=== PATIENT | female | born 1995 | race Caucasian/White ===

== ENCOUNTER 2020-03-24 20:26 | Emergency (ER) | payer MEDICAID, SELFPAY ==
[2020-03-24 21:05] VITALS: BP 128/70; PULSE 104; RESP 14; TEMP 37.2; O2SAT 100; BMI 31.1
[2020-03-24 21:25] VITALS: O2SAT 99
--- NOTE | 2020-03-24 21:38 | ECG_ITS ---
Test Reason : PALPITATIONS Blood Pressure : / mmHG Vent. Rate : 093 BPM Atrial Rate : 093 BPM P-R Int : 122 ms QRS Dur : 094 ms QT Int : 336 ms P-R-T Axes : 060 060 047 degrees QTc Int : 417 ms Normal sinus rhythm with sinus arrhythmia Normal ECG When compared with ECG of 18-DEC-2019 23:42, No significant change was found Referred By: Rolf Chavis Electronically Signed By:KATYA PAULSON MD
--- NOTE | 2020-03-24 21:40 | ED_ITS ---
HPI - General Adult General Chief complaint: Upper Respiratory Symptoms Stated complaint: PALPITATIONS,FEVER,COUGH Time Seen by Provider: 03/24/20 21:17 History of Present Illness HPI narrative: 24-year-old female who presents to the emergency department for evaluation palpitations and flu-like symptoms. The patient states that she has a history of depression and was started on Wellbutrin approximately 3 weeks prior. She states that over the last 2 weeks she has developed a fast heart rate and palpitations. She states that her heart rate can go up to 120-130 beats per minute. She states that she can feel her pulse in her neck. She also can feel pressure in her chest when her heart is beating fast. She states that over the last several days she has also had skipped beats. She states that she gets episodes 2 to 3 times a day and they can last anywhere from 15 minutes to 2 hours. The patient states that she recently traveled to [place] with a colleague who had a COVID-19 exposure. The patient states that over the past several days she has had a cough which is nonproductive, a sore throat, nausea, fatigue. She denies myalgias, arthralgias, loss of sense of taste or smell or diarrhea. The patient did speak to her PCP who advised her to go to the emergency department for evaluation. Related Data Allergies Allergy/AdvReac Type Severity Reaction Status Date / Time Iodinated Contrast Media Allergy Severe RASH, ABD Verified 03/24/20 21:13 [CONTRAST,IV] PAINS, BODY FEELS LIKE ON FIRE go Allergy Severe AIRWAY Unverified 01/08/20 16:28 CLOSES shellfish derived Allergy Severe ANAPHYLAXIS Unverified 01/08/20 16:28 [SHELLFISH DERIVED] Sulfa (Sulfonamide Allergy Severe RASH Unverified 01/08/20 16:28 Antibiotics) [SULFA (SULFONAMIDE ANTIBIOTICS)] diphenhydramine Allergy Intermediate PANIC Unverified 01/08/20 16:28 [From BENADRYL] ATTACK hazelnut [HAZELNUT] Allergy Intermediate THROAT Unverified 01/08/20 16:28 IRRITATION [place] Allergy Unknown throat Unverified 03/26/18 00:00 swell ondansetron Allergy Unknown migraine Unverified 01/08/20 16:28 [From ZOFRAN ( HYDROCHLORIDE)] pomegranate [POMEGRANATE] Allergy Unknown DIFFICULTY Unverified 01/08/20 16:28 BREATHING prazosin [PRAZOSIN] Allergy Unknown UNKNOWN Unverified 01/08/20 16:28 topiramate [From TOPAMAX] AdvReac Intermediate AGITATION Unverified 01/08/20 16:28 Aloe Allergy Unknown swelling Uncoded 03/26/18 00:00 IVP Dye Allergy Unknown Unknown Uncoded 03/24/20 21:13 Pomegranite Allergy Unknown Unknown Uncoded 03/24/20 21:13 Shellfish Allergy Unknown Unknown Uncoded 03/24/20 21:13 shellfish Allergy Unknown throat Uncoded 03/26/18 00:00 swelling sulfa Allergy Unknown Unknown Uncoded 03/24/20 21:13 topamax Allergy Unknown Unknown Uncoded 03/24/20 21:13 Review of Systems Review of Systems: Yes all other systems are reviewed and are negative Constitutional: Constitutional: Reports as per HPI Eyes: Eyes: Reports as per HPI ENT: Reports as per HPI Cardiovascular: Cardiovascular: Reports as per HPI Respiratory: Respiratory: Reports as per HPI Gastrointestinal: Gastrointestinal: Reports as per HPI Genitourinary: Genitourinary: Reports as per HPI Musculoskeletal: Musculoskeletal: Reports as per HPI Integumentary/Breasts: Skin/Breast: Reports as per HPI Neurologic: Reports as per HPI and Reports Abnormal speech present Psychiatric: Psychiatric: Reports as per HPI Allergic/Immunologic: Allergic/Immunologic: Reports as per HPI PMFSH Past Medical History Medical History Anxiety Borderline personality disorder Migraines PTSD (post-traumatic stress disorder) Social History Social History Alcohol intake: never Smoked in Last 30 Days: No Use of substances other than those prescribed or required for medical reasons: No Advance Directives: No Advance Directives Information Provided: No Physical Exam Vital Signs: Vital Signs: Last Vital Signs Temp 98.7 F 03/24/20 22:28 Pulse 97 03/24/20 22:28 Resp 16 03/24/20 22:28 BP 115/71 03/24/20 22:28 Pulse Ox 99 03/24/20 22:28 Body Mass Index 31.1 Const: General: cooperative, no acute distress, alert and awake Orientation/consciousness: oriented to person and oriented to place Limitations: no limitations HENMT: Head: Yes normal to inspection, Yes normocephalic and Yes atraumatic Ears: external ears normal General nose exam: Normal external nose present Face and sinus: Yes normal facial exam Mouth: Normal oral and palatal mucosa present Throat: Yes posterior oropharynx normal Eyes: General: appearance normal, both eyes and all related structures Pe riorbital: periorbital findings normal Eyelids: Yes eyelids normal Conjunctivae: conjunctivae normal Sclerae: sclerae normal Corneas: corneas normal Pupils: Equal, round and reactive pupils present Direct Ophthalmo scopy: normal light reflex Neck: Neck: Yes normal visual inspection and Yes supple Thyroid: Thyroid normal and nontender Lymphatic: no lymphadenopathy noted Chest: Chest palpation & inspection: normal inspection of the chest and tenderness (Anterior chest) Resp: Effort & Inspection: normal respiratory effort, abnormal respiratory pattern, no audible wheezes and no respiratory distress Auscultation: clear to auscultation bilaterally, no crackles, no rales, no rhonchi and no wheezes Cardio: Rate: regular rate Rhythm: regular rhythm Heart sounds: S1 normal heart sound present, S2 normal heart sound present and Murmur heart sound present GI: Inspection: No distended Palpation (GI): Soft to palpation, nontender, no guarding and No hepatosplenomegaly present Auscultation: normal bowel sounds : General: Yes no CVA tenderness Back/Spine/Pelvis: Back: no CVA tenderness Skin: General skin exam: no rashes or lesions noted Lesions: no lesions Rashes: no rashes Wounds: no wounds Neuro: General: oriented to person and oriented to place Cranial nerves: Yes CN's II-XII intact bilaterally and Yes Equal, round and reactive pupils present Cognition (Neuro): normal cognition Speech: Abnormal speech present Motor exam (neuro): 5/5 motor strength present throughout Extrem: General: Yes normal to inspection, Yes full ROM, Yes no pedal edema and Yes no calf tenderness Psych: Appearance: grossly normal Mental Status: mental status grossly normal Speech and movement: Clear speech present Affect: normal affect Thought process: Normal thought process present Course Course Course Narrative: 24-year-old female who presents emergency department for evaluation fast heart rate, palpitations and flu-like illness. The patient's physical examination did reveal an elevated pulse of 104 with a normal respiratory rate and normal O2 saturation 100% on room air. Patient was also afebrile with a temperature of 98.9?. I did order a palpitation workup on the patient including troponin and TSH. The patient will also be tested for COVID- 19. 2339: The patient's laboratory evaluation was normal including a normal TSH. The patient's COVID-19 test was negative. I did discuss these findings with the patient. I suspect that the patient's palpitations may be related to the Well butrin that was started 3 weeks prior and I did discuss this with her. The patient was advised to talk to her doctor tomorrow to discuss further management with Wellbutrin. The patient states in the past, she has also been on propanolol to help with palpitations and anxiety and I told her that she should discuss this with her prescribing psychiatric provider. She was given printed instructions and discharged home. Medical Decision Making Lab Data Result diagrams: 03/24/20 22:01 03/24/20 22:01 Labs: Lab Results 03/24/20 03/24/20 03/24/20 Range/Units 22:01 22:01 22:01 WBC 7.7 (4.8-10.8) X10*3/uL RBC 4.73 (4.20-5.50) X10*6/uL Hgb 13.4 (12.0-16.0) g/dl Hct 39.7 (37-47) % MCV 83.9 (80-98) fL MCH 28.3 (27.0-33.0) pg MCHC 33.8 (31.0-35.0) g/dl RDW 12.0 (11.0-16.0) % Plt Count 281 (160-400) X10*3/uL MPV 9.0 L (9.4-12.3) fL Immature Gran % (Auto) 0.1 (0.0-0.4) % Neut % (Auto) 66.2 (45-73) % Lymph % (Auto) 23.2 (20-40) % Richardson % (Auto) 7.2 (2-11) % Eos % (Auto) 2.9 (0-4) % Baso % (Auto) 0.4 (0-2) % Lymph # (Auto) 1.8 (1.2-4.9) X10*3/uL Richardson # (Auto) 0.6 (0.1-1.2) X10*3/uL Eos # (Auto) 0.2 (0.0-0.4) X10*3/uL Baso # (Auto) 0.0 (0.0-0.2) X10*3/uL Abs Immat Gran (auto) 0.01 (0.00-0.03) X10*3/uL Absolute Neuts (auto) 5.1 (2.0-8.3) X10*3/uL Absolute Nucleated RBC 0.000 (0.0-0.012) X10*3/uL Nucleated RBC % (auto) 0.0 (0.0-0.2) /100WBC Hold Blue Top SEE NOTE Sodium (135-145) mmol/L Potassium (3.3-5.1) mmol/l Chloride (96-108) mmol/L Carbon Dioxide (22-29) mmol/L Anion Gap (12-20) BUN (9-16) mg/dL Creatinine (0.5-1.4) mg/dL Estim Creat Clear Calc Estimated GFR Random Glucose (60-115) mg/dL Calcium (8.4-10.2) mg/dL Total Bilirubin (0.0-1.0) mg/dL Direct Bilirubin (0.0-0.5) mg/dL AST (5-31) U/L ALT (0-31) U/L Alkaline Phosphatase (39-117) U/L Troponin I High Sens (<3.5-17.0) ng/L Total Protein (6.5-8.0) g/dL Albumin (3.5-5.0) g/dL TSH 1.10 (0.32-4.0) mIU/mL COVID-19 ([facility]) (Negative) COVID-19 Clin Com 03/24/20 03/24/20 03/24/20 Range/Units 22:01 22:01 22:01 WBC (4.8-10.8) X10*3/uL RBC (4.20-5.50) X10*6/uL Hgb (12.0-16.0) g/dl Hct (37-47) % MCV (80-98) fL MCH (27.0-33.0) pg MCHC (31.0-35.0) g/dl RDW (11.0-16.0) % Plt Count (160-400) X10*3/uL MPV (9.4-12.3) fL Immature Gran % (Auto) (0.0-0.4) % Neut % (Auto) (45-73) % Lymph % (Auto) (20-40) % Richardson % (Auto) (2-11) % Eos % (Auto) (0-4) % Baso % (Auto) (0-2) % Lymph # (Auto) (1.2-4.9) X10*3/uL Richardson # (Auto) (0.1-1.2) X10*3/uL Eos # (Auto) (0.0-0.4) X10*3/uL Baso # (Auto) (0.0-0.2) X10*3/uL Abs Immat Gran (auto) (0.00-0.03) X10*3/uL Absolute Neuts (auto) (2.0-8.3) X10*3/uL Absolute Nucleated RBC (0.0-0.012) X10*3/uL Nucleated RBC % (auto) (0.0-0.2) /100WBC Hold Blue Top Sodium 139 (135-145) mmol/L Potassium 3.8 (3.3-5.1) mmol/l Chloride 105 (96-108) mmol/L Carbon Dioxide 26 (22-29) mmol/L Anion Gap 12 (12-20) BUN 14 (9-16) mg/dL Creatinine 0.67 (0.5-1.4) mg/dL Estim Creat Clear Calc 148.1 Estimated GFR > 60 Random Glucose 82 (60-115) mg/dL Calcium 9.1 (8.4-10.2) mg/dL Total Bilirubin 0.5 (0.0-1.0) mg/dL Direct Bilirubin 0.2 (0.0-0.5) mg/dL AST 12 (5-31) U/L ALT 9 (0-31) U/L Alkaline Phosphatase 55 (39-117) U/L Troponin I High Sens < 3.5 (<3.5-17.0) ng/L Total Protein 6.9 (6.5-8.0) g/dL Albumin 4.2 (3.5-5.0) g/dL TSH (0.32-4.0) mIU/mL COVID-19 ([facility]) (Negative) COVID-19 Clin Com 03/24/20 Range/Units 22:01 WBC (4.8-10.8) X10*3/uL RBC (4.20-5.50) X10*6/uL Hgb (12.0-16.0) g/dl Hct (37-47) % MCV (80-98) fL MCH (27.0-33.0) pg MCHC (31.0-35.0) g/dl RDW (11.0-16.0) % Plt Count (160-400) X10*3/uL MPV (9.4-12.3) fL Immature Gran % (Auto) (0.0-0.4) % Neut % (Auto) (45-73) % Lymph % (Auto) (20-40) % Richardson % (Auto) (2-11) % Eos % (Auto) (0-4) % Baso % (Auto) (0-2) % Lymph # (Auto) (1.2-4.9) X10*3/uL Richardson # (Auto) (0.1-1.2) X10*3/uL Eos # (Auto) (0.0-0.4) X10*3/uL Baso # (Auto) (0.0-0.2) X10*3/uL Abs Immat Gran (auto) (0.00-0.03) X10*3/uL Absolute Neuts (auto) (2.0-8.3) X10*3/uL Absolute Nucleated RBC (0.0-0.012) X10*3/uL Nucleated RBC % (auto) (0.0-0.2) /100WBC Hold Blue Top Sodium (135-145) mmol/L Potassium (3.3-5.1) mmol/l Chloride (96-108) mmol/L Carbon Dioxide (22-29) mmol/L Anion Gap (12-20) BUN (9-16) mg/dL Creatinine (0.5-1.4) mg/dL Estim Creat Clear Calc Estimated GFR Random Glucose (60-115) mg/dL Calcium (8.4-10.2) mg/dL Total Bilirubin (0.0-1.0) mg/dL Direct Bilirubin (0.0-0.5) mg/dL AST (5-31) U/L ALT (0-31) U/L Alkaline Phosphatase (39-117) U/L Troponin I High Sens (<3.5-17.0) ng/L Total Protein (6.5-8.0) g/dL Albumin (3.5-5.0) g/dL TSH (0.32-4.0) mIU/mL COVID-19 ([facility]) Negative (Negative) COVID-19 Clin Com See Note Discharge Plan Discharge Clinical Impression: Palpitation, Upper respiratory infection, viral Patient Disposition: Home, Self-Care Instructions: Heart Palpitations (ED), Cold Symptoms (ED) Additional Instructions: Your blood work was normal including a normal TSH. Your COVID-19 test was negative. At this time I suspect that you probably have an upper respiratory infection caused by a different virus than the COVID-19 virus. I am concerned that the palpitations may be related to Wellbutrin. Do not stop this medication until you discuss your symptoms with your prescribing psychiatric provider. him. Follow-up with your doctor in 2 days. Please return to the emergency department if her symptoms get worse or if you develop any symptoms that are concerning to Referrals: Abdoulaye Ball MD [Primary Care Provider] - 2 days
[2020-03-24 22:00] VITALS: PULSE 93; RESP 16
[2020-03-24 22:08] LABS: Basophils Percent Auto 0.4 % (0-2); Eosinophils Absolute Auto 0.2 X10*3/uL (0.0-0.4); Eosinophils Percent Auto 2.9 % (0-4); Hematocrit 39.7 % (37-47); Hemoglobin 13.4 g/dl (12.0-16.0); Imm Gran Abs Auto 0.01 X10*3/uL (0.00-0.03); Imm Gran Pct Auto 0.1 % (0.0-0.4); Lymphocytes Absolute Auto 1.8 X10*3/uL (1.2-4.9); Lymphocytes Percent Auto 23.2 % (20-40); MANUAL DIFF FLAG NO; Mean Corpuscular HGB Conc 33.8 g/dl (31.0-35.0); Mean Corpuscular Hemoglobin 28.3 pg (27.0-33.0); Mean Corpuscular Volume 83.9 fL (80-98); Monocytes Absolute Auto 0.6 X10*3/uL (0.1-1.2); Monocytes Percent Auto 7.2 % (2-11); Neutrophils Absolute Auto 5.1 X10*3/uL (2.0-8.3); Neutrophils Percent Auto 66.2 % (45-73); Platelet Count 281 X10*3/uL (160-400); Red Blood Count 4.73 X10*6/uL (4.20-5.50); White Blood Count 7.7 X10*3/uL (4.8-10.8)
[2020-03-24 22:24] LABS: COVID-19 Test Negative (Negative); IDNOW Serial# 9DD0AD1C
[2020-03-24 22:28] VITALS: BP 115/71; PULSE 100; PULSE 97; RESP 16; TEMP 37.1; O2SAT 99
[2020-03-24 22:31] LABS: Anion Gap 12 (12-20); Blood Urea Nitrogen 14 mg/dL (9-16); Calcium 9.1 mg/dL (8.4-10.2); Carbon Dioxide 26 mmol/L (22-29); Chloride 105 mmol/L (96-108); Creatinine Clr Calc Pharmacy 148.1; Estimated Glomerular Filt Rate > 60; Glucose Random 82 mg/dL (60-115); Potassium 3.8 mmol/l (3.3-5.1); Sodium 139 mmol/L (135-145)
[2020-03-24 22:33] LABS: Alanine Aminotransferase 9 U/L (0-31); Albumin Level 4.2 g/dL (3.5-5.0); Alkaline Phosphatase 55 U/L (39-117); Aspartate Amino Transferase 12 U/L (5-31); Bilirubin Direct 0.2 mg/dL (0.0-0.5); Bilirubin Total 0.5 mg/dL (0.0-1.0); Total Protein 6.9 g/dL (6.5-8.0)
[2020-03-24 22:37] LABS: Troponin-I High Sensitivity < 3.5 ng/L (<3.5-17.0)
--- NOTE | 2020-03-24 23:01 | PC.NURSE ---
Pt tolerating food and liquid, no apparent distress. pending re-eval
== END 2020-03-25 00:14 | disposition home or self-care (01) ==
PROVIDERS: Emergency Provider Emergency Medicine Emergency Medical Services; PCP Family Medicine
DX: J06.9 Acute upper respiratory infection, unspecified (principal); R00.2 Palpitations; R50.9 Fever, unspecified; R05 Cough; Z20.828 Contact with and (suspected) exposure to other viral communicable diseases
CPT/HCPCS: 36415; 80048; 80076; 84443; 84484; 85025; 87635; 93005; 99284; 99285

== ENCOUNTER 2020-05-28 16:06 | Emergency (ER) | payer MEDICAID, SELFPAY ==
--- NOTE | ~2020-05-28 | XR_ITS ---
EXAMINATION: XR SINUSES CLINICAL INFORMATION: Sinusitis. COMPARISON: None TECHNIQUE: 4 views of the sinuses were obtained. FINDINGS: Paranasal sinuses appear clear without air-fluid levels. No fractures are identified. No radiodense foreign bodies. XR/XR sinus min 3V IMPRESSION: Unremarkable examination.
[2020-05-28 16:59] VITALS: BP 128/74; PULSE 99; RESP 14; TEMP 36.8; O2SAT 100; BMI 29.7
[2020-05-28] MEDS: Acetaminophen 325 MG TABLET 650 MG PO (18:26)
--- NOTE | 2020-05-28 19:33 | ED_ITS ---
HPI - Headache General Chief Complaint: Headache Stated Complaint: jaw pain Time Seen by Provider: 05/28/20 19:33 Source: patient Mode of arrival: ambulatory Limitations: no limitations History of Present Illness HPI Narrative: Patient complaining of bilateral TMJ joints jaw pain for last 1 week patient very anxious with multiple complaints also has chronic sinus infections no fever known face swelling no history of cavities Related Data Allergies Allergy/AdvReac Type Severity Reaction Status Date / Time Iodinated Contrast Media Allergy Severe RASH, ABD Verified 03/24/20 21:13 [CONTRAST,IV] PAINS, BODY FEELS LIKE ON FIRE shubham Allergy Severe AIRWAY Unverified 01/08/20 16:28 CLOSES shellfish derived Allergy Severe ANAPHYLAXIS Unverified 01/08/20 16:28 [SHELLFISH DERIVED] Sulfa (Sulfonamide Allergy Severe RASH Unverified 01/08/20 16:28 Antibiotics) [SULFA (SULFONAMIDE ANTIBIOTICS)] diphenhydramine Allergy Intermediate PANIC Unverified 01/08/20 16:28 [From BENADRYL] ATTACK hazelnut [HAZELNUT] Allergy Intermediate THROAT Unverified 01/08/20 16:28 IRRITATION [place] Allergy Unknown throat Unverified 03/26/18 00:00 swell ondansetron Allergy Unknown migraine Unverified 01/08/20 16:28 [From ZOFRAN ( HYDROCHLORIDE)] pomegranate [POMEGRANATE] Allergy Unknown DIFFICULTY Unverified 01/08/20 16:28 BREATHING prazosin [PRAZOSIN] Allergy Unknown UNKNOWN Unverified 01/08/20 16:28 topiramate [From TOPAMAX] AdvReac Intermediate AGITATION Unverified 01/08/20 16:28 Aloe Allergy Unknown swelling Uncoded 03/26/18 00:00 IVP Dye Allergy Unknown Unknown Uncoded 03/24/20 21:13 Pomegranite Allergy Unknown Unknown Uncoded 03/24/20 21:13 Shellfish Allergy Unknown Unknown Uncoded 03/24/20 21:13 shellfish Allergy Unknown throat Uncoded 03/26/18 00:00 swelling sulfa Allergy Unknown Unknown Uncoded 03/24/20 21:13 topamax Allergy Unknown Unknown Uncoded 03/24/20 21:13 Review of Systems Review of Systems: Yes all other systems are reviewed and are negative PMFSH Past Medical History Medical History Anxiety Borderline personality disorder Migraines PTSD (post-traumatic stress disorder) Social History Social History Alcohol intake: never Smoking Status: Never smoker Smoked in Last 30 Days: No Use of substances other than those prescribed or required for medical reasons: No Advance Directives: No Advance Directives Information Provided: Yes Physical Exam Vital Signs: Vital Signs: Last Vital Signs Temp 98.4 F 05/28/20 20:00 Pulse 96 05/28/20 20:00 Resp 16 05/28/20 20:00 BP 131/70 05/28/20 20:00 Pulse Ox 99 05/28/20 20:00 Body Mass Index 29.7 Const: General: comfortable, no acute distress and anxious Orientation/consciousness: patient oriented x3 HENMT: Head: Yes normocephalic and Yes atraumatic Ears: hearing grossly normal bilaterally General nose exam: Normal nares present Face and sinus: Yes normal facial exam, Yes sinus tenderness (Bilateral maxillary??) and Yes Facial tenderness on exam of face and sinuses (Bilateral TMJ) Mouth: Normal oral and palatal mucosa present Teeth and gingiva: dentition normal and no caries Throat: Yes posterior oropharynx normal Resp: Effort & Inspection: normal respiratory effort Auscultation: clear to auscultation bilaterally Cardio: Palpation: normal PMI Rate: regular rate Rhythm: regular rhythm Heart sounds: S1 normal heart sound present and S2 normal heart sound present Neuro: General: patient oriented x3 MDM - Headache MDM Narrative Medical decision making narrative: Patient x-ray negative for any acute sinusitis symptoms likely from TMJ/anxiety Lab Data Attestation: I reviewed the patient's lab results. Labs: Lab Results 05/28/20 Range/Units 20:14 POC Glucose 83 (60-115) mg/dL Discharge Plan Discharge Clinical Impression: TMJ arthralgia Qualifiers: Laterality: bilateral Qualified Code(s): M26.623 - Arthralgia of bilateral temporomandibular joint Patient Disposition: Home, Self-Care Instructions: Temporomandibular Disorder (ED) Additional Instructions: Take Tylenol/ibuprofen for pain follow-up with dentist Interventions: ED Discharge Assessment Last Done: 05/28/20 21:18 Discharge Date/Time: 05/28/20 21:18
[2020-05-28 20:00] VITALS: BP 131/70; PULSE 96; RESP 16; TEMP 36.9; O2SAT 99
[2020-05-28 20:24] LABS: Glucose, Whole Blood 83 mg/dL (60-115)
--- NOTE | 2020-05-28 20:47 | PC.NURSE ---
PATIENT INSISTING ON HAVING SOMETHING TO EAT BEFORE IMAGING . STATING SHE WILL PASS OUT CAUSE OF LOW BLOOD SUGAR. BLOOD SUGAR TAKEN AND REPORTED TO THIS NURSE AND PROVIDER. PATIENT STATING IN TO MUCH PAIN TO EAT. BUT HAVING NO ISSUE EATING A CHEESE STICK AND JUICE WITH NO DIFFICULTY. AWAITING FOR IMAGING
== END 2020-05-28 21:18 | disposition home or self-care (01) ==
PROVIDERS: Emergency Provider Internal Medicine; PCP Family Medicine
DX: M26.623 Arthralgia of bilateral temporomandibular joint (principal)
CPT/HCPCS: 70220; 82947; 99283; 99284

== ENCOUNTER 2020-07-03 20:37 | Emergency (ER) | payer MEDICAID, SELFPAY ==
--- NOTE | ~2020-07-03 | CT_ITS ---
EXAMINATION: CT ABDOMEN AND PELVIS WITHOUT CONTRAST CLINICAL INFORMATION: Right-sided flank pain. COMPARISON: CT abdomen pelvis 06/09/2016 TECHNIQUE: Multidetector volumetric imaging was performed from the superior aspect of the liver through the pubic symphysis. Sagittal and coronal reformatted images were obtained on the technologist's workstation. This CT examination was performed using dose optimization techniques as appropriate, variously including the following: *Automated exposure control *Adjustment of mA and/or kV according to patient size (this includes techniques or standardized protocols for targeted exams where dose is matched to indication/reason for exam; i.e. extremities or head) *Use of iterative reconstruction technique DLP: 588 mGy-cm FINDINGS: LUNG BASES: The visualized lung bases are unremarkable. LIVER, GALLBLADDER, AND BILIARY TREE: The liver is normal in size, shape, and attenuation. No focal hepatic lesion or biliary ductal dilatation is present. The gallbladder is contracted. There is no bile duct dilatation. PANCREAS: Unremarkable. SPLEEN: Unremarkable. ADRENAL GLANDS: Unremarkable. KIDNEYS AND URETERS: The kidneys are normal in size, shape, and attenuation. No hydronephrosis, hydroureter, or calculi seen. No perinephric stranding. BLADDER: Unremarkable. GASTROINTESTINAL TRACT: There is no acute abnormality. There is no bowel wall thickening /edema. There is no bowel obstruction. There is a moderate to large volume of stool in the colon. The appendix is normal . The small bowel loops are unremarkable. The stomach is normal. There is no hiatal hernia. ABDOMINAL WALL: No significant hernia is appreciated. LYMPH NODES: No change in the size and number of scattered subcentimeter lymph nodes since prior CAT scan 06/09/2016. There is no bulky lymphadenopathy. VASCULAR: Unremarkable. PELVIC VISCERA: The uterus is retroverted. There is no adnexal abnormality. There is a small volume of fluid in the cul-de-sac which can be physiologic. OSSEOUS STRUCTURES: Unremarkable. CT/CT abdomen pelvis wo con IMPRESSION: No significant abnormality.
[2020-07-03 20:40] VITALS: BP 122/65; PULSE 99; RESP 16; TEMP 37.1; O2SAT 98; BMI 29.7
--- NOTE | 2020-07-03 20:59 | ED_ITS ---
HPI - Back Pain/Injury General Chief Complaint: Back Pain/Injury Stated Complaint: BACK PAIN,LOSS OF BALANCE Time Seen by Provider: 07/03/20 20:58 Source: patient Mode of arrival: EMS Limitations: no limitations History of Present Illness HPI Narrative: Patient no significant back problems in the past been having pain especially on the right flank area for last 3 days getting worse now patient feels pain is sharp intermittent getting worse with slight nausea denies any trauma no urinary complaints also feels pain in the legs no urine incontinence denies any dysuria or blood in the urine MD elicited complaint: back pain Onset (ago): day(s) (3) Related Data Previous Rx's Medication Instructions Recorded tramadol 50 mg PO Q6H PRN #20 tab 07/03/20 Allergies Allergy/AdvReac Type Severity Reaction Status Date / Time Iodinated Contrast Media Allergy Severe RASH, ABD Verified 07/03/20 20:46 [CONTRAST,IV] PAINS, BODY FEELS LIKE ON FIRE shubham Allergy Severe AIRWAY Unverified 07/03/20 20:46 CLOSES shellfish derived Allergy Severe ANAPHYLAXIS Unverified 07/03/20 20:46 [SHELLFISH DERIVED] Sulfa (Sulfonamide Allergy Severe RASH Unverified 07/03/20 20:46 Antibiotics) [SULFA (SULFONAMIDE ANTIBIOTICS)] diphenhydramine Allergy Intermediate PANIC Unverified 07/03/20 20:46 [From BENADRYL] ATTACK hazelnut [HAZELNUT] Allergy Intermediate THROAT Unverified 07/03/20 20:46 IRRITATION [place] Allergy Unknown throat Unverified 07/03/20 20:46 swell ondansetron Allergy Unknown migraine Unverified 07/03/20 20:46 [From ZOFRAN ( HYDROCHLORIDE)] pomegranate [POMEGRANATE] Allergy Unknown DIFFICULTY Unverified 07/03/20 20:46 BREATHING prazosin [PRAZOSIN] Allergy Unknown UNKNOWN Unverified 07/03/20 20:46 topiramate [From TOPAMAX] AdvReac Intermediate AGITATION Unverified 07/03/20 20:46 Aloe Allergy Unknown swelling Uncoded 07/03/20 20:46 IVP Dye Allergy Unknown Unknown Uncoded 07/03/20 20:46 Pomegranite Allergy Unknown Unknown Uncoded 07/03/20 20:46 Shellfish Allergy Unknown Unknown Uncoded 07/03/20 20:46 shellfish Allergy Unknown throat Uncoded 07/03/20 20:46 swelling sulfa Allergy Unknown Unknown Uncoded 07/03/20 20:46 topamax Allergy Unknown Unknown Uncoded 07/03/20 20:46 Review of Systems Review of Systems: Constitutional : No Weight loss, No Fever, No Chills ENT/Mouth : No sore throat, No Rhinorrhea Eyes: No Eye Pain, No Swelling Cardiovascular : No Chest Pain, no palpitations Respiratory : No Cough, No Sputum, no shortness of breath Gastrointestinal : no Nausea, No Vomiting, No Diarrhea, No abdominal Pain, no black stools Genitourinary : No Dysuria, No Urinary Frequency Musculoskeletal : No joint pain, No Myalgias, No Joint Swelling Skin : No Skin Lesions, No rash Neuro : No Weakness, No Numbness, No Dizziness, No Headache Psych : No Anxiety/Panic, No Depression Heme/Lymph: No Bruising, No Lymphadenopathy Endocrine : No Polyuria, No Polydipsia All other systems reviewed and are negative [facility] Past Medical History Medical History Anxiety Borderline personality disorder Migraines PTSD (post-traumatic stress disorder) Social History Social History Alcohol intake: never Smoking Status: Never smoker Advance Directives: No Physical Exam Vital Signs: Vital Signs: Last Vital Signs Temp 98.0 F 07/03/20 22:00 Pulse 89 07/03/20 22:00 Resp 16 07/03/20 22:00 BP 110/64 07/03/20 22:00 Pulse Ox 99 07/03/20 22:00 Body Mass Index 29.7 Appearance: Alert. Oriented X3. No acute distress. Eyes: Pupils equal, round and reactive to light. ENT: Pharynx normal. Neck: Normal inspection. Neck supple. CVS: Normal heart rate and rhythm. Pulses normal. Respiratory: No respiratory distress. Breath sounds normal. Abdomen: Soft and nontender. Bowel sounds are present, no mass palpable, right CVA tenderness ++ Skin: Skin warm and dry. Normal skin color. Normal skin turgor. Back: Right CVA tenderness: No midline spine tenderness, paraspinal spasm present Extremities: No lower extremity edema. Straight leg raising test negative Neuro: Oriented X 3. No motor deficit. No sensory deficit. MDM - Back Pain/Injury MDM Narrative Medical decision making narrative: Patient with right flank pain workup is negative for any UTI or kidney stone CT scan essentially negative for any acute pathology or stone will discharge patient home on pain medication Differential Diagnosis Differential diagnosis: Likely renal colic Medical Records Attestation: I reviewed the patient's medical records. Lab Data Attestation: I reviewed the patient's lab results. Result diagrams: 07/03/20 21:41 07/03/20 21:41 Labs: Lab Results 07/03/20 07/03/20 07/03/20 Range/Units 21:41 21:41 21:41 WBC 8.0 (4.8-10.8) X10*3/uL RBC 4.85 (4.20-5.50) X10*6/uL Hgb 14.4 (12.0-16.0) g/dl Hct 42.1 (37-47) % MCV 86.8 (80-98) fL MCH 29.7 (27.0-33.0) pg MCHC 34.2 (31.0-35.0) g/dl RDW 12.5 (11.0-16.0) % Plt Count 299 (160-400) X10*3/uL MPV 9.0 L (9.4-12.3) fL Immature Gran % (Auto) 0.3 (0.0-0.4) % Neut % (Auto) 67.7 (45-73) % Lymph % (Auto) 22.4 (20-40) % [place] % (Auto) 6.9 (2-11) % Eos % (Auto) 2.1 (0-4) % Baso % (Auto) 0.6 (0-2) % Lymph # (Auto) 1.8 (1.2-4.9) X10*3/uL [place] # (Auto) 0.6 (0.1-1.2) X10*3/uL Eos # (Auto) 0.2 (0.0-0.4) X10*3/uL Baso # (Auto) 0.1 (0.0-0.2) X10*3/uL Abs Immat Gran (auto) 0.02 (0.00-0.03) X10*3/uL Absolute Neuts (auto) 5.4 (2.0-8.3) X10*3/uL Absolute Nucleated RBC 0.000 (0.0-0.012) X10*3/uL Nucleated RBC % (auto) 0.0 (0.0-0.2) /100WBC Sodium 141 (135-145) mmol/L Potassium 4.3 (3.3-5.1) mmol/L Chloride 106 (96-108) mmol/L Carbon Dioxide 26 (22-29) mmol/L Anion Gap 13 (12-20) BUN 13 (9-16) mg/dL Creatinine 1.08 (0.5-1.4) mg/dL Estim Creat Clear Calc 89.8 Estimated GFR > 60 Random Glucose 75 (60-115) mg/dL Calcium 9.6 (8.4-10.2) mg/dL Total Bilirubin 0.8 (0.0-1.0) mg/dL Direct Bilirubin 0.2 (0.0-0.5) mg/dL AST 13 (5-31) U/L ALT 8 (0-31) U/L Alkaline Phosphatase 55 (39-117) U/L Total Protein 7.6 (6.5-8.0) g/dL Albumin 4.7 (3.5-5.0) g/dL Lipase 61 (8-78) U/L Urine Color Urine Appearance Urine pH (5.0-8.0) Ur Specific [place] (1.005-1.025) Urine Protein (NEG-TRACE) MG/DL Urine Glucose (UA) (NEG) MG/DL Urine Ketones (NEG) MG/DL Urine Blood (NEG) Urine Nitrite (NEG) Ur Leukocyte Esterase (NEG) Urine RBC (0) /HPF Urine WBC (0-4) /HPF Ur Squamous Epith Cells /LPF Urine Bacteria /LPF Urine Yeast /HPF 07/03/20 Range/Units 21:41 WBC (4.8-10.8) X10*3/uL RBC (4.20-5.50) X10*6/uL Hgb (12.0-16.0) g/dl Hct (37-47) % MCV (80-98) fL MCH (27.0-33.0) pg MCHC (31.0-35.0) g/dl RDW (11.0-16.0) % Plt Count (160-400) X10*3/uL MPV (9.4-12.3) fL Immature Gran % (Auto) (0.0-0.4) % Neut % (Auto) (45-73) % Lymph % (Auto) (20-40) % [place] % (Auto) (2-11) % Eos % (Auto) (0-4) % Baso % (Auto) (0-2) % Lymph # (Auto) (1.2-4.9) X10*3/uL [place] # (Auto) (0.1-1.2) X10*3/uL Eos # (Auto) (0.0-0.4) X10*3/uL Baso # (Auto) (0.0-0.2) X10*3/uL Abs Immat Gran (auto) (0.00-0.03) X10*3/uL Absolute Neuts (auto) (2.0-8.3) X10*3/uL Absolute Nucleated RBC (0.0-0.012) X10*3/uL Nucleated RBC % (auto) (0.0-0.2) /100WBC Sodium (135-145) mmol/L Potassium (3.3-5.1) mmol/L Chloride (96-108) mmol/L Carbon Dioxide (22-29) mmol/L Anion Gap (12-20) BUN (9-16) mg/dL Creatinine (0.5-1.4) mg/dL Estim Creat Clear Calc Estimated GFR Random Glucose (60-115) mg/dL Calcium (8.4-10.2) mg/dL Total Bilirubin (0.0-1.0) mg/dL Direct Bilirubin (0.0-0.5) mg/dL AST (5-31) U/L ALT (0-31) U/L Alkaline Phosphatase (39-117) U/L Total Protein (6.5-8.0) g/dL Albumin (3.5-5.0) g/dL Lipase (8-78) U/L Urine Color COLORLESS Urine Appearance CLEAR Urine pH 7.0 (5.0-8.0) Ur Specific [place] 1.010 (1.005-1.025) Urine Protein NEG (NEG-TRACE) MG/DL Urine Glucose (UA) NEG (NEG) MG/DL Urine Ketones NEG (NEG) MG/DL Urine Blood NEG (NEG) Urine Nitrite NEG (NEG) Ur Leukocyte Esterase 1+ H (NEG) Urine RBC 0 (0) /HPF Urine WBC 0-2 (0-4) /HPF Ur Squamous Epith Cells 1+ /LPF Urine Bacteria TRACE /LPF Urine Yeast TRACE /HPF Discharge Plan Discharge Clinical Impression: Strain of lumbar region Patient Disposition: Home, Self-Care Instructions: Low Back Strain (ED) Additional Instructions: Apply ice to take pain medication as prescribed follow with PCP if not better your CT scan of the abdomen is negative for any kidney stone Prescriptions: New tramadol 50 mg tablet 50 mg PO Q6H PRN (Reason: pain) Qty: 20 RF: 0 Interventions: ED Discharge Assessment Last Done: 07/03/20 23:35 Discharge Date/Time: 07/03/20 23:36
--- NOTE | 2020-07-03 21:00 | PC.NURSE ---
at bedside for primary eval.
[2020-07-03] MEDS: Ketorolac Tromethamine 30 MG/ML VIAL IVPUSH (21:48)
[2020-07-03] MEDS: 0.9 % Sodium Chloride 1,000 ML 999 ML IVCONT (21:48)
--- NOTE | 2020-07-03 21:49 | PC.NURSE ---
IV established, labs and urine obtained and sent. Pt medicated per JUN, aware of plan to CT. Continue to monitor.
[2020-07-03 21:56] LABS: MANUAL DIFF FLAG NO
[2020-07-03 21:57] LABS: Basophils Absolute Auto 0.1 X10*3/uL (0.0-0.2); Basophils Percent Auto 0.6 % (0-2); Eosinophils Absolute Auto 0.2 X10*3/uL (0.0-0.4); Eosinophils Percent Auto 2.1 % (0-4); Hematocrit 42.1 % (37-47); Hemoglobin 14.4 g/dl (12.0-16.0); Imm Gran Abs Auto 0.02 X10*3/uL (0.00-0.03); Imm Gran Pct Auto 0.3 % (0.0-0.4); Lymphocytes Absolute Auto 1.8 X10*3/uL (1.2-4.9); Lymphocytes Percent Auto 22.4 % (20-40); Mean Corpuscular HGB Conc 34.2 g/dl (31.0-35.0); Mean Corpuscular Hemoglobin 29.7 pg (27.0-33.0); Mean Corpuscular Volume 86.8 fL (80-98); Monocytes Absolute Auto 0.6 X10*3/uL (0.1-1.2); Monocytes Percent Auto 6.9 % (2-11); Neutrophils Absolute Auto 5.4 X10*3/uL (2.0-8.3); Neutrophils Percent Auto 67.7 % (45-73); Platelet Count 299 X10*3/uL (160-400); Red Blood Count 4.85 X10*6/uL (4.20-5.50); Red Cell Distribution Width 12.5 % (11.0-16.0)
[2020-07-03 22:00] VITALS: BP 110/64; PULSE 89; RESP 16; TEMP 36.7; O2SAT 99
[2020-07-03 22:00] LABS: Glucose Urine UA NEG (NEG); Leukocyte Esterase Urine 1+ (NEG); Nitrite Urine NEG (NEG); UACC Culture Trigger YES; Urine Blood NEG (NEG); Urine Ketones NEG (NEG); Urine Protein NEG (NEG-TRACE)
--- NOTE | 2020-07-03 22:13 | PC.NURSE ---
Off to CT on hospital bed.
[2020-07-03 22:23] LABS: Appearance Urine CLEAR; Color Urine COLORLESS
[2020-07-03 22:25] LABS: Alanine Aminotransferase 8 U/L (0-31); Albumin Level 4.7 g/dL (3.5-5.0); Alkaline Phosphatase 55 U/L (39-117); Anion Gap 13 (12-20); Aspartate Amino Transferase 13 U/L (5-31); Bilirubin Direct 0.2 mg/dL (0.0-0.5); Bilirubin Total 0.8 mg/dL (0.0-1.0); Blood Urea Nitrogen 13 mg/dL (9-16); Calcium 9.6 mg/dL (8.4-10.2); Carbon Dioxide 26 mmol/L (22-29); Chloride 106 mmol/L (96-108); Creatinine Clr Calc Pharmacy 89.8; Estimated Glomerular Filt Rate > 60; Glucose Random 75 mg/dL (60-115); Potassium 4.3 mmol/L (3.3-5.1); Sodium 141 mmol/L (135-145); Total Protein 7.6 g/dL (6.5-8.0)
[2020-07-03 22:26] LABS: Lipase 61 U/L (8-78)
[2020-07-03 22:31] LABS: Bacteria Urine TRACE /LPF; RBC Urine 0 /HPF (0); Squamous Epithelial Cell Urine 1+ /LPF; WBC Urine 0-2 /HPF (0-4)
== END 2020-07-03 23:36 | disposition home or self-care (01) ==
PROVIDERS: Emergency Provider Internal Medicine
DX: S39.012A Strain of muscle, fascia and tendon of lower back, initial encounter (principal); X58.XXXA Exposure to other specified factors, initial encounter; Y93.9 Activity, unspecified; Y92.9 Unspecified place or not applicable; Y99.9 Unspecified external cause status
CPT/HCPCS: 36415; 74176; 80048; 80076; 81001; 81003; 83690; 85025; 87086; 96361; 96374; 99283; 99284; J1885

== ENCOUNTER 2020-09-06 23:50 | Emergency (ER) | payer MEDICAID, SELFPAY ==
--- NOTE | ~2020-09-06 | XR_ITS ---
EXAMINATION: XR CHEST CLINICAL INFORMATION: Cough COMPARISON: 05/18/2019 TECHNIQUE: 2 views of the chest were obtained. FINDINGS: The lungs are clear with no focal consolidation. No evidence of pneumothorax, pulmonary edema, or pleural effusions. The cardiomediastinal silhouette is unremarkable. No acute osseous findings. XR/XR chest 2V IMPRESSION: No acute cardiopulmonary findings.
--- NOTE | 2020-09-07 00:59 | ED.URI ---
HPI - URI/Sore Throat General Chief Complaint: Nausea/Vomiting/Diarrhea Stated Complaint: covid symptoms Time Seen by Provider: 09/07/20 00:15 Source: patient Mode of arrival: ambulatory Limitations: no limitations History of Present Illness HPI Narrative: 25 yo female with anxiety, migraines here with a couple of days of sore throat, nausea, loose stools, body aches, no known COVID exposures MD elicited complaint: sore throat Onset (ago): day(s) (2) Consistency: constant Severity: moderate Able to tolerate fluids by mouth: Yes Exacerbating factors: swallowing Relieving factors: nothing Associated symptoms: chills, myalgias, sore throat, nausea and diarrhea Treatments prior to arrival: none Related Data Previous Rx's Medication Instructions Recorded tramadol 50 mg PO Q6H PRN #20 tab 07/03/20 metoclopramide HCl [Reglan] 10 mg PO Q6H PRN #20 tab 09/07/20 Allergies Allergy/AdvReac Type Severity Reaction Status Date / Time Iodinated Contrast Media Allergy Severe RASH, ABD Verified 09/07/20 01:41 [CONTRAST,IV] PAINS, BODY FEELS LIKE ON FIRE shubham Allergy Severe AIRWAY Verified 09/07/20 01:41 CLOSES shellfish derived Allergy Severe ANAPHYLAXIS Verified 09/07/20 01:41 [SHELLFISH DERIVED] Sulfa (Sulfonamide Allergy Severe RASH Verified 09/07/20 01:41 Antibiotics) [SULFA (SULFONAMIDE ANTIBIOTICS)] diphenhydramine Allergy Intermediate PANIC Verified 09/07/20 01:41 [From BENADRYL] ATTACK hazelnut [HAZELNUT] Allergy Intermediate THROAT Verified 09/07/20 01:41 IRRITATION [place] Allergy Unknown throat Verified 09/07/20 01:41 swell ondansetron Allergy Unknown migraine Verified 09/07/20 01:41 [From ZOFRAN ( HYDROCHLORIDE)] pomegranate [POMEGRANATE] Allergy Unknown DIFFICULTY Verified 09/07/20 01:41 BREATHING prazosin [PRAZOSIN] Allergy Unknown UNKNOWN Verified 09/07/20 01:41 topiramate [From TOPAMAX] AdvReac Intermediate AGITATION Verified 09/07/20 01:41 propranolol AdvReac Unknown Verified 09/07/20 01:42 Aloe Allergy Unknown swelling Uncoded 09/07/20 01:41 IVP Dye Allergy Unknown Unknown Uncoded 09/07/20 01:41 Pomegranite Allergy Unknown Unknown Uncoded 09/07/20 01:41 Shellfish Allergy Unknown Unknown Uncoded 09/07/20 01:41 shellfish Allergy Unknown throat Uncoded 09/07/20 01:41 swelling sulfa Allergy Unknown Unknown Uncoded 09/07/20 01:41 topamax Allergy Unknown Unknown Uncoded 09/07/20 01:41 Review of Systems Review of Systems: Constitutional : no Fever, positive Chills, positive fatigue, positive Malaise ENT/Mouth : positive sore throat, positive runny nose Eyes: No Discharge Cardiovascular : No Chest Pain, No SOB Respiratory : No Cough, No Sputum Gastrointestinal : pos Nausea, No Vomiting, pos Diarrhea Genitourinary : No Dysuria, No Urinary Frequency Musculoskeletal : positive Myalgia Skin : No rash Neuro : No Headache PMFSH Past Medical History Attestation statement: The following information was validated with the patient. Medical History Anxiety Borderline personality disorder Migraines PTSD (post-traumatic stress disorder) Social History Social History Alcohol intake: never Smoking Status: Never smoker Advance Directives: No Advance Directives Information Provided: No Physical Exam Vital Signs: Vital Signs: Last Vital Signs Temp 98.4 F 09/07/20 01:23 Pulse 99 09/07/20 01:23 Resp 18 09/07/20 01:23 BP 122/78 09/07/20 01:23 Pulse Ox 98 09/07/20 01:23 Body Mass Index 29.7 Appearance: Alert. Oriented X3. No acute distress. Eyes: Pupils equal, round and reactive to light. ENT: Pharynx normal. Very mild erythema, no exudates, no sig swelling noted Neck: Normal inspection. Neck supple. CVS: Normal heart rate and rhythm. Pulses normal. Respiratory: No respiratory distress. Breath sounds normal. Abdomen: Soft and non-tender. Skin: Skin warm and dry. Normal skin color. Normal skin turgor. Extremities: No lower extremity edema. No calf ttp Neuro: Oriented X 3. No motor deficit. No sensory deficit. Course Course Course Narrative: not toxic, VS stable, given diflucan for reported yeast symptoms MDM - URI/Sore Throat MDM Narrative Medical decision making narrative: 25 yo female with hx of anxiety and migraines c/o body aches, sore throat, nausea and loose stools - at this time not toxic, reading a book, will give anti emetic, doubt strep throat very mild erythema COVID test ordered, denies concerns and symptoms, likely viral syndrome Lab Data Labs: Lab Results 09/07/20 09/07/20 09/07/20 Range/Units 01:25 01:33 01:33 Urine Color YELLOW Urine Appearance CLEAR Urine pH 6.0 (5.0-8.0) Ur Specific [place] 1.010 (1.005-1.025) Urine Protein NEG (NEG-TRACE) MG/DL Urine Glucose (UA) NEG (NEG) MG/DL Urine Ketones NEG (NEG) MG/DL Urine Blood NEG (NEG) Urine Nitrite NEG (NEG) Ur Leukocyte Esterase NEG (NEG) Urine Test NEGATIVE (NEGATIVE) COVID-19 (CLAUDE) Negative (Negative) COVID-19 Clin Com See Note Discharge Plan Discharge Clinical Impression: Acute viral syndrome, Yeast vaginitis Patient Disposition: Home, Self-Care Instructions: Acute Nausea and Vomiting (ED), Viral Syndrome (ED) Additional Instructions: return to ED for any worsening symptoms or concerns COVID swab was negative Prescriptions: New metoclopramide HCl [Reglan] 10 mg tablet 10 mg PO Q6H PRN (Reason: nausea and vomiting) Qty: 20 RF: 0 No Action tramadol 50 mg tablet 50 mg PO Q6H PRN (Reason: pain) Qty: 20 RF: 0 Referrals: Abdoulaye Ball MD [Primary Care Provider] - 2 days (if not better) Stand Alone Forms: Work/School Release
[2020-09-07 01:20] VITALS: BP 122/78; PULSE 97; RESP 18; TEMP 36.9; O2SAT 99; BMI 29.7
[2020-09-07 01:23] VITALS: BP 122/78; PULSE 99; RESP 18; TEMP 36.9; O2SAT 98
[2020-09-07 01:39] LABS: Glucose Urine UA NEG (NEG); Leukocyte Esterase Urine NEG (NEG); Nitrite Urine NEG (NEG); Urine Blood NEG (NEG); Urine Ketones NEG (NEG); Urine Protein NEG (NEG-TRACE)
[2020-09-07] MEDS: Metoclopramide HCl 5 MG TABLET PO (01:43)
[2020-09-07 01:45] LABS: Appearance Urine CLEAR; Color Urine YELLOW
[2020-09-07 01:47] LABS: UPreg QC Valid YES; Urine Pregnancy NEGATIVE (NEGATIVE)
[2020-09-07 01:58] LABS: COVID-19 Test Negative (Negative)
[2020-09-07] MEDS: Fluconazole 150 MG TABLET PO (02:34)
[2020-09-07 07:44] LABS: CT PCR NOT DETECTED (Not Detect.); NG PCR NOT DETECTED (Not Detect.)
== END 2020-09-07 02:49 | disposition home or self-care (01) ==
PROVIDERS: Emergency Provider Emergency Medicine; PCP Family Medicine
DX: B34.9 Viral infection, unspecified (principal); B37.3 Candidiasis of vulva and vagina; R11.2 Nausea with vomiting, unspecified; Z79.899 Other long term (current) drug therapy; Z20.822 Contact with and (suspected) exposure to COVID-19
CPT/HCPCS: 36415; 71046; 81003; 81025; 87491; 87591; 87635; 99284

== ENCOUNTER 2020-09-08 01:34 | Emergency (ER) | payer MEDICAID, SELFPAY ==
--- NOTE | ~2020-09-08 | XR_ITS ---
EXAMINATION: XR CHEST CLINICAL INFORMATION: Cough COMPARISON: 09/07/2020 TECHNIQUE: Frontal view of the chest was obtained. FINDINGS: The lungs are clear with no focal consolidation. No evidence of pneumothorax, pulmonary edema, or pleural effusions. The cardiomediastinal silhouette is unremarkable. No acute osseous findings. XR/XR chest 1V IMPRESSION: No acute cardiopulmonary findings.
--- NOTE | 2020-09-08 01:49 | ECG_ITS ---
Test Reason : CHEST PAIN Blood Pressure : / mmHG Vent. Rate : 097 BPM Atrial Rate : 097 BPM P-R Int : 118 ms QRS Dur : 080 ms QT Int : 336 ms P-R-T Axes : 058 027 038 degrees QTc Int : 426 ms Sinus rhythm with occasional Premature ventricular complexes Cannot rule out Anterior infarct , age undetermined Abnormal ECG When compared with ECG of 24-MAR-2020 22:17, Premature ventricular complexes are now Present Referred By: Karley Romero Electronically Signed By:KATYA PAULSON MD
[2020-09-08 01:50] VITALS: BP 128/86; PULSE 97; RESP 22; TEMP 36; O2SAT 100; BMI 29.7
--- NOTE | 2020-09-08 01:55 | ED.ARRPALP ---
HPI - Arrhythmia/Palpitations General Chief Complaint: Arrhythmia/Palpitations Stated Complaint: chest palpitations Time Seen by Provider: 09/08/20 01:48 Source: patient and EMS Mode of arrival: EMS Limitations: no limitations History of Present Illness HPI narrative: 25 yo female 1030pm pleuritic chest pain with palpitations, cough MD complaint: rapid heart beat, heart racing , skipped beats and palpitations Onset (ago): hour(s) (started around 1030pm) Duration: constant Severity: moderate Context: occurred during rest Arrhythmia history: other (hx of palpitations) Associated symptoms: chest pain, shortness of breath and anxiety Related Data Previous Rx's Medication Instructions Recorded tramadol 50 mg PO Q6H PRN #20 tab 07/03/20 metoclopramide HCl [Reglan] 10 mg PO Q6H PRN #20 tab 09/07/20 Allergies Allergy/AdvReac Type Severity Reaction Status Date / Time Iodinated Contrast Media Allergy Severe RASH, ABD Verified 09/07/20 01:41 [CONTRAST,IV] PAINS, BODY FEELS LIKE ON FIRE shubham Allergy Severe AIRWAY Verified 09/07/20 01:41 CLOSES shellfish derived Allergy Severe ANAPHYLAXIS Verified 09/07/20 01:41 [SHELLFISH DERIVED] Sulfa (Sulfonamide Allergy Severe RASH Verified 09/07/20 01:41 Antibiotics) [SULFA (SULFONAMIDE ANTIBIOTICS)] diphenhydramine Allergy Intermediate PANIC Verified 09/07/20 01:41 [From BENADRYL] ATTACK hazelnut [HAZELNUT] Allergy Intermediate THROAT Verified 09/07/20 01:41 IRRITATION [place] Allergy Unknown throat Verified 09/07/20 01:41 swell ondansetron Allergy Unknown migraine Verified 09/07/20 01:41 [From ZOFRAN ( HYDROCHLORIDE)] pomegranate [POMEGRANATE] Allergy Unknown DIFFICULTY Verified 09/07/20 01:41 BREATHING prazosin [PRAZOSIN] Allergy Unknown UNKNOWN Verified 09/07/20 01:41 topiramate [From TOPAMAX] AdvReac Intermediate AGITATION Verified 09/07/20 01:41 propranolol AdvReac Unknown Verified 09/07/20 01:42 Aloe Allergy Unknown swelling Uncoded 09/07/20 01:41 IVP Dye Allergy Unknown Unknown Uncoded 09/07/20 01:41 Pomegranite Allergy Unknown Unknown Uncoded 09/07/20 01:41 Shellfish Allergy Unknown Unknown Uncoded 09/07/20 01:41 shellfish Allergy Unknown throat Uncoded 09/07/20 01:41 swelling sulfa Allergy Unknown Unknown Uncoded 09/07/20 01:41 topamax Allergy Unknown Unknown Uncoded 09/07/20 01:41 Review of Systems Review of Systems: Constitutional : No Weight loss, No Fever, pos Chills ENT/Mouth : No sore throat, No Rhinorrhea Eyes: No Eye Pain, No Swelling Cardiovascular : pos Chest Pain, pos SOB, no Dyspnea on Exertion, No Orthopnea, No Edema, pos Palpitations Respiratory : No Cough, No Sputum Gastrointestinal : pos Nausea, No Vomiting, No Diarrhea, No abdominal Pain, No Hematochezia, No Melena Genitourinary : No Dysuria, No Urinary Frequency Musculoskeletal : No joint pain, No Myalgias, No Joint Swelling Skin : No Skin Lesions, No rash Neuro : No Weakness, No Numbness, No Dizziness, No Headache Psych : No Anxiety/Panic, No Depression Heme/Lymph: No Bruising, No Lymphadenopathy Endocrine : No Polyuria, No Polydipsia All other systems reviewed and are negative [facility] Past Medical History Attestation statement: The following information was validated with the patient. Medical History Anxiety Borderline personality disorder Migraines PTSD (post-traumatic stress disorder) Social History Social History Alcohol intake: never Smoking Status: Never smoker Advance Directives: No Advance Directives Information Provided: No Patient : No Physical Exam Vital Signs: Vital Signs: Last Vital Signs Temp 96.8 F 09/08/20 01:50 Pulse 92 09/08/20 04:00 Resp 14 09/08/20 04:00 BP 103/56 L 09/08/20 04:00 Pulse Ox 99 09/08/20 04:00 Body Mass Index 29.7 Appearance: Alert. Oriented X3. No acute distress. Eyes: Pupils equal, round and reactive to light. ENT: Pharynx normal. Neck: Normal inspection. Neck supple. CVS: Normal heart rate and rhythm. Pulses normal. Respiratory: No respiratory distress. Breath sounds normal. splinting noted Abdomen: Soft and non-tender. Skin: Skin warm and dry. Normal skin color. Normal skin turgor. Extremities: No lower extremity edema. No calf ttp Neuro: Oriented X 3. No motor deficit. No sensory deficit. Course Course Course Narrative: negative troponin x 2, ddimer negative, CXR normal stable for DC MDM - Arrhythmia/Palpitations MDM Narrative Medical decision making narrative: 25 yo female with migraines here last night with URI negative COVID developed chest pain and palpitations at 1030 tonight with a cough at this time will obtain EKG, CXR, repeat COVID swab, troponin and ddimer, IV toradol for pain, dispo per results and findings, lower susp for PE, could be MSK in nature, has no ACS risk factors Lab Data Result diagrams: 09/08/20 01:59 09/08/20 01:59 Labs: Lab Results 09/08/20 09/08/20 09/08/20 Range/Units 01:59 01:59 01:59 WBC 8.5 (4.8-10.8) X10*3/uL RBC 4.03 L (4.20-5.50) X10*6/uL Hgb 11.7 L (12.0-16.0) g/dl Hct 34.9 L (37-47) % MCV 86.6 (80-98) fL MCH 29.0 (27.0-33.0) pg MCHC 33.5 (31.0-35.0) g/dl RDW 11.9 (11.0-16.0) % Plt Count 222 D (160-400) X10*3/uL MPV 9.6 (9.4-12.3) fL Immature Gran % (Auto) 0.4 (0.0-0.4) % Neut % (Auto) 69.5 (45-73) % Lymph % (Auto) 20.5 (20-40) % [place] % (Auto) 7.4 (2-11) % Eos % (Auto) 1.8 (0-4) % Baso % (Auto) 0.4 (0-2) % Lymph # (Auto) 1.7 (1.2-4.9) X10*3/uL [place] # (Auto) 0.6 (0.1-1.2) X10*3/uL Eos # (Auto) 0.2 (0.0-0.4) X10*3/uL Baso # (Auto) 0.0 (0.0-0.2) X10*3/uL Abs Immat Gran (auto) 0.03 (0.00-0.03) X10*3/uL Absolute Neuts (auto) 5.9 (2.0-8.3) X10*3/uL Absolute Nucleated RBC 0.000 (0.0-0.012) X10*3/uL Nucleated RBC % (auto) 0.0 (0.0-0.2) /100WBC Smear Tech's Comments VERIFIED D-Dimer < 200 NG/ML Sodium 141 (135-145) mmol/L Potassium 4.1 (3.3-5.1) mmol/L Chloride 107 (96-108) mmol/L Carbon Dioxide 25 (22-29) mmol/L Anion Gap 13 (12-20) BUN 14 (9-16) mg/dL Creatinine 0.75 (0.5-1.4) mg/dL Estim Creat Clear Calc 128.2 Estimated GFR > 60 Random Glucose 88 (60-115) mg/dL Calcium 9.4 (8.4-10.2) mg/dL Magnesium 2.2 (1.6-2.6) mg/dL Troponin I High Sens (<3.5-17.0) ng/L COVID-19 (CLAUDE) (Negative) COVID-19 Clin Com 09/08/20 09/08/20 09/08/20 Range/Units 01:59 02:00 04:27 WBC (4.8-10.8) X10*3/uL RBC (4.20-5.50) X10*6/uL Hgb (12.0-16.0) g/dl Hct (37-47) % MCV (80-98) fL MCH (27.0-33.0) pg MCHC (31.0-35.0) g/dl RDW (11.0-16.0) % Plt Count (160-400) X10*3/uL MPV (9.4-12.3) fL Immature Gran % (Auto) (0.0-0.4) % Neut % (Auto) (45-73) % Lymph % (Auto) (20-40) % [place] % (Auto) (2-11) % Eos % (Auto) (0-4) % Baso % (Auto) (0-2) % Lymph # (Auto) (1.2-4.9) X10*3/uL [place] # (Auto) (0.1-1.2) X10*3/uL Eos # (Auto) (0.0-0.4) X10*3/uL Baso # (Auto) (0.0-0.2) X10*3/uL Abs Immat Gran (auto) (0.00-0.03) X10*3/uL Absolute Neuts (auto) (2.0-8.3) X10*3/uL Absolute Nucleated RBC (0.0-0.012) X10*3/uL Nucleated RBC % (auto) (0.0-0.2) /100WBC Smear Tech's Comments D-Dimer NG/ML Sodium (135-145) mmol/L Potassium (3.3-5.1) mmol/L Chloride (96-108) mmol/L Carbon Dioxide (22-29) mmol/L Anion Gap (12-20) BUN (9-16) mg/dL Creatinine (0.5-1.4) mg/dL Estim Creat Clear Calc Estimated GFR Random Glucose (60-115) mg/dL Calcium (8.4-10.2) mg/dL Magnesium (1.6-2.6) mg/dL Troponin I High Sens < 3.5 < 3.5 (<3.5-17.0) ng/L COVID-19 (CLAUDE) Negative (Negative) COVID-19 Clin Com See Note ECG Data Attestation: I personally reviewed and interpreted this ECG as follows: ECG interpretation date: 09/08/20 Interpretation: Rate: 96 Rhythm: NSR [place]: normal Normal P waves. Normal SHEILA. Normal QRS complex. ST T wave : normal , no KAYLEE qTC: normal prior studies: no acute ischemia The study has been interpreted contemporaneously by me. . Discharge Plan Discharge Clinical Impression: Palpitations, Chest pain Patient Disposition: Home, Self-Care Instructions: Chest Pain (ED), Heart Palpitations (ED) Additional Instructions: return to ED for any worsening symptoms or concerns Prescriptions: No Action metoclopramide HCl [Reglan] 10 mg tablet 10 mg PO Q6H PRN (Reason: nausea and vomiting) Qty: 20 RF: 0 tramadol 50 mg tablet 50 mg PO Q6H PRN (Reason: pain) Qty: 20 RF: 0 Referrals: Physician,Unknown [Primary Care Provider] - None (cardiology as scheduled) Stand Alone Forms: Work/School Release
[2020-09-08] MEDS: Ketorolac Tromethamine 30 MG/ML VIAL IVPUSH (02:00)
[2020-09-08 02:05] LABS: Basophils Percent Auto 0.4 % (0-2); Hemoglobin 11.7 g/dl (12.0-16.0); Imm Gran Abs Auto 0.03 X10*3/uL (0.00-0.03); Imm Gran Pct Auto 0.4 % (0.0-0.4); Lymphocytes Absolute Auto 1.7 X10*3/uL (1.2-4.9); MANUAL DIFF FLAG SCAN; PLT CLUMP 1; Red Cell Distribution Width 11.9 % (11.0-16.0); SCAN SMEAR FLAG 1
[2020-09-08 02:07] LABS: Eosinophils Absolute Auto 0.2 X10*3/uL (0.0-0.4); Eosinophils Percent Auto 1.8 % (0-4); Hematocrit 34.9 % (37-47); Lymphocytes Percent Auto 20.5 % (20-40); Mean Corpuscular HGB Conc 33.5 g/dl (31.0-35.0); Mean Corpuscular Volume 86.6 fL (80-98); Mean Platelet Volume 9.6 fL (9.4-12.3); Monocytes Absolute Auto 0.6 X10*3/uL (0.1-1.2); Monocytes Percent Auto 7.4 % (2-11); Neutrophils Absolute Auto 5.9 X10*3/uL (2.0-8.3); Neutrophils Percent Auto 69.5 % (45-73); Platelet Count 222 X10*3/uL (160-400); Red Blood Count 4.03 X10*6/uL (4.20-5.50); White Blood Count 8.5 X10*3/uL (4.8-10.8)
[2020-09-08 02:19] LABS: D Dimer < 200 NG/ML
[2020-09-08 02:22] LABS: COVID-19 Test Negative (Negative); IDNOW Serial# 9DD0AD1C
[2020-09-08 02:27] LABS: Anion Gap 13 (12-20); Blood Urea Nitrogen 14 mg/dL (9-16); Calcium 9.4 mg/dL (8.4-10.2); Carbon Dioxide 25 mmol/L (22-29); Chloride 107 mmol/L (96-108); Creatinine Clr Calc Pharmacy 128.2; Estimated Glomerular Filt Rate > 60; Glucose Random 88 mg/dL (60-115); Magnesium 2.2 mg/dL (1.6-2.6); Potassium 4.1 mmol/L (3.3-5.1); Sodium 141 mmol/L (135-145)
[2020-09-08 02:33] LABS: Troponin-I High Sensitivity < 3.5 ng/L (<3.5-17.0)
[2020-09-08 02:35] VITALS: BP 112/71; PULSE 94; RESP 14; O2SAT 98
[2020-09-08 02:41] LABS: SLIDE REVIEW VERIFIED
[2020-09-08 04:00] VITALS: BP 103/56; PULSE 92; RESP 14; O2SAT 99
--- NOTE | 2020-09-08 04:52 | PC.NURSE ---
Patient asked to eat a sandwich as well as have some juice
[2020-09-08 05:10] LABS: Troponin-I High Sensitivity < 3.5 ng/L (<3.5-17.0)
--- NOTE | 2020-09-08 07:59 | ECG_ITS ---
Test Reason : CHEST PAIN Blood Pressure : / mmHG Vent. Rate : 096 BPM Atrial Rate : 096 BPM P-R Int : 118 ms QRS Dur : 082 ms QT Int : 334 ms P-R-T Axes : 054 028 030 degrees QTc Int : 421 ms Normal sinus rhythm Cannot rule out Anterior infarct (cited on or before 08-SEP-2020) Abnormal ECG When compared with ECG of 08-SEP-2020 01:59, Premature ventricular complexes are no longer Present Referred By: Karley Romero Electronically Signed By:KATYA PAULSON MD
== END 2020-09-08 05:41 | disposition home or self-care (01) ==
PROVIDERS: Emergency Provider Emergency Medicine
DX: R00.2 Palpitations (principal); R07.9 Chest pain, unspecified; R05 Cough; Z79.899 Other long term (current) drug therapy; Z20.822 Contact with and (suspected) exposure to COVID-19
CPT/HCPCS: 36415; 71045; 80048; 83735; 84484; 85025; 85379; 87635; 93005; 96372; 99285; J1885

== ENCOUNTER 2020-12-18 20:41 | Emergency (ER) | payer MEDICAID, SELFPAY ==
[2020-12-18 21:00] VITALS: BP 131/65; PULSE 109; RESP 16; TEMP 37; O2SAT 98; BMI 27.6
[2020-12-18 21:44] LABS: COVID-19 Test Negative (Negative)
--- NOTE | 2020-12-18 21:59 | ED.GENADULT ---
HPI - General Adult General Chief complaint: General Medical Stated complaint: multiple complaints Time Seen by Provider: 12/18/20 21:50 Source: patient Mode of arrival: ambulatory History of Present Illness HPI narrative: 25-year-old female who presents with complaints of fatigue, scratchy throat, body aches denies any wheezing or shortness of breath and also describes some suprapubic and urinary discomfort. 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 She denies any fever chills. Related Data Previous Rx's Medication Instructions Recorded tramadol 50 mg tablet 50 mg PO Q6H PRN #20 tab 07/03/20 metoclopramide HCl 10 mg tablet 10 mg PO Q6H PRN #20 tab 09/07/20 (Reglan) nitrofurantoin 100 mg PO Q12H 5 Days #10 cap 12/19/20 monohydrate/macrocrystals 100 mg capsule (Macrobid) Allergies Allergy/AdvReac Type Severity Reaction Status Date / Time Iodinated Contrast Media Allergy Severe RASH, ABD Verified 12/18/20 20:59 [CONTRAST,IV] PAINS, BODY FEELS LIKE ON FIRE shubham Allergy Severe AIRWAY Verified 12/18/20 20:59 CLOSES shellfish derived Allergy Severe ANAPHYLAXIS Verified 12/18/20 20:59 [SHELLFISH DERIVED] Sulfa (Sulfonamide Allergy Severe RASH Verified 12/18/20 20:59 Antibiotics) [SULFA (SULFONAMIDE ANTIBIOTICS)] diphenhydramine Allergy Intermediate PANIC Verified 12/18/20 20:59 [From BENADRYL] ATTACK hazelnut [HAZELNUT] Allergy Intermediate THROAT Verified 12/18/20 20:59 IRRITATION [place] Allergy Unknown throat Verified 12/18/20 20:59 swell ondansetron Allergy Unknown migraine Verified 12/18/20 20:59 [From ZOFRAN ( HYDROCHLORIDE)] pomegranate [POMEGRANATE] Allergy Unknown DIFFICULTY Verified 12/18/20 20:59 BREATHING prazosin [PRAZOSIN] Allergy Unknown UNKNOWN Verified 12/18/20 20:59 topiramate [From TOPAMAX] AdvReac Intermediate AGITATION Verified 12/18/20 20:59 propranolol AdvReac Unknown Verified 12/18/20 20:59 Aloe Allergy Unknown swelling Uncoded 09/07/20 01:41 IVP Dye Allergy Unknown Unknown Uncoded 09/07/20 01:41 Pomegranite Allergy Unknown Unknown Uncoded 09/07/20 01:41 Shellfish Allergy Unknown Unknown Uncoded 09/07/20 01:41 shellfish Allergy Unknown throat Uncoded 09/07/20 01:41 swelling sulfa Allergy Unknown Unknown Uncoded 09/07/20 01:41 topamax Allergy Unknown Unknown Uncoded 09/07/20 01:41 Review of Systems Review of Systems: Pertinent positives and negatives as stated in HPI 10 point review of systems is otherwise negative. [facility] Past Medical History Source: nursing notes reviewed Medical History Anxiety Borderline personality disorder Migraines PTSD (post-traumatic stress disorder) Social History Social History Alcohol intake: never Patient Tobacco Use Status: Former Tobacco user Use of substances other than those prescribed or required for medical reasons: No Advance Directives: No Advance Directives Information Provided: No Physical Exam Vital Signs: Vital Signs: Last Vital Signs Temp 98.3 F 12/18/20 22:00 Pulse 94 12/18/20 22:00 Resp 17 12/18/20 22:00 BP 110/51 L 12/18/20 22:00 Pulse Ox 99 12/18/20 22:00 Body Mass Index 27.6 VITAL SIGNS: Reviewed. GENERAL: Well developed, well nourished, in no acute distress. HEAD: Normocephalic/atraumatic EYES: PERRLA, EOMI EARS: Ext canals without abnormality, TMs non-bulging and non-erythematous NOSE: Nares patent bilateral OROPHARYNX: no oral lesions noted, posterior pharynx clear and non-erythematous without noted tonsillar enlargement/erythema/exudates NECK: Supple, no adenopathy LUNGS: Normal breath sounds, no wheeze no tachypnea. SpO2<98> CARDIOVASCULAR: Regular rate and rhythm without noted murmurs ABDOMEN: Soft, non-tender, non-distended with bowel sounds. SKIN: Inspection of the skin reveals no rashes NEUROLOGIC: Alert and oriented x 4. Strength and sensation to light touch were grossly intact x 4. Course Course Course Narrative: 25-year-old female with history and clinical presentation consistent with viral symptoms no clinical findings to suggest strep pharyngitis and will evaluate for UTI. Review of all investigations significant for UTI. Patient was administered 1st dose of antibiotics and then discharged with remaining course. Otherwise, review of remaining investigations negative for acute findings. Medical Decision Making Lab Data Labs: Lab Results 12/18/20 12/18/20 Range/Units 21:07 21:57 Urine Color OTHER Urine Appearance CLEAR Urine pH 7.0 (5.0-8.0) Ur Specific [place] <= 1.005 (1.005-1.025) Urine Protein NEG (NEG-TRACE) MG/DL Urine Glucose (UA) NEG (NEG) MG/DL Urine Ketones NEG (NEG) MG/DL Urine Blood NEG (NEG) Urine Nitrite NEG (NEG) Ur Leukocyte Esterase TRACE H (NEG) Urine RBC 0 (0) /HPF Urine WBC 1-4 (0-4) /HPF Ur Squamous Epith Cells TRACE /LPF Urine Bacteria 1+ /LPF COVID-19 (CLAUDE) Negative (Negative) COVID-19 Clin Com See Note Discharge Plan Discharge Clinical Impression: UTI (urinary tract infection), Viral syndrome, Lab test negative for COVID-19 virus Patient Disposition: Home, Self-Care Instructions: Urinary Tract Infection in Women (ED), Viral Syndrome (ED) Additional Instructions: 1. Recommend [id number] Tylenol/ibuprofen as needed for body aches and viral symptoms. 2. Please complete the entire course of antibiotics that you have been provided. 3. Follow-up with your primary care provider in the next 2-3 days for re-evaluation. Return to the ER for acute worsening of symptoms. Prescriptions: New nitrofurantoin monohyd/m-cryst [Macrobid] 100 mg capsule 100 mg PO Q12H 5 Days Qty: 10 RF: 0 No Action metoclopramide HCl [Reglan] 10 mg tablet 10 mg PO Q6H PRN (Reason: nausea and vomiting) Qty: 20 RF: 0 tramadol 50 mg tablet 50 mg PO Q6H PRN (Reason: pain) Qty: 20 RF: 0 Referrals: Physician,Unknown [Primary Care Provider] - 2 days
[2020-12-18 22:00] VITALS: BP 110/51; PULSE 94; RESP 17; TEMP 36.8; O2SAT 99
[2020-12-18 22:12] LABS: Glucose Urine UA NEG (NEG); Leukocyte Esterase Urine TRACE (NEG); Nitrite Urine NEG (NEG); Specific Gravity - Urine <= 1.005 (1.005-1.025); UACC Culture Trigger YES; Urine Blood NEG (NEG); Urine Ketones NEG (NEG); Urine Protein NEG (NEG-TRACE)
[2020-12-18 22:28] LABS: Appearance Urine CLEAR; Color Urine OTHER
[2020-12-18 22:29] LABS: Bacteria Urine 1+ /LPF; RBC Urine 0 /HPF (0); Squamous Epithelial Cell Urine TRACE /LPF; UACC CULT YES
--- NOTE | 2020-12-18 22:52 | PC.NURSE ---
patient a&ox3, patient c/o low abd/pelvic area pain, awaiting urine results, vss, will continue to monitor
[2020-12-19] MEDS: Nitrofurantoin Monohyd/M-Cryst 100 MG CAPSULE PO (00:35)
== END 2020-12-19 00:41 | disposition home or self-care (01) ==
PROVIDERS: Emergency Provider Student in an Organized Health Care Education/Training Program
DX: B34.9 Viral infection, unspecified (principal); Z20.822 Contact with and (suspected) exposure to COVID-19; N39.0 Urinary tract infection, site not specified; M79.10 Myalgia, unspecified site
CPT/HCPCS: 36415; 81001; 87086; 87635; 99283; 99284

== ENCOUNTER 2021-01-12 15:59 | Emergency (ER) | payer MEDICAID, SELFPAY ==
--- NOTE | ~2021-01-12 | XR_ITS ---
EXAMINATION: XR CHEST CLINICAL INFORMATION: Chest discomfort COMPARISON: Chest x-ray September 08, 2020 TECHNIQUE: 2 views of the chest were obtained. FINDINGS: No significant abnormality is noted involving the heart, lungs, mediastinum, bony thorax or soft tissues. XR/XR chest 2V IMPRESSION: Unremarkable examination.
[2021-01-12 16:22] VITALS: BP 108/63; PULSE 96; RESP 16; TEMP 36.6; O2SAT 98; BMI 27.2
[2021-01-12] MEDS: LORazepam 1 MG TABLET PO (16:49)
--- NOTE | 2021-01-12 16:53 | ED_ITS ---
HPI - Anxiety General Chief Complaint: Anxiety Stated Complaint: Anxiety/Asthma Time Seen by Provider: 01/12/21 16:37 Source: patient Mode of arrival: ambulatory Limitations: no limitations History of Present Illness HPI narrative: 25 yo female with a longstanding history of asthma, anxiety, depression, panic attacks here with complaints of chest tightness, SOB, cough since last evening. Feels like she is having a panic attack. She believes this to be triggered by starting a new job. Also currently being treated for sinusitis with an antibiotic. She feels like her cough may be from this or from her asthma. She tells me she is allergic to albuterol and so she does not have a inhaler at home. States it makes my lungs burn. No leg, swelling or pain. No fevers, chills. Related Data Previous Rx's Medication Instructions Recorded tramadol 50 mg tablet 50 mg PO Q6H PRN #20 tab 07/03/20 metoclopramide HCl 10 mg tablet 10 mg PO Q6H PRN #20 tab 09/07/20 (Reglan) nitrofurantoin 100 mg PO Q12H 5 Days #10 cap 12/19/20 monohydrate/macrocrystals 100 mg capsule (Macrobid) Allergies Allergy/AdvReac Type Severity Reaction Status Date / Time Iodinated Contrast Media Allergy Severe RASH, ABD Verified 12/18/20 20:59 [CONTRAST,IV] PAINS, BODY FEELS LIKE ON FIRE shubham Allergy Severe AIRWAY Verified 12/18/20 20:59 CLOSES shellfish derived Allergy Severe ANAPHYLAXIS Verified 12/18/20 20:59 [SHELLFISH DERIVED] Sulfa (Sulfonamide Allergy Severe RASH Verified 12/18/20 20:59 Antibiotics) [SULFA (SULFONAMIDE ANTIBIOTICS)] diphenhydramine Allergy Intermediate PANIC Verified 12/18/20 20:59 [From BENADRYL] ATTACK hazelnut [HAZELNUT] Allergy Intermediate THROAT Verified 12/18/20 20:59 IRRITATION [place] Allergy Unknown throat Verified 12/18/20 20:59 swell ondansetron Allergy Unknown migraine Verified 12/18/20 20:59 [From ZOFRAN ( HYDROCHLORIDE)] pomegranate [POMEGRANATE] Allergy Unknown DIFFICULTY Verified 12/18/20 20:59 BREATHING prazosin [PRAZOSIN] Allergy Unknown UNKNOWN Verified 08/28/21 20:59 topiramate [From TOPAMAX] AdvReac Intermediate AGITATION Verified 12/18/20 20:59 propranolol AdvReac Unknown Verified 12/18/20 20:59 Aloe Allergy Unknown swelling Uncoded 09/07/20 01:41 IVP Dye Allergy Unknown Unknown Uncoded 09/07/20 01:41 Pomegranite Allergy Unknown Unknown Uncoded 09/07/20 01:41 Shellfish Allergy Unknown Unknown Uncoded 09/07/20 01:41 shellfish Allergy Unknown throat Uncoded 09/07/20 01:41 swelling sulfa Allergy Unknown Unknown Uncoded 09/07/20 01:41 topamax Allergy Unknown Unknown Uncoded 09/07/20 01:41 Review of Systems Review of Systems: Yes all other systems are reviewed and are negative Constitutional: Constitutional: Reports no additional constitutional complaints, Denies body ache(s), Denies chills, Denies fever(s), Denies headache(s) and Denies weakness Eyes: Eyes: Reports no additional eye complaints and Denies change in vision ENT: Reports system reviewed and no additional complaints, except as documented, Denies dizziness, Denies headache(s), Denies nasal congestion, Denies nasal discharge and Denies neck pain Cardiovascular: Cardiovascular: Reports no additional cardiovascular complaints, Reports chest pain, Denies leg edema and Reports dyspnea Respiratory: Respiratory: Reports no additional respiratory complaints, Reports cough and Reports dyspnea Gastrointestinal: Gastrointestinal: Reports no additional gastrointestinal complaints, Denies abdominal pain, Denies diarrhea, Denies nausea and Denies vomiting Genitourinary: Genitourinary: Reports no additional female genitourinary complaints and Denies urinary incontinence Musculoskeletal: Musculoskeletal: Reports no additional musculoskeletal complaints, Denies back pain, Denies arthralgias, Denies joint swelling, Denies neck pain, Denies numbness and Denies tingling Integumentary/Breasts: Skin/Breast: Reports system reviewed and no additional complaints, except as docu and Denies rash Neurologic: Reports system reviewed and no additional complaints, except as documented, Denies Abnormal speech present, Denies dizziness, Denies headache(s), Denies numbness, Denies tingling and Denies weakness Psychiatric: Psychiatric: Reports anxiety PMFSH Past Medical History Attestation statement: The following information was validated with the patient. Source: old records reviewed and nursing notes reviewed Medical History Anxiety Borderline personality disorder Migraines PTSD (post-traumatic stress disorder) Social History Social History Alcohol intake: unknown Patient Tobacco Use Status: Former Tobacco user Use of substances other than those prescribed or required for medical reasons: Unknown Advance Directives: No Advance Directives Information Provided: No Physical Exam Vital Signs: Vital Signs: Last Vital Signs Temp 98 F 01/12/21 16:22 Pulse 96 01/12/21 16:22 Resp 16 01/12/21 16:22 BP 108/63 01/12/21 16:22 Pulse Ox 98 01/12/21 16:22 Body Mass Index 27.2 Const: General: cooperative, healthy appearing, comfortable, no acute distress and anxious Orientation/consciousness: patient oriented x3 Limitations: no limitations HENMT: Head: Yes normal to inspection Ears: hearing grossly normal bilaterally General nose exam: Normal external nose present Face and sinus: Yes normal facial exam Mouth: Normal oral and palatal mucosa present Throat: Yes posterior oropharynx normal Eyes: General: appearance normal, both eyes and all related structures Pupils: Equal, round and reactive pupils present Neck: Neck: Yes normal visual inspection Chest: Chest palpation & inspection: normal inspection of the chest Resp: Effort & Inspection: normal respiratory effort Auscultation: clear to auscultation bilaterally Cardio: Rate: regular rate Rhythm: regular rhythm Peripheral pulses: Peripheral pulses 2+ throughout GI: Inspection: Yes normal to inspection Palpation (GI): Soft to palpation and nontender Auscultation: normal bowel sounds Back/Spine/Pelvis: Thoracic/Lumbar Spine: thoracic and lumbar spine normal to inspection Skin: General skin exam: no rashes or lesions noted Neuro: General: patient oriented x3, no focal motor deficits and normal sensation to monofilament Cranial nerves: Yes Equal, round and reactive pupils present Cognition (Neuro): normal cognition Speech: No Abnormal speech present Gait exam (Neuro): Normal gait present Motor exam (neuro): 5/5 motor strength present throughout Extrem: General: Yes normal to inspection, Yes no pedal edema and Yes no calf tenderness Course Course Course Narrative: 25 yo female with past medical history of anxiety, asthma here with complaints of chest tightness, cough, shortness of breath and feeling panicked since last evening. Feels like anxiety attack. Will check CXR, give PO ativan and re-assess. 1830 patient is feeling improved. Reviewed worrisome signs and symptoms of when to return to the emergency department. Comfortable discharge home. MDM - Anxiety Medical Records Attestation: I reviewed the patient's medical records. Lab Data Attestation: I reviewed the patient's lab results. Discharge Plan Discharge Clinical Impression: Acute anxiety Patient Disposition: Home, Self-Care Instructions: Anxiety (ED) Prescriptions: No Action metoclopramide HCl [Reglan] 10 mg tablet 10 mg PO Q6H PRN (Reason: nausea and vomiting) Qty: 20 RF: 0 nitrofurantoin monohyd/m-cryst [Macrobid] 100 mg capsule 100 mg PO Q12H 5 Days Qty: 10 RF: 0 tramadol 50 mg tablet 50 mg PO Q6H PRN (Reason: pain) Qty: 20 RF: 0 Referrals: Abdoulaye Ball MD [Primary Care Provider] - 2 days
--- NOTE | 2021-01-12 17:16 | PC.NURSE ---
Pt is hyperventilating in the hallway and states she cant breath and feels like she is going to pass out. Pt reassured, given PO ativan.
--- NOTE | 2021-01-12 18:24 | PC.NURSE ---
Pt appears to have calmed down.
[2021-01-12 18:36] VITALS: BP 116/70; PULSE 88; RESP 18; O2SAT 99
== END 2021-01-12 18:42 | disposition home or self-care (01) ==
PROVIDERS: Emergency Provider Student in an Organized Health Care Education/Training Program; PCP Family Medicine
DX: F41.0 Panic disorder [episodic paroxysmal anxiety] (principal); J45.909 Unspecified asthma, uncomplicated; F33.1 Major depressive disorder, recurrent, moderate; R07.9 Chest pain, unspecified; F41.1 Generalized anxiety disorder; F43.0 Acute stress reaction; Z87.891 Personal history of nicotine dependence; Z79.899 Other long term (current) drug therapy
CPT/HCPCS: 71046; 99283; 99284

== ENCOUNTER 2021-01-17 06:39 | Emergency (ER) | payer MEDICAID, SELFPAY ==
[2021-01-17 06:50] VITALS: BP 125/79; BP 128/82; PULSE 74; PULSE 90; RESP 18; TEMP 36.8; O2SAT 98; BMI 28.8
--- NOTE | 2021-01-17 06:51 | ED.GENADULT ---
HPI - General Adult General Chief complaint: Dizziness Stated complaint: medication reaction Time Seen by Provider: 01/17/21 06:51 Source: patient and EMS Mode of arrival: EMS Limitations: no limitations History of Present Illness HPI narrative: This is a 25-year-old female with past medical history of anxiety, panic attacks, depression, asthma presenting to the emergency department with dizziness. She states that 3 days ago she started a new medication (thinks its tizanidine), muscle relaxer, which was prescribed to her by someone at her PCPs office. She states she feels like her PCP/the office staff dont not like her, and purposely gave her medication that will make her dizzy. She describes the dizziness is constant, and she feels like she is walking on waves. She also states that the same person at her PCPs office prescribed her boric acid suppositories for a yeast infection, she states that this has not worked for her yeast infection, she is still having vaginal itching at this time. She states my inside is on fire for real . She has no other complaints. Denies chest pain, shortness of breath, abdominal pain, dysuria, fevers, chills. Onset (ago): day(s) (3) Radiation: non-radiation Severity: mild Quality: constant Relieving factors: none Exacerbating factors: other (new medications) Treatments prior to arrival: none Related Data Previous Rx's Medication Instructions Recorded tramadol 50 mg tablet 50 mg PO Q6H PRN #20 tab 07/03/20 metoclopramide HCl 10 mg tablet 10 mg PO Q6H PRN #20 tab 09/07/20 (Reglan) nitrofurantoin 100 mg PO Q12H 5 Days #10 cap 12/19/20 monohydrate/macrocrystals 100 mg capsule (Macrobid) cyclobenzaprine 10 mg tablet 10 mg PO TID PRN #10 tab 01/17/21 fluconazole 150 mg tablet 150 mg PO ONCE 1 Days #1 tab 01/17/21 Allergies Allergy/AdvReac Type Severity Reaction Status Date / Time Iodinated Contrast Media Allergy Severe RASH, ABD Verified 12/18/20 20:59 [CONTRAST,IV] PAINS, BODY FEELS LIKE ON FIRE shubham Allergy Severe AIRWAY Verified 12/18/20 20:59 CLOSES shellfish derived Allergy Severe ANAPHYLAXIS Verified 12/18/20 20:59 [SHELLFISH DERIVED] Sulfa (Sulfonamide Allergy Severe RASH Verified 12/18/20 20:59 Antibiotics) [SULFA (SULFONAMIDE ANTIBIOTICS)] diphenhydramine Allergy Intermediate PANIC Verified 12/18/20 20:59 [From BENADRYL] ATTACK hazelnut [HAZELNUT] Allergy Intermediate THROAT Verified 12/18/20 20:59 IRRITATION [employer] Allergy Unknown throat Verified 12/18/20 20:59 swell ondansetron Allergy Unknown migraine Verified 12/18/20 20:59 [From ZOFRAN ( HYDROCHLORIDE)] pomegranate [POMEGRANATE] Allergy Unknown DIFFICULTY Verified 12/18/20 20:59 BREATHING prazosin [PRAZOSIN] Allergy Unknown UNKNOWN Verified 12/18/20 20:59 topiramate [From TOPAMAX] AdvReac Intermediate AGITATION Verified 12/18/20 20:59 propranolol AdvReac Unknown Verified 12/18/20 20:59 Aloe Allergy Unknown swelling Uncoded 09/07/20 01:41 IVP Dye Allergy Unknown Unknown Uncoded 09/07/20 01:41 Pomegranite Allergy Unknown Unknown Uncoded 09/07/20 01:41 Shellfish Allergy Unknown Unknown Uncoded 09/07/20 01:41 shellfish Allergy Unknown throat Uncoded 09/07/20 01:41 swelling sulfa Allergy Unknown Unknown Uncoded 09/07/20 01:41 topamax Allergy Unknown Unknown Uncoded 09/07/20 01:41 Review of Systems Review of Systems: Constitutional : No Fever, No Chills ENT/Mouth : positive oral swelling, No Hoarseness, No Swallowing Difficulty Eyes: No Eye Pain, No Swelling, No Redness Cardiovascular : No Chest Pain, No SOB Respiratory : No Cough, No Sputum, No Wheezing, No Smoke Exposure, No Dyspnea Gastrointestinal : No Nausea, No Vomiting, No Diarrhea, No abdominal Pain Genitourinary : No Dysuria, No Urinary Frequency, No Hematuria, + vaginal itching Musculoskeletal : No joint pain, No Myalgias, No Joint Swelling Skin : No Skin Lesions, positive rash Neuro : No Weakness, No Numbness, No Headache, +dizziness Psych : + Anxiety/Panic, No Depression PMFSH Past Medical History Attestation statement: The following information was validated with the patient. Medical History Anxiety Borderline personality disorder Migraines PTSD (post-traumatic stress disorder) Social History Social History Alcohol intake: unknown Patient Tobacco Use Status: Former Tobacco user Use of substances other than those prescribed or required for medical reasons: Unknown Advance Directives: No Advance Directives Information Provided: No Physical Exam Vital Signs: Vital Signs: Last Vital Signs Temp 98.3 F 01/17/21 06:50 Pulse 88 01/17/21 08:31 Resp 18 01/17/21 08:31 BP 116/70 01/17/21 08:31 Pulse Ox 99 01/17/21 08:31 Body Mass Index 28.8 Appearance: Alert. Oriented X3. No acute distress. Eyes: Pupils equal, round and reactive to light. ENT: Pharynx normal. Neck: Normal inspection. Neck supple. CVS: Normal heart rate and rhythm. Pulses normal. Respiratory: No respiratory distress. Breath sounds normal. Abdomen: Soft and nontender. Skin: Skin warm and dry. Normal skin color. Normal skin turgor. Extremities: No lower extremity edema. No calf ttp Neuro: Oriented X 3. No motor deficit. No sensory deficit. Course Course Course Narrative: Orthostatic vital signs, EKG and UA shows no acute findings. Patient is stable for discharge home Medical Decision Making MDM Narrative Medical decision making narrative: This is a 25-year-old female past medical history anxiety, depression, panic attacks and asthma who presents to the emergency department with 3 days of dizziness status post starting a new muscle relaxer (tizanidine) prescribed to her by someone at her PCPs office. She states that her PCP/ the office staff do not like her, so they prescribed her medication that will make her dizzy. She notes that flexeril has worked for her in the past as well as diflucan usually treats her yeast infection. Suspect anxiety vs med reaction - advised to stop tizanidine Plan- EKG, orthostatic vital signs, UA Lab Data Labs: Lab Results 01/17/21 Range/Units 08:04 Urine Color YELLOW Urine Appearance CLEAR Urine pH 6.0 (5.0-8.0) Ur Specific [place] <= 1.005 (1.005-1.025) Urine Protein NEG (NEG-TRACE) MG/DL Urine Glucose (UA) NEG (NEG) MG/DL Urine Ketones NEG (NEG) MG/DL Urine Blood NEG (NEG) Urine Nitrite NEG (NEG) Ur Leukocyte Esterase NEG (NEG) ECG Data Attestation: I personally reviewed and interpreted this ECG as follows: Prior ECG tracings: available for review Interpretation: Ventricular rate of 79 IN interval normal QRS normal QT/QTC normal. EKG shows normal sinus rhythm with sinus arrhythmia. There are nonspecific T-wave abnormalities noted. No ST elevations. No acute ischemia. No significant changes when compared to previous EKGs Discharge Plan Discharge Clinical Impression: Vaginal yeast infection Adverse reaction to [id number] medication Qualifiers: Encounter type: initial encounter Qualified Code(s): T50.905A - Adverse effect of unspecified drugs, medicaments and biological substances, initial encounter Patient Disposition: Home, Self-Care Additional Instructions: Please stop taking the muscle relaxer you were taking (tizanidine), if it is causing you these symptoms. Take cyclobenzaprine instead He was given fluconazole today for yeast infection, usually when dose is tonight, however, if he keeps having symptoms a 2nd dose of fluconazole has been sent to your pharmacy Please return to the emergency department with new or worsening symptoms Prescriptions: New fluconazole 150 mg tablet 150 mg PO ONCE 1 Days Qty: 1 RF: 0 cyclobenzaprine 10 mg tablet 10 mg PO TID PRN (Reason: muscle spasm) Qty: 10 RF: 0 No Action metoclopramide HCl [Reglan] 10 mg tablet 10 mg PO Q6H PRN (Reason: nausea and vomiting) Qty: 20 RF: 0 nitrofurantoin monohyd/m-cryst [Macrobid] 100 mg capsule 100 mg PO Q12H 5 Days Qty: 10 RF: 0 tramadol 50 mg tablet 50 mg PO Q6H PRN (Reason: pain) Qty: 20 RF: 0 Referrals: Abdoulaye Ball MD [Primary Care Provider] - 2 days Interventions: ED Discharge Assessment Last Done: 01/17/21 08:31 Discharge Date/Time: 01/17/21 08:32
--- NOTE | 2021-01-17 06:55 | ECG_ITS ---
Test Reason : DIZZINEESS Blood Pressure : / mmHG Vent. Rate : 079 BPM Atrial Rate : 079 BPM P-R Int : 130 ms QRS Dur : 090 ms QT Int : 366 ms P-R-T Axes : 059 046 049 degrees QTc Int : 419 ms Normal sinus rhythm with sinus arrhythmia RSR' or QR pattern in V1 suggests right ventricular conduction delay Nonspecific T wave abnormality Abnormal ECG When compared with ECG of 08-SEP-2020 01:59, Nonspecific T wave abnormality is now Present RSR' or QR pattern in V1 suggests right ventricular conduction delay Referred By: Karley Romero Electronically Signed By:EDITH GONZALES
[2021-01-17 07:04] VITALS: BP 118/66; PULSE 85
[2021-01-17 07:05] VITALS: BP 108/64; PULSE 105
[2021-01-17] MEDS: Fluconazole 150 MG TABLET PO (08:02)
--- NOTE | 2021-01-17 08:09 | PC.NURSE ---
Pt states she is feeling better and is sitting up, drinking hot tea. Pt medicated for the yeast infection. Urine sample sent to lab.
[2021-01-17 08:15] LABS: Appearance Urine CLEAR; Color Urine YELLOW; Glucose Urine UA NEG (NEG); Leukocyte Esterase Urine NEG (NEG); Nitrite Urine NEG (NEG); Specific Gravity - Urine <= 1.005 (1.005-1.025); Urine Blood NEG (NEG); Urine Ketones NEG (NEG); Urine Protein NEG (NEG-TRACE)
[2021-01-17 08:31] VITALS: BP 116/70; PULSE 88; RESP 18; O2SAT 99
== END 2021-01-17 08:32 | disposition home or self-care (01) ==
PROVIDERS: Emergency Provider Emergency Medicine; PCP Family Medicine
DX: B37.9 Candidiasis, unspecified (principal); R42 Dizziness and giddiness; F33.1 Major depressive disorder, recurrent, moderate; Z79.899 Other long term (current) drug therapy; Z87.891 Personal history of nicotine dependence
CPT/HCPCS: 81003; 93005; 99283; 99285

== ENCOUNTER 2021-01-18 06:11 | Emergency (ER) | payer MEDICAID, SELFPAY ==
[2021-01-18 06:18] VITALS: BP 111/76; PULSE 100; PULSE 102; RESP 15; TEMP 36.7; O2SAT 95; O2SAT 97; BMI 27.1
--- NOTE | 2021-01-18 06:30 | ED.DIZZY ---
HPI - Dizziness General Chief Complaint: Dizziness Stated Complaint: dizziness, not feeling well Time Seen by Provider: 01/18/21 06:30 Source: patient, EMS and old records reviewed Mode of arrival: EMS Limitations: no limitations History of Present Illness MD elicited complaint: dizziness and lightheadedness Pertinent past history: other (recently Rx tizanidine which makes her dizzy but also was on doxy for sinusitis took for 4 days and stopped due to GI distress) Onset (ago): day(s) (2) Timing: gradual onset Severity: moderate Description: sense of movement, room spinning and lightheadedness Context: change in medication and change in body position Exacerbating factors: movement/ambulation and change in body position Relieving factors: remaining still Associated symptoms: denies other symptoms Related Data Previous Rx's Medication Instructions Recorded tramadol 50 mg tablet 50 mg PO Q6H PRN #20 tab 07/03/20 metoclopramide HCl 10 mg tablet 10 mg PO Q6H PRN #20 tab 09/07/20 (Reglan) nitrofurantoin 100 mg PO Q12H 5 Days #10 cap 12/19/20 monohydrate/macrocrystals 100 mg capsule (Macrobid) cyclobenzaprine 10 mg tablet 10 mg PO TID PRN #10 tab 01/17/21 fluconazole 150 mg tablet 150 mg PO ONCE 1 Days #1 tab 01/17/21 cefuroxime axetil 500 mg tablet 500 mg PO BID 7 Days #14 tab 01/18/21 Allergies Allergy/AdvReac Type Severity Reaction Status Date / Time Iodinated Contrast Media Allergy Severe RASH, ABD Verified 12/18/20 20:59 [CONTRAST,IV] PAINS, BODY FEELS LIKE ON FIRE shubham Allergy Severe AIRWAY Verified 12/18/20 20:59 CLOSES shellfish derived Allergy Severe ANAPHYLAXIS Verified 12/18/20 20:59 [SHELLFISH DERIVED] Sulfa (Sulfonamide Allergy Severe RASH Verified 12/18/20 20:59 Antibiotics) [SULFA (SULFONAMIDE ANTIBIOTICS)] diphenhydramine Allergy Intermediate PANIC Verified 12/18/20 20:59 [From BENADRYL] ATTACK hazelnut [HAZELNUT] Allergy Intermediate THROAT Verified 12/18/20 20:59 IRRITATION Shub[facility] Allergy Unknown throat Verified 12/18/20 20:59 swell ondansetron Allergy Unknown migraine Verified 12/18/20 20:59 [From ZOFRAN ( HYDROCHLORIDE)] pomegranate [POMEGRANATE] Allergy Unknown DIFFICULTY Verified 12/18/20 20:59 BREATHING prazosin [PRAZOSIN] Allergy Unknown UNKNOWN Verified 12/18/20 20:59 topiramate [From TOPAMAX] AdvReac Intermediate AGITATION Verified 12/18/20 20:59 propranolol AdvReac Unknown Verified 12/18/20 20:59 Aloe Allergy Unknown swelling Uncoded 09/07/20 01:41 IVP Dye Allergy Unknown Unknown Uncoded 09/07/20 01:41 Pomegranite Allergy Unknown Unknown Uncoded 09/07/20 01:41 Shellfish Allergy Unknown Unknown Uncoded 09/07/20 01:41 shellfish Allergy Unknown throat Uncoded 09/07/20 01:41 swelling sulfa Allergy Unknown Unknown Uncoded 09/07/20 01:41 topamax Allergy Unknown Unknown Uncoded 09/07/20 01:41 Review of Systems Review of Systems: Constitutional : No Fever, No Chills ENT/Mouth : No sore throat, No Rhinorrhea, pos congestion Eyes: No Eye Pain, No Swelling, No Redness Cardiovascular : No Chest Pain, No SOB Respiratory : No Cough, No Sputum, No Wheezing Gastrointestinal : No Nausea, No Vomiting, No Diarrhea, No abdominal Pain Genitourinary : No Dysuria, No Urinary Frequency, No Hematuria, Musculoskeletal : No joint pain, No Myalgias, No Joint Swelling Skin : No Skin Lesions, No rash Neuro : No Weakness, No Numbness, pos Dizziness, No Headache Psych : No Anxiety/Panic, No Depression All other systems reviewed and are negative PMFSH Past Medical History Attestation statement: The following information was validated with the patient. Medical History Anxiety Borderline personality disorder Migraines PTSD (post-traumatic stress disorder) Social History Social History Alcohol intake: never Patient Tobacco Use Status: Former Tobacco user Use of substances other than those prescribed or required for medical reasons: No Advance Directives: No Advance Directives Information Provided: No Physical Exam Vital Signs: Vital Signs: Last Vital Signs Temp 98.1 F 01/18/21 06:18 Pulse 93 01/18/21 07:02 Resp 16 01/18/21 07:02 BP 110/51 L 01/18/21 07:02 Pulse Ox 98 01/18/21 07:02 Body Mass Index 27.1 Appearance: Alert. Oriented X3. No acute distress. Eyes: Pupils equal, round and reactive to light. ENT: Pharynx normal. normal TMs Neck: Normal inspection. Neck supple. CVS: Normal heart rate and rhythm. Pulses normal. Respiratory: No respiratory distress. Breath sounds normal. Abdomen: Soft and non-tender. Skin: Skin warm and dry. Normal skin color. Normal skin turgor. Extremities: No lower extremity edema. No calf ttp Neuro: Oriented X 3. No motor deficit. No sensory deficit. Course Course Course Narrative: labs and VS stable can be DC home MDM - Dizziness MDM Narrative Medical decision making narrative: 25 yo female with somewhat complex medical history involving allergies and sensitivities to medications comes in again today with c/o dizziness yesterday it was attributed to tizanidine but today she feels it is related to her stopping doxycycline for sinusitis will need labbs, IVF, no neuro findings, no CP/SOB. Doubt PE dispo per results and improvement will switch to ceftin for sinusitis Lab Data Result diagrams: 01/18/21 07:09 01/18/21 07:09 Labs: Lab Results 01/18/21 01/18/21 Range/Units 07:09 07:09 WBC 7.3 (4.8-10.8) X10*3/uL RBC 4.62 (4.20-5.50) X10*6/uL Hgb 13.3 (12.0-16.0) g/dl Hct 39.7 (37-47) % MCV 85.9 (80-98) fL MCH 28.8 (27.0-33.0) pg MCHC 33.5 (31.0-35.0) g/dl RDW 12.5 (11.0-16.0) % Plt Count 267 (160-400) X10*3/uL MPV 8.8 L (9.4-12.3) fL Immature Gran % (Auto) 0.3 (0.0-0.4) % Neut % (Auto) 62.5 (45-73) % Lymph % (Auto) 25.2 (20-40) % [place] % (Auto) 8.9 (2-11) % Eos % (Auto) 2.7 (0-4) % Baso % (Auto) 0.4 (0-2) % Lymph # (Auto) 1.8 (1.2-4.9) X10*3/uL [place] # (Auto) 0.7 (0.1-1.2) X10*3/uL Eos # (Auto) 0.2 (0.0-0.4) X10*3/uL Baso # (Auto) 0.0 (0.0-0.2) X10*3/uL Abs Immat Gran (auto) 0.02 (0.00-0.03) X10*3/uL Absolute Neuts (auto) 4.6 (2.0-8.3) X10*3/uL Absolute Nucleated RBC 0.000 (0.0-0.012) X10*3/uL Nucleated RBC % (auto) 0.0 (0.0-0.2) /100WBC Sodium 139 (135-145) mmol/L Potassium 4.4 (3.3-5.1) mmol/L Chloride 106 (96-108) mmol/L Carbon Dioxide 26 (22-29) mmol/L Anion Gap 11 L (12-20) BUN 8 L (9-16) mg/dL Creatinine 0.75 (0.5-1.4) mg/dL Estim Creat Clear Calc 122.7 Estimated GFR > 60 Random Glucose 92 (60-115) mg/dL Calcium 10.6 H D (8.4-10.2) mg/dL Magnesium 1.9 (1.6-2.6) mg/dL Total Bilirubin 1.0 (0.0-1.0) mg/dL Direct Bilirubin 0.3 (0.0-0.5) mg/dL AST 17 (5-31) U/L ALT 10 (0-31) U/L Alkaline Phosphatase 46 (39-117) U/L Total Protein 7.1 (6.5-8.0) g/dL Albumin 4.2 (3.5-5.0) g/dL Discharge Plan Discharge Clinical Impression: Dizziness Sinusitis Qualifiers: Sinusitis location: maxillary Chronicity: acute Recurrence: non-recurrent Qualified Code(s): J01.00 - Acute maxillary sinusitis, unspecified Patient Disposition: Home, Self-Care Instructions: Sinusitis (ED), Dizziness (ED) Additional Instructions: return to ED for any worsening symptoms or concerns Prescriptions: New cefuroxime axetil 500 mg tablet 500 mg PO BID 7 Days Qty: 14 RF: 0 No Action metoclopramide HCl [Reglan] 10 mg tablet 10 mg PO Q6H PRN (Reason: nausea and vomiting) Qty: 20 RF: 0 nitrofurantoin monohyd/m-cryst [Macrobid] 100 mg capsule 100 mg PO Q12H 5 Days Qty: 10 RF: 0 tramadol 50 mg tablet 50 mg PO Q6H PRN (Reason: pain) Qty: 20 RF: 0 fluconazole 150 mg tablet 150 mg PO ONCE 1 Days Qty: 1 RF: 0 cyclobenzaprine 10 mg tablet 10 mg PO TID PRN (Reason: muscle spasm) Qty: 10 RF: 0 Referrals: Abdoulaye Ball MD [Primary Care Provider] - 2 days (if not better)
[2021-01-18 07:02] VITALS: BP 110/51; PULSE 93; RESP 16; O2SAT 98
[2021-01-18] MEDS: 0.9 % Sodium Chloride 1,000 ML 999 ML IVCONT (07:16)
[2021-01-18 07:22] LABS: MANUAL DIFF FLAG NO
[2021-01-18 07:23] LABS: Basophils Percent Auto 0.4 % (0-2); Eosinophils Absolute Auto 0.2 X10*3/uL (0.0-0.4); Eosinophils Percent Auto 2.7 % (0-4); Hematocrit 39.7 % (37-47); Hemoglobin 13.3 g/dl (12.0-16.0); Imm Gran Abs Auto 0.02 X10*3/uL (0.00-0.03); Imm Gran Pct Auto 0.3 % (0.0-0.4); Lymphocytes Absolute Auto 1.8 X10*3/uL (1.2-4.9); Lymphocytes Percent Auto 25.2 % (20-40); Mean Corpuscular HGB Conc 33.5 g/dl (31.0-35.0); Mean Corpuscular Hemoglobin 28.8 pg (27.0-33.0); Mean Corpuscular Volume 85.9 fL (80-98); Mean Platelet Volume 8.8 fL (9.4-12.3); Monocytes Absolute Auto 0.7 X10*3/uL (0.1-1.2); Monocytes Percent Auto 8.9 % (2-11); Neutrophils Absolute Auto 4.6 X10*3/uL (2.0-8.3); Neutrophils Percent Auto 62.5 % (45-73); Platelet Count 267 X10*3/uL (160-400); Red Blood Count 4.62 X10*6/uL (4.20-5.50); Red Cell Distribution Width 12.5 % (11.0-16.0); White Blood Count 7.3 X10*3/uL (4.8-10.8)
[2021-01-18 07:47] LABS: Alanine Aminotransferase 10 U/L (0-31); Albumin Level 4.2 g/dL (3.5-5.0); Alkaline Phosphatase 46 U/L (39-117); Anion Gap 11 (12-20); Aspartate Amino Transferase 17 U/L (5-31); Bilirubin Direct 0.3 mg/dL (0.0-0.5); Blood Urea Nitrogen 8 mg/dL (9-16); Calcium 10.6 mg/dL (8.4-10.2); Carbon Dioxide 26 mmol/L (22-29); Chloride 106 mmol/L (96-108); Creatinine Clr Calc Pharmacy 122.7; Estimated Glomerular Filt Rate > 60; Glucose Random 92 mg/dL (60-115); Magnesium 1.9 mg/dL (1.6-2.6); Potassium 4.4 mmol/L (3.3-5.1); Sodium 139 mmol/L (135-145); Total Protein 7.1 g/dL (6.5-8.0)
--- NOTE | 2021-01-18 08:13 | PC.NURSE ---
IV removed catheter tip intact no complications
== END 2021-01-18 08:15 | disposition home or self-care (01) ==
PROVIDERS: Emergency Provider Emergency Medicine; PCP Family Medicine
DX: J01.00 Acute maxillary sinusitis, unspecified (principal); R42 Dizziness and giddiness; Z79.899 Other long term (current) drug therapy; Z87.891 Personal history of nicotine dependence
CPT/HCPCS: 36415; 80048; 80076; 83735; 85025; 96360; 99284

== ENCOUNTER 2021-02-16 07:44 | Emergency (ER) | payer MEDICAID, SELFPAY ==
[2021-02-16 08:06] VITALS: BP 121/69; PULSE 92; RESP 18; TEMP 36.3; O2SAT 97; BMI 27.3
--- NOTE | 2021-02-16 09:03 | ED.BACK ---
HPI - Back Pain/Injury General Chief Complaint: Back Pain/Injury Stated Complaint: multiple complaints Time Seen by Provider: 02/16/21 08:09 Source: patient Mode of arrival: ambulatory Limitations: no limitations History of Present Illness HPI Narrative: 25-year-old female with a history of chronic low back pain due to herniated discs and bone spurs in her lower back, history hypermobility syndrome who presents to the ER with left lower back pain that started yesterday after she was moving all things in her apartment. She reports her cats have fleas and she needed to move every single thing in her apartment out down to the basement so that she could mom the apartment and adequately treated. She has been taking Flexeril with no improvement in the pain. She denies any trauma or fall. The pain is aching and sharp in nature, worse with movement worse with palpation, no radiation. She has no urinary symptoms, abdominal pain, nausea, vomiting, fever, chills. Patient also reports a lesion on her right cheek that she thinks is a spider bite. She has been putting triamcinolone on it with some improvement. She states her right eye was slightly swollen which is superior to the lesion. No vision changes no fever or chills. She also reports being on antibiotics for sinus infection and states she has a yeast infection. She has some white thick discharge and itching. Just started today. No concern for STI or . MD elicited complaint: back pain Pertinent past history: prior back pain Onset (ago): day(s) (1) Timing: constant Severity: moderate Similar Symptoms Previously: Yes Quality: aching and spasming Location: left lower back Radiation: none Exacerbating factors: movement and coughing/sneezing Relieving factors: immobilization and supine Context: while lifting and turning/twisting Associated symptoms: denies other symptoms Treatments prior to arrival: other (Muscle relaxer) Work related injury: No Related Data Previous Rx's Medication Instructions Recorded tramadol 50 mg tablet 50 mg PO Q6H PRN #20 tab 07/03/20 metoclopramide HCl 10 mg tablet 10 mg PO Q6H PRN #20 tab 09/07/20 (Reglan) nitrofurantoin 100 mg PO Q12H 5 Days #10 cap 12/19/20 monohydrate/macrocrystals 100 mg capsule (Macrobid) cyclobenzaprine 10 mg tablet 10 mg PO TID PRN #10 tab 01/17/21 fluconazole 150 mg tablet 150 mg PO ONCE 1 Days #1 tab 01/17/21 cefuroxime axetil 500 mg tablet 500 mg PO BID 7 Days #14 tab 01/18/21 fluconazole 150 mg tablet 150 mg PO Q3D #2 tab 02/16/21 (Diflucan) ibuprofen 600 mg tablet 600 mg PO Q8H PRN #20 tab 02/16/21 lidocaine 5 % topical patch 1 patch TOPICAL DAILY #15 ea 02/16/21 mupirocin 2 % topical ointment 1 appl TOPICAL TID #15 g 02/16/21 Allergies Allergy/AdvReac Type Severity Reaction Status Date / Time Iodinated Contrast Media Allergy Severe RASH, ABD Verified 12/18/20 20:59 [CONTRAST,IV] PAINS, BODY FEELS LIKE ON FIRE shubham Allergy Severe AIRWAY Verified 12/18/20 20:59 CLOSES shellfish derived Allergy Severe ANAPHYLAXIS Verified 12/18/20 20:59 [SHELLFISH DERIVED] Sulfa (Sulfonamide Allergy Severe RASH Verified 12/18/20 20:59 Antibiotics) [SULFA (SULFONAMIDE ANTIBIOTICS)] diphenhydramine Allergy Intermediate PANIC Verified 12/18/20 20:59 [From BENADRYL] ATTACK hazelnut [HAZELNUT] Allergy Intermediate THROAT Verified 12/18/20 20:59 IRRITATION [place] Allergy Unknown throat Verified 12/18/20 20:59 swell ondansetron Allergy Unknown migraine Verified 12/18/20 20:59 [From ZOFRAN ( HYDROCHLORIDE)] pomegranate [POMEGRANATE] Allergy Unknown DIFFICULTY Verified 12/18/20 20:59 BREATHING prazosin [PRAZOSIN] Allergy Unknown UNKNOWN Verified 12/18/20 20:59 topiramate [From TOPAMAX] AdvReac Intermediate AGITATION Verified 12/18/20 20:59 propranolol AdvReac Unknown Verified 12/18/20 20:59 Aloe Allergy Unknown swelling Uncoded 09/07/20 01:41 IVP Dye Allergy Unknown Unknown Uncoded 09/07/20 01:41 Pomegranite Allergy Unknown Unknown Uncoded 09/07/20 01:41 Shellfish Allergy Unknown Unknown Uncoded 09/07/20 01:41 shellfish Allergy Unknown throat Uncoded 09/07/20 01:41 swelling sulfa Allergy Unknown Unknown Uncoded 09/07/20 01:41 topamax Allergy Unknown Unknown Uncoded 09/07/20 01:41 Review of Systems Review of Systems: Constitutional: No Fever, No Chills ENT/Mouth: No sore throat, No Rhinorrhea, No Swallowing Difficulty Eyes: No Eye Pain, + Swelling, No Redness Cardiovascular: No Chest Pain, No SOB Gastrointestinal: No Nausea, No Vomiting, No Diarrhea, No abdominal Pain Genitourinary: No Dysuria, No Urinary Frequency, No Hematuria, Vaginal discharge, +vaginal itchiness Musculoskeletal: No joint pain, + Myalgias Skin: + Skin Lesions, No rash Neuro: No Weakness, No Numbness Heme/Lymph: No Bruising, No Lymphadenopathy PMFSH Past Medical History Medical History Anxiety Borderline personality disorder Migraines PTSD (post-traumatic stress disorder) Social History Social History Alcohol intake: never Patient Tobacco Use Status: Former Tobacco user Use of substances other than those prescribed or required for medical reasons: No Advance Directives: No Advance Directives Information Provided: No Patient : No Physical Exam Vital Signs: Vital Signs: Last Vital Signs Temp 97.4 F 02/16/21 08:06 Pulse 92 02/16/21 08:06 Resp 18 02/16/21 08:06 BP 121/69 02/16/21 08:06 Pulse Ox 97 02/16/21 08:06 Body Mass Index 27.3 Appearance: Alert. Oriented X3. No acute distress. Eyes: Pupils equal, round and reactive to light. No periorbital swelling or erythema. EOMI. ENT: Pharynx normal. Neck: Normal inspection. CVS: Normal heart rate and rhythm. Pulses normal. Respiratory: No respiratory distress. Breath sounds normal. Abdomen: Soft and nontender. +BS x4 Back: Normal inspection. Tenderness of the middle and upper lumbar soft tissue areas on the left side. No lumbar spinal tenderness. No CVA tenderness normal range of motion of the spine. Skin: Skin warm and dry. Normal skin color. Normal skin turgor. There is a small circular lesion over right maxillary area with erythema and tenderness with central minor ulceration, no drainage. Extremities: Atraumatic x4 negative let leg raise x2 Neuro: Oriented X 3. No motor deficit. No sensory deficit. Ambulates with steady gait Course Course Course Narrative: 25-year-old female presenting with multiple complaints. She has left lower back pain after lifting and twisting 2 days ago. No weakness or numbness associated with this. No fever or chills. She also has a mild what appears to be an insect bite on her right cheek without any surrounding cellulitis. No drainage. In addition she reports signs and symptoms of yeast infection. Pelvic exam deferred at this time patient declines. She is on antibiotics for a sinus infection and states she has had yeast infections before this feels similar. No concern for STI or . Will plan to check a UA and U preg. Doubt any UTI or pyelonephritis. Her back pain seems to be muscular. Will treat with still on Mohit and Toradol and reassess. Reevaluation(s) Reevaluation #1: Urinalysis is negative for infection. She is feeling better after the lidocaine and Toradol. Will plan to treat for lumbar strain with NSAID and topical lidocaine. Will also give empiric treatment for vaginal yeast infection in the setting of being on orals antibiotics. Will give topical mupirocin for her bug bite on her face. She agrees to follow-up with her doctor for further management. She is stable for discharge home. MDM - Back Pain/Injury Lab Data Labs: Lab Results 02/16/21 02/16/21 Range/Units 08:49 08:49 Urine Color STRAW Urine Appearance HAZY Urine pH 6.0 (5.0-8.0) Ur Specific [place] <= 1.005 (1.005-1.025) Urine Protein NEG (NEG-TRACE) MG/DL Urine Glucose (UA) NEG (NEG) MG/DL Urine Ketones NEG (NEG) MG/DL Urine Blood NEG (NEG) Urine Nitrite NEG (NEG) Ur Leukocyte Esterase NEG (NEG) Urine Test NEGATIVE (NEGATIVE) Critical Care Time Critical Care Time Critical Care Time: No Discharge Plan Discharge Clinical Impression: Strain of lumbar region Qualifiers: Encounter type: initial encounter Qualified Code(s): S39.012A - Strain of muscle, fascia and tendon of lower back, initial encounter Patient Disposition: Home, Self-Care Instructions: Low Back Strain (ED), Lower Back Exercises (ED) Additional Instructions: Your back pain is most likely muscular strain and spasm from your recent activity and lifting. No bending, lifting or twisting. Use ice several times per day for 20 minutes at a time for the next 48 hours and then change to heat. Take medications as prescribed to help with pain and discomfort. Use the prescribed antibiotic ointment on the lesion on her face. Avoid topical steroids this area. You can use ice as needed for swelling and discomfort. Take the prescribed Diflucan for your yeast infection. repeat the dose in 3 days if you are still having symptoms. Continue taking the previously prescribed antibiotics for sinus infection. Follow up with your Primary Care Doctor this week. If your pain worsens, if you develop new numbness, tingling, weakness, loss of function or incontinence call 911 or come back to the ER right away for evaluation. Prescriptions: New ibuprofen 600 mg tablet 600 mg PO Q8H PRN (Reason: pain) Qty: 20 RF: 0 lidocaine 5 % adhesive patch,medicated 1 patch topical DAILY Qty: 15 RF: 0 mupirocin 2 % ointment 1 appl topical TID Qty: 15 RF: 0 fluconazole [Diflucan] 150 mg tablet 150 mg PO Q3D Qty: 2 RF: 0 No Action metoclopramide HCl [Reglan] 10 mg tablet 10 mg PO Q6H PRN (Reason: nausea and vomiting) Qty: 20 RF: 0 nitrofurantoin monohyd/m-cryst [Macrobid] 100 mg capsule 100 mg PO Q12H 5 Days Qty: 10 RF: 0 tramadol 50 mg tablet 50 mg PO Q6H PRN (Reason: pain) Qty: 20 RF: 0 fluconazole 150 mg tablet 150 mg PO ONCE 1 Days Qty: 1 RF: 0 cyclobenzaprine 10 mg tablet 10 mg PO TID PRN (Reason: muscle spasm) Qty: 10 RF: 0 cefuroxime axetil 500 mg tablet 500 mg PO BID 7 Days Qty: 14 RF: 0 Interventions: ED Discharge Assessment Last Done: 02/16/21 09:45
[2021-02-16] MEDS: Lidocaine 4 % Patch ADH..PATCH 1 PATCH TRANSDERMA (09:08)
[2021-02-16] MEDS: Ketorolac Tromethamine 15 MG/ML VIAL 30 MG IM (09:08)
[2021-02-16 09:11] LABS: Appearance Urine HAZY; Color Urine STRAW; Glucose Urine UA NEG (NEG); Leukocyte Esterase Urine NEG (NEG); Nitrite Urine NEG (NEG); Specific Gravity - Urine <= 1.005 (1.005-1.025); Urine Blood NEG (NEG); Urine Ketones NEG (NEG); Urine Protein NEG (NEG-TRACE)
[2021-02-16 09:13] LABS: UPreg QC Valid YES; Urine Pregnancy NEGATIVE (NEGATIVE)
== END 2021-02-16 09:45 | disposition home or self-care (01) ==
PROVIDERS: Physician Assistant; Emergency Provider Emergency Medicine; PCP Family Medicine
DX: S39.012A Strain of muscle, fascia and tendon of lower back, initial encounter (principal); B37.3 Candidiasis of vulva and vagina; X50.9XXA Other and unspecified overexertion or strenuous movements or postures, initial encounter; Y93.9 Activity, unspecified; Y92.9 Unspecified place or not applicable; Y99.9 Unspecified external cause status
CPT/HCPCS: 81003; 81025; 96372; 99284; J1885

== ENCOUNTER 2021-03-03 22:04 | Emergency (ER) | payer MEDICAID, SELFPAY ==
[2021-03-03 22:06] VITALS: BP 109/65; PULSE 101; RESP 19; TEMP 36.7; O2SAT 99; BMI 27.3
--- NOTE | 2021-03-03 23:56 | ED.GENADULT ---
HPI - General Adult General Chief complaint: General Medical Stated complaint: pain from shoulders and up Time Seen by Provider: 03/03/21 23:26 Source: patient Mode of arrival: ambulatory Limitations: no limitations History of Present Illness HPI narrative: 25-year-old female with a history of chronic back pain, herniated discs, hypermobility syndrome, anxiety, borderline personality who presents to the ER with bilateral neck pain and jaw pain. She reports the pain has been going on for the last 1 week and she is having difficulty opening her jaw fully she is feeling clicking when she opens her jaw. She is able to eat and drink but it is painful at times. She has a history of TMJ in the past. She is due to see her dentist now. She denies any trauma. She admits to increased stress and anxiety at home, with significant underlying issues with her mother. She is in speaking with a therapist weekly for the last 12 years. She recently had to quit her job due to physical and mental issues. She reports worsening depression, and not being able to sustain a job or live her life fully because of this. She denies any suicidality or homicidality. She takes Wellbutrin which helps but feels like she needs more. She denies any drugs or alcohol use. MD complaint: Neck pain, jaw pain, depression Onset (ago): day(s) Location: head, face, mouth and neck Radiation: non-radiation Severity: moderate Severity scale (1-10): 5 Quality: aching and sharp Pain Consistency: intermittent Relieving factors: none Exacerbating factors: eating Treatments prior to arrival: none Related Data Previous Rx's Medication Instructions Recorded tramadol 50 mg tablet 50 mg PO Q6H PRN #20 tab 07/03/20 metoclopramide HCl 10 mg tablet 10 mg PO Q6H PRN #20 tab 09/07/20 (Reglan) nitrofurantoin 100 mg PO Q12H 5 Days #10 cap 12/19/20 monohydrate/macrocrystals 100 mg capsule (Macrobid) cyclobenzaprine 10 mg tablet 10 mg PO TID PRN #10 tab 01/17/21 fluconazole 150 mg tablet 150 mg PO ONCE 1 Days #1 tab 01/17/21 cefuroxime axetil 500 mg tablet 500 mg PO BID 7 Days #14 tab 01/18/21 fluconazole 150 mg tablet 150 mg PO Q3D #2 tab 10/27/21 (Diflucan) ibuprofen 600 mg tablet 600 mg PO Q8H PRN #20 tab 02/16/21 lidocaine 5 % topical patch 1 patch TOPICAL DAILY #15 ea 02/16/21 mupirocin 2 % topical ointment 1 appl TOPICAL TID #15 g 02/16/21 cyclobenzaprine 10 mg tablet 10 mg PO TID PRN #14 tab 03/03/21 ibuprofen 600 mg tablet 600 mg PO Q8H PRN #20 tab 03/03/21 lidocaine 5 % topical patch 1 patch TOPICAL DAILY #15 ea 03/03/21 Allergies Allergy/AdvReac Type Severity Reaction Status Date / Time Iodinated Contrast Media Allergy Severe RASH, ABD Verified 12/18/20 20:59 [CONTRAST,IV] PAINS, BODY FEELS LIKE ON FIRE shubham Allergy Severe AIRWAY Verified 12/18/20 20:59 CLOSES shellfish derived Allergy Severe ANAPHYLAXIS Verified 12/18/20 20:59 [SHELLFISH DERIVED] Sulfa (Sulfonamide Allergy Severe RASH Verified 12/18/20 20:59 Antibiotics) [SULFA (SULFONAMIDE ANTIBIOTICS)] diphenhydramine Allergy Intermediate PANIC Verified 12/18/20 20:59 [From BENADRYL] ATTACK hazelnut [HAZELNUT] Allergy Intermediate THROAT Verified 12/18/20 20:59 IRRITATION [place] Allergy Unknown throat Verified 12/18/20 20:59 swell ondansetron Allergy Unknown migraine Verified 12/18/20 20:59 [From ZOFRAN ( HYDROCHLORIDE)] pomegranate [POMEGRANATE] Allergy Unknown DIFFICULTY Verified 12/18/20 20:59 BREATHING prazosin [PRAZOSIN] Allergy Unknown UNKNOWN Verified 12/18/20 20:59 topiramate [From TOPAMAX] AdvReac Intermediate AGITATION Verified 12/18/20 20:59 propranolol AdvReac Unknown Verified 12/18/20 20:59 Aloe Allergy Unknown swelling Uncoded 09/07/20 01:41 IVP Dye Allergy Unknown Unknown Uncoded 09/07/20 01:41 Pomegranite Allergy Unknown Unknown Uncoded 09/07/20 01:41 Shellfish Allergy Unknown Unknown Uncoded 09/07/20 01:41 shellfish Allergy Unknown throat Uncoded 09/07/20 01:41 swelling sulfa Allergy Unknown Unknown Uncoded 09/07/20 01:41 topamax Allergy Unknown Unknown Uncoded 09/07/20 01:41 Review of Systems Review of Systems: Constitutional: No Fever, No Chills ENT/Mouth: No sore throat, No Rhinorrhea, No Swallowing Difficulty Eyes: No Eye Pain, No Swelling, No Redness Cardiovascular: No Chest Pain, No SOB, No Orthopnea, No Edema Respiratory: No Cough, No Sputum, No Wheezing, No dyspnea Gastrointestinal: No Nausea, No Vomiting, No Diarrhea, No abdominal Pain Musculoskeletal: No joint pain, + Myalgias Skin: No Skin Lesions, No rash Neuro: No Weakness, No Numbness, No Dizziness, No Headache Psych: + Anxiety/Panic, + Depression Heme/Lymph: No Bruising, No Lymphadenopathy Endocrine: No Polyuria, No Polydipsia PMFSH Past Medical History Attestation statement: The following information was validated with the patient. Medical History Anxiety Borderline personality disorder Migraines PTSD (post-traumatic stress disorder) Social History Social History Alcohol intake: never Patient Tobacco Use Status: Former Tobacco user Advance Directives: No Advance Directives Information Provided: No Patient : No Physical Exam Vital Signs: Vital Signs: Last Vital Signs Temp 98.1 F 03/03/21 22:06 Pulse 101 H 03/03/21 22:06 Resp 19 03/03/21 22:06 BP 109/65 03/03/21 22:06 Pulse Ox 99 03/03/21 22:06 Body Mass Index 27.3 Appearance: Alert. Oriented X3. No acute distress. Tearful Eyes: Pupils equal, round and reactive to light. ENT: Pharynx normal. Normal TM's bilaterally. TMJ with clicking upon opening and closing of the jaw. Able to fully open and close the jaw but with pain. No temporal tenderness. Neck: Normal inspection. Neck supple. soft tissue tenderness bilaterally with pain upon rotation to the right and left. palpable spasm. no cervical spinal tenderness. CVS: Normal heart rate and rhythm. Pulses normal. Respiratory: No respiratory distress. Breath sounds normal. Skin: Skin warm and dry. Normal skin color. Normal skin turgor. No rashes. Extremities: No lower extremity edema. Neuro: Oriented X 3. No motor deficit. No sensory deficit. Course Course Course Narrative: 25 yo female presenting with exacerbation of her TMJ as well as neck pain, stress and depression. She is not suicidal at this time but reports her depression is overwhelming her. She is talking to her therapist is going to get referred to a psychiatrist soon. She expressed understanding of the importance of following up with her doctor and getting the referrals needed to help her mental state. She is grateful for partial program referral and will call tomorrow for a over the phone intake. S for her neck pain and jaw pain, these are both acute on chronic problems that are both exacerbated by stress. Will treat symptomatically with anti-inflammatory, muscle relaxer Lidoderm patch. We discussed importance of stress management and following up. She is stable for discharge home with close outpatient follow-up. Critical Care Time Critical Care Time Critical Care Time: No Discharge Plan Discharge Clinical Impression: Cervical muscle strain Qualifiers: Encounter type: initial encounter Qualified Code(s): S16.1XXA - Strain of muscle, fascia and tendon at neck level, initial encounter Depression Qualifiers: Depression Type: major depressive disorder Major depression recurrence: recurrent Active/Remission status: currently active Major depression episode severity: severe Psychotic features: without psychotic features Qualified Code(s): F33.2 - Major depressive disorder, recurrent severe without psychotic features Patient Disposition: Home, Self-Care Instructions: Stress (ED), Depression (ED), Temporomandibular Disorder (ED) Additional Instructions: Recommend following up with her primary care doctor as soon as possible. Call the partial hospitalization number tomorrow to set up an over the phone intake. Take the prescribed medications as directed for jaw and neck pain. Recommend following up with your dentist as soon as possible for further evaluation of your jaw pain. If you develop new or worsening symptoms call 911 or come back to the ER for further evaluation. Prescriptions: New cyclobenzaprine 10 mg tablet 10 mg PO TID PRN (Reason: muscle spasm) Qty: 14 RF: 0 lidocaine 5 % adhesive patch,medicated 1 patch topical DAILY Qty: 15 RF: 0 ibuprofen 600 mg tablet 600 mg PO Q8H PRN (Reason: pain) Qty: 20 RF: 0 No Action metoclopramide HCl [Reglan] 10 mg tablet 10 mg PO Q6H PRN (Reason: nausea and vomiting) Qty: 20 RF: 0 nitrofurantoin monohyd/m-cryst [Macrobid] 100 mg capsule 100 mg PO Q12H 5 Days Qty: 10 RF: 0 tramadol 50 mg tablet 50 mg PO Q6H PRN (Reason: pain) Qty: 20 RF: 0 ibuprofen 600 mg tablet 600 mg PO Q8H PRN (Reason: pain) Qty: 20 RF: 0 lidocaine 5 % adhesive patch,medicated 1 patch topical DAILY Qty: 15 RF: 0 mupirocin 2 % ointment 1 appl topical TID Qty: 15 RF: 0 fluconazole [Diflucan] 150 mg tablet 150 mg PO Q3D Qty: 2 RF: 0 fluconazole 150 mg tablet 150 mg PO ONCE 1 Days Qty: 1 RF: 0 cyclobenzaprine 10 mg tablet 10 mg PO TID PRN (Reason: muscle spasm) Qty: 10 RF: 0 cefuroxime axetil 500 mg tablet 500 mg PO BID 7 Days Qty: 14 RF: 0 Referrals: Abdoualye Ball MD [Primary Care Provider] - 1 week (Depression, anxiety)
[2021-03-04] MEDS: Ketorolac Tromethamine 15 MG/ML VIAL 30 MG IM (00:10)
[2021-03-04] MEDS: Cyclobenzaprine HCl 10 MG TABLET PO (00:11)
[2021-03-04] MEDS: Lidocaine 4 % Patch ADH..PATCH 1 PATCH TRANSDERMA (00:11)
== END 2021-03-04 00:27 | disposition home or self-care (01) ==
PROVIDERS: Emergency Provider Internal Medicine; PCP Family Medicine
DX: S16.1XXA Strain of muscle, fascia and tendon at neck level, initial encounter (principal); F33.2 Major depressive disorder, recurrent severe without psychotic features; X58.XXXA Exposure to other specified factors, initial encounter; Y93.9 Activity, unspecified; Y92.9 Unspecified place or not applicable; Y99.9 Unspecified external cause status
CPT/HCPCS: 96372; 99284; J1885

== ENCOUNTER 2021-03-16 22:35 | Emergency (ER) | payer MEDICAID, SELFPAY ==
--- NOTE | ~2021-03-16 | XR_ITS ---
EXAMINATION: XR CHEST CLINICAL INFORMATION: Dizziness and presyncope COMPARISON: 01/12/2021 TECHNIQUE: Frontal view of the chest was obtained. FINDINGS: No significant abnormality is noted involving the heart, lungs, mediastinum, bony thorax or soft tissues. XR/XR chest 1V IMPRESSION: Unremarkable examination.
--- NOTE | ~2021-03-16 | CT_ITS ---
EXAMINATION: CT HEAD WITHOUT CONTRAST CLINICAL INFORMATION: Increasing memory loss/dizziness COMPARISON: 06/15/2015 TECHNIQUE: Contiguous axial imaging was performed from the skull base to vertex without intravenous administration of contrast. This CT examination was performed using dose optimization techniques as appropriate, variously including the following: *Automated exposure control *Adjustment of mA and/or kV according to patient size (this includes techniques or standardized protocols for targeted exams where dose is matched to indication/reason for exam; i.e. extremities or head) *Use of iterative reconstruction technique DLP: 654 mGy-cm FINDINGS: There is no evidence of acute intracranial hemorrhage or territorial infarction. No abnormal mass effect or midline shift is seen. Dang to white matter differentiation is well preserved. No extra-axial fluid collections are identified. The ventricles are normal in size. There is no abnormal attenuation within the brain parenchyma. The osseous structures and soft tissues are normal. The mastoid air cells and visualized portions of the paranasal sinuses are well aerated. CT/CT head/brain wo con IMPRESSION: No acute intracranial pathology.
[2021-03-16 22:46] VITALS: BP 129/77; PULSE 108; RESP 18; TEMP 37.1; O2SAT 96
--- NOTE | 2021-03-16 22:46 | PC.NURSE ---
patient states that one week ago she double dosed on albutrin which led to her starting to have seizures while in [employer]. patient states that she is glitching and her vision is not matching up with her movement and is choppy . These symptoms gone and go and when these symptoms occur she gets nauseous.
[2021-03-16 22:49] VITALS: BP 120/78; BP 129/77; PULSE 112; RESP 15; O2SAT 100; O2SAT 97; BMI 26.9
--- NOTE | 2021-03-16 23:10 | ECG_ITS ---
Test Reason : DIZZINESS Blood Pressure : / mmHG Vent. Rate : 098 BPM Atrial Rate : 098 BPM P-R Int : 124 ms QRS Dur : 086 ms QT Int : 348 ms P-R-T Axes : 063 043 046 degrees QTc Int : 444 ms Normal sinus rhythm Normal ECG When compared with ECG of 17-JAN-2021 07:17, No significant change was found Heart rate has increased Referred By: Sally Bond Electronically Signed By:DUSTIN ARREAGA MD
--- NOTE | 2021-03-16 23:31 | ED_ITS ---
HPI - General Adult General Chief complaint: General Medical Stated complaint: dizziness Time Seen by Provider: 03/16/21 22:44 Source: patient Mode of arrival: ambulatory History of Present Illness HPI narrative: 25-year-old female with a past medical history of anxiety, borderline personality disorder, migraines, PTSD, presenting to the ED complaining of room spinning dizziness and near syncopal episodes worse with position changes/movement beginning about 1 hour [employer]. Describes vision as pausing, denies any visual loss or LOC. Also reports issues with memory x months, easily forgetful, and mild headache. Denies nausea, vomiting, chest pain, shortness of breath, abdominal pain, weakness, fever/chills Onset (ago): hour(s) Related Data Previous Rx's Medication Instructions Recorded tramadol 50 mg tablet 50 mg PO Q6H PRN #20 tab 07/03/20 metoclopramide HCl 10 mg tablet 10 mg PO Q6H PRN #20 tab 09/07/20 (Reglan) nitrofurantoin 100 mg PO Q12H 5 Days #10 cap 12/19/20 monohydrate/macrocrystals 100 mg capsule (Macrobid) cyclobenzaprine 10 mg tablet 10 mg PO TID PRN #10 tab 01/17/21 fluconazole 150 mg tablet 150 mg PO ONCE 1 Days #1 tab 01/17/21 cefuroxime axetil 500 mg tablet 500 mg PO BID 7 Days #14 tab 01/18/21 fluconazole 150 mg tablet 150 mg PO Q3D #2 tab 02/16/21 (Diflucan) ibuprofen 600 mg tablet 600 mg PO Q8H PRN #20 tab 02/16/21 lidocaine 5 % topical patch 1 patch TOPICAL DAILY #15 ea 02/16/21 mupirocin 2 % topical ointment 1 appl TOPICAL TID #15 g 02/16/21 cyclobenzaprine 10 mg tablet 10 mg PO TID PRN #14 tab 03/03/21 ibuprofen 600 mg tablet 600 mg PO Q8H PRN #20 tab 03/03/21 lidocaine 5 % topical patch 1 patch TOPICAL DAILY #15 ea 03/03/21 meclizine 25 mg tablet 25 mg PO TID PRN #14 tab 03/17/21 Allergies Allergy/AdvReac Type Severity Reaction Status Date / Time Iodinated Contrast Media Allergy Severe RASH, ABD Verified 03/16/21 22:55 [CONTRAST,IV] PAINS, BODY FEELS LIKE ON FIRE shubham Allergy Severe AIRWAY Verified 03/16/21 22:55 CLOSES shellfish derived Allergy Severe ANAPHYLAXIS Verified 03/16/21 22:55 [SHELLFISH DERIVED] Sulfa (Sulfonamide Allergy Severe RASH Verified 03/16/21 22:55 Antibiotics) [SULFA (SULFONAMIDE ANTIBIOTICS)] diphenhydramine Allergy Intermediate PANIC Verified 03/16/21 22:55 [From BENADRYL] ATTACK hazelnut [HAZELNUT] Allergy Intermediate THROAT Verified 03/16/21 22:55 IRRITATION Shubham Allergy Unknown throat Verified 03/16/21 22:55 swell pomegranate [POMEGRANATE] Allergy Unknown DIFFICULTY Verified 03/16/21 22:55 BREATHING prazosin [PRAZOSIN] Allergy Unknown UNKNOWN Verified 03/16/21 22:55 topiramate [From TOPAMAX] AdvReac Intermediate Rash Verified 03/16/21 22:55 ondansetron AdvReac Unknown migraine Verified 03/16/21 22:55 [From ZOFRAN ( HYDROCHLORIDE)] propranolol AdvReac Unknown Verified 03/16/21 22:55 Aloe Allergy Unknown swelling Uncoded 03/16/21 22:55 IVP Dye Allergy Unknown Unknown Uncoded 03/16/21 22:55 Pomegranite Allergy Unknown Unknown Uncoded 03/16/21 22:55 Shellfish Allergy Unknown Unknown Uncoded 03/16/21 22:55 shellfish Allergy Unknown throat Uncoded 03/16/21 22:55 swelling sulfa Allergy Unknown Unknown Uncoded 03/16/21 22:55 topamax Allergy Unknown Unknown Uncoded 03/16/21 22:55 Review of Systems Review of Systems: Constitutional: No Fever, + Chills, No Fatigue, No Malaise ENT/Mouth: No Ear Pain, No Nasal Congestion, No Sinus Pain, No Hoarseness, No sore throat Eyes: No Eye Pain, No Swelling, No Redness,+ Vision Changes, no visual loss Cardiovascular: No Chest Pain, No SOB, No Dyspnea on Exertion, No Orthopnea, No Edema, No Palpitations Respiratory: No Cough, No Dyspnea Gastrointestinal: No Nausea, No Vomiting, No Diarrhea, No Constipation, No Abdo sarah pain Genitourinary: No Dysuria, No Urinary Frequency, No Hematuria,No Urinary Incontinence, No Urgency, No Flank Pain Musculoskeletal: No joint pain, No Myalgias, No Joint Swelling Skin: No Skin Lesions, No rash Neuro: No Weakness, No Numbness, + Paresthesias, No Loss of Consciousness, + Dizziness, + Headache, + memory issues Yes all other systems are reviewed and are negative Neurologic: Denies Abnormal speech present [facility] Past Medical History Attestation statement: The following information was validated with the patient. Medical History Anxiety Borderline personality disorder Migraines PTSD (post-traumatic stress disorder) Social History Social History Alcohol intake: never Patient Tobacco Use Status: Former Tobacco user Advance Directives: No Advance Directives Information Provided: Yes Patient : No Physical Exam Vital Signs: Vital Signs: Last Vital Signs Temp 98.7 F 03/16/21 22:46 Pulse 104 H 03/17/21 00:00 Resp 16 03/16/21 23:56 BP 128/75 03/17/21 00:00 Pulse Ox 99 03/16/21 23:56 Body Mass Index 26.9 Const: General: cooperative, healthy appearing, no acute distress, well developed, alert and awake Orientation/consciousness: patient oriented x3 Limitations: no limitations HENMT: Head: Yes normal to inspection and Yes atraumatic Ears: hearing grossly normal bilaterally General nose exam: Normal external nose present Face and sinus: Yes normal facial exam Mouth: Normal oral and palatal mucosa present Throat: Yes posterior oropharynx normal Eyes: General: appearance normal, both eyes and all related structures Pupils: Equal, round and reactive pupils present EOM: EOMs intact bilaterally Neck: Neck: Yes normal visual inspection and Yes no meningeal signs Resp: Effort & Inspection: normal respiratory effort Auscultation: clear to auscultation bilaterally, no rales, no rhonchi and no wheezes Cardio: Rate: tachycardic Heart sounds: S1 normal heart sound present and S2 normal heart sound present GI: Inspection: Yes normal to inspection Palpation (GI): Soft to palpation, nontender, no guarding and not rigid Skin: Rashes: no rashes Wounds: no wounds Neuro: Other: Dizziness elicited on position change/head movement General: patient oriented x3, gait normal, tone normal, moves all extremities, no meningeal signs, no focal motor deficits and CN's II-XI intact bilaterally Cranial nerves: Yes CN's II-XII intact bilaterally, Yes Equal, round and reactive pupils present, Yes Bilaterally intact EOM present and Yes Nystagmus not present (Rightward horizontal nystagmus) Cognition (Neuro): normal cognition Speech: No Abnormal speech present Gait exam (Neuro): Normal gait present Motor exam (neuro): 5/5 motor strength present throughout, Pronator motor function not present and no tremor noted Coordination: [id number] test normal Romberg Test: Negative Extrem: General: Yes normal to inspection, Yes no pedal edema and Yes no calf tenderness Course Course Course Narrative: 21--no leukocytosis, labs otherwise unremarkable, troponin negative -orthostatic vital signs negative -UA negative, tox screen neg XR chest 1V IMPRESSION: Unremarkable examination -ED care transferred to Dr. Schreiber pending head CT and anticipated DC home Medical Decision Making [facility] Narrative Medical decision making narrative: 25-year-old female with a past medical history of anxiety, borderline personality disorder, migraines, PTSD, presenting to the ED complaining of room spinning dizziness and near syncopal episodes worse with position changes/movement beginning about 1 hour [employer]. Also reports issues with memory x months. On exam mildly tachycardic, anxious, NAD/nontoxic, no focal neuro deficits, ambulating with steady gait, lungs CTA. Concern for BPPV vs ? Presyncope although symptoms atypical. Rule out metabolic and infectious etiology and orthostasis/dehydration. Lower concern for CVA/TIA or intracranial pathology. Low concern for PE Plan: EKG, labs, CXR, head CT, orthostatic vital signs, symptomatic treatment, re-evaluate Lab Data Result diagrams: 03/16/21 23:34 03/16/21 23:34 Labs: Lab Results 03/16/21 03/16/21 03/16/21 Range/Units 23:34 23:34 23:34 WBC 6.4 (4.8-10.8) X10*3/uL RBC 4.51 (4.20-5.50) X10*6/uL Hgb 13.5 (12.0-16.0) g/dl Hct 39.7 (37.0-47.0) % MCV 88.0 (80.0-98.0) fL MCH 29.9 (27.0-33.0) pg MCHC 34.0 (31.0-35.0) g/dl RDW 11.9 (11.0-16.0) % Plt Count 294 (160-400) X10*3/uL MPV 8.7 L (9.4-12.3) fL Immature Gran % (Auto) 0.3 (0.0-0.4) % Neut % (Auto) 60.1 (45-73) % Lymph % (Auto) 27.6 (20-40) % [place] % (Auto) 9.2 (2-11) % Eos % (Auto) 2.3 (0-4) % Baso % (Auto) 0.5 (0-2) % Lymph # (Auto) 1.8 (1.2-4.9) X10*3/uL [place] # (Auto) 0.6 (0.1-1.2) X10*3/uL Eos # (Auto) 0.2 (0.0-0.4) X10*3/uL Baso # (Auto) 0.0 (0.0-0.2) X10*3/uL Abs Immat Gran (auto) 0.02 (0.00-0.03) X10*3/uL Absolute Neuts (auto) 3.9 (2.0-8.3) x10*3/uL Absolute Nucleated RBC 0.000 (0.0-0.012) X10*3/uL Nucleated RBC % (auto) 0.0 (0.0-0.2) /100WBC Sodium 142 (135-145) mmol/L Potassium 4.3 (3.3-5.1) mmol/L Chloride 108 (96-108) mmol/L Carbon Dioxide 28 (22-29) mmol/L Anion Gap 10 L (12-20) BUN 9 (9-16) mg/dL Creatinine 0.69 (0.5-1.4) mg/dL Estim Creat Clear Calc 132.9 Estimated GFR > 60 Random Glucose 81 (60-115) mg/dL Calcium 9.4 D (8.4-10.2) mg/dL Magnesium 2.2 (1.6-2.6) mg/dL Total Bilirubin 0.4 (0.0-1.0) mg/dL Direct Bilirubin < 0.2 (0.0-0.5) mg/dL AST 13 (5-31) U/L ALT 10 (0-31) U/L Alkaline Phosphatase 56 D (39-117) U/L Troponin I High Sens < 3.5 (<3.5-17.0) ng/L Total Protein 7.2 (6.5-8.0) g/dL Albumin 4.4 (3.5-5.0) g/dL Urine Color Urine Appearance Urine pH (5.0-8.0) Ur Specific [place] (1.005-1.025) Urine Protein (NEG-TRACE) MG/DL Urine Glucose (UA) (NEG) MG/DL Urine Ketones (NEG) MG/DL Urine Blood (NEG) Urine Nitrite (NEG) Ur Leukocyte Esterase (NEG) Urine RBC (0) /HPF Urine WBC (0-4) /HPF Ur Squamous Epith Cells /LPF Urine Bacteria /LPF Urine Opiates Screen (Not Detect) Urine Fentanyl Screen (Not Detect) Ur Barbiturates Screen (Not Detect) Ur Phencyclidine Scrn (Not Detect) Ur Amphetamines Screen (Not Detect) U Benzodiazepines Scrn (Not Detect) Urine Cocaine Screen (Not Detect) U Marijuana (THC) Screen (Not Detect) 03/16/21 03/16/21 Range/Units 23:34 23:34 WBC (4.8-10.8) X10*3/uL RBC (4.20-5.50) X10*6/uL Hgb (12.0-16.0) g/dl Hct (37.0-47.0) % MCV (80.0-98.0) fL MCH (27.0-33.0) pg MCHC (31.0-35.0) g/dl RDW (11.0-16.0) % Plt Count (160-400) X10*3/uL MPV (9.4-12.3) fL Immature Gran % (Auto) (0.0-0.4) % Neut % (Auto) (45-73) % Lymph % (Auto) (20-40) % [place] % (Auto) (2-11) % Eos % (Auto) (0-4) % Baso % (Auto) (0-2) % Lymph # (Auto) (1.2-4.9) X10*3/uL [place] # (Auto) (0.1-1.2) X10*3/uL Eos # (Auto) (0.0-0.4) X10*3/uL Baso # (Auto) (0.0-0.2) X10*3/uL Abs Immat Gran (auto) (0.00-0.03) X10*3/uL Absolute Neuts (auto) (2.0-8.3) x10*3/uL Absolute Nucleated RBC (0.0-0.012) X10*3/uL Nucleated RBC % (auto) (0.0-0.2) /100WBC Sodium (135-145) mmol/L Potassium (3.3-5.1) mmol/L Chloride (96-108) mmol/L Carbon Dioxide (22-29) mmol/L Anion Gap (12-20) BUN (9-16) mg/dL Creatinine (0.5-1.4) mg/dL Estim Creat Clear Calc Estimated GFR Random Glucose (60-115) mg/dL Calcium (8.4-10.2) mg/dL Magnesium (1.6-2.6) mg/dL Total Bilirubin (0.0-1.0) mg/dL Direct Bilirubin (0.0-0.5) mg/dL AST (5-31) U/L ALT (0-31) U/L Alkaline Phosphatase (39-117) U/L Troponin I High Sens (<3.5-17.0) ng/L Total Protein (6.5-8.0) g/dL Albumin (3.5-5.0) g/dL Urine Color YELLOW Urine Appearance CLEAR Urine pH 7.0 (5.0-8.0) Ur Specific [place] <= 1.005 (1.005-1.025) Urine Protein NEG (NEG-TRACE) MG/DL Urine Glucose (UA) NEG (NEG) MG/DL Urine Ketones NEG (NEG) MG/DL Urine Blood NEG (NEG) Urine Nitrite NEG (NEG) Ur Leukocyte Esterase NEG (NEG) Urine RBC 0-2 (0) /HPF Urine WBC 0-2 (0-4) /HPF Ur Squamous Epith Cells TRACE /LPF Urine Bacteria TRACE /LPF Urine Opiates Screen Not Detected (Not Detect) Urine Fentanyl Screen Not Detected (Not Detect) Ur Barbiturates Screen Not Detected (Not Detect) Ur Phencyclidine Scrn Not Detected (Not Detect) Ur Amphetamines Screen Not Detected (Not Detect) U Benzodiazepines Scrn Not Detected (Not Detect) Urine Cocaine Screen Not Detected (Not Detect) U Marijuana (THC) Screen Not Detected (Not Detect) Discharge Plan Discharge Clinical Impression: Dizziness Instructions: Dizziness (ED) Additional Instructions: Make sure you stay hydrated at home Your blood work and imaging studies were reassuring Take meclizine as needed for dizziness Please follow-up with her doctor If her symptoms persist or worsen, symptoms become constant, persistent nausea/vomiting, developed chest pain or shortness of breath or persistent dizziness please return to the ED Prescriptions: New meclizine 25 mg tablet 25 mg PO TID PRN (Reason: dizziness) Qty: 14 RF: 0 No Action metoclopramide HCl [Reglan] 10 mg tablet 10 mg PO Q6H PRN (Reason: nausea and vomiting) Qty: 20 RF: 0 nitrofurantoin monohyd/m-cryst [Macrobid] 100 mg capsule 100 mg PO Q12H 5 Days Qty: 10 RF: 0 tramadol 50 mg tablet 50 mg PO Q6H PRN (Reason: pain) Qty: 20 RF: 0 ibuprofen 600 mg tablet 600 mg PO Q8H PRN (Reason: pain) Qty: 20 RF: 0 lidocaine 5 % adhesive patch,medicated 1 patch topical DAILY Qty: 15 RF: 0 mupirocin 2 % ointment 1 appl topical TID Qty: 15 RF: 0 fluconazole [Diflucan] 150 mg tablet 150 mg PO Q3D Qty: 2 RF: 0 fluconazole 150 mg tablet 150 mg PO ONCE 1 Days Qty: 1 RF: 0 cyclobenzaprine 10 mg tablet 10 mg PO TID PRN (Reason: muscle spasm) Qty: 10 RF: 0 cefuroxime axetil 500 mg tablet 500 mg PO BID 7 Days Qty: 14 RF: 0 cyclobenzaprine 10 mg tablet 10 mg PO TID PRN (Reason: muscle spasm) Qty: 14 RF: 0 lidocaine 5 % adhesive patch,medicated 1 patch topical DAILY Qty: 15 RF: 0 ibuprofen 600 mg tablet 600 mg PO Q8H PRN (Reason: pain) Qty: 20 RF: 0 Referrals: Physician,Unknown J [Primary Care Provider] - 2 days
[2021-03-16] MEDS: 0.9 % Sodium Chloride 1,000 ML 999 ML IVCONT (23:36)
[2021-03-16 23:42] LABS: Basophils Percent Auto 0.5 % (0-2); Eosinophils Absolute Auto 0.2 X10*3/uL (0.0-0.4); Eosinophils Percent Auto 2.3 % (0-4); Hematocrit 39.7 % (37.0-47.0); Hemoglobin 13.5 g/dl (12.0-16.0); Imm Gran Abs Auto 0.02 X10*3/uL (0.00-0.03); Imm Gran Pct Auto 0.3 % (0.0-0.4); Lymphocytes Absolute Auto 1.8 X10*3/uL (1.2-4.9); Lymphocytes Percent Auto 27.6 % (20-40); MANUAL DIFF FLAG NO; Mean Corpuscular Hemoglobin 29.9 pg (27.0-33.0); Mean Platelet Volume 8.7 fL (9.4-12.3); Monocytes Absolute Auto 0.6 X10*3/uL (0.1-1.2); Monocytes Percent Auto 9.2 % (2-11); Neutrophils Absolute Auto 3.9 x10*3/uL (2.0-8.3); Neutrophils Percent Auto 60.1 % (45-73); Platelet Count 294 X10*3/uL (160-400); Red Blood Count 4.51 X10*6/uL (4.20-5.50); Red Cell Distribution Width 11.9 % (11.0-16.0); White Blood Count 6.4 X10*3/uL (4.8-10.8)
[2021-03-16 23:56] VITALS: BP 109/71; PULSE 89; RESP 16; O2SAT 99
[2021-03-16] MEDS: Metoclopramide HCl 10 MG/2 ML VIAL IVPUSH (23:57)
[2021-03-16] MEDS: Meclizine HCl 25 MG TABLET PO (23:57)
[2021-03-16 23:58] VITALS: BP 109/71; PULSE 91
[2021-03-16 23:59] VITALS: BP 124/73; PULSE 100
[2021-03-17] VITALS: BP 128/75; PULSE 104
[2021-03-17] LABS: Amphetamine Screen Urine Not Detected (Not Detect); Barbiturates, Urine Not Detected (Not Detect); Benzodiazepines Screen Urine Not Detected (Not Detect); Cannabinoid Screen Urine Not Detected (Not Detect); Cocaine Screen Urine Not Detected (Not Detect); Fentanyl, urine Not Detected (Not Detect); Opiate Screen Urine Not Detected (Not Detect); Phencyclidine Screen Urine Not Detected (Not Detect)
[2021-03-17 00:02] LABS: Alanine Aminotransferase 10 U/L (0-31); Albumin Level 4.4 g/dL (3.5-5.0); Alkaline Phosphatase 56 U/L (39-117); Anion Gap 10 (12-20); Aspartate Amino Transferase 13 U/L (5-31); Bilirubin Direct < 0.2 mg/dL (0.0-0.5); Bilirubin Total 0.4 mg/dL (0.0-1.0); Blood Urea Nitrogen 9 mg/dL (9-16); Calcium 9.4 mg/dL (8.4-10.2); Carbon Dioxide 28 mmol/L (22-29); Chloride 108 mmol/L (96-108); Creatinine Clr Calc Pharmacy 132.9; Estimated Glomerular Filt Rate > 60; Glucose Random 81 mg/dL (60-115); Magnesium 2.2 mg/dL (1.6-2.6); Potassium 4.3 mmol/L (3.3-5.1); Sodium 142 mmol/L (135-145); Total Protein 7.2 g/dL (6.5-8.0); Troponin-I High Sensitivity < 3.5 ng/L (<3.5-17.0)
[2021-03-17 00:11] LABS: Appearance Urine CLEAR; Color Urine YELLOW; Glucose Urine UA NEG (NEG); Leukocyte Esterase Urine NEG (NEG); Nitrite Urine NEG (NEG); Specific Gravity - Urine <= 1.005 (1.005-1.025); Urine Blood NEG (NEG); Urine Ketones NEG (NEG); Urine Protein NEG (NEG-TRACE)
[2021-03-17 00:29] LABS: Bacteria Urine TRACE /LPF; RBC Urine 0-2 /HPF (0); Squamous Epithelial Cell Urine TRACE /LPF; WBC Urine 0-2 /HPF (0-4)
[2021-03-17 01:27] VITALS: BP 112/74; PULSE 100; RESP 16; O2SAT 100
== END 2021-03-17 02:03 | disposition home or self-care (01) ==
PROVIDERS: Physician Assistant; Emergency Provider Internal Medicine
DX: R42 Dizziness and giddiness (principal); F41.9 Anxiety disorder, unspecified; Z79.899 Other long term (current) drug therapy
CPT/HCPCS: 36415; 70450; 71045; 80048; 80076; 80307; 81001; 83735; 84484; 85025; 93005; 96361; 96374; 99284; J2765

== ENCOUNTER 2021-04-11 03:11 | Emergency (ER) | payer MEDICAID, SELFPAY ==
[2021-04-11 03:34] VITALS: BP 102/65; PULSE 96; RESP 18; TEMP 36.4; O2SAT 98; BMI 21.7
== END 2021-04-11 04:55 | disposition left against medical advice (07) ==
PROVIDERS: Emergency Provider Emergency Medicine
DX: B37.3 Candidiasis of vulva and vagina (principal)
CPT/HCPCS: 99281; 99282

== ENCOUNTER 2021-06-11 22:27 | Emergency (ER) | payer MEDICAID, SELFPAY ==
--- NOTE | ~2021-06-11 | XR_ITS ---
EXAMINATION: XR ankle RT min 3V, XR foot RT min 3V CLINICAL INFORMATION: Reason for Exam fall COMPARISON: None. TECHNIQUE: AP, oblique and lateral views of the right ankle and foot (5 views in total) FINDINGS: No acute fracture or dislocation. Joint spaces and articular surfaces are maintained. Soft tissues unremarkable. No radiopaque foreign body. XR/XR foot RT min 3V IMPRESSION: No acute fracture or dislocation
--- NOTE | ~2021-06-11 | XR_ITS ---
EXAMINATION: XR ankle RT min 3V, XR foot RT min 3V CLINICAL INFORMATION: Reason for Exam fall COMPARISON: None. TECHNIQUE: AP, oblique and lateral views of the right ankle and foot (5 views in total) FINDINGS: No acute fracture or dislocation. Joint spaces and articular surfaces are maintained. Soft tissues unremarkable. No radiopaque foreign body. XR/XR ankle RT min 3V IMPRESSION: No acute fracture or dislocation
[2021-06-11 22:31] VITALS: BP 97/66; PULSE 115; RESP 18; TEMP 36.4; O2SAT 97; BMI 27.7
--- NOTE | 2021-06-12 01:05 | ED_ITS ---
HPI - Fall General Chief Complaint: Fall Stated Complaint: slipped and fell rt foot pain Time Seen by Provider: 06/11/21 23:11 Source: patient Mode of arrival: ambulatory Limitations: no limitations History of Present Illness HPI Narrative: 25-year-old female here with reports of right foot and ankle pain after a slip and fall on the ice 3 days ago. Patient denies any numbness, tingling, weakness, warmth, redness, fever or chill Pain is worsened with weight-bearing Related Data Previous Rx's Medication Instructions Recorded tramadol 50 mg tablet 50 mg PO Q6H PRN #20 tab 07/03/20 metoclopramide HCl 10 mg tablet 10 mg PO Q6H PRN #20 tab 09/07/20 (Reglan) nitrofurantoin 100 mg PO Q12H 5 Days #10 cap 12/19/20 monohydrate/macrocrystals 100 mg capsule (Macrobid) cyclobenzaprine 10 mg tablet 10 mg PO TID PRN #10 tab 01/17/21 fluconazole 150 mg tablet 150 mg PO ONCE 1 Days #1 tab 01/17/21 cefuroxime axetil 500 mg tablet 500 mg PO BID 7 Days #14 tab 01/18/21 fluconazole 150 mg tablet 150 mg PO Q3D #2 tab 02/16/21 (Diflucan) ibuprofen 600 mg tablet 600 mg PO Q8H PRN #20 tab 02/16/21 lidocaine 5 % topical patch 1 patch TOPICAL DAILY #15 ea 02/16/21 mupirocin 2 % topical ointment 1 appl TOPICAL TID #15 g 02/16/21 cyclobenzaprine 10 mg tablet 10 mg PO TID PRN #14 tab 03/03/21 ibuprofen 600 mg tablet 600 mg PO Q8H PRN #20 tab 03/03/21 lidocaine 5 % topical patch 1 patch TOPICAL DAILY #15 ea 03/03/21 meclizine 25 mg tablet 25 mg PO TID PRN #14 tab 03/17/21 Allergies Allergy/AdvReac Type Severity Reaction Status Date / Time Iodinated Contrast Media Allergy Severe RASH, ABD Verified 06/11/21 22:31 [CONTRAST,IV] PAINS, BODY FEELS LIKE ON FIRE shubham Allergy Severe AIRWAY Verified 06/11/21 22:31 CLOSES shellfish derived Allergy Severe ANAPHYLAXIS Verified 06/11/21 22:31 [SHELLFISH DERIVED] Sulfa (Sulfonamide Allergy Severe RASH Verified 06/11/21 22:31 Antibiotics) [SULFA (SULFONAMIDE ANTIBIOTICS)] diphenhydramine Allergy Intermediate PANIC Verified 06/11/21 22:31 [From BENADRYL] ATTACK hazelnut [HAZELNUT] Allergy Intermediate THROAT Verified 06/11/21 22:31 IRRITATION [place] Allergy Unknown throat Verified 06/11/21 22:31 swell pomegranate [POMEGRANATE] Allergy Unknown DIFFICULTY Verified 06/11/21 22:31 BREATHING prazosin [PRAZOSIN] Allergy Unknown UNKNOWN Verified 06/11/21 22:31 topiramate [From TOPAMAX] AdvReac Intermediate Rash Verified 06/11/21 22:31 ondansetron AdvReac Unknown migraine Verified 06/11/21 22:31 [From ZOFRAN ( HYDROCHLORIDE)] propranolol AdvReac Unknown Verified 06/11/21 22:31 Aloe Allergy Unknown swelling Uncoded 06/11/21 22:31 IVP Dye Allergy Unknown Unknown Uncoded 06/11/21 22:31 Pomegranite Allergy Unknown Unknown Uncoded 06/11/21 22:31 Shellfish Allergy Unknown Unknown Uncoded 06/11/21 22:31 shellfish Allergy Unknown throat Uncoded 06/11/21 22:31 swelling sulfa Allergy Unknown Unknown Uncoded 06/11/21 22:31 topamax Allergy Unknown Unknown Uncoded 06/11/21 22:31 Review of Systems Review of Systems: Yes all other systems are reviewed and are negative Constitutional: Constitutional: Reports no additional constitutional complaints, Denies body ache(s), Denies chills, Denies fever(s), Denies headache(s) and Denies weakness Eyes: Eyes: Reports no additional eye complaints and Denies change in vision ENT: Reports system reviewed and no additional complaints, except as documen danni, Denies dizziness, Denies headache(s), Denies nasal congestion, Denies nasal discharge and Denies neck pain Cardiovascular: Cardiovascular: Reports no additional cardiovascular complaints, Denies chest pain, Denies leg edema and Denies dyspnea Respiratory: Respiratory: Reports no additional respiratory complaints, Denies cough and Denies dyspnea Gastrointestinal: Gastrointestinal: Reports no additional gastrointestinal complaints, Denies abdominal pain, Denies diarrhea, Denies nausea and Denies vomiting Genitourinary: Genitourinary: Reports no additional female genitourinary complaints and Denies urinary incontinence Musculoskeletal: Musculoskeletal: Reports no additional musculoskeletal complaints, Denies back pain, Reports arthralgias, Denies joint swelling, Denies neck pain, Denies numbness and Denies tingling Integumentary/Breasts: Skin/Breast: Reports system reviewed and no additional complaints, except as docu and Denies rash Neurologic: Reports system reviewed and no additional complaints, except as documented, Denies Abnormal speech present, Denies dizziness, Denies headache(s), Denies numbness, Denies tingling and Denies weakness [facility] Past Medical History Attestation statement: The following information was validated with the patient. Source: old records reviewed and nursing notes reviewed Medical History Anxiety Borderline personality disorder Migraines PTSD (post-traumatic stress disorder) Social History Social History Alcohol intake: never Patient Tobacco Use Status: Former Tobacco user Advance Directives: No Patient : No Physical Exam Vital Signs: Vital Signs: Last Vital Signs Temp 97.5 F 06/11/21 22:31 Pulse 115 H 06/11/21 22:31 Resp 18 06/11/21 22:31 BP 97/66 06/11/21 22:31 Pulse Ox 97 06/11/21 22:31 BMI result Body Mass Index 27.7 Const: General: cooperative, healthy appearing, comfortable and no acute distress Orientation/consciousness: patient oriented x3 Limitations: no limitations HENMT: Head: Yes normal to inspection Ears: hearing grossly normal bilaterally General nose exam: Normal external nose present Face and sinus: Yes normal facial exam Mouth: Normal oral and palatal mucosa present Throat: Yes posterior oropharynx normal Eyes: General: appearance normal, both eyes and all related structures Pupils: Equal, round and reactive pupils present Neck: Neck: Yes normal visual inspection Chest: Chest palpation & inspection: normal inspection of the chest Resp: Effort & Inspection: normal respiratory effort Auscultation: clear to auscultation bilaterally Cardio: Rate: regular rate Rhythm: regular rhythm Peripheral pulses: Peripheral pulses 2+ throughout GI: Inspection: Yes normal to inspection Palpation (GI): Soft to palpation and nontender Auscultation: normal bowel sounds Back/Spine/Pelvis: Thoracic/Lumbar Spine: thoracic and lumbar spine normal to inspection Skin: General skin exam: no rashes or lesions noted Neuro: General: patient oriented x3, no focal motor deficits and normal sensation to monofilament Cranial nerves: Yes Equal, round and reactive pupils present Cognition (Neuro): normal cognition Speech: No Abnormal speech present Gait exam (Neuro): Normal gait present Motor exam (neuro): 5/5 motor strength present throughout Extrem: Other: Tenderness to the posterior and medial ankle and foot with no obvious swelling or deformity. No ligamental laxity. Negative Donis sign. Neurovascular intact distally did the injury General: Yes normal to inspection Course Course Course Narrative: 25-year-old female here with right ankle and foot pain after slip and fall several days ago. Will check x-rays 0100-x-ray show no bony abnormality. Likely sprain. Patient placed in air cast and given crutches. Reviewed worrisome signs and symptoms of when to return to the emergency department. Comfortable discharge home. MDM - Fall Medical Records Attestation: I reviewed the patient's medical records. Lab Data Attestation: I reviewed the patient's lab results. Imaging Data right ankle/foot xray: Attestation: I personally reviewed and interpreted this imaging study as follows: Radiologist's impression: EXAMINATION: XR ankle RT min 3V, XR foot RT min 3V CLINICAL INFORMATION: Reason for Exam fall COMPARISON: None. TECHNIQUE: AP, oblique and lateral views of the right ankle and foot (5 views in total) FINDINGS: No acute fracture or dislocation. Joint spaces and articular surfaces are maintained. Soft tissues unremarkable. No radiopaque foreign body. XR/XR ankle RT min 3V IMPRESSION: No acute fracture or dislocation? Discharge Plan Discharge Clinical Impression: Right ankle sprain Patient Disposition: Home, Self-Care Instructions: Ankle Sprain (ED) Additional Instructions: Ice, rest, elevation Limit weight-bearing and able to bear weight without experiencing pain Alternate Motrin or Tylenol for pain as needed Follow-up with your primary care doctor 1 week for persistent symptoms Prescriptions: No Action metoclopramide HCl [Reglan] 10 mg tablet 10 mg PO Q6H PRN (Reason: nausea and vomiting) Qty: 20 0RF nitrofurantoin monohyd/m-cryst [Macrobid] 100 mg capsule 100 mg PO Q12H 5 Days Qty: 10 0RF Rx Instructions: must administer with a meal/food tramadol 50 mg tablet 50 mg PO Q6H PRN (Reason: pain) Qty: 20 0RF ibuprofen 600 mg tablet 600 mg PO Q8H PRN (Reason: pain) Qty: 20 0RF lidocaine 5 % adhesive patch,medicated 1 patch topical DAILY Qty: 15 0RF Rx Instructions: leave on most painful area for up to 12 hrs mupirocin 2 % ointment 1 appl topical TID Qty: 15 0RF fluconazole [Diflucan] 150 mg tablet 150 mg PO Q3D Qty: 2 0RF meclizine 25 mg tablet 25 mg PO TID PRN (Reason: dizziness) Qty: 14 0RF fluconazole 150 mg tablet 150 mg PO ONCE 1 Days Qty: 1 0RF cyclobenzaprine 10 mg tablet 10 mg PO TID PRN (Reason: muscle spasm) Qty: 10 0RF cefuroxime axetil 500 mg tablet 500 mg PO BID 7 Days Qty: 14 0RF cyclobenzaprine 10 mg tablet 10 mg PO TID PRN (Reason: muscle spasm) Qty: 14 0RF lidocaine 5 % adhesive patch,medicated 1 patch topical DAILY Qty: 15 0RF Rx Instructions: leave on most painful area for up to 12 hrs ibuprofen 600 mg tablet 600 mg PO Q8H PRN (Reason: pain) Qty: 20 0RF Referrals: Physician,Unknown J [Primary Care Provider] - 1 week (For persistent symptoms) Interventions: ED Discharge Assessment Last Done: 06/12/21 00:23 Discharge Date/Time: 06/12/21 00:24
== END 2021-06-12 00:24 | disposition home or self-care (01) ==
PROVIDERS: Emergency Provider Internal Medicine
DX: S93.401A Sprain of unspecified ligament of right ankle, initial encounter (principal); W00.0XXA Fall on same level due to ice and snow, initial encounter; Y93.01 Activity, walking, marching and hiking; Y92.410 Unspecified street and highway as the place of occurrence of the external cause; Y99.9 Unspecified external cause status
CPT/HCPCS: 73610; 73630; 99283

== ENCOUNTER 2021-07-30 17:52 | Emergency (ER) | payer MEDICAID, SELFPAY ==
[2021-07-30 18:09] VITALS: BP 124/76; PULSE 104; RESP 19; TEMP 36.6; O2SAT 98; BMI 28.0
--- NOTE | 2021-07-30 18:34 | ED_ITS ---
HPI - URI/Sore Throat General Chief Complaint: Upper Respiratory Symptoms Stated Complaint: covid symptoms Time Seen by Provider: 07/30/21 17:58 Source: patient Mode of arrival: ambulatory Limitations: no limitations History of Present Illness HPI Narrative: 25-year-old female here with 1 week of sinus pressure, sinus pain, nasal congestion, body aches, loss of taste. Patient denies any fevers, chills, cough, vomiting, diarrhea, shortness of breath or chest pain. Was taking Augmentin but felt like she developed a rash and so she stopped taking this Also complaining of a bump to her right upper back which she has noticed for several months. The bump is painful. She denies any fevers, chills, weight loss, cough, difficulty breathing associated with the. No known injury or trauma. Related Data Previous Rx's Medication Instructions Recorded tramadol 50 mg tablet 50 mg PO Q6H PRN #20 tab 07/03/20 metoclopramide HCl 10 mg tablet 10 mg PO Q6H PRN #20 tab 09/07/20 (Reglan) nitrofurantoin 100 mg PO Q12H 5 Days #10 cap 12/19/20 monohydrate/macrocrystals 100 mg capsule (Macrobid) cyclobenzaprine 10 mg tablet 10 mg PO TID PRN #10 tab 01/17/21 fluconazole 150 mg tablet 150 mg PO ONCE 1 Days #1 tab 01/17/21 cefuroxime axetil 500 mg tablet 500 mg PO BID 7 Days #14 tab 01/18/21 fluconazole 150 mg tablet 150 mg PO Q3D #2 tab 02/16/21 (Diflucan) ibuprofen 600 mg tablet 600 mg PO Q8H PRN #20 tab 02/16/21 lidocaine 5 % topical patch 1 patch TOPICAL DAILY #15 ea 02/16/21 mupirocin 2 % topical ointment 1 appl TOPICAL TID #15 g 02/16/21 cyclobenzaprine 10 mg tablet 10 mg PO TID PRN #14 tab 03/03/21 ibuprofen 600 mg tablet 600 mg PO Q8H PRN #20 tab 03/03/21 lidocaine 5 % topical patch 1 patch TOPICAL DAILY #15 ea 03/03/21 meclizine 25 mg tablet 25 mg PO TID PRN #14 tab 03/17/21 doxycycline monohydrate 100 mg 100 mg PO BID #20 cap 07/30/21 capsule Allergies Allergy/AdvReac Type Severity Reaction Status Date / Time Iodinated Contrast Media Allergy Severe RASH, ABD Verified 06/11/21 22:31 [CONTRAST,IV] PAINS, BODY FEELS LIKE ON FIRE [place] Allergy Severe AIRWAY Verified 06/11/21 22:31 CLOSES shellfish derived Allergy Severe ANAPHYLAXIS Verified 06/11/21 22:31 [SHELLFISH DERIVED] Sulfa (Sulfonamide Allergy Severe RASH Verified 06/11/21 22:31 Antibiotics) [SULFA (SULFONAMIDE ANTIBIOTICS)] diphenhydramine Allergy Intermediate PANIC Verified 06/11/21 22:31 [From BENADRYL] ATTACK hazelnut [HAZELNUT] Allergy Intermediate THROAT Verified 06/11/21 22:31 IRRITATION [place] Allergy Unknown throat Verified 06/11/21 22:31 swell pomegranate [POMEGRANATE] Allergy Unknown DIFFICULTY Verified 06/11/21 22:31 BREATHING prazosin [PRAZOSIN] Allergy Unknown UNKNOWN Verified 06/11/21 22:31 topiramate [From TOPAMAX] AdvReac Intermediate Rash Verified 06/11/21 22:31 ondansetron AdvReac Unknown migraine Verified 06/11/21 22:31 [From ZOFRAN ( HYDROCHLORIDE)] propranolol AdvReac Unknown Verified 06/11/21 22:31 Aloe Allergy Unknown swelling Uncoded 06/11/21 22:31 IVP Dye Allergy Unknown Unknown Uncoded 06/11/21 22:31 Pomegranite Allergy Unknown Unknown Uncoded 06/11/21 22:31 Shellfish Allergy Unknown Unknown Uncoded 06/11/21 22:31 shellfish Allergy Unknown throat Uncoded 06/11/21 22:31 swelling sulfa Allergy Unknown Unknown Uncoded 06/11/21 22:31 topamax Allergy Unknown Unknown Uncoded 06/11/21 22:31 Review of Systems Review of Systems: Yes all other systems are reviewed and are negative Constitutional: Constitutional: Reports no additional constitutional complaints, Reports body ache(s), Denies chills, Denies fever(s), Denies headache(s) and Denies weakness Eyes: Eyes: Reports no additional eye complaints and Denies change in vision ENT: Reports system reviewed and no additional complaints, except as documente d, Denies dizziness, Denies headache(s), Reports nasal congestion, Denies nasal discharge, Denies neck pain, Reports sinus pain and Reports sinus pressure Cardiovascular: Cardiovascular: Reports no additional cardiovascular complaints, Denies chest pain, Denies leg edema and Denies dyspnea Respiratory: Respiratory: Reports no additional respiratory complaints, Denies cough and Denies dyspnea Gastrointestinal: Gastrointestinal: Reports no additional gastrointestinal complaints, Denies abdominal pain, Denies diarrhea, Denies nausea and Denies vomiting Genitourinary: Genitourinary: Reports no additional female genitourinary complaints and Denies urinary incontinence Musculoskeletal: Musculoskeletal: Reports no additional musculoskeletal complaints, Denies back pain, Denies arthralgias, Denies joint swelling, Denies neck pain, Denies numbness and Denies tingling Integumentary/Breasts: Skin/Breast: Reports system reviewed and no additional complaints, except as docu, Reports swelling and Denies rash Neurologic: Reports system reviewed and no additional complaints, except as documented, Denies Abnormal speech present, Denies dizziness, Denies headache(s), Denies numbness, Denies tingling and Denies weakness PMFSH Past Medical History Attestation statement: The following information was validated with the patient. Source: old records reviewed and nursing notes reviewed Medical History Anxiety Borderline personality disorder Migraines PTSD (post-traumatic stress disorder) Social History Social History Alcohol intake: never Patient Tobacco Use Status: Former Tobacco user Advance Directives: No Advance Directives Information Provided: No Patient : No Physical Exam Vital Signs: Vital Signs: Last Vital Signs Temp 98 F 07/30/21 18:09 Pulse 104 H 07/30/21 18:09 Resp 19 07/30/21 18:09 BP 124/76 07/30/21 18:09 Pulse Ox 98 07/30/21 18:09 BMI result Body Mass Index 28.0 Const: General: cooperative, healthy appearing, comfortable and no acute distress Orientation/consciousness: patient oriented x3 Limitations: no limitations HEENT: Head: Yes normal to inspection Ears: hearing grossly normal bilaterally and TM's normal bilaterally General nose exam: Normal external nose present Face and sinus: Yes normal facial exam and Yes sinus tenderness Mouth: Normal oral and palatal mucosa present Throat: Yes posterior oropharynx normal, Yes tonsils normal and Yes uvula midline Eyes: General: appearance normal, both eyes and all related structures Pupils: Equal, round and reactive pupils present Neck: Neck: Yes normal visual inspection, Yes full ROM, Yes no lymphadenopathy and Yes no meningeal signs Chest: Chest palpation & inspection: normal inspection of the chest Resp: Effort & Inspection: normal respiratory effort Auscultation: clear to auscultation bilaterally Cardio: Rate: regular rate Rhythm: regular rhythm Peripheral pulses: Peripheral pulses 2+ throughout GI: Inspection: Yes normal to inspection Palpation (GI): Soft to palpation and nontender Auscultation: normal bowel sounds Back/Spine/Pelvis: Thoracic/Lumbar Spine: thoracic and lumbar spine normal to inspection Back/spine/pelvis image: 1. There is a palpable area of swelling that is tender, moveable with no warmth or redness Skin: General skin exam: no rashes or lesions noted Neuro: General: patient oriented x3, no meningeal signs, no focal motor deficits and normal sensation to monofilament Cranial nerves: Yes Equal, round and reactive pupils present Cognition (Neuro): normal cognition Speech: No Abnormal speech present Gait exam (Neuro): Normal gait present Motor exam (neuro): 5/5 motor strength present throughout Extrem: General: Yes normal to inspection Course Course Course Narrative: 25 yo female here with one week of sinus pressure/sinus pain/body aches, nasal congestion, loss of taste x 1 week. Rapid flu and COVID testing were negative. Exam is consistent with sinusitis. Will treat with course of antibiotics. Also complaining of lump to her right upper back which she has noticed for several months. No evidence of infection. Recommend patient follow-up with primary care doctor. Reviewed worrisome signs and symptoms when to return to the emergency d epartment. Comfortable discharge home. MDM - URI/Sore Throat Medical Records Attestation: I reviewed the patient's medical records. Lab Data Attestation: I reviewed the patient's lab results. Labs: Lab Results 07/30/21 07/30/21 Range/Units 18:17 18:17 COVID-19 (CLAUDE) Negative (Negative) COVID-19 Clin Com See Note Influenza Type A (JENELLE) Negative (Negative) Influenza Type B (JENELLE) Negative (Negative) Influenza A & B Note See Note Discharge Plan Discharge Clinical Impression: Lab test negative for COVID-19 virus, Sinusitis Patient Disposition: Home, Self-Care Instructions: Sinusitis (ED) Additional Instructions: Testing for flu and COVID are negative You asked me to look at a lump on your right back. Please follow-up with your primary care doctor in regards to this within a week or two Prescriptions: New doxycycline monohydrate 100 mg capsule 100 mg PO BID Qty: 20 0RF No Action metoclopramide HCl [Reglan] 10 mg tablet 10 mg PO Q6H PRN (Reason: nausea and vomiting) Qty: 20 0RF nitrofurantoin monohyd/m-cryst [Macrobid] 100 mg capsule 100 mg PO Q12H 5 Days Qty: 10 0RF Rx Instructions: must administer with a meal/food tramadol 50 mg tablet 50 mg PO Q6H PRN (Reason: pain) Qty: 20 0RF ibuprofen 600 mg tablet 600 mg PO Q8H PRN (Reason: pain) Qty: 20 0RF lidocaine 5 % adhesive patch,medicated 1 patch topical DAILY Qty: 15 0RF Rx Instructions: leave on most painful area for up to 12 hrs mupirocin 2 % ointment 1 appl topical TID Qty: 15 0RF fluconazole [Diflucan] 150 mg tablet 150 mg PO Q3D Qty: 2 0RF meclizine 25 mg tablet 25 mg PO TID PRN (Reason: dizziness) Qty: 14 0RF fluconazole 150 mg tablet 150 mg PO ONCE 1 Days Qty: 1 0RF cyclobenzaprine 10 mg tablet 10 mg PO TID PRN (Reason: muscle spasm) Qty: 10 0RF cefuroxime axetil 500 mg tablet 500 mg PO BID 7 Days Qty: 14 0RF cyclobenzaprine 10 mg tablet 10 mg PO TID PRN (Reason: muscle spasm) Qty: 14 0RF lidocaine 5 % adhesive patch,medicated 1 patch topical DAILY Qty: 15 0RF Rx Instructions: leave on most painful area for up to 12 hrs ibuprofen 600 mg tablet 600 mg PO Q8H PRN (Reason: pain) Qty: 20 0RF Referrals: Physician,Unknown J [Primary Care Provider] - 1 week
[2021-07-30 18:45] LABS: COVID-19 Test Negative (Negative); IDNOW Serial# 16C4AD1C; IDNOW Serial# 55D5AD1C; Influenza A Negative (Negative); Influenza B2 Negative (Negative)
== END 2021-07-30 19:00 | disposition home or self-care (01) ==
PROVIDERS: Physician Assistant Medical; Emergency Provider Internal Medicine
DX: J32.9 Chronic sinusitis, unspecified (principal); Z20.822 Contact with and (suspected) exposure to COVID-19; R22.2 Localized swelling, mass and lump, trunk
CPT/HCPCS: 87502; 87635; 99283

== ENCOUNTER 2021-08-05 17:47 | Emergency (ER) | payer MEDICAID, SELFPAY ==
[2021-08-05 17:54] VITALS: BP 116/78; BP 124/70; PULSE 94; PULSE 96; RESP 18; TEMP 36.9; O2SAT 97; O2SAT 99; BMI 29.4
--- NOTE | 2021-08-05 18:13 | ECG_ITS ---
Test Reason : ELECTRIC SHOCK Blood Pressure : / mmHG Vent. Rate : 081 BPM Atrial Rate : 081 BPM P-R Int : 128 ms QRS Dur : 086 ms QT Int : 370 ms P-R-T Axes : 054 030 035 degrees QTc Int : 429 ms Normal sinus rhythm Normal ECG When compared with ECG of 16-MAR-2021 23:53, No significant change was found Referred By: Jeaneth Stanton Electronically Signed By:Adrián Rucker
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
--- NOTE | 2021-08-05 19:08 | PC.NURSE ---
patient a&ox3, vss, straight stick performed, tech to obtain ekg, will continue to monitor
[2021-08-05 19:12] LABS: MANUAL DIFF FLAG NO
[2021-08-05 19:14] LABS: Basophils Absolute Auto 0.1 X10*3/uL (0.0-0.2); Basophils Percent Auto 0.9 % (0-2); Eosinophils Absolute Auto 0.1 X10*3/uL (0.0-0.4); Eosinophils Percent Auto 1.9 % (0-4); Hematocrit 38.2 % (37.0-47.0); Hemoglobin 12.8 g/dl (12.0-16.0); Imm Gran Abs Auto 0.01 X10*3/uL (0.00-0.03); Imm Gran Pct Auto 0.2 % (0.0-0.4); Lymphocytes Absolute Auto 1.3 X10*3/uL (1.2-4.9); Lymphocytes Percent Auto 24.6 % (20-40); Mean Corpuscular HGB Conc 33.5 g/dl (31.0-35.0); Mean Corpuscular Hemoglobin 29.2 pg (27.0-33.0); Mean Corpuscular Volume 87.2 fL (80.0-98.0); Mean Platelet Volume 8.9 fL (9.4-12.3); Monocytes Absolute Auto 0.4 X10*3/uL (0.1-1.2); Monocytes Percent Auto 7.2 % (2-11); Neutrophils Absolute Auto 3.4 x10*3/uL (2.0-8.3); Neutrophils Percent Auto 65.2 % (45-73); Platelet Count 289 X10*3/uL (160-400); Red Blood Count 4.38 X10*6/uL (4.20-5.50); Red Cell Distribution Width 11.9 % (11.0-16.0); White Blood Count 5.3 X10*3/uL (4.8-10.8)
[2021-08-05 19:28] LABS: Anion Gap 13 (12-20); Blood Urea Nitrogen 10 mg/dL (9-16); Calcium 9.9 mg/dL (8.4-10.2); Carbon Dioxide 25 mmol/L (22-29); Chloride 107 mmol/L (96-108); Creatinine Clr Calc Pharmacy 144.8; Estimated Glomerular Filt Rate > 60; Glucose Random 88 mg/dL (60-115); Potassium 4.1 mmol/L (3.3-5.1); Sodium 141 mmol/L (135-145)
[2021-08-05 19:35] LABS: Troponin-I High Sensitivity < 3.5 ng/L (<3.5-17.0)
--- NOTE | 2021-08-05 19:37 | PC.NURSE ---
ekg performed by tech
[2021-08-05 19:53] VITALS: BP 113/71; PULSE 93; RESP 18; TEMP 36.8; O2SAT 99
== END 2021-08-05 19:57 | disposition home or self-care (01) ==
PROVIDERS: Emergency Provider Emergency Medicine; PCP Family Medicine
DX: T75.4XXA Electrocution, initial encounter (principal); W86.1XXA Exposure to industrial wiring, appliances and electrical machinery, initial encounter; Y93.9 Activity, unspecified; Y92.009 Unspecified place in unspecified non-institutional (private) residence as the place of occurrence of the external cause; Y99.9 Unspecified external cause status; Z87.891 Personal history of nicotine dependence
CPT/HCPCS: 36415; 80048; 84484; 85025; 93005; 99283; 99284

== ENCOUNTER 2021-08-29 05:00 | Emergency (ER) | payer MEDICAID, SELFPAY ==
[2021-08-29 05:09] VITALS: BP 122/80; PULSE 103; O2SAT 99
[2021-08-29 05:11] VITALS: PULSE 118; RESP 18; TEMP 37.5; O2SAT 97; BMI 28.6
[2021-08-29 05:40] LABS: COVID-19 Test Positive (Negative)
[2021-08-29 05:44] VITALS: BP 111/59; PULSE 107; RESP 18; O2SAT 97
[2021-08-29 05:49] LABS: IDNOW Serial# 16C4AD1C; Influenza A Negative (Negative); Influenza B2 Negative (Negative)
--- NOTE | 2021-08-29 06:34 | ED.GENADULT ---
HPI - General Adult General Chief complaint: Fever Stated complaint: covid symptoms Time Seen by Provider: 08/29/21 05:51 Source: patient Mode of arrival: EMS Limitations: no limitations History of Present Illness HPI narrative: 26-year-old female who presents emergency department for evaluation of flu-like illness for 2 days. The patient states that she has a sore throat. She states that she also is experiencing chest pain, she points to her anterior chest when asked to localize the pain, the pain is intermittent, sharp pain. She states that she has an occasional cough which is nonproductive. She complains of headaches, myalgias and arthralgias. She has shortness of breath and dyspnea on exertion. The patient denied diarrhea or loss of sense of taste or smell. The patient received 2 Moderna COVID-19 vaccines. Related Data Previous Rx's Medication Instructions Recorded tramadol 50 mg tablet 50 mg PO Q6H PRN #20 tab 07/03/20 metoclopramide HCl 10 mg tablet 10 mg PO Q6H PRN #20 tab 09/07/20 (Reglan) nitrofurantoin 100 mg PO Q12H 5 Days #10 cap 12/19/20 monohydrate/macrocrystals 100 mg capsule (Macrobid) cyclobenzaprine 10 mg tablet 10 mg PO TID PRN #10 tab 01/17/21 fluconazole 150 mg tablet 150 mg PO ONCE 1 Days #1 tab 01/17/21 cefuroxime axetil 500 mg tablet 500 mg PO BID 7 Days #14 tab 01/18/21 fluconazole 150 mg tablet 150 mg PO Q3D #2 tab 02/16/21 (Diflucan) ibuprofen 600 mg tablet 600 mg PO Q8H PRN #20 tab 02/16/21 lidocaine 5 % topical patch 1 patch TOPICAL DAILY #15 ea 02/16/21 mupirocin 2 % topical ointment 1 appl TOPICAL TID #15 g 02/16/21 cyclobenzaprine 10 mg tablet 10 mg PO TID PRN #14 tab 03/03/21 ibuprofen 600 mg tablet 600 mg PO Q8H PRN #20 tab 03/03/21 lidocaine 5 % topical patch 1 patch TOPICAL DAILY #15 ea 03/03/21 meclizine 25 mg tablet 25 mg PO TID PRN #14 tab 03/17/21 doxycycline monohydrate 100 mg 100 mg PO BID #20 cap 04/09/22 capsule Allergies Allergy/AdvReac Type Severity Reaction Status Date / Time Iodinated Contrast Media Allergy Severe RASH, ABD Verified 06/11/21 22:31 [CONTRAST,IV] PAINS, BODY FEELS LIKE ON FIRE shubham Allergy Severe AIRWAY Verified 06/11/21 22:31 CLOSES shellfish derived Allergy Severe ANAPHYLAXIS Verified 06/11/21 22:31 [SHELLFISH DERIVED] Sulfa (Sulfonamide Allergy Severe RASH Verified 06/11/21 22:31 Antibiotics) [SULFA (SULFONAMIDE ANTIBIOTICS)] diphenhydramine Allergy Intermediate PANIC Verified 06/11/21 22:31 [From BENADRYL] ATTACK hazelnut [HAZELNUT] Allergy Intermediate THROAT Verified 06/11/21 22:31 IRRITATION [place] Allergy Unknown throat Verified 06/11/21 22:31 swell pomegranate [POMEGRANATE] Allergy Unknown DIFFICULTY Verified 06/11/21 22:31 BREATHING prazosin [PRAZOSIN] Allergy Unknown UNKNOWN Verified 06/11/21 22:31 topiramate [From TOPAMAX] AdvReac Intermediate Rash Verified 06/11/21 22:31 ondansetron AdvReac Unknown migraine Verified 06/11/21 22:31 [From ZOFRAN ( HYDROCHLORIDE)] propranolol AdvReac Unknown Verified 06/11/21 22:31 Aloe Allergy Unknown swelling Uncoded 06/11/21 22:31 IVP Dye Allergy Unknown Unknown Uncoded 06/11/21 22:31 Pomegranite Allergy Unknown Unknown Uncoded 06/11/21 22:31 Shellfish Allergy Unknown Unknown Uncoded 06/11/21 22:31 shellfish Allergy Unknown throat Uncoded 06/11/21 22:31 swelling sulfa Allergy Unknown Unknown Uncoded 06/11/21 22:31 topamax Allergy Unknown Unknown Uncoded 06/11/21 22:31 Review of Systems Review of Systems: Yes all other systems are reviewed and are negative [facility] Past Medical History [facility] Narrative: Past medical history: Asthma, depression, anxiety, PTSD, migraines, Nani Danlos syndrome. Social history: She denies tobacco use, she denies alcohol use, she uses edibles marijuana products. Medical History Anxiety Borderline personality disorder Migraines PTSD (post-traumatic stress disorder) Social History Social History Alcohol intake: never Patient Tobacco Use Status: Former Tobacco user Advance Directives: No Advance Directives Information Provided: No Physical Exam ED Vital Signs: Vital Signs - 24 hr 08/29/21 05:11 08/29/21 05:44 Temperature 99.5 F Pulse Rate 118 H 107 H Respiratory Rate 18 18 Blood Pressure 111/59 L Pulse Oximetry 97 97 BMI result Body Mass Index 28.6 Const General: cooperative and no acute distress Orientation/consciousness: oriented to person and oriented to place Limitations: no limitations HENMT Head: Yes normal to inspection, Yes normocephalic and Yes atraumatic Ears: external ears normal General nose exam: Normal external nose present Face and sinus: Yes normal facial exam Mouth: Normal oral and palatal mucosa present Throat: Yes posterior oropharynx normal Eyes General: appearance normal, both eyes and all related structures Pupils: Equal, round and reactive pupils present Neck Neck: Yes normal visual inspection, Yes no lymphadenopathy, Yes trachea midline and Yes supple Chest Chest palpation & inspection: normal inspection of the chest and normal palpation of entire chest wall Resp Effort & Inspection: normal respiratory effort and able to speak in complete sentences Auscultation: clear to auscultation bilaterally Cardio Rate: regular rate Rhythm: regular rhythm Heart sounds: S1 normal heart sound present, S2 normal heart sound present and no murmurs GI Inspection: Yes normal to inspection Palpation (GI): Soft to palpation, nontender and no guarding Auscultation: normal bowel sounds General: Yes no CVA tenderness Back/Spine/Pelvis Back: no CVA tenderness Skin General skin exam: no rashes or lesions noted Neuro General: oriented to person and oriented to place Cranial nerves: Yes CN's II-XII intact bilaterally and Yes Equal, round and reactive pupils present Cognition (Neuro): normal cognition Motor exam (neuro): 5/5 motor strength present throughout Extrem General: Yes normal to inspection Psych Appearance: grossly normal Speech and movement: Normal speech and movement present Affect: normal affect Attitude: cooperative Thought process: Normal thought process present Thought content: Normal thought content present Course Course Course Narrative: 26-year-old female who presents emergency department for evaluation of flu like illness x2 days. Vital signs revealed BP of 111/59 pulsatile 7. O2 saturation on room air was 97%. Lung examination was clear. The patient's influenza tests were negative. The patient's COVID-19 test was positive. The patient has been vaccinated for COVID-19 with 2 Moderna vaccinations. The patient does have some high risk illnesses including asthma, depression, anxiety, PTSD, Nani Danlos syndrome (connective tissue disorder). I did discuss this with the patient. I will refer the patient to [facility] for consideration for treatment with Paxlovid. The patient was discharged home with printed and verbal instructions. She was advised to continue taking Tylenol and ibuprofen for pain and fever. Medical Decision Making Lab Data Labs: Lab Results 08/29/21 08/29/21 Range/Units 05:25 05:25 COVID-19 (CLAUDE) Positive A (Negative) COVID-19 Clin Com See Note Influenza Type A (JENELLE) Negative (Negative) Influenza Type B (JENELLE) Negative (Negative) Influenza A & B Note See Note Discharge Plan Discharge Clinical Impression: COVID-19 virus infection Patient Disposition: Home, Self-Care Instructions: COVID-19 (Coronavirus Disease 2019) (ED) Additional Instructions: Your COVID-19 test was positive. Your symptoms are consistent with a COVID infection. Your influenza test was negative. I am referring you to the [facility] for treatment consideration for Paxlivid which is an oral anti COVID-19 drug that needs to be started within 5 days of onset of your symptoms. The referral was emailed to the clinic. They should contact you in the next 1-2 days. Take ibuprofen 200 mg pills, 3 pills every 6 hours as needed for pain. Take Tylenol (acetaminophen) 500 mg pills, 2 pills every 4 to 6 hours as needed for pain. Follow-up with your doctor in 2 days. Please return to the emergency department if your symptoms get worse or if you develop any symptoms that are concerning to you. Prescriptions: No Action metoclopramide HCl [Reglan] 10 mg tablet 10 mg PO Q6H PRN (Reason: nausea and vomiting) Qty: 20 0RF nitrofurantoin monohyd/m-cryst [Macrobid] 100 mg capsule 100 mg PO Q12H 5 Days Qty: 10 0RF Rx Instructions: must administer with a meal/food tramadol 50 mg tablet 50 mg PO Q6H PRN (Reason: pain) Qty: 20 0RF ibuprofen 600 mg tablet 600 mg PO Q8H PRN (Reason: pain) Qty: 20 0RF lidocaine 5 % adhesive patch,medicated 1 patch topical DAILY Qty: 15 0RF Rx Instructions: leave on most painful area for up to 12 hrs mupirocin 2 % ointment 1 appl topical TID Qty: 15 0RF fluconazole [Diflucan] 150 mg tablet 150 mg PO Q3D Qty: 2 0RF meclizine 25 mg tablet 25 mg PO TID PRN (Reason: dizziness) Qty: 14 0RF doxycycline monohydrate 100 mg capsule 100 mg PO BID Qty: 20 0RF fluconazole 150 mg tablet 150 mg PO ONCE 1 Days Qty: 1 0RF cyclobenzaprine 10 mg tablet 10 mg PO TID PRN (Reason: muscle spasm) Qty: 10 0RF cefuroxime axetil 500 mg tablet 500 mg PO BID 7 Days Qty: 14 0RF cyclobenzaprine 10 mg tablet 10 mg PO TID PRN (Reason: muscle spasm) Qty: 14 0RF lidocaine 5 % adhesive patch,medicated 1 patch topical DAILY Qty: 15 0RF Rx Instructions: leave on most painful area for up to 12 hrs ibuprofen 600 mg tablet 600 mg PO Q8H PRN (Reason: pain) Qty: 20 0RF
[2021-08-29 07:00] VITALS: BP 115/65; PULSE 102; RESP 18; TEMP 37.2; O2SAT 99
== END 2021-08-29 07:02 | disposition home or self-care (01) ==
PROVIDERS: Emergency Provider Emergency Medicine Emergency Medical Services
DX: U07.1 COVID-19 (principal); J45.909 Unspecified asthma, uncomplicated
CPT/HCPCS: 87502; 87635; 99283; 99284

== ENCOUNTER 2021-08-29 15:24 | Emergency (ER) | payer MEDICAID, SELFPAY ==
--- NOTE | ~2021-08-29 | XR_ITS ---
EXAMINATION: XR CHEST CLINICAL INFORMATION: Chest pain COMPARISON: Previous exam February 2021 TECHNIQUE: 2 views of the chest were obtained. FINDINGS: No significant abnormality is noted involving the heart, lungs, mediastinum, bony thorax or soft tissues. XR/XR chest 2V IMPRESSION: Unremarkable examination.
[2021-08-29 15:37] VITALS: BP 112/72; PULSE 140; O2SAT 99
[2021-08-29 15:45] VITALS: BP 108/53; PULSE 134; RESP 23; TEMP 39.1; O2SAT 98; BMI 28.1
--- NOTE | 2021-08-29 16:07 | ED.GENADULT ---
HPI - General Adult General Chief complaint: General Medical <AMPARO Cavazos Last Filed: 08/29/21 18:39> Stated complaint: +COVID,CP,CHILLS,ANXIETY <AMPARO Cavazos Last Filed: 08/29/21 18:39> Time Seen by Provider: 08/29/21 15:41 <AMPARO Cavazos Last Filed: 08/29/21 18:39> Source: patient <AMPARO Cavazos Last Filed: 08/29/21 18:39> Mode of arrival: ambulatory <AMPARO Cavazos Last Filed: 08/29/21 18:39> Limitations: no limitations <AMPARO Cavazos Last Filed: 08/29/21 18:39> History of Present Illness HPI narrative: Patient is a 26 year old female presenting to the emergency department today with COVID-19, headache, body aches, and feeling anxious. Patient states that this morning she tested positive for COVID-19 and left. However, she is now coming back because she has a headache, body aches, and chest pain. Patient denies any dizziness, lightheadedness, abdominal pain, nausea, vomiting, chills, blurry vision, double vision, loss of vision, back pain, night sweats, pain with urination, increased urinary frequency, increased urinary urgency, blood in her urine or stool, syncope or a near syncopal episode, recent trauma or falls, bowel incontinence, bladder incontinence, bowel retention, bladder retention, or any other complaints at this time. Patient states that she is having a lot of anxiety but cannot have any anti-anxiety medications because she reacts poorly to them. <AMPARO Cavazos - Last Filed: 08/29/21 18:39> Onset (ago): hour(s) <AMPARO Cavazos Last Filed: 08/29/21 18:39> Location: head and chest <AMPARO Cavazos Last Filed: 08/29/21 18:39> Severity: mild <AMPARO Cavazos Last Filed: 08/29/21 18:39> Severity scale (1-10): 3 <AMPARO Cavazos Last Filed: 08/29/21 18:39> Quality: dull <AMPARO Cavazos Last Filed: 08/29/21 18:39> Pain Consistency: constant <AMPARO Cavazos Last Filed: 08/29/21 18:39> Relieving factors: none <AMPARO Cavazos Last Filed: 08/29/21 18:39> Exacerbating factors: none <AMPARO Cavazos Last Filed: 08/29/21 18:39> Associated symptoms: fever/chills and headaches <AMPARO Cavazos Last Filed: 08/29/21 18:39> Treatments prior to arrival: none <AMPARO Cavazos Last Filed: 08/29/21 18:39> Related Data Home medications: Previous Rx's Medication Instructions Recorded tramadol 50 mg tablet 50 mg PO Q6H PRN #20 tab 07/03/20 metoclopramide HCl 10 mg tablet 10 mg PO Q6H PRN #20 tab 09/07/20 (Reglan) nitrofurantoin 100 mg PO Q12H 5 Days #10 cap 12/19/20 monohydrate/macrocrystals 100 mg capsule (Macrobid) cyclobenzaprine 10 mg tablet 10 mg PO TID PRN #10 tab 01/17/21 fluconazole 150 mg tablet 150 mg PO ONCE 1 Days #1 tab 01/17/21 cefuroxime axetil 500 mg tablet 500 mg PO BID 7 Days #14 tab 01/18/21 fluconazole 150 mg tablet 150 mg PO Q3D #2 tab 02/16/21 (Diflucan) ibuprofen 600 mg tablet 600 mg PO Q8H PRN #20 tab 02/16/21 lidocaine 5 % topical patch 1 patch TOPICAL DAILY #15 ea 02/16/21 mupirocin 2 % topical ointment 1 appl TOPICAL TID #15 g 02/16/21 cyclobenzaprine 10 mg tablet 10 mg PO TID PRN #14 tab 03/03/21 ibuprofen 600 mg tablet 600 mg PO Q8H PRN #20 tab 03/03/21 lidocaine 5 % topical patch 1 patch TOPICAL DAILY #15 ea 03/03/21 meclizine 25 mg tablet 25 mg PO TID PRN #14 tab 03/17/21 doxycycline monohydrate 100 mg 100 mg PO BID #20 cap 07/30/21 capsule ondansetron 4 mg disintegrating 4 mg PO Q8H 3 Days #9 tab 08/29/21 tablet <AMPARO Cavazos - Last Filed: 08/29/21 18:39> Allergies/adverse reactions: Allergies Allergy/AdvReac Type Severity Reaction Status Date / Time Iodinated Contrast Media Allergy Severe RASH, ABD Verified 06/11/21 22:31 [CONTRAST,IV] PAINS, BODY FEELS LIKE ON FIRE shubham Allergy Severe AIRWAY Verified 06/11/21 22:31 CLOSES shellfish derived Allergy Severe ANAPHYLAXIS Verified 06/11/21 22:31 [SHELLFISH DERIVED] Sulfa (Sulfonamide Allergy Severe RASH Verified 06/11/21 22:31 Antibiotics) [SULFA (SULFONAMIDE ANTIBIOTICS)] diphenhydramine Allergy Intermediate PANIC Verified 06/11/21 22:31 [From BENADRYL] ATTACK hazelnut [HAZELNUT] Allergy Intermediate THROAT Verified 06/11/21 22:31 IRRITATION [place] Allergy Unknown throat Verified 06/11/21 22:31 swell pomegranate [POMEGRANATE] Allergy Unknown DIFFICULTY Verified 06/11/21 22:31 BREATHING prazosin [PRAZOSIN] Allergy Unknown UNKNOWN Verified 06/11/21 22:31 topiramate [From TOPAMAX] AdvReac Intermediate Rash Verified 06/11/21 22:31 ondansetron AdvReac Unknown migraine Verified 06/11/21 22:31 [From ZOFRAN ( HYDROCHLORIDE)] propranolol AdvReac Unknown Verified 06/11/21 22:31 Aloe Allergy Unknown swelling Uncoded 06/11/21 22:31 IVP Dye Allergy Unknown Unknown Uncoded 06/11/21 22:31 Pomegranite Allergy Unknown Unknown Uncoded 06/11/21 22:31 Shellfish Allergy Unknown Unknown Uncoded 06/11/21 22:31 shellfish Allergy Unknown throat Uncoded 06/11/21 22:31 swelling sulfa Allergy Unknown Unknown Uncoded 06/11/21 22:31 topamax Allergy Unknown Unknown Uncoded 06/11/21 22:31 <AMPARO Cavazos - Last Filed: 08/29/21 18:39> Review of Systems Constitutional: Constitutional: Reports no additional constitutional complaints, Reports body ache(s), Denies chills, Reports fever(s), Reports headache(s) and Denies night sweats <AMPARO Cavazos - Last Filed: 08/29/21 18:39> Eyes: Eyes: Reports no additional eye complaints, Denies blurry vision, Denies change in vision, Denies diplopia, Denies eye discharge, Denies loss of vision and Denies eye pain <AMPARO Cavazos - Last Filed: 08/29/21 18:39> ENT: Denies dizziness and Reports headache(s) <AMPARO Cavazos - Last Filed: 08/29/21 18:39> Cardiovascular: Cardiovascular: Reports no additional cardiovascular complaints, Reports chest pain, Denies lightheadedness, Denies Loss of Consciousness and Denies dyspnea <AMPARO Cavazos - Last Filed: 08/29/21 18:39> Respiratory: Respiratory: Reports no additional respiratory complaints and Denies dyspnea <AMPARO Cavazos - Last Filed: 08/29/21 18:39> Gastrointestinal: Gastrointestinal: Reports no additional gastrointestinal complaints, Denies abdominal pain, Denies melena, Denies hematochezia, Denies change in bowel habits and Denies change in stool character <AMPARO Cavazos - Last Filed: 08/29/21 18:39> Genitourinary: Genitourinary: Denies hematuria, Denies urinary frequency, Denies dysuria, Denies urinary incontinence, Denies urinary hesitancy and Denies urinary urgency <AMPARO Cavazos - Last Filed: 08/29/21 18:39> Musculoskeletal: Musculoskeletal: Reports no additional musculoskeletal complaints, Reports myalgias, Denies numbness and Denies tingling <AMPARO Cavazos - Last Filed: 08/29/21 18:39> Neurologic: Denies dizziness, Reports headache(s), Denies loss of vision, Denies numbness and Denies tingling <AMPARO Cavazos - Last Filed: 08/29/21 18:39> Psychiatric: Psychiatric: Reports no additional psychiatric complaints <AMPARO Cavazos Last Filed: 08/29/21 18:39> Endocrine: Endocrine: Reports no additional endocrine complaints <AMPARO Cavazos Last Filed: 08/29/21 18:39> Hematologic/Lymphatic: Hematologic/Lymphatic: Reports no additional hematologic/lymphatic complaints <AMPARO Cavazos - Last Filed: 08/29/21 18:39> Allergic/Immunologic: Allergic/Immunologic: Reports no additional allergic/immunologic complaints <AMPARO Cavazos - Last Filed: 08/29/21 18:39> PMFSH Past Medical History Attestation statement: The following information was validated with the patient. <AMPARO Cavazos - Last Filed: 08/29/21 18:39> Source: old records reviewed <AMPARO Cavazos - Last Filed: 08/29/21 18:39> Medical History: Medical History Anxiety Borderline personality disorder Migraines PTSD (post-traumatic stress disorder) <AMPARO Cavazos - Last Filed: 08/29/21 18:39> Social History Social History: Social History Alcohol intake: never Patient Tobacco Use Status: Former Tobacco user Advance Directives: No Advance Directives Information Provided: No Patient : No <AMPARO Cavazos - Last Filed: 08/29/21 18:39> Physical Exam ED Vital Signs: Vital Signs - 24 hr 08/29/21 15:45 08/29/21 17:10 08/29/21 18:02 Temperature 102.3 F H 103.2 F H 102.8 F H Pulse Rate 134 H 133 H Respiratory Rate 23 H 19 Blood Pressure 108/53 L 109/49 L Pulse Oximetry 98 98 08/29/21 18:48 Temperature 100.3 F Pulse Rate Respiratory Rate Blood Pressure Pulse Oximetry BMI result Body Mass Index 28.1 <AMPARO Cavazos - Last Filed: 08/29/21 18:39> Const General: cooperative, no acute distress, alert and awake <AMPARO Cavazos - Last Filed: 08/29/21 18:39> Nutritional Appearance: well nourished <AMPARO Cavazos - Last Filed: 08/29/21 18:39> Orientation/consciousness: patient oriented x3 <AMPARO Cavazos - Last Filed: 08/29/21 18:39> Limitations: no limitations <AMPARO Cavazos - Last Filed: 08/29/21 18:39> HENMT Head: Yes normal to inspection and Yes atraumatic <AMPARO Cavazos - Last Filed: 08/29/21 18:39> Ears: hearing grossly normal bilaterally and external ears normal <AMPARO Cavazos - Last Filed: 08/29/21 18:39> General nose exam: Normal external nose present, no nasal discharge noted and no epistaxis <AMPARO Cavazos Last Filed: 08/29/21 18:39> Face and sinus: Yes normal facial exam, No abrasion and No laceration <AMPARO Cavazos - Last Filed: 08/29/21 18:39> Mouth: Normal oral and palatal mucosa present, no drooling and no muffled voice <AMPARO Cavazos - Last Filed: 08/29/21 18:39> Eyes General: appearance normal, both eyes and all related structures <AMPARO Cavazos - Last Filed: 08/29/21 18:39> Periorbital: periorbital findings normal <AMPARO Cavazos - Last Filed: 08/29/21 18:39> Eyelids: Yes eyelids normal <Wendy Krueger [facility] - Last Filed: 08/29/21 18:39> Conjunctivae: conjunctivae normal <AMPARO Cavazos - Last Filed: 08/29/21 18:39> Pupils: Equal, round and reactive pupils present <AMPARO Cavazos - Last Filed: 08/29/21 18:39> EOM: EOMs intact bilaterally <AMPARO Cavazos Last Filed: 08/29/21 18:39> Neck Neck: Yes normal visual inspection, Yes full ROM and Yes no lymphadenopathy <AMPARO Cavazos Last Filed: 08/29/21 18:39> Chest Chest palpation & inspection: normal inspection of the chest <AMPARO Cavazos - Last Filed: 08/29/21 18:39> Resp Effort & Inspection: normal respiratory effort and able to speak in complete sentences <AMPARO Cavazos - Last Filed: 08/29/21 18:39> Auscultation: clear to auscultation bilaterally <AMPARO Cavazos - Last Filed: 08/29/21 18:39> Cardio Rate: tachycardic <AMPARO Cavazos - Last Filed: 08/29/21 18:39> Rhythm: regular rhythm <Wendy [facility]idezinga [facility] - Last Filed: 08/29/21 18:39> GI Inspection: Yes normal to inspection <Wendydaniel BenavidezAMPARO xiong - Last Filed: 08/29/21 18:39> General: Yes no CVA tenderness <Wendy [facility] - Last Filed: 08/29/21 18:39> Back/Spine/Pelvis Back: no CVA tenderness <Wendydaniel [facility]ide[facility] - Last Filed: 08/29/21 18:39> Cervical Spine: normal cervical lordosis and cervical ROM normal <Wendy [facility] - Last Filed: 08/29/21 18:39> Thoracic/Lumbar Spine: thoracic and lumbar spine normal to inspection and thoraco-lumbar ROM normal <Wendy [facility] - Last Filed: 08/29/21 18:39> Pelvis: no pain with anterior-posterior compression <Wendy AMPARO Krueger - Last Filed: 08/29/21 18:39> Neuro General: patient oriented x3 and moves all extremities <Wendy [facility] - Last Filed: 08/29/21 18:39> Cranial nerves: Yes Equal, round and reactive pupils present <Wendydaniel BenavidezAMPARO xiong - Last Filed: 08/29/21 18:39> Cognition (Neuro): normal cognition <Wendy [facility] - Last Filed: 08/29/21 18:39> Motor exam (neuro): 5/5 motor strength present throughout <Wendydaniel [facility]ide[facility] - Last Filed: 08/29/21 18:39> Sensory Exam: Normal double simultaneous stimulation for sensation <Wendydaniel [facility]ide[facility] - Last Filed: 08/29/21 18:39> Coordination: [id number] test normal <Wendydaniel [facility] - Last Filed: 08/29/21 18:39> Extrem General: Yes normal to inspection, Yes full ROM and Yes capillary refill normal <Wendydaniel [facility] - Last Filed: 08/29/21 18:39> Psych Appearance: grossly normal <Wendy AMPARO Krueger - Last Filed: 08/29/21 18:39> Mental Status: mental status grossly normal <Wendy Krueger [facility] - Last Filed: 08/29/21 18:39> Affect: normal affect <AMPARO Cavazos - Last Filed: 08/29/21 18:39> Attitude: cooperative <AMPARO Cavzaos - Last Filed: 08/29/21 18:39> Thought process: Normal thought process present <AMPARO Cavazos Last Filed: 08/29/21 18:39> Thought content: Normal thought content present <AMPARO Cavazos Last Filed: 08/29/21 18:39> Insight: Good insight present (Psych) <AMPARO Cavazos Last Filed: 08/29/21 18:39> Medical Decision Making MDM Narrative Medical decision making narrative: Patient is a 26 year old female presenting to the emergency department today with COVID-19. Patient's physical exam showed a fever and tachycardia, consistent with COVID-19. Patient's blood work was unremarkable. Patient's EKG showed tachycardia but was unremarkable. Patient's chest x-ray showed no acute process. I explained my physical exam findings as well as all test results to the patient. I answered all questions asked by the patient. Patient received IV fluids, Toradol, and Tylenol which she stated helped her symptoms significantly. I stressed the importance of the patient taking her medication as prescribed. I stressed the importance of the patient following up with her primary care provider. I stressed the importance of the patient returning to the emergency department immediately if her symptoms were to worsen or if she were to develop any dizziness, shortness of breath, difficulty breathing, chest pain, blurry vision, loss of vision, nausea, vomiting, abdominal pain, fever, chills, back pain, or any other complaints. Patient verbalized agreement and understanding with this treatment plan and discharge. <AMPARO Cavazos - Last Filed: 08/29/21 18:39> Differential Diagnosis Differential Diagnosis: COVID-19, anxiety <AMPARO Cavazos Last Filed: 08/29/21 18:39> Medical Records Medical records reviewed: Yes I reviewed the patient's medical records. <AMPARO Cavazos Last Filed: 08/29/21 18:39> Lab Data Lab results reviewed: Yes I reviewed the patient's lab results. <AMPARO Cavazos Last Filed: 08/29/21 18:39> Result diagrams: : 08/29/21 17:06 08/29/21 17:06 <AMPARO Cavazos - Last Filed: 08/29/21 18:39> Labs: Lab Results 08/29/21 08/29/21 08/29/21 Range/Units 17:06 17:06 17:06 WBC 4.3 L (4.8-10.8) X10*3/uL RBC 4.33 (4.20-5.50) X10*6/uL Hgb 12.6 (12.0-16.0) g/dl Hct 37.8 (37.0-47.0) % MCV 87.3 (80.0-98.0) fL MCH 29.1 (27.0-33.0) pg MCHC 33.3 (31.0-35.0) g/dl RDW 12.2 (11.0-16.0) % Plt Count 187 D (160-400) X10*3/uL MPV 9.1 L (9.4-12.3) fL Immature Gran % (Auto) 0.7 H (0.0-0.4) % Neut % (Auto) 86.5 H (45-73) % Lymph % (Auto) 4.0 L (20-40) % [place] % (Auto) 8.6 (2-11) % Eos % (Auto) 0.0 (0-4) % Baso % (Auto) 0.2 (0-2) % Lymph # (Auto) 0.2 L (1.2-4.9) X10*3/uL [place] # (Auto) 0.4 (0.1-1.2) X10*3/uL Eos # (Auto) 0.0 (0.0-0.4) X10*3/uL Baso # (Auto) 0.0 (0.0-0.2) X10*3/uL Abs Immat Gran (auto) 0.03 (0.00-0.03) X10*3/uL Absolute Neuts (auto) 3.7 (2.0-8.3) x10*3/uL Absolute Nucleated RBC 0.000 (0.0-0.012) X10*3/uL Nucleated RBC % (auto) 0.0 (0.0-0.2) /100WBC Sodium 140 (135-145) mmol/L Potassium 4.0 (3.3-5.1) mmol/L Chloride 108 (96-108) mmol/L Carbon Dioxide 25 (22-29) mmol/L Anion Gap 11 L (12-20) BUN 9 (9-16) mg/dL Creatinine 0.75 (0.5-1.4) mg/dL Estim Creat Clear Calc 123.8 Estimated GFR > 60 Random Glucose 109 (60-115) mg/dL Calcium 9.1 D (8.4-10.2) mg/dL Magnesium 2.1 (1.6-2.6) mg/dL Total Bilirubin 0.5 (0.0-1.0) mg/dL AST 19 D (5-31) U/L ALT 20 (0-31) U/L Alkaline Phosphatase 49 (39-117) U/L Troponin I High Sens < 3.5 (<3.5-17.0) ng/L Total Protein 7.4 (6.5-8.0) g/dL Albumin 4.3 (3.5-5.0) g/dL <AMPARO Cavazos - Last Filed: 08/29/21 18:39> Imaging Data Chest x-ray: Attestation: I personally reviewed and interpreted this imaging study as follows: <AMPARO Cavazos - Last Filed: 08/29/21 18:39> My impression: No acute process. <AMPARO Cavazos - Last Filed: 08/29/21 18:39> Radiologist's impression: EXAMINATION: XR CHEST CLINICAL INFORMATION: Chest pain COMPARISON: Previous exam February 2021 TECHNIQUE: 2 views of the chest were obtained. FINDINGS: No significant abnormality is noted involving the heart, lungs, mediastinum, bony thorax or soft tissues. XR/XR chest 2V IMPRESSION: Unremarkable examination. Dictated By: Norma Boswell MD Signed By: Electronically signed by Norma Boswell MD 08/29/21 0200 <AMPARO Cavazos - Last Filed: 08/29/21 18:39> ECG Data Attestation: I personally reviewed and interpreted this ECG as follows: <AMPARO Cavazos - Last Filed: 08/29/21 18:39> Prior ECG tracings: available for review <AMPARO Cavazos - Last Filed: 08/29/21 18:39> Interpretation: Vent. Rate: 130 BPM ? ? Atrial Rate: 130 BPM P-R Int: 116 ms? QRS Dur: 090 ms QT Int: 332 ms ? ? ? P-R-T Axes: 046 035 053 degrees QTc Int: 488 ms ? Sinus tachycardia Possible left atrial enlargement Nonspecific T wave abnormality When compared with ECG of 05-Aug-2021, Sinus tachycardia has replaced normal sinus rhythm [id number]/29/211652 Patient's ECG did not transmit to the patient's chart. Signed copy placed on patient's chart and was reviewed by myself and Dr. Romero. <AMPARO Cavazos Last Filed: 08/29/21 18:39> Discharge Plan Discharge Clinical Impression: COVID-19 virus infection <AMPARO Cavazos Last Filed: 08/29/21 18:39> Patient Disposition: Home, Self-Care <AMPARO Cavazos Last Filed: 08/29/21 18:39> Instructions: COVID-19 (Coronavirus Disease 2019) (ED) <AMPARO Cavazos Last Filed: 08/29/21 18:39> Additional Instructions: Follow up with your primary care provider. Return to the emergency department immediately if your symptoms worsen or if you develop any dizziness, shortness of breath, difficulty breathing, chest pain, blurry vision, loss of vision, nausea, vomiting, abdominal pain, fever, chills, back pain, or any other complaints. <AMPARO Cavazos Last Filed: 08/29/21 18:39> Prescriptions: New ondansetron 4 mg tablet,disintegrating 4 mg PO Q8H 3 Days Qty: 9 0RF No Action metoclopramide HCl [Reglan] 10 mg tablet 10 mg PO Q6H PRN (Reason: nausea and vomiting) Qty: 20 0RF nitrofurantoin monohyd/m-cryst [Macrobid] 100 mg capsule 100 mg PO Q12H 5 Days Qty: 10 0RF Rx Instructions: must administer with a meal/food tramadol 50 mg tablet 50 mg PO Q6H PRN (Reason: pain) Qty: 20 0RF ibuprofen 600 mg tablet 600 mg PO Q8H PRN (Reason: pain) Qty: 20 0RF lidocaine 5 % adhesive patch,medicated 1 patch topical DAILY Qty: 15 0RF Rx Instructions: leave on most painful area for up to 12 hrs mupirocin 2 % ointment 1 appl topical TID Qty: 15 0RF fluconazole [Diflucan] 150 mg tablet 150 mg PO Q3D Qty: 2 0RF meclizine 25 mg tablet 25 mg PO TID PRN (Reason: dizziness) Qty: 14 0RF doxycycline monohydrate 100 mg capsule 100 mg PO BID Qty: 20 0RF fluconazole 150 mg tablet 150 mg PO ONCE 1 Days Qty: 1 0RF cyclobenzaprine 10 mg tablet 10 mg PO TID PRN (Reason: muscle spasm) Qty: 10 0RF cefuroxime axetil 500 mg tablet 500 mg PO BID 7 Days Qty: 14 0RF cyclobenzaprine 10 mg tablet 10 mg PO TID PRN (Reason: muscle spasm) Qty: 14 0RF lidocaine 5 % adhesive patch,medicated 1 patch topical DAILY Qty: 15 0RF Rx Instructions: leave on most painful area for up to 12 hrs ibuprofen 600 mg tablet 600 mg PO Q8H PRN (Reason: pain) Qty: 20 0RF <AMPARO Cavazos - Last Filed: 08/29/21 18:39> Referrals: Abdoulaye Ball MD [Primary Care Provider] - (Follow up with your PCP. ) <AMPARO Cavazos - Last Filed: 08/29/21 18:39> Discharge Date/Time: 08/29/21 19:09 <AMPARO Cavazos - Last Filed: 08/29/21 18:39> Print Language: [place] <AMPARO Cavazos - Last Filed: 08/29/21 18:39>
--- NOTE | 2021-08-29 16:15 | ECG_ITS ---
Test Reason : CP Blood Pressure : / mmHG Vent. Rate : 130 BPM Atrial Rate : 130 BPM P-R Int : 116 ms QRS Dur : 090 ms QT Int : 332 ms P-R-T Axes : 046 035 053 degrees QTc Int : 488 ms Sinus tachycardia Possible Left atrial enlargement Nonspecific T wave abnormality Abnormal ECG When compared with ECG of 05-AUG-2021 19:28, Vent. rate has increased BY 49 BPM Nonspecific T wave abnormality no longer evident in Inferior leads Referred By: Wendy Krueger Electronically Signed By:KATYA PAULSON MD
--- NOTE | 2021-08-29 16:15 | PC.NURSE ---
pt incessantly pressing call [place], has been answered by rn and pct, pt is screaming that i am dying, I need a doctor immediately! pt educated about need to await provider following triage assessment, pt screaming back at this rn, this rn walking away from pt interaction. security nearby d/t obvious noise disruption.
[2021-08-29] MEDS: Acetaminophen 325 MG TABLET 650 MG PO (17:07)
[2021-08-29] MEDS: Ketorolac Tromethamine 30 MG/ML VIAL IVPUSH (17:07)
[2021-08-29] MEDS: 0.9 % Sodium Chloride 1,000 ML 999 ML IVCONT (17:08)
[2021-08-29 17:10] VITALS: BP 109/49; PULSE 133; RESP 19; TEMP 39.6; O2SAT 98
[2021-08-29 17:10] LABS: MANUAL DIFF FLAG NO
[2021-08-29 17:20] LABS: Basophils Percent Auto 0.2 % (0-2); Hematocrit 37.8 % (37.0-47.0); Hemoglobin 12.6 g/dl (12.0-16.0); Imm Gran Abs Auto 0.03 X10*3/uL (0.00-0.03); Imm Gran Pct Auto 0.7 % (0.0-0.4); Lymphocytes Absolute Auto 0.2 X10*3/uL (1.2-4.9); Mean Corpuscular HGB Conc 33.3 g/dl (31.0-35.0); Mean Corpuscular Hemoglobin 29.1 pg (27.0-33.0); Mean Corpuscular Volume 87.3 fL (80.0-98.0); Mean Platelet Volume 9.1 fL (9.4-12.3); Monocytes Absolute Auto 0.4 X10*3/uL (0.1-1.2); Monocytes Percent Auto 8.6 % (2-11); Neutrophils Absolute Auto 3.7 x10*3/uL (2.0-8.3); Neutrophils Percent Auto 86.5 % (45-73); Platelet Count 187 X10*3/uL (160-400); Red Blood Count 4.33 X10*6/uL (4.20-5.50); Red Cell Distribution Width 12.2 % (11.0-16.0); White Blood Count 4.3 X10*3/uL (4.8-10.8)
[2021-08-29 17:29] LABS: Alanine Aminotransferase 20 U/L (0-31); Albumin Level 4.3 g/dL (3.5-5.0); Alkaline Phosphatase 49 U/L (39-117); Anion Gap 11 (12-20); Aspartate Amino Transferase 19 U/L (5-31); Bilirubin Total 0.5 mg/dL (0.0-1.0); Blood Urea Nitrogen 9 mg/dL (9-16); Calcium 9.1 mg/dL (8.4-10.2); Carbon Dioxide 25 mmol/L (22-29); Chloride 108 mmol/L (96-108); Creatinine Clr Calc Pharmacy 123.8; Estimated Glomerular Filt Rate > 60; Glucose Random 109 mg/dL (60-115); Magnesium 2.1 mg/dL (1.6-2.6); Sodium 140 mmol/L (135-145); Total Protein 7.4 g/dL (6.5-8.0)
[2021-08-29 17:33] LABS: Troponin-I High Sensitivity < 3.5 ng/L (<3.5-17.0)
[2021-08-29 18:02] VITALS: TEMP 39.3
[2021-08-29 18:48] VITALS: TEMP 37.9
== END 2021-08-29 19:09 | disposition home or self-care (01) ==
PROVIDERS: Physician Assistant Medical; Emergency Provider Emergency Medicine; PCP Family Medicine
DX: U07.1 COVID-19 (principal); R00.0 Tachycardia, unspecified
CPT/HCPCS: 36415; 71046; 80053; 83735; 84484; 85025; 93005; 96361; 96374; 99284; J1885

== ENCOUNTER 2022-01-31 02:30 | Emergency (ER) | payer MEDICAID, SELFPAY ==
--- NOTE | ~2022-01-31 | XR_ITS ---
EXAMINATION: XR CHEST CLINICAL INFORMATION: Chest pain COMPARISON: 08/29/2021 TECHNIQUE: Frontal view of the chest was obtained. FINDINGS: The lungs are clear with no focal consolidation. No evidence of pneumothorax, pulmonary edema, or pleural effusions. The cardiomediastinal silhouette is unremarkable. No acute osseous findings. XR/XR chest 1V IMPRESSION: No acute cardiopulmonary findings.
[2022-01-31 02:43] VITALS: BP 112/65; BP 112/70; PULSE 110; PULSE 117; RESP 11; TEMP 36.9; O2SAT 97; O2SAT 99; BMI 26.9
--- NOTE | 2022-01-31 04:33 | ECG_ITS ---
Test Reason : SOB Blood Pressure : / mmHG Vent. Rate : 088 BPM Atrial Rate : 088 BPM P-R Int : 124 ms QRS Dur : 086 ms QT Int : 358 ms P-R-T Axes : 059 033 044 degrees QTc Int : 433 ms Normal sinus rhythm RSR' or QR pattern in V1 suggests right ventricular conduction delay Low voltage QRS Nonspecific T wave abnormality Abnormal ECG When compared with ECG of 29-AUG-2021 16:53, Heart rate has decreased Referred By: Suzanna Mcgee Electronically Signed By:DUSTIN ARREAGA MD
--- NOTE | 2022-01-31 04:37 | ED.GENADULT ---
HPI - General Adult General Chief complaint: Anxiety Stated complaint: Multiple Complaints Time Seen by Provider: 01/31/22 03:16 History of Present Illness HPI narrative: Patient is a 26-year-old female presents today with having history of panic attack having pain to the left chest. Patient had a lipoma removed from the right axilla. Patient denies any coughing congestion upper respiratory symptoms. Also history of anxiety attacks. History of having migraine. Complaining of a headache similar to previous bouts of migraine. Does not think she is . The light makes it worse. There is no photophobia. There is no pain over the right axilla with the lipoma was removed. The pain is over the left axilla and to the left chest. It is very sharp. Patient denies any leg swelling. No coughing congestion upper respiratory symptoms. No history of diabetes, hypertension, [place]. No history of recreational drug use. Patient is from home. Related Data Previous Rx's Medication Instructions Recorded tramadol 50 mg tablet 50 mg PO Q6H PRN pain #20 tabs 07/03/20 metoclopramide HCl 10 mg tablet 10 mg PO Q6H PRN nausea and 09/07/20 (Reglan) vomiting #20 tabs nitrofurantoin 100 mg PO Q12H 5 days #10 caps 12/19/20 monohydrate/macrocrystals 100 mg capsule (Macrobid) cyclobenzaprine 10 mg tablet 10 mg PO TID PRN muscle spasm #10 01/17/21 tabs fluconazole 150 mg tablet 150 mg PO ONCE 1 day #1 tab 01/17/21 cefuroxime axetil 500 mg tablet 500 mg PO BID 7 days #14 tabs 01/18/21 fluconazole 150 mg tablet 150 mg PO Q3D 2 doses #2 tabs 02/16/21 (Diflucan) ibuprofen 600 mg tablet 600 mg PO Q8H PRN pain #20 tabs 02/16/21 lidocaine 5 % topical patch 1 patch topical DAILY #15 ea 02/16/21 mupirocin 2 % topical ointment 1 appl topical TID #15 grams 02/16/21 cyclobenzaprine 10 mg tablet 10 mg PO TID PRN muscle spasm #14 03/03/21 tabs ibuprofen 600 mg tablet 600 mg PO Q8H PRN pain #20 tabs 03/03/21 lidocaine 5 % topical patch 1 patch topical DAILY #15 ea 03/03/21 meclizine 25 mg tablet 25 mg PO TID PRN dizziness #14 tabs 03/17/21 doxycycline monohydrate 100 mg 100 mg PO BID #20 caps 07/30/21 capsule ondansetron 4 mg disintegrating 4 mg PO Q8H 3 days #9 tabs 08/29/21 tablet Allergies Allergy/AdvReac Type Severity Reaction Status Date / Time Iodinated Contrast Media Allergy Severe RASH, ABD Verified 06/11/21 22:31 [CONTRAST,IV] PAINS, BODY FEELS LIKE ON FIRE go Allergy Severe AIRWAY Verified 06/11/21 22:31 CLOSES shellfish derived Allergy Severe ANAPHYLAXIS Verified 06/11/21 22:31 [SHELLFISH DERIVED] Sulfa (Sulfonamide Allergy Severe RASH Verified 06/11/21 22:31 Antibiotics) [SULFA (SULFONAMIDE ANTIBIOTICS)] diphenhydramine Allergy Intermediate PANIC Verified 06/11/21 22:31 [From BENADRYL] ATTACK hazelnut [HAZELNUT] Allergy Intermediate THROAT Verified 06/11/21 22:31 IRRITATION Go Allergy Unknown throat Verified 06/11/21 22:31 swell pomegranate [POMEGRANATE] Allergy Unknown DIFFICULTY Verified 06/11/21 22:31 BREATHING prazosin [PRAZOSIN] Allergy Unknown UNKNOWN Verified 06/11/21 22:31 topiramate [From TOPAMAX] AdvReac Intermediate Rash Verified 06/11/21 22:31 ondansetron AdvReac Unknown migraine Verified 06/11/21 22:31 [From ZOFRAN ( HYDROCHLORIDE)] lorazepam [From Ativan] AdvReac Unknown Verified 01/31/22 03:00 propranolol AdvReac Unknown Verified 06/11/21 22:31 Aloe Allergy Unknown swelling Uncoded 06/11/21 22:31 IVP Dye Allergy Unknown Unknown Uncoded 06/11/21 22:31 Pomegranite Allergy Unknown Unknown Uncoded 06/11/21 22:31 Shellfish Allergy Unknown Unknown Uncoded 06/11/21 22:31 shellfish Allergy Unknown throat Uncoded 06/11/21 22:31 swelling sulfa Allergy Unknown Unknown Uncoded 06/11/21 22:31 topamax Allergy Unknown Unknown Uncoded 06/11/21 22:31 Review of Systems Review of Systems: Positive chest pain left side Yes all other systems are reviewed and are negative REPLACED BY [facility] Past Medical History Attestation statement: The following information was validated with the patient. Medical History Anxiety Borderline personality disorder Migraines PTSD (post-traumatic stress disorder) Social History Social History Alcohol intake: former Patient Tobacco Use Status: Former Tobacco user Use of substances other than those prescribed or required for medical reasons: Yes Substance Use Type: Marijuana Substance Use Frequency: Monthly Advance Directives: No Physical Exam ED Vital Signs: Vital Signs - 24 hr 01/31/22 02:43 Temperature 98.5 F Pulse Rate 117 H Respiratory Rate 11 L Blood Pressure 112/65 Pulse Oximetry 97 Oxygen Delivery Method Room Air BMI result Body Mass Index 26.9 Appearance: Alert. Oriented X3. No acute distress. Eyes: Pupils equal, round and reactive to light. ENT: Pharynx normal. Neck: Normal inspection. Neck supple. No lymph nodes noted. No crepitus CVS: Normal heart rate and rhythm. Pulses normal. Normal S1 and S2 Respiratory: No respiratory distress. Breath sounds normal. No Wheezing. No rales Abdomen: Soft and nontender. No rigidity. No distention. good BS x4 Skin: Skin warm and dry. Normal skin color. Normal skin turgor. Extremities: No lower extremity edema. Neurovascular intact to all extremities. No Lacerations. No Rash Neuro: Oriented X 3. No motor deficit. No sensory deficit. Moving all extermities. No slurred speech Medical Decision Making MDM Narrative Medical decision making narrative: Patient's chest x-ray was negative for any acute evidence of pneumonia, pneumothorax. D-dimer is negative. History not consistent PE unlikely to have pulmonary emboli. Chest x-ray showed no pneumonia no pneumothorax. Patient's pain atypical for ACS. Patient's EKG showed a sinus pattern heart rate is 90 OK QRS QT within normal limits there is no acute ST segment elevation. Lab Data Result diagrams: 01/31/22 04:54 01/31/22 04:54 Labs: Lab Results 01/31/22 01/31/22 01/31/22 Range/Units 04:54 04:54 04:54 WBC 8.6 (4.8-10.8) X10*3/uL RBC 4.26 (4.20-5.50) X10*6/uL Hgb 12.2 (12.0-16.0) g/dl Hct 35.7 L (37.0-47.0) % MCV 83.8 (80.0-98.0) fL MCH 28.6 (27.0-33.0) pg MCHC 34.2 (31.0-35.0) g/dl RDW 12.0 (11.0-16.0) % Plt Count 287 D (160-400) X10*3/uL MPV 8.8 L (9.4-12.3) fL Immature Gran % (Auto) 0.3 (0.0-0.4) % Neut % (Auto) 64.2 (45-73) % Lymph % (Auto) 26.1 (20-40) % [place] % (Auto) 7.5 (2-11) % Eos % (Auto) 1.6 (0-4) % Baso % (Auto) 0.3 (0-2) % Lymph # (Auto) 2.3 (1.2-4.9) X10*3/uL [place] # (Auto) 0.7 (0.1-1.2) X10*3/uL Eos # (Auto) 0.1 (0.0-0.4) X10*3/uL Baso # (Auto) 0.0 (0.0-0.2) X10*3/uL Abs Immat Gran (auto) 0.03 (0.00-0.03) X10*3/uL Absolute Neuts (auto) 5.5 (2.0-8.3) x10*3/uL Absolute Nucleated RBC 0.000 (0.0-0.012) X10*3/uL Nucleated RBC % (auto) 0.0 (0.0-0.2) /100WBC D-Dimer High Sensitivty 156 NG/ML Sodium 142 (135-145) mmol/L Potassium 3.9 (3.3-5.1) mmol/L Chloride 106 (96-108) mmol/L Carbon Dioxide 26 (22-29) mmol/L Anion Gap 14 (12-20) BUN 13 (9-16) mg/dL Creatinine 0.66 (0.5-1.4) mg/dL Estim Creat Clear Calc 137.8 Estimated GFR > 60 Random Glucose 92 (60-115) mg/dL Calcium 9.4 (8.4-10.2) mg/dL Lipase 52 (8-78) U/L COVID-19 (CLAUDE) (Negative) COVID-19 Clin Com 01/31/22 Range/Units 04:54 WBC (4.8-10.8) X10*3/uL RBC (4.20-5.50) X10*6/uL Hgb (12.0-16.0) g/dl Hct (37.0-47.0) % MCV (80.0-98.0) fL MCH (27.0-33.0) pg MCHC (31.0-35.0) g/dl RDW (11.0-16.0) % Plt Count (160-400) X10*3/uL MPV (9.4-12.3) fL Immature Gran % (Auto) (0.0-0.4) % Neut % (Auto) (45-73) % Lymph % (Auto) (20-40) % [place] % (Auto) (2-11) % Eos % (Auto) (0-4) % Baso % (Auto) (0-2) % Lymph # (Auto) (1.2-4.9) X10*3/uL [place] # (Auto) (0.1-1.2) X10*3/uL Eos # (Auto) (0.0-0.4) X10*3/uL Baso # (Auto) (0.0-0.2) X10*3/uL Abs Immat Gran (auto) (0.00-0.03) X10*3/uL Absolute Neuts (auto) (2.0-8.3) x10*3/uL Absolute Nucleated RBC (0.0-0.012) X10*3/uL Nucleated RBC % (auto) (0.0-0.2) /100WBC D-Dimer High Sensitivty NG/ML Sodium (135-145) mmol/L Potassium (3.3-5.1) mmol/L Chloride (96-108) mmol/L Carbon Dioxide (22-29) mmol/L Anion Gap (12-20) BUN (9-16) mg/dL Creatinine (0.5-1.4) mg/dL Estim Creat Clear Calc Estimated GFR Random Glucose (60-115) mg/dL Calcium (8.4-10.2) mg/dL Lipase (8-78) U/L COVID-19 (CLAUDE) Negative (Negative) COVID-19 Clin Com See Note Discharge Plan Discharge Clinical Impression: Chest pain Patient Disposition: Home, Self-Care Instructions: Chest Pain (ED) Prescriptions: No Action metoclopramide HCl [Reglan] 10 mg tablet 10 mg PO Q6H PRN (Reason: nausea and vomiting) Qty: 20 0RF nitrofurantoin monohyd/m-cryst [Macrobid] 100 mg capsule 100 mg PO Q12H 5 Days Qty: 10 0RF Rx Instructions: must administer with a meal/food tramadol 50 mg tablet 50 mg PO Q6H PRN (Reason: pain) Qty: 20 0RF ibuprofen 600 mg tablet 600 mg PO Q8H PRN (Reason: pain) Qty: 20 0RF lidocaine 5 % adhesive patch,medicated 1 patch topical DAILY Qty: 15 0RF Rx Instructions: leave on most painful area for up to 12 hrs mupirocin 2 % ointment 1 appl topical TID Qty: 15 0RF fluconazole [Diflucan] 150 mg tablet 150 mg PO Q3D Qty: 2 0RF meclizine 25 mg tablet 25 mg PO TID PRN (Reason: dizziness) Qty: 14 0RF doxycycline monohydrate 100 mg capsule 100 mg PO BID Qty: 20 0RF fluconazole 150 mg tablet 150 mg PO ONCE 1 Days Qty: 1 0RF cyclobenzaprine 10 mg tablet 10 mg PO TID PRN (Reason: muscle spasm) Qty: 10 0RF cefuroxime axetil 500 mg tablet 500 mg PO BID 7 Days Qty: 14 0RF cyclobenzaprine 10 mg tablet 10 mg PO TID PRN (Reason: muscle spasm) Qty: 14 0RF lidocaine 5 % adhesive patch,medicated 1 patch topical DAILY Qty: 15 0RF Rx Instructions: leave on most painful area for up to 12 hrs ibuprofen 600 mg tablet 600 mg PO Q8H PRN (Reason: pain) Qty: 20 0RF ondansetron 4 mg tablet,disintegrating 4 mg PO Q8H 3 Days Qty: 9 0RF Referrals: Abdoulaye Ball MD [Primary Care Provider] -
[2022-01-31 05:01] LABS: Basophils Percent Auto 0.3 % (0-2); Eosinophils Absolute Auto 0.1 X10*3/uL (0.0-0.4); Eosinophils Percent Auto 1.6 % (0-4); Hematocrit 35.7 % (37.0-47.0); Hemoglobin 12.2 g/dl (12.0-16.0); Imm Gran Abs Auto 0.03 X10*3/uL (0.00-0.03); Imm Gran Pct Auto 0.3 % (0.0-0.4); Lymphocytes Absolute Auto 2.3 X10*3/uL (1.2-4.9); Lymphocytes Percent Auto 26.1 % (20-40); MANUAL DIFF FLAG NO; Mean Corpuscular HGB Conc 34.2 g/dl (31.0-35.0); Mean Corpuscular Hemoglobin 28.6 pg (27.0-33.0); Mean Corpuscular Volume 83.8 fL (80.0-98.0); Mean Platelet Volume 8.8 fL (9.4-12.3); Monocytes Absolute Auto 0.7 X10*3/uL (0.1-1.2); Monocytes Percent Auto 7.5 % (2-11); Neutrophils Absolute Auto 5.5 x10*3/uL (2.0-8.3); Neutrophils Percent Auto 64.2 % (45-73); Platelet Count 287 X10*3/uL (160-400); Red Blood Count 4.26 X10*6/uL (4.20-5.50); White Blood Count 8.6 X10*3/uL (4.8-10.8)
[2022-01-31] MEDS: Ketorolac Tromethamine 30 MG/ML VIAL IVPUSH (05:03)
[2022-01-31 05:08] LABS: D Dimer High Sensitivity 156 NG/ML
[2022-01-31 05:16] LABS: Anion Gap 14 (12-20); Blood Urea Nitrogen 13 mg/dL (9-16); Calcium 9.4 mg/dL (8.4-10.2); Carbon Dioxide 26 mmol/L (22-29); Chloride 106 mmol/L (96-108); Creatinine Clr Calc Pharmacy 137.8; Estimated Glomerular Filt Rate > 60; Glucose Random 92 mg/dL (60-115); Lipase 52 U/L (8-78); Potassium 3.9 mmol/L (3.3-5.1); Sodium 142 mmol/L (135-145)
[2022-01-31 05:17] LABS: COVID-19 Test Negative (Negative)
[2022-01-31 05:22] LABS: HCG Quantitative < 2 mIU/mL; Troponin-I High Sensitivity < 3.5 ng/L (<3.5-17.0)
[2022-01-31 06:12] VITALS: BP 102/66; PULSE 78; RESP 14; TEMP 36.7; O2SAT 97
== END 2022-01-31 06:51 | disposition home or self-care (01) ==
PROVIDERS: Emergency Provider Emergency Medicine Emergency Medical Services; PCP Family Medicine
DX: R07.89 Other chest pain (principal); R06.02 Shortness of breath; F41.1 Generalized anxiety disorder; F43.0 Acute stress reaction; Z20.822 Contact with and (suspected) exposure to COVID-19; Z79.899 Other long term (current) drug therapy
CPT/HCPCS: 36415; 71045; 80048; 83690; 84484; 84702; 85025; 85379; 87635; 93005; 96374; 99284; J1885

== ENCOUNTER 2022-02-05 19:24 | Emergency (ER) | payer MEDICAID, SELFPAY ==
--- NOTE | ~2022-02-05 | CT_ITS ---
EXAMINATION: CT SOFT TISSUE NECK WITHOUT CONTRAST CLINICAL INFORMATION: Anterior neck pain COMPARISON: None TECHNIQUE: Helical imaging was performed in the axial plane with generation of coronal and sagittal reformatted images. This CT examination was performed using dose optimization techniques as appropriate, variously including the following: *Automated exposure control *Adjustment of mA and/or kV according to patient size (this includes techniques or standardized protocols for targeted exams where dose is matched to indication/reason for exam; i.e. extremities or head) *Use of iterative reconstruction technique DLP: 646 mGy-cm FINDINGS: The nasopharynx, oropharynx, and hypopharynx are patent. No mucosal pharyngeal abnormality is seen. The bilateral parapharyngeal fat is preserved. The identification officer, parotid, and submandibular spaces appear normal and symmetric bilaterally. Scattered bilateral cervical lymph nodes are seen without significant adenopathy. The carotid vasculature is not adequately assessed without intravenous contrast. Epiglottis is unremarkable. The thyroid gland is unremarkable. The lung apices are clear. Visualized portions of the brain parenchyma are unremarkable. The mastoid air cells are well aerated. The paranasal sinuses are clear. The visualized orbits are unremarkable. The mandibular condyles are well-seated in the condylar fossa. No acute fracture is seen. CT/CT soft tissue neck wo IV con IMPRESSION: No acute findings identified.
[2022-02-05 19:43] VITALS: BP 117/76; PULSE 123; RESP 18; TEMP 37.2; O2SAT 95; BMI 26.6
--- NOTE | 2022-02-06 00:05 | ED.GENADULT ---
HPI - General Adult General Chief complaint: General Medical Stated complaint: hard to breathe, hurts to breathe Time Seen by Provider: 02/06/22 00:05 Related Data Previous Rx's Medication Instructions Recorded tramadol 50 mg tablet 50 mg PO Q6H PRN pain #20 tabs 07/03/20 metoclopramide HCl 10 mg tablet 10 mg PO Q6H PRN nausea and 09/07/20 (Reglan) vomiting #20 tabs nitrofurantoin 100 mg PO Q12H 5 days #10 caps 12/19/20 monohydrate/macrocrystals 100 mg capsule (Macrobid) cyclobenzaprine 10 mg tablet 10 mg PO TID PRN muscle spasm #10 01/17/21 tabs fluconazole 150 mg tablet 150 mg PO ONCE 1 day #1 tab 01/17/21 cefuroxime axetil 500 mg tablet 500 mg PO BID 7 days #14 tabs 01/18/21 fluconazole 150 mg tablet 150 mg PO Q3D 2 doses #2 tabs 02/16/21 (Diflucan) ibuprofen 600 mg tablet 600 mg PO Q8H PRN pain #20 tabs 02/16/21 lidocaine 5 % topical patch 1 patch topical DAILY #15 ea 02/16/21 mupirocin 2 % topical ointment 1 appl topical TID #15 grams 02/16/21 cyclobenzaprine 10 mg tablet 10 mg PO TID PRN muscle spasm #14 03/03/21 tabs ibuprofen 600 mg tablet 600 mg PO Q8H PRN pain #20 tabs 03/03/21 lidocaine 5 % topical patch 1 patch topical DAILY #15 ea 03/03/21 meclizine 25 mg tablet 25 mg PO TID PRN dizziness #14 tabs 03/17/21 doxycycline monohydrate 100 mg 100 mg PO BID #20 caps 07/30/21 capsule ondansetron 4 mg disintegrating 4 mg PO Q8H 3 days #9 tabs 08/29/21 tablet Allergies Allergy/AdvReac Type Severity Reaction Status Date / Time Iodinated Contrast Media Allergy Severe RASH, ABD Verified 06/11/21 22:31 [CONTRAST,IV] PAINS, BODY FEELS LIKE ON FIRE shubham Allergy Severe AIRWAY Verified 06/11/21 22:31 CLOSES shellfish derived Allergy Severe ANAPHYLAXIS Verified 06/11/21 22:31 [SHELLFISH DERIVED] Sulfa (Sulfonamide Allergy Severe RASH Verified 06/11/21 22:31 Antibiotics) [SULFA (SULFONAMIDE ANTIBIOTICS)] diphenhydramine Allergy Intermediate PANIC Verified 06/11/21 22:31 [From BENADRYL] ATTACK hazelnut [HAZELNUT] Allergy Intermediate THROAT Verified 06/11/21 22:31 IRRITATION Shubham Allergy Unknown throat Verified 06/11/21 22:31 swell pomegranate [POMEGRANATE] Allergy Unknown DIFFICULTY Verified 06/11/21 22:31 BREATHING prazosin [PRAZOSIN] Allergy Unknown UNKNOWN Verified 06/11/21 22:31 topiramate [From TOPAMAX] AdvReac Intermediate Rash Verified 06/11/21 22:31 ondansetron AdvReac Unknown migraine Verified 06/11/21 22:31 [From ZOFRAN ( HYDROCHLORIDE)] lorazepam [From Ativan] AdvReac Unknown Verified 01/31/22 03:00 propranolol AdvReac Unknown Verified 06/11/21 22:31 Aloe Allergy Unknown swelling Uncoded 06/11/21 22:31 IVP Dye Allergy Unknown Unknown Uncoded 06/11/21 22:31 Pomegranite Allergy Unknown Unknown Uncoded 06/11/21 22:31 Shellfish Allergy Unknown Unknown Uncoded 06/11/21 22:31 shellfish Allergy Unknown throat Uncoded 06/11/21 22:31 swelling sulfa Allergy Unknown Unknown Uncoded 06/11/21 22:31 topamax Allergy Unknown Unknown Uncoded 06/11/21 22:31 PMFSH Past Medical History Medical History Anxiety Borderline personality disorder Migraines PTSD (post-traumatic stress disorder) Social History Social History Alcohol intake: former Patient Tobacco Use Status: Former Tobacco user Substance Use Type: Marijuana Advance Directives: No Advance Directives Information Provided: No Physical Exam ED Vital Signs: Vital Signs - 24 hr 02/05/22 19:43 Temperature 98.9 F Pulse Rate 123 H Respiratory Rate 18 Blood Pressure 117/76 Pulse Oximetry 95 Oxygen Delivery Method Room Air BMI result Body Mass Index 26.6 Discharge Plan Discharge Prescriptions: No Action metoclopramide HCl [Reglan] 10 mg tablet 10 mg PO Q6H PRN (Reason: nausea and vomiting) Qty: 20 0RF nitrofurantoin monohyd/m-cryst [Macrobid] 100 mg capsule 100 mg PO Q12H 5 Days Qty: 10 0RF Rx Instructions: must administer with a meal/food tramadol 50 mg tablet 50 mg PO Q6H PRN (Reason: pain) Qty: 20 0RF ibuprofen 600 mg tablet 600 mg PO Q8H PRN (Reason: pain) Qty: 20 0RF lidocaine 5 % adhesive patch,medicated 1 patch topical DAILY Qty: 15 0RF Rx Instructions: leave on most painful area for up to 12 hrs mupirocin 2 % ointment 1 appl topical TID Qty: 15 0RF fluconazole [Diflucan] 150 mg tablet 150 mg PO Q3D Qty: 2 0RF meclizine 25 mg tablet 25 mg PO TID PRN (Reason: dizziness) Qty: 14 0RF doxycycline monohydrate 100 mg capsule 100 mg PO BID Qty: 20 0RF fluconazole 150 mg tablet 150 mg PO ONCE 1 Days Qty: 1 0RF cyclobenzaprine 10 mg tablet 10 mg PO TID PRN (Reason: muscle spasm) Qty: 10 0RF cefuroxime axetil 500 mg tablet 500 mg PO BID 7 Days Qty: 14 0RF cyclobenzaprine 10 mg tablet 10 mg PO TID PRN (Reason: muscle spasm) Qty: 14 0RF lidocaine 5 % adhesive patch,medicated 1 patch topical DAILY Qty: 15 0RF Rx Instructions: leave on most painful area for up to 12 hrs ibuprofen 600 mg tablet 600 mg PO Q8H PRN (Reason: pain) Qty: 20 0RF ondansetron 4 mg tablet,disintegrating 4 mg PO Q8H 3 Days Qty: 9 0RF
[2022-02-06 00:28] VITALS: BP 120/71; PULSE 98; RESP 14; TEMP 37.2; O2SAT 100
--- NOTE | 2022-02-06 00:38 | PC.NURSE ---
Pt aox3. Family at bedside. Breaths are even and unlabored. Abd soft and non tender. Skin warm pink and dry. Reports hx of anxiety. Pt 2 wks post surgical procedure to the upper back. Steri strips on surgical site. Surgical site has no redness, swelling, or drainage. Pt reports hx of cystic acne. Will continue to monitor.
[2022-02-06 00:39] LABS: Strep A Nucleic Acid Negative (Negative)
[2022-02-06 00:46] LABS: COVID-19 Test Negative (Negative)
--- NOTE | 2022-02-06 01:45 | ED.GENADULT ---
HPI - General Adult General Chief complaint: General Medical Stated complaint: hard to breathe, hurts to breathe Time Seen by Provider: 02/06/22 00:05 Source: patient and family (Mother) Mode of arrival: ambulatory History of Present Illness HPI narrative: 26-year-old female with history of hypermobility disorder (EDS) presents after having had surgery where in she was intubated for removal of a lipoma approximately 2 weeks ago. Patient states that since that time she has had extensive discomfort around her neck without associated fever, chills but states that it feels like ?somebody is strangling me?. She did discuss this on her postop follow-up appointment with the surgeon and she was told that this may persist for while secondary to intubation. Related Data Previous Rx's Medication Instructions Recorded tramadol 50 mg tablet 50 mg PO Q6H PRN pain #20 tabs 07/03/20 metoclopramide HCl 10 mg tablet 10 mg PO Q6H PRN nausea and 09/07/20 (Reglan) vomiting #20 tabs nitrofurantoin 100 mg PO Q12H 5 days #10 caps 12/19/20 monohydrate/macrocrystals 100 mg capsule (Macrobid) cyclobenzaprine 10 mg tablet 10 mg PO TID PRN muscle spasm #10 01/17/21 tabs fluconazole 150 mg tablet 150 mg PO ONCE 1 day #1 tab 01/17/21 cefuroxime axetil 500 mg tablet 500 mg PO BID 7 days #14 tabs 01/18/21 fluconazole 150 mg tablet 150 mg PO Q3D 2 doses #2 tabs 02/16/21 (Diflucan) ibuprofen 600 mg tablet 600 mg PO Q8H PRN pain #20 tabs 02/16/21 lidocaine 5 % topical patch 1 patch topical DAILY #15 ea 02/16/21 mupirocin 2 % topical ointment 1 appl topical TID #15 grams 02/16/21 cyclobenzaprine 10 mg tablet 10 mg PO TID PRN muscle spasm #14 03/03/21 tabs ibuprofen 600 mg tablet 600 mg PO Q8H PRN pain #20 tabs 03/03/21 lidocaine 5 % topical patch 1 patch topical DAILY #15 ea 03/03/21 meclizine 25 mg tablet 25 mg PO TID PRN dizziness #14 tabs 03/17/21 doxycycline monohydrate 100 mg 100 mg PO BID #20 caps 07/30/21 capsule ondansetron 4 mg disintegrating 4 mg PO Q8H 3 days #9 tabs 08/29/21 tablet Allergies Allergy/AdvReac Type Severity Reaction Status Date / Time Iodinated Contrast Media Allergy Severe RASH, ABD Verified 06/11/21 22:31 [CONTRAST,IV] PAINS, BODY FEELS LIKE ON FIRE shubham Allergy Severe AIRWAY Verified 06/11/21 22:31 CLOSES shellfish derived Allergy Severe ANAPHYLAXIS Verified 06/11/21 22:31 [SHELLFISH DERIVED] Sulfa (Sulfonamide Allergy Severe RASH Verified 06/11/21 22:31 Antibiotics) [SULFA (SULFONAMIDE ANTIBIOTICS)] diphenhydramine Allergy Intermediate PANIC Verified 06/11/21 22:31 [From BENADRYL] ATTACK hazelnut [HAZELNUT] Allergy Intermediate THROAT Verified 06/11/21 22:31 IRRITATION Novice Allergy Unknown throat Verified 06/11/21 22:31 swell pomegranate [POMEGRANATE] Allergy Unknown DIFFICULTY Verified 06/11/21 22:31 BREATHING prazosin [PRAZOSIN] Allergy Unknown UNKNOWN Verified 06/11/21 22:31 topiramate [From TOPAMAX] AdvReac Intermediate Rash Verified 06/11/21 22:31 ondansetron AdvReac Unknown migraine Verified 06/11/21 22:31 [From ZOFRAN ( HYDROCHLORIDE)] lorazepam [From Ativan] AdvReac Unknown Verified 01/31/22 03:00 propranolol AdvReac Unknown Verified 06/11/21 22:31 Aloe Allergy Unknown swelling Uncoded 06/11/21 22:31 IVP Dye Allergy Unknown Unknown Uncoded 06/11/21 22:31 Pomegranite Allergy Unknown Unknown Uncoded 06/11/21 22:31 Shellfish Allergy Unknown Unknown Uncoded 06/11/21 22:31 shellfish Allergy Unknown throat Uncoded 06/11/21 22:31 swelling sulfa Allergy Unknown Unknown Uncoded 06/11/21 22:31 topamax Allergy Unknown Unknown Uncoded 06/11/21 22:31 Review of Systems Review of Systems: Pertinent positives and negatives as stated in HPI 10 point review of systems is otherwise negative. [facility] Past Medical History Source: nursing notes reviewed Medical History Anxiety Borderline personality disorder Migraines PTSD (post-traumatic stress disorder) Social History Social History Alcohol intake: former Patient Tobacco Use Status: Former Tobacco user Use of substances other than those prescribed or required for medical reasons: No Substance Use Type: Marijuana Advance Directives: No Advance Directives Information Provided: No Patient : No Physical Exam ED Vital Signs: Vital Signs - 24 hr 02/05/22 19:43 02/06/22 00:28 02/06/22 02:04 Temperature 98.9 F 99.0 F Pulse Rate 123 H 98 97 Respiratory Rate 18 14 12 Blood Pressure 117/76 120/71 138/80 Pulse Oximetry 95 100 99 Oxygen Delivery Method Room Air Room Air Room Air BMI result Body Mass Index 26.6 VITAL SIGNS: Reviewed. GENERAL: Well developed, well nourished, in no acute distress. HEAD: Normocephalic/atraumatic EYES: PERRLA, EOMI EARS: Ext canals without abnormality, TMs non-bulging and non-erythematous NOSE: Nares patent bilateral OROPHARYNX: no oral lesions noted, posterior pharynx clear and non-erythematous without noted tonsillar enlargement/erythema/exudates NECK: Supple, no adenopathy, no midline cervical spine tenderness, however on palpation along the SCM bilaterally patient has significant pain towards the attachment at the clavicle, right greater than left. LUNGS: Normal breath sounds. No adventitious sounds or accessory muscle use. SpO2<95> CARDIOVASCULAR: Regular rate and rhythm without noted murmurs ABDOMEN: Soft, non-tender, non-distended with bowel sounds. MUSCULOSKELETAL: No tenderness, deformities, or effusions noted on gross inspection. EXTREMITIES: No cyanosis, clubbing or edema. SKIN: Inspection of the skin reveals no rashes NEUROLOGIC: Alert and oriented x 4. Strength and sensation to light touch were grossly intact x 4. Course Course Course Narrative: 26-year-old female with history and clinical presentation most likely secondary to muscular pain, but will rule out any cervical spine issues, patient is noted to be allergic to IV contrast dye so unable to evaluate for less likely vascular complications. Review of all investigations negative for acute findings. Patient was informed of all results and is otherwise discharged home in stable condition. Medical Decision Making Lab Data Result diagrams: 02/06/22 02:00 02/06/22 02:00 Labs: Lab Results 02/06/22 02/06/22 02/06/22 Range/Units 00:23 00:23 02:00 WBC 8.0 (4.8-10.8) X10*3/uL RBC 4.72 (4.20-5.50) X10*6/uL Hgb 13.4 (12.0-16.0) g/dl Hct 39.6 (37.0-47.0) % MCV 83.9 (80.0-98.0) fL MCH 28.4 (27.0-33.0) pg MCHC 33.8 (31.0-35.0) g/dl RDW 12.1 (11.0-16.0) % Plt Count 284 (160-400) X10*3/uL MPV 8.8 L (9.4-12.3) fL Immature Gran % (Auto) 0.3 (0.0-0.4) % Neut % (Auto) 67.8 (45-73) % Lymph % (Auto) 21.9 (20-40) % Bollinger % (Auto) 8.0 (2-11) % Eos % (Auto) 1.4 (0-4) % Baso % (Auto) 0.6 (0-2) % Lymph # (Auto) 1.8 (1.2-4.9) X10*3/uL Bollinger # (Auto) 0.6 (0.1-1.2) X10*3/uL Eos # (Auto) 0.1 (0.0-0.4) X10*3/uL Baso # (Auto) 0.1 (0.0-0.2) X10*3/uL Abs Immat Gran (auto) 0.02 (0.00-0.03) X10*3/uL Absolute Neuts (auto) 5.4 (2.0-8.3) x10*3/uL Absolute Nucleated RBC 0.000 (0.0-0.012) X10*3/uL Nucleated RBC % (auto) 0.0 (0.0-0.2) /100WBC Sodium (135-145) mmol/L Potassium (3.3-5.1) mmol/L Chloride (96-108) mmol/L Carbon Dioxide (22-29) mmol/L Anion Gap (12-20) BUN (9-16) mg/dL Creatinine (0.5-1.4) mg/dL Estim Creat Clear Calc Estimated GFR POC Glucose (60-115) mg/dL Random Glucose (60-115) mg/dL Calcium (8.4-10.2) mg/dL Total Bilirubin (0.0-1.0) mg/dL AST (5-31) U/L ALT (0-31) U/L Alkaline Phosphatase (39-117) U/L Total Protein (6.5-8.0) g/dL Albumin (3.5-5.0) g/dL Beta HCG, Quant mIU/mL COVID-19 (CLAUDE) Negative (Negative) COVID-19 Clin Com See Note S. pyogenes GrpA JENELLE Negative (Negative) 02/06/22 02/06/22 Range/Units 02:00 03:00 WBC (4.8-10.8) X10*3/uL RBC (4.20-5.50) X10*6/uL Hgb (12.0-16.0) g/dl Hct (37.0-47.0) % MCV (80.0-98.0) fL MCH (27.0-33.0) pg MCHC (31.0-35.0) g/dl RDW (11.0-16.0) % Plt Count (160-400) X10*3/uL MPV (9.4-12.3) fL Immature Gran % (Auto) (0.0-0.4) % Neut % (Auto) (45-73) % Lymph % (Auto) (20-40) % Bollinger % (Auto) (2-11) % Eos % (Auto) (0-4) % Baso % (Auto) (0-2) % Lymph # (Auto) (1.2-4.9) X10*3/uL Bollinger # (Auto) (0.1-1.2) X10*3/uL Eos # (Auto) (0.0-0.4) X10*3/uL Baso # (Auto) (0.0-0.2) X10*3/uL Abs Immat Gran (auto) (0.00-0.03) X10*3/uL Absolute Neuts (auto) (2.0-8.3) x10*3/uL Absolute Nucleated RBC (0.0-0.012) X10*3/uL Nucleated RBC % (auto) (0.0-0.2) /100WBC Sodium 140 (135-145) mmol/L Potassium 4.2 (3.3-5.1) mmol/L Chloride 104 (96-108) mmol/L Carbon Dioxide 25 (22-29) mmol/L Anion Gap 15 (12-20) BUN 12 (9-16) mg/dL Creatinine 0.66 (0.5-1.4) mg/dL Estim Creat Clear Calc 137.0 Estimated GFR > 60 POC Glucose 75 (60-115) mg/dL Random Glucose 66 (60-115) mg/dL Calcium 9.6 (8.4-10.2) mg/dL Total Bilirubin 0.9 (0.0-1.0) mg/dL AST 13 (5-31) U/L ALT 10 (0-31) U/L Alkaline Phosphatase 47 (39-117) U/L Total Protein 7.3 (6.5-8.0) g/dL Albumin 4.4 (3.5-5.0) g/dL Beta HCG, Quant < 2 mIU/mL COVID-19 (CLAUDE) (Negative) COVID-19 Clin Com S. pyogenes GrpA JENELLE (Negative) Discharge Plan Discharge Clinical Impression: Anterior neck pain Patient Disposition: Home, Self-Care Instructions: Neck Pain (ED) Additional Instructions: 1. Resume all home medications as prescribed. 2. Recommend [id number] Tylenol/ibuprofen as needed for pain control. Recommend [id number] Cepacol for sore throat. 3. Recommend follow-up with your primary care provider by calling the office this morning and setting up an appointment for re-evaluation. Return to the ER for worsening symptoms. Prescriptions: No Action metoclopramide HCl [Reglan] 10 mg tablet 10 mg PO Q6H PRN (Reason: nausea and vomiting) Qty: 20 0RF nitrofurantoin monohyd/m-cryst [Macrobid] 100 mg capsule 100 mg PO Q12H 5 Days Qty: 10 0RF Rx Instructions: must administer with a meal/food tramadol 50 mg tablet 50 mg PO Q6H PRN (Reason: pain) Qty: 20 0RF ibuprofen 600 mg tablet 600 mg PO Q8H PRN (Reason: pain) Qty: 20 0RF lidocaine 5 % adhesive patch,medicated 1 patch topical DAILY Qty: 15 0RF Rx Instructions: leave on most painful area for up to 12 hrs mupirocin 2 % ointment 1 appl topical TID Qty: 15 0RF fluconazole [Diflucan] 150 mg tablet 150 mg PO Q3D Qty: 2 0RF meclizine 25 mg tablet 25 mg PO TID PRN (Reason: dizziness) Qty: 14 0RF doxycycline monohydrate 100 mg capsule 100 mg PO BID Qty: 20 0RF fluconazole 150 mg tablet 150 mg PO ONCE 1 Days Qty: 1 0RF cyclobenzaprine 10 mg tablet 10 mg PO TID PRN (Reason: muscle spasm) Qty: 10 0RF cefuroxime axetil 500 mg tablet 500 mg PO BID 7 Days Qty: 14 0RF cyclobenzaprine 10 mg tablet 10 mg PO TID PRN (Reason: muscle spasm) Qty: 14 0RF lidocaine 5 % adhesive patch,medicated 1 patch topical DAILY Qty: 15 0RF Rx Instructions: leave on most painful area for up to 12 hrs ibuprofen 600 mg tablet 600 mg PO Q8H PRN (Reason: pain) Qty: 20 0RF ondansetron 4 mg tablet,disintegrating 4 mg PO Q8H 3 Days Qty: 9 0RF
[2022-02-06] MEDS: Acetaminophen 325 MG TABLET 975 MG PO (02:02)
[2022-02-06] MEDS: Throat Lozenge, Medicated LOZENGE 1 LOZENGE MUCOUS MEM (02:02)
[2022-02-06 02:04] VITALS: BP 138/80; PULSE 97; RESP 12; O2SAT 99
[2022-02-06 02:05] LABS: Basophils Absolute Auto 0.1 X10*3/uL (0.0-0.2); Basophils Percent Auto 0.6 % (0-2); Eosinophils Absolute Auto 0.1 X10*3/uL (0.0-0.4); Eosinophils Percent Auto 1.4 % (0-4); Hematocrit 39.6 % (37.0-47.0); Hemoglobin 13.4 g/dl (12.0-16.0); Imm Gran Abs Auto 0.02 X10*3/uL (0.00-0.03); Imm Gran Pct Auto 0.3 % (0.0-0.4); Lymphocytes Absolute Auto 1.8 X10*3/uL (1.2-4.9); Lymphocytes Percent Auto 21.9 % (20-40); MANUAL DIFF FLAG NO; Mean Corpuscular HGB Conc 33.8 g/dl (31.0-35.0); Mean Corpuscular Hemoglobin 28.4 pg (27.0-33.0); Mean Corpuscular Volume 83.9 fL (80.0-98.0); Mean Platelet Volume 8.8 fL (9.4-12.3); Monocytes Absolute Auto 0.6 X10*3/uL (0.1-1.2); Neutrophils Absolute Auto 5.4 x10*3/uL (2.0-8.3); Neutrophils Percent Auto 67.8 % (45-73); Platelet Count 284 X10*3/uL (160-400); Red Blood Count 4.72 X10*6/uL (4.20-5.50); Red Cell Distribution Width 12.1 % (11.0-16.0)
[2022-02-06 02:27] LABS: HCG Quantitative < 2 mIU/mL
[2022-02-06 02:29] LABS: Alanine Aminotransferase 10 U/L (0-31); Albumin Level 4.4 g/dL (3.5-5.0); Alkaline Phosphatase 47 U/L (39-117); Anion Gap 15 (12-20); Aspartate Amino Transferase 13 U/L (5-31); Bilirubin Total 0.9 mg/dL (0.0-1.0); Blood Urea Nitrogen 12 mg/dL (9-16); Calcium 9.6 mg/dL (8.4-10.2); Carbon Dioxide 25 mmol/L (22-29); Chloride 104 mmol/L (96-108); Estimated Glomerular Filt Rate > 60; Glucose Random 66 mg/dL (60-115); Potassium 4.2 mmol/L (3.3-5.1); Sodium 140 mmol/L (135-145); Total Protein 7.3 g/dL (6.5-8.0)
--- NOTE | 2022-02-06 03:05 | PC.NURSE ---
Pt reports hx of hypoglycemia. POC 75. notified. Pt NPO at this time pending CT Scan. Pt aware of plan of care.
[2022-02-06 03:06] LABS: Glucose, Whole Blood 75 mg/dL (60-115)
--- NOTE | 2022-02-06 03:14 | PC.NURSE ---
Pt reports right foot numbness. Foot is warm to touch with pedal pulse present at this time. Neck Ct scan done. Will continue to monitor pt.
== END 2022-02-06 04:12 | disposition home or self-care (01) ==
PROVIDERS: Emergency Provider Student in an Organized Health Care Education/Training Program
DX: R06.02 Shortness of breath (principal); M54.2 Cervicalgia; Z20.822 Contact with and (suspected) exposure to COVID-19; Z79.899 Other long term (current) drug therapy; Z87.891 Personal history of nicotine dependence
CPT/HCPCS: 36415; 70490; 80053; 82947; 84702; 85025; 87635; 87651; 99284

== ENCOUNTER 2024-03-24 19:15 | Emergency (ER) | payer OTHER, SELFPAY ==
--- NOTE | 2024-03-24 | ECG_ITS ---
Test Reason : ABD PAIN Blood Pressure : / mmHG Vent. Rate : 095 BPM Atrial Rate : 095 BPM P-R Int : 122 ms QRS Dur : 086 ms QT Int : 338 ms P-R-T Axes : 051 033 043 degrees QTc Int : 424 ms Normal sinus rhythm Nonspecific T wave abnormality Abnormal ECG When compared with ECG of 31-JAN-2022 05:14, No significant change was found Referred By: Generic ED Physician Electronically Signed By:Adrián Rucker
--- NOTE | ~2024-03-24 | CT_ITS ---
EXAMINATION: CT ABDOMEN AND PELVIS WITHOUT CONTRAST CLINICAL INFORMATION: Abdominal pain. COMPARISON: July 03, 2020 TECHNIQUE: Multidetector volumetric imaging was performed from the superior aspect of the liver through the pubic symphysis. Sagittal and coronal reformatted images were obtained on the technologist's workstation. This CT examination was performed using dose optimization techniques as appropriate, variously including the following: *Automated exposure control *Adjustment of mA and/or kV according to patient size (this includes techniques or standardized protocols for targeted exams where dose is matched to indication/reason for exam; i.e. extremities or head) *Use of iterative reconstruction technique DLP: 687 mGy-cm FINDINGS: LUNG BASES: The visualized lung bases are unremarkable. LIVER, GALLBLADDER, AND BILIARY TREE: The liver is normal in size, shape, and attenuation. No focal hepatic lesion or biliary ductal dilatation is present. The gallbladder is unremarkable with no evidence of radiopaque gallstones, gallbladder wall thickening, or obvious pericholecystic inflammatory changes. PANCREAS: Unremarkable. SPLEEN: Unremarkable. ADRENAL GLANDS: Unremarkable. KIDNEYS AND URETERS: The kidneys are normal in size, shape, and attenuation. No hydronephrosis, hydroureter, or calculi seen. No perinephric stranding. BLADDER: Unremarkable. GASTROINTESTINAL TRACT: There are prominent fluid-filled small bowel loops. The appendix is visualized and is within normal ABDOMINAL WALL: No significant hernia is appreciated. LYMPH NODES: Normal. VASCULAR: Unremarkable. PELVIC VISCERA: Unremarkable. OSSEOUS STRUCTURES: Unremarkable. CT/CT abdomen pelvis wo IV con IMPRESSION: Prominent fluid-filled small bowel loops. This could represent enteritis. No other significant abnormality seen Fleischner guidelines were followed. Electronically signed by: Sabas Fragoso MD 03/25/2024 04:00 AM [facility]
[2024-03-24 19:20] VITALS: BP 131/80; PULSE 118; O2SAT 100
[2024-03-24 19:23] VITALS: BP 118/70; PULSE 108; RESP 20; TEMP 37.3; O2SAT 97
--- NOTE | 2024-03-24 19:40 | ED_ITS ---
HPI - Abdominal Pain General Chief Complaint: Abdominal Pain Stated Complaint: epigastric/lower abd pain Time Seen by Provider: 03/24/24 19:33 Source: patient and EMS Mode of arrival: EMS Limitations: no limitations History of Present Illness ED Provider: Carol Laird NP HPI narrative: Patient is a 28-year-old female who presents emergency department via EMS for evaluation. She reports just prior to arrival she was sitting down to have dinner, had just had coffee took about 2 bites of her dinner when she developed severe 9/10 epigastric/left upper quadrant pain described as a burning and sharp sensation. Pain at this time is diffusely throughout her abdomen, reports having significant tenderness in the lower abdomen as well. Reports that she has been experiencing intermittent epigastric pain for the past 2 weeks. A few months ago her primary care doctor thought that she may perhaps have a stomach ulcer, she was taking famotidine but she ultimately stopped as her symptoms resolved. She also expresses that the famotidine made her ADHD medications ineffective and she was unable to concentrate. She states that about a month ago she was treated for urinary tract infection completing the course of antibiotics reports that she still has intermittent episodes of urinary hesitancy. Admits to a history of ruptured ovarian cysts in the past as well. Denies fevers, chills, chest pain, hematemesis, diarrhea, constipation, hematochezia, melena, dysuria, urinary frequency, urinary urgency, hematuria. denies pelvic pain or abnormal vaginal discharge. Denies concern for sexually transmitted infection. Denies concern for . Related Data Previous Rx's ?Medication ?Instructions ?Recorded tramadol 50 mg tablet 50 mg PO Q6H PRN pain #20 tabs 07/03/20 metoclopramide HCl 10 mg tablet 10 mg PO Q6H PRN nausea and 09/07/20 (Reglan) vomiting #20 tabs nitrofurantoin 100 mg PO Q12H 5 days #10 caps 12/19/20 monohydrate/macrocrystals 100 mg capsule (Macrobid) cyclobenzaprine 10 mg tablet 10 mg PO TID PRN muscle spasm #10 01/17/21 tabs fluconazole 150 mg tablet 150 mg PO ONCE 1 day #1 tab 01/17/21 cefuroxime axetil 500 mg tablet 500 mg PO BID 7 days #14 tabs 01/18/21 fluconazole 150 mg tablet 150 mg PO Q3D 2 doses #2 tabs 02/16/21 (Diflucan) ibuprofen 600 mg tablet 600 mg PO Q8H PRN pain #20 tabs 02/16/21 lidocaine 5 % topical patch 1 patch topical DAILY #15 ea 02/16/21 mupirocin 2 % topical ointment 1 appl topical TID #15 grams 02/16/21 cyclobenzaprine 10 mg tablet 10 mg PO TID PRN muscle spasm #14 03/03/21 tabs ibuprofen 600 mg tablet 600 mg PO Q8H PRN pain #20 tabs 03/03/21 lidocaine 5 % topical patch 1 patch topical DAILY #15 ea 03/03/21 meclizine 25 mg tablet 25 mg PO TID PRN dizziness #14 tabs 03/17/21 doxycycline monohydrate 100 mg 100 mg PO BID #20 caps 07/30/21 capsule ondansetron 4 mg disintegrating 4 mg PO Q8H 3 days #9 tabs 08/29/21 tablet hyoscyamine sulfate 0.125 mg tablet 0.125 mg PO QID PRN dyspepsia #10 03/25/24 tabs ondansetron 4 mg disintegrating 4 mg PO Q6H PRN nausea and 03/25/24 tablet vomiting #10 tabs Allergies Allergy/AdvReac Type Severity Reaction Status Date / Time Iodinated Contrast Media Allergy Severe RASH, ABD Verified 03/24/24 19:25 [CONTRAST,IV] PAINS, BODY FEELS LIKE ON FIRE shubham Allergy Severe AIRWAY Verified 03/24/24 19:25 CLOSES shellfish derived Allergy Severe ANAPHYLAXIS Verified 03/24/24 19:25 [SHELLFISH DERIVED] Sulfa (Sulfonamide Allergy Severe RASH Verified 03/24/24 19:25 Antibiotics) [SULFA (SULFONAMIDE ANTIBIOTICS)] diphenhydramine Allergy Intermediate Panic Verified 03/24/24 19:25 [From Benadryl] attack hazelnut [HAZELNUT] Allergy Intermediate THROAT Verified 03/24/24 19:25 IRRITATION aloe Allergy Unknown Swelling Verified 03/24/24 19:25 pomegranate [POMEGRANATE] Allergy Unknown DIFFICULTY Verified 03/24/24 19:25 BREATHING prazosin [PRAZOSIN] Allergy Unknown UNKNOWN Verified 03/24/24 19:25 topiramate [From Topamax] AdvReac Intermediate Rash Verified 03/24/24 19:25 lorazepam [From Ativan] AdvReac Unknown Unknown Verified 03/24/24 19:25 ondansetron [From Zofran] AdvReac Unknown Migraine Verified 03/24/24 19:25 propranolol AdvReac Unknown Verified 03/24/24 19:25 Review of Systems Review of Systems Yes all other systems are reviewed and are negative [facility] Past Medical History Attestation statement: The following information was validated with the patient. Source: old records reviewed Medical History Anxiety Borderline personality disorder Migraines PTSD (post-traumatic stress disorder) Social History Social History Alcohol intake: former Patient Tobacco Use Status: Former Tobacco user Substance Use Type: Marijuana Advance Directives: No Advance Directives Information Provided: Yes Do you have a plan to hurt others: No Plan Physical Exam ED Vital Signs: Vital Signs - 24 hr 03/24/24 19:23 03/24/24 21:55 Temperature 99.1 F 98.2 F Pulse Rate 108 H 97 Respiratory Rate 20 18 Blood Pressure 118/70 114/75 Pulse Oximetry 97 98 Oxygen Delivery Method Room Air Room Air BMI result Body Mass Index 30.0 Appearance: Alert.?Oriented to person, place and time. No acute distress.?Normal affect.?? Neck: Normal inspection.? Neck supple.?? CVS: Heart sounds normal. Normal heart rate and rhythm.? Pulses normal.?? Respiratory: No respiratory distress.? Lung sounds clear to auscultation bilaterally?? Abdomen: Soft with exquisite diffuse tenderness with light palpation throughout the abdomen epigastrium/left upper quadrant and mid lower abdomen are most tender. No rebound tenderness at McBurney's point. Negative Uriarte sign. No CVAT. Normoactive bowel sounds. Skin: Skin warm and dry.? Normal skin color.? Extremities: No lower extremity edema.? Neuro: Moves all extremities spontaneously. Sensation intact bilaterally. Ambulates with normal steady gait. Course Reevaluation(s) Reevaluation #1: Patient complaining of a migraine headache, tearful, endorsing associated photophobia. Reports that she typically takes Tylenol for this. Will be provided acetaminophen [address] of the abdomen pelvis remains pending at this time. She reports pain has improved but is still there, she states ?I just want to eat a cheeseburger, I'm starving for the first time in weeks . Time: 23:26 Reevaluation #2: Patient signed out to my attending Dr. Stanton pending CT abdomen and pelvis/re- evaluation Time: 02:04 Medical Decision Making Medical Decision Making MDM Narrative: Patient is a 28-year-old female presents emergency department for evaluation of the abdominal pain as per HPI. History and physical examination concerning for gastritis, gastric ulcer, cystitis, urinary tract infection, ovarian cyst. She has exquisite tenderness on the abdomen upon palpation, is guarding, epigastrium/left upper quadrant and suprapubic region are most tender. Will obtain CBC to evaluate for leukocytosis/ anemia, CMP and lipase to evaluate for abnormal electrolytes /abnormal renal function/ abnormal hepatic/biliary function, EKG to evaluate for ischemia/arrhythmia. Chest x-ray to evaluate for consolidation/ infiltrate/ mass/ pulmonary congestion and Urinalysis and HCG. History of acid reflux, exquisite upon palpation over the epigastrium or left upper quadrant suggest gastritis/PUD, no hematemesis. Denies excessive alcohol consumption, history of diabetes, lower suspicion acute pancreatitis. Right upper quadrant is minimally tender upon palpation, lower suspicion for acute cholecystitis, choledocholithiasis, no fever or jaundice to suggest acute cholangitis, may possibly be biliary colic secondary to cholelithiasis. Reporting urinary hesitancy, recent urinary tract infection no addition symptoms, a possibly be UTI/pyelonephritis, renal colic, nephrolithiasis, hydronephrosis. hCG is negative, unlikely ectopic . Suprapubic tenderness, history of ovarian cysts, no unilateral pain, lower clinical suspicion for TOA/torsion. No associated chest pain shortness of breath or URI symptoms to suggest pneumonia, no clinical evidence of DVT or personal history of VTE/malignancy to suggest pulmonary embolism. No high-risk past medical history to suggest myocardial infarction and is without chest pain, less likely AAA, aortic dissection. No rebound tenderness at McBurney's point, rigidity, guarding to suggest acute appendicitis. No tenderness of the left lower quadrant nor associated nausea, vomiting, diarrhea, constipation, hematochezia or melena to suggest diverticulitis or GI bleed. No appreciable hernia to suggest strangulation/incarceration. Lower suspicion for bowel obstruction. No distention or rigidity to suggest GI perforation. CT scan: Prominent fluid-filled mobile loops , likely enteritis. Patient patient's seems to be feeling better, pacing around the emergency room. Differential Diagnosis Differential Diagnoses: The differential diagnosis associated with the presentation includes (See narrative above) Admission/Observation Consideration of admission/observation: Escalation of care including admission/observation considered (See narrative above ) Lab Data MDM Lab Attestation statement: I reviewed the patient's lab results. CBC is without leukocytosis anemia or thrombocytopenia. She has a very mild hypokalemia at 3.2, no MARA, LFTs and lipase are within normal range. Urinalysis with trace leukocyte esterase no urine bacteria seen, hCG is negative. 03/24/24 19:47 03/24/24 19:47 Labs: Lab Results 03/24/24 03/24/24 03/25/24 Range/Units 19:47 22:59 00:24 WBC 8.3 (4.8-10.8) X10*3/uL RBC 4.58 (4.20-5.50) X10*6/uL Hgb 13.5 (12.0-16.0) g/dl Hct 39.1 (37.0-47.0) % MCV 85.4 (80.0-98.0) fL MCH 29.5 (27.0-33.0) pg MCHC 34.5 (31.0-35.0) g/dl RDW 11.9 (11.0-16.0) % Plt Count 319 (160-400) X10*3/uL MPV 8.6 L (9.4-12.3) fL Immature Gran % (Auto) 0.2 (0.0-0.4) % Neut % (Auto) 73.1 H (45-73) % Lymph % (Auto) 16.8 L (20-40) % [place] % (Auto) 5.4 (2-11) % Eos % (Auto) 3.8 (0-4) % Baso % (Auto) 0.7 (0-2) % Lymph # (Auto) 1.4 (1.2-4.9) X10*3/uL [place] # (Auto) 0.5 (0.1-1.2) X10*3/uL Eos # (Auto) 0.3 (0.0-0.4) X10*3/uL Baso # (Auto) 0.1 (0.0-0.2) X10*3/uL Abs Immat Gran (auto) 0.02 (0.00-0.03) X10*3/uL Absolute Neuts (auto) 6.1 (2.0-8.3) x10*3/uL Absolute Nucleated RBC 0.000 (0.0-0.012) X10*3/uL Nucleated RBC % (auto) 0.0 (0.0-0.2) /100WBC Sodium 139 (135-145) mmol/L Potassium 3.2 L (3.3-5.1) mmol/L Chloride 109 H (96-108) mmol/L Carbon Dioxide 26 (22-29) mmol/L Anion Gap 7 L (12-20) BUN 7 L (9-16) mg/dL Creatinine 0.74 (0.5-1.4) mg/dL Estim Creat Clear Calc 131.2 Estimated GFR > 60 POC Glucose 77 78 (60-115) mg/dL Random Glucose 87 (60-115) mg/dL Lactic Acid 0.9 (0.5-2.0) mmol/L Calcium 9.6 (8.4-10.2) mg/dL Total Bilirubin 0.4 (0.0-1.0) mg/dL Direct Bilirubin 0.1 (0.0-0.5) mg/dL AST 18 (5-31) U/L ALT 18 (0-31) U/L Alkaline Phosphatase 52 (39-117) U/L Total Protein 7.4 (6.5-8.0) g/dL Albumin 4.5 (3.5-5.0) g/dL Lipase 23 (8-78) U/L Urine Color Yellow Urine Appearance Clear Urine pH 8.0 (5.0-9.0) Ur Specific [place] <= 1.005 (1.005-1.025) Urine Protein Negative (Neg-Trace) mg/dL Urine Glucose (UA) Negative (Negative) mg/dL Urine Ketones Negative (Negative) mg/dL Urine Blood Negative (Negative) Urine Nitrite Negative (Negative) Ur Leukocyte Esterase Trace H (Negative) Urine RBC 0-2 (0-2) /HPF Urine WBC 0-5 (0-5) /HPF Ur Squamous Epith Cells 0-2 (0-2) /HPF Urine Bacteria None Seen (None Seen) Hyaline Casts 0-2 (0-2) /LPF Urine Test NEGATIVE (NEGATIVE) Urine Opiates Screen Not Detected (Not Detect) Ur Buprenorphine Scrn Not Detected (Not Detect) ng/mL Ur Oxycodone Screen Not Detected (Not Detect) ng/mL Urine Methadone Screen Not Detected (Not Detect) ng/mL Urine Fentanyl Screen Not Detected (Not Detect) Ur Barbiturates Screen Not Detected (Not Detect) Ur Phencyclidine Scrn Not Detected (Not Detect) Ur Amphetamines Screen Not Detected (Not Detect) U Benzodiazepines Scrn Not Detected (Not Detect) Urine Cocaine Screen Not Detected (Not Detect) U Marijuana (THC) Screen Not Detected (Not Detect) Independent Interpretation I performed an independent interpretation of an: CT Scan Radiology Impression Discussion of test interpretation with radiology: I have reviewed the radiologist's reading. Radiologist Impression: LUNG BASES: The visualized lung bases are unremarkable. LIVER, GALLBLADDER, AND BILIARY TREE: The liver is normal in size, shape, and attenuation. No focal hepatic lesion or biliary ductal dilatation is present. The gallbladder is unremarkable with no evidence of radiopaque gallstones, gallbladder wall thickening, or obvious pericholecystic inflammatory changes. PANCREAS: Unremarkable. SPLEEN: Unremarkable. ADRENAL GLANDS: Unremarkable. KIDNEYS AND URETERS: The kidneys are normal in size, shape, and attenuation. No hydronephrosis, hydroureter, or calculi seen. No perinephric stranding. BLADDER: Unremarkable. GASTROINTESTINAL TRACT: There are prominent fluid-filled small bowel loops. The appendix is visualized and is within normal ABDOMINAL WALL: No significant hernia is appreciated. LYMPH NODES: Normal. VASCULAR: Unremarkable. PELVIC VISCERA: Unremarkable. OSSEOUS STRUCTURES: Unremarkable. CT/CT abdomen pelvis wo IV con IMPRESSION: Prominent fluid-filled small bowel loops. This could represent enteritis. No other significant abnormality seen Fleischner guidelines were followed. Independent Historian Clinical information obtained from an independent historian. History obtained from or confirmed by: Parent and EMS External Record Review External record reviewed: Outpatient record Prescription Management I considered prescription management with: Pain Medication and Other (See course narrative for further detail) Medications Administered Discontinued Medications Generic Name Dose Route Start Last Admin Trade Name Freq PRN Reason Stop Dose Admin Acetaminophen 975 mg 03/24/24 23:23 03/25/24 00:10 Acetaminophen 325 Mg Tablet PO 03/24/24 23:24 975 mg ONCE ONE Administration Al Hydroxide/Mg Hydroxide 30 ml 03/24/24 20:14 03/24/24 20:23 Magnesium Hydrox/Alum Hydrox 30 Ml Oral.Susp PO 03/24/24 20:15 30 ml ONCE ONE Administration Famotidine 20 mg 03/24/24 20:14 03/24/24 20:23 Famotidine/Pf 20 Mg/2 Ml Vial IVPUSH 03/24/24 20:15 20 mg ONCE ONE Administration Sodium Chloride 1,000 mls @ 999 mls/hr 03/24/24 20:45 03/24/24 22:13 Ns IV 03/24/24 21:45 Infused .Q1H1M PRATIK Infusion Lidocaine HCl 15 ml 03/24/24 20:14 03/24/24 20:23 Lidocaine Hcl Viscous 2 % 15 Ml Solution MUCOUS MEM 03/24/24 20:15 15 ml ONCE ONE Administration Potassium Chloride 40 meq 03/25/24 01:53 03/25/24 02:20 Potassium Chloride Packet 20 Meq Packet PO 03/25/24 01:54 40 meq ONCE ONE Administration Discharge Plan Discharge Clinical Impression: Abdominal pain, Enteritis Patient Disposition: Home, Self-Care Instructions: Enteritis (ED) Additional Instructions: Please follow-up with your primary care physician tomorrow. If you have any worsening or new symptoms, please return to the emergency room or call 911 Prescriptions: New ondansetron 4 mg tablet,disintegrating 4 mg PO Q6H PRN (Reason: nausea and vomiting) Qty: 10 0RF hyoscyamine sulfate 0.125 mg tablet 0.125 mg PO QID PRN (Reason: dyspepsia) Qty: 10 0RF No Action metoclopramide HCl [Reglan] 10 mg tablet 10 mg PO Q6H PRN (Reason: nausea and vomiting) Qty: 20 0RF nitrofurantoin monohyd/m-cryst [Macrobid] 100 mg capsule 100 mg PO Q12H 5 Days Qty: 10 0RF Rx Instructions: must administer with a meal/food tramadol 50 mg tablet 50 mg PO Q6H PRN (Reason: pain) Qty: 20 0RF ibuprofen 600 mg tablet 600 mg PO Q8H PRN (Reason: pain) Qty: 20 0RF lidocaine 5 % adhesive patch,medicated 1 patch topical DAILY Qty: 15 0RF Rx Instructions: leave on most painful area for up to 12 hrs mupirocin 2 % ointment 1 appl topical TID Qty: 15 0RF fluconazole [Diflucan] 150 mg tablet 150 mg PO Q3D Qty: 2 0RF meclizine 25 mg tablet 25 mg PO TID PRN (Reason: dizziness) Qty: 14 0RF doxycycline monohydrate 100 mg capsule 100 mg PO BID Qty: 20 0RF fluconazole 150 mg tablet 150 mg PO ONCE 1 Days Qty: 1 0RF cyclobenzaprine 10 mg tablet 10 mg PO TID PRN (Reason: muscle spasm) Qty: 10 0RF cefuroxime axetil 500 mg tablet 500 mg PO BID 7 Days Qty: 14 0RF cyclobenzaprine 10 mg tablet 10 mg PO TID PRN (Reason: muscle spasm) Qty: 14 0RF lidocaine 5 % adhesive patch,medicated 1 patch topical DAILY Qty: 15 0RF Rx Instructions: leave on most painful area for up to 12 hrs ibuprofen 600 mg tablet 600 mg PO Q8H PRN (Reason: pain) Qty: 20 0RF ondansetron 4 mg tablet,disintegrating 4 mg PO Q8H 3 Days Qty: 9 0RF Stand Alone Forms: Work/School Release Print Language: Emirati
[2024-03-24 19:56] LABS: MANUAL DIFF FLAG NO
[2024-03-24 19:58] LABS: Basophils Absolute Auto 0.1 X10*3/uL (0.0-0.2); Basophils Percent Auto 0.7 % (0-2); Eosinophils Absolute Auto 0.3 X10*3/uL (0.0-0.4); Eosinophils Percent Auto 3.8 % (0-4); Hematocrit 39.1 % (37.0-47.0); Hemoglobin 13.5 g/dl (12.0-16.0); Imm Gran Abs Auto 0.02 X10*3/uL (0.00-0.03); Imm Gran Pct Auto 0.2 % (0.0-0.4); Lymphocytes Absolute Auto 1.4 X10*3/uL (1.2-4.9); Lymphocytes Percent Auto 16.8 % (20-40); Mean Corpuscular HGB Conc 34.5 g/dl (31.0-35.0); Mean Corpuscular Hemoglobin 29.5 pg (27.0-33.0); Mean Corpuscular Volume 85.4 fL (80.0-98.0); Mean Platelet Volume 8.6 fL (9.4-12.3); Monocytes Absolute Auto 0.5 X10*3/uL (0.1-1.2); Monocytes Percent Auto 5.4 % (2-11); Neutrophils Absolute Auto 6.1 x10*3/uL (2.0-8.3); Neutrophils Percent Auto 73.1 % (45-73); Platelet Count 319 X10*3/uL (160-400); Red Blood Count 4.58 X10*6/uL (4.20-5.50); Red Cell Distribution Width 11.9 % (11.0-16.0); White Blood Count 8.3 X10*3/uL (4.8-10.8)
[2024-03-24 20:03] LABS: Appearance Urine Clear; Color Urine Yellow; Glucose Urine UA Negative (Negative); Leukocyte Esterase Urine Trace (Negative); Nitrite Urine Negative (Negative); Specific Gravity - Urine <= 1.005 (1.005-1.025); UMIC TRIGGER UACC YES; Urine Blood Negative (Negative); Urine Ketones Negative (Negative); Urine Protein Negative (Neg-Trace)
[2024-03-24 20:06] LABS: UPreg QC Valid YES; Urine Pregnancy NEGATIVE (NEGATIVE)
[2024-03-24 20:07] LABS: Bacteria Urine None Seen (None Seen); Hyaline Casts Urine 0-2 /LPF (0-2); RBC Urine 0-2 /HPF (0-2); Squamous Epithelial Cell Urine 0-2 /HPF (0-2); WBC Urine 0-5 /HPF (0-5)
[2024-03-24 20:10] LABS: Lactic Acid 0.9 mmol/L (0.5-2.0)
[2024-03-24 20:11] LABS: Alanine Aminotransferase 18 U/L (0-31); Albumin Level 4.5 g/dL (3.5-5.0); Alkaline Phosphatase 52 U/L (39-117); Anion Gap 7 (12-20); Aspartate Amino Transferase 18 U/L (5-31); Bilirubin Direct 0.1 mg/dL (0.0-0.5); Bilirubin Total 0.4 mg/dL (0.0-1.0); Blood Urea Nitrogen 7 mg/dL (9-16); Calcium 9.6 mg/dL (8.4-10.2); Carbon Dioxide 26 mmol/L (22-29); Chloride 109 mmol/L (96-108); Creatinine Clr Calc Pharmacy 131.2; Estimated Glomerular Filt Rate > 60; Glucose Random 87 mg/dL (60-115); Lipase 23 U/L (8-78); Potassium 3.2 mmol/L (3.3-5.1); Sodium 139 mmol/L (135-145); Total Protein 7.4 g/dL (6.5-8.0)
[2024-03-24] MEDS: Magnesium Hydrox/Alum Hydrox 30 ML ORAL.SUSP PO (20:23)
[2024-03-24] MEDS: Lidocaine HCl Viscous 2 % 15 ML SOLUTION MUCOUS MEM (20:23)
[2024-03-24] MEDS: Famotidine/PF 20 MG/2 ML VIAL IVPUSH (20:23)
[2024-03-24] MEDS: 0.9 % Sodium Chloride 1,000 ML 999 ML IV (20:54)
[2024-03-24 21:55] VITALS: BP 114/75; PULSE 97; RESP 18; TEMP 36.8; O2SAT 98
[2024-03-24 23:03] LABS: Glucose, Whole Blood 77 mg/dL (60-115)
[2024-03-25] MEDS: Acetaminophen 325 MG TABLET 975 MG PO (00:10)
--- NOTE | 2024-03-25 00:11 | PC.NURSE ---
Pt medicated per [facility] Plan of care ongoing.
[2024-03-25 00:28] LABS: Glucose, Whole Blood 78 mg/dL (60-115)
[2024-03-25 02:14] LABS: Amphetamine Screen Urine Not Detected (Not Detect); Barbiturates, Urine Not Detected (Not Detect); Benzodiazepines Screen Urine Not Detected (Not Detect); Buprenorphine Scr Not Detected (Not Detect); Cannabinoid Screen Urine Not Detected (Not Detect); Cocaine Screen Urine Not Detected (Not Detect); Fentanyl, urine Not Detected (Not Detect); Methadone Screen, Urine Not Detected (Not Detect); Opiate Screen Urine Not Detected (Not Detect); Oxycodone Screen Urine Not Detected (Not Detect); Phencyclidine Screen Urine Not Detected (Not Detect)
[2024-03-25] MEDS: Potassium Chloride Packet 20 MEQ PACKET 40 MEQ PO (02:20)
--- NOTE | 2024-03-25 02:21 | PC.NURSE ---
Pt medicated per [facility] Plan of care ongoing.
[2024-03-25 04:52] VITALS: BP 116/70; PULSE 96; RESP 17; TEMP 36.6; O2SAT 99
[2024-03-25 05:09] VITALS: BP 116/70; PULSE 96; RESP 17; TEMP 36.6; O2SAT 99
== END 2024-03-25 05:12 | disposition home or self-care (01) ==
PROVIDERS: Emergency Medicine; Emergency Provider Emergency Medicine; PCP Family Medicine
DX: K52.9 Noninfective gastroenteritis and colitis, unspecified (principal); R10.13 Epigastric pain; R10.12 Left upper quadrant pain; R10.30 Lower abdominal pain, unspecified; F12.90 Cannabis use, unspecified, uncomplicated; Z87.891 Personal history of nicotine dependence; Z79.899 Other long term (current) drug therapy
CPT/HCPCS: 36415; 74176; 80053; 80076; 80307; 81001; 81025; 82947; 83605; 83690; 85025; 93005; 96361; 96374; 99285

== ENCOUNTER → 2024-03-24 19:46 | Outpatient (BNV) | payer OTHER, SELFPAY | PROVIDERS: Emergency Provider Emergency Medicine; PCP Family Medicine; Visit Provider Internal Medicine Cardiovascular Disease | DX: R10.9 Unspecified abdominal pain (principal) | CPT/HCPCS: 93010 ==

== ENCOUNTER 2024-05-27 13:26 | Emergency (ER) | payer OTHER, SELFPAY ==
--- NOTE | ~2024-05-27 | XR_ITS ---
CLINICAL HISTORY: cough, chills 2 view chest x-ray Comparison: CR/SR - XR CHEST 1V - 01/31/22 04:31 EDT Findings: No consolidation or effusion. Heart size is normal. No acute fracture. IMPRESSION: 1. No acute findings. This document has been electronically signed by: Anu Chance MD on 05/27/2024 18:51:14
[2024-05-27 13:36] VITALS: BP 105/80; PULSE 130; O2SAT 100
--- NOTE | 2024-05-27 13:38 | ED.GENADULT ---
HPI - General Adult General Chief complaint: General Medical Stated complaint: L CHEST/NECK/SHOULDER PAIN PER EMS Time Seen by Provider: 05/27/24 13:38 History of Present Illness ED Provider: Debra GIVENS narrative: The patient is a 28-year-old female who says she started to feel unwell 2 days ago. She has had a lot of body aches and chills dizziness and chest pains. She thought that she had swollen glands in her neck. She has also noticed that her heart rate has been very fast. She thinks she has probably had a fever but she is not certain. She has had diarrhea once. Today her heart rate seemed very fast and she decided to call an ambulance and come to the hospital. Related Data Previous Rx's ?Medication ?Instructions ?Recorded tramadol 50 mg tablet 50 mg PO Q6H PRN pain #20 tabs 07/03/20 metoclopramide HCl 10 mg tablet 10 mg PO Q6H PRN nausea and 09/07/20 (Reglan) vomiting #20 tabs nitrofurantoin 100 mg PO Q12H 5 days #10 caps 12/19/20 monohydrate/macrocrystals 100 mg capsule (Macrobid) cyclobenzaprine 10 mg tablet 10 mg PO TID PRN muscle spasm #10 01/17/21 tabs fluconazole 150 mg tablet 150 mg PO ONCE 1 day #1 tab 01/17/21 cefuroxime axetil 500 mg tablet 500 mg PO BID 7 days #14 tabs 01/18/21 fluconazole 150 mg tablet 150 mg PO Q3D 2 doses #2 tabs 02/16/21 (Diflucan) ibuprofen 600 mg tablet 600 mg PO Q8H PRN pain #20 tabs 02/16/21 lidocaine 5 % topical patch 1 patch topical DAILY #15 ea 02/16/21 mupirocin 2 % topical ointment 1 appl topical TID #15 grams 02/16/21 cyclobenzaprine 10 mg tablet 10 mg PO TID PRN muscle spasm #14 03/03/21 tabs ibuprofen 600 mg tablet 600 mg PO Q8H PRN pain #20 tabs 03/03/21 lidocaine 5 % topical patch 1 patch topical DAILY #15 ea 03/03/21 meclizine 25 mg tablet 25 mg PO TID PRN dizziness #14 tabs 03/17/21 doxycycline monohydrate 100 mg 100 mg PO BID #20 caps 07/30/21 capsule ondansetron 4 mg disintegrating 4 mg PO Q8H 3 days #9 tabs 08/29/21 tablet hyoscyamine sulfate 0.125 mg tablet 0.125 mg PO QID PRN dyspepsia #10 03/25/24 tabs ondansetron 4 mg disintegrating 4 mg PO Q6H PRN nausea and 03/25/24 tablet vomiting #10 tabs azithromycin 250 mg tablet 250 mg PO DAILY 4 days #4 tabs 05/27/24 Allergies Allergy/AdvReac Type Severity Reaction Status Date / Time Iodinated Contrast Media Allergy Severe RASH, ABD Verified 05/27/24 13:43 [CONTRAST,IV] PAINS, BODY FEELS LIKE ON FIRE shubham Allergy Severe AIRWAY Verified 05/27/24 13:43 CLOSES shellfish derived Allergy Severe ANAPHYLAXIS Verified 05/27/24 13:43 [SHELLFISH DERIVED] Sulfa (Sulfonamide Allergy Severe RASH Verified 05/27/24 13:43 Antibiotics) [SULFA (SULFONAMIDE ANTIBIOTICS)] diphenhydramine Allergy Intermediate Panic Verified 05/27/24 13:43 [From Benadryl] attack hazelnut [HAZELNUT] Allergy Intermediate THROAT Verified 05/27/24 13:43 IRRITATION aloe Allergy Unknown Swelling Verified 05/27/24 13:43 pomegranate [POMEGRANATE] Allergy Unknown DIFFICULTY Verified 05/27/24 13:43 BREATHING prazosin [PRAZOSIN] Allergy Unknown UNKNOWN Verified 05/27/24 13:43 topiramate [From Topamax] AdvReac Intermediate Rash Verified 05/27/24 13:43 lorazepam [From Ativan] AdvReac Unknown Unknown Verified 05/27/24 13:43 ondansetron [From Zofran] AdvReac Unknown Migraine Verified 05/27/24 13:43 propranolol AdvReac Unknown Verified 05/27/24 13:43 Review of Systems Review of Systems: Yes all other systems are reviewed and are negative PMFSH Past Medical History Medical History Anxiety Borderline personality disorder Migraines PTSD (post-traumatic stress disorder) Social History Social History Alcohol intake: former Patient Tobacco Use Status: Former Tobacco user Substance Use Type: Marijuana Physical Exam ED Vital Signs: Vital Signs - 24 hr 05/27/24 13:42 05/27/24 15:27 05/27/24 18:21 Temperature 100.0 F 98.2 F 98.7 F Pulse Rate 131 H 115 H 125 H Respiratory Rate 18 16 16 Blood Pressure 110/56 L 112/69 118/58 L Pulse Oximetry 99 99 100 Oxygen Delivery Method Room Air Room Air Room Air BMI result Body Mass Index 28.8 Const Other: The patient is awake and alert with a normal mental status. She was tachycardic on the monitor but did not appear in distress. She does not seem short of breath or uncomfortable. HENMT Other: Symmetrical. Mucous membranes moist. The posterior pharynx is normal. Eyes Other: Pupils are round equal, conjunctivae are clear, extraocular movements intact Neck Neck: Yes full ROM and Yes no lymphadenopathy Resp Other: No increased work of breathing. Breath sounds seem fairly clear. No signs of respiratory distress. Cardio Rate: tachycardic Rhythm: regular rhythm Heart sounds: S1 normal heart sound present and S2 normal heart sound present GI Other: Abdomen is soft and nontender Skin Other: Skin is pale and dry Neuro Other: The patient is awake and alert with a normal mental status. Cranial nerves are grossly intact. She moves her extremities normally and appropriately. Extrem Other: No calf swelling or tenderness, no peripheral edema, no calf asymmetry Medications Administered Discontinued Medications Generic Name Dose Route Start Last Admin Trade Name Freq PRN Reason Stop Dose Admin Azithromycin 500 mg 05/27/24 18:58 05/27/24 19:21 Azithromycin 500 Mg Tablet PO 05/27/24 18:59 500 mg ONCE ONE Administration Sodium Chloride 1,000 mls @ 999 mls/hr 05/27/24 14:30 05/27/24 17:24 Ns IV 05/27/24 15:30 Infused .Q1H1M PRATIK Infusion Ketorolac Tromethamine 10 mg 05/27/24 14:19 05/27/24 15:58 Ketorolac Tromethamine 15 Mg/Ml Vial IVPUSH 05/27/24 14:20 10 mg ONCE ONE Administration Medical Decision Making Medical Decision Making MDM Narrative: The patient is a 28-year-old female who presents with 2 days of symptoms of what sounds like a respiratory illness. Her description of her symptoms certainly sound like a flu-like illness. She is quite tachycardic but she does not seem short of breath in her oxygen saturation is excellent. Her viral swab was negative for COVID, influenza, and RSV. A strep test negative. She has a white count of 10.6 with a slight left shift. C-reactive protein is elevated to 10.85. Given her description of her symptoms and her elevated CRP I think an infectious etiology of her symptoms is very likely. I think pulmonary embolism as a cause of her tachycardia would be very low. She produce a small amount of blood-tinged sputum when she coughed in the emergency department. Her chest x-ray was read as negative but I felt there might be some slight increased markings on the lateral posteriorly in the lower lung field. I will therefore place this patient on a course of azithromycin although no definite pneumonia was seen on x-ray. She seemed to feel better with treatment in the emergency department and was discharged to finish the course of azithromycin. Lab Data 05/27/24 16:22 05/27/24 16:22 Labs: Lab Results 05/27/24 05/27/24 05/27/24 Range/Units 14:55 16:07 16:22 WBC 10.6 (4.8-10.8) X10*3/uL RBC 3.86 L (4.20-5.50) X10*6/uL Hgb 11.4 L (12.0-16.0) g/dl Hct 33.4 L (37.0-47.0) % MCV 86.5 (80.0-98.0) fL MCH 29.5 (27.0-33.0) pg MCHC 34.1 (31.0-35.0) g/dl RDW 12.0 (11.0-16.0) % Plt Count 188 D (160-400) X10*3/uL MPV 8.7 L (9.4-12.3) fL Immature Gran % (Auto) 0.6 H (0.0-0.4) % Neut % (Auto) 84.2 H (45-73) % Lymph % (Auto) 8.0 L (20-40) % Ware % (Auto) 6.6 (2-11) % Eos % (Auto) 0.4 (0-4) % Baso % (Auto) 0.2 (0-2) % Lymph # (Auto) 0.9 L (1.2-4.9) X10*3/uL Ware # (Auto) 0.7 (0.1-1.2) X10*3/uL Eos # (Auto) 0.0 (0.0-0.4) X10*3/uL Baso # (Auto) 0.0 (0.0-0.2) X10*3/uL Abs Immat Gran (auto) 0.06 H (0.00-0.03) X10*3/uL Absolute Neuts (auto) 8.9 H (2.0-8.3) x10*3/uL Absolute Nucleated RBC 0.000 (0.0-0.012) X10*3/uL Nucleated RBC % (auto) 0.0 (0.0-0.2) /100WBC PT 13.1 H (10.9-12.4) SEC INR 1.1 (0.9-1.1) Sodium 143 (135-145) mmol/L Potassium 3.8 (3.3-5.1) mmol/L Chloride 109 H (96-108) mmol/L Carbon Dioxide 25 (22-29) mmol/L Anion Gap 13 (12-20) BUN 8 L (9-16) mg/dL Creatinine 0.59 (0.5-1.4) mg/dL Estim Creat Clear Calc 156.2 Estimated GFR > 60 Random Glucose 84 (60-115) mg/dL Calcium 8.6 D (8.4-10.2) mg/dL Magnesium 2.0 (1.6-2.6) mg/dL Total Bilirubin 0.4 (0.0-1.0) mg/dL Direct Bilirubin 0.1 (0.0-0.5) mg/dL AST 14 (5-31) U/L ALT 13 (0-31) U/L Alkaline Phosphatase 46 (39-117) U/L Troponin I High Sens < 2.7 (<3.5-17.0) ng/L C-Reactive Protein 10.85 H (< or = 0.50) mg/dL B-Natriuretic Peptide < 10 (<100) pg/mL Total Protein 6.7 (6.5-8.0) g/dL Albumin 3.8 (3.5-5.0) g/dL Influenza Type A (PCR) NEGATIVE (Negative) Influenza Type B (PCR) NEGATIVE (Negative) RSV RNA Qual (PCR) NEGATIVE (Negative) SARS-CoV-2 RNA (RT-PCR) NEGATIVE (Negative) S. pyogenes GrpA JENELLE Negative (Negative) Independent Interpretation I performed an independent interpretation of an: EKG Interpretation: EKG at 16:14 shows sinus tachycardia at 111 beats per minute. There are nonspecific T-wave changes. No significant change from previous EKG. Discharge Plan Discharge Clinical Impression: Acute bronchitis Patient Disposition: Home, Self-Care Additional Instructions: I think he probably have some kind of a bronchitis illness, or possibly a very mild pneumonia which is not really showing up on chest x-ray. Please take the azithromycin once a day as prescribed. Drink a lot of fluids. You may use ibuprofen and acetaminophen as needed for aches and pains and fevers. Return to the emergency room if significantly worse. Prescriptions: New azithromycin 250 mg tablet 250 mg PO DAILY 4 Days Qty: 4 0RF Rx Instructions: start on day 2 of therapy No Action metoclopramide HCl [Reglan] 10 mg tablet 10 mg PO Q6H PRN (Reason: nausea and vomiting) Qty: 20 0RF nitrofurantoin monohyd/m-cryst [Macrobid] 100 mg capsule 100 mg PO Q12H 5 Days Qty: 10 0RF Rx Instructions: must administer with a meal/food tramadol 50 mg tablet 50 mg PO Q6H PRN (Reason: pain) Qty: 20 0RF ibuprofen 600 mg tablet 600 mg PO Q8H PRN (Reason: pain) Qty: 20 0RF lidocaine 5 % adhesive patch,medicated 1 patch topical DAILY Qty: 15 0RF Rx Instructions: leave on most painful area for up to 12 hrs mupirocin 2 % ointment 1 appl topical TID Qty: 15 0RF fluconazole [Diflucan] 150 mg tablet 150 mg PO Q3D Qty: 2 0RF meclizine 25 mg tablet 25 mg PO TID PRN (Reason: dizziness) Qty: 14 0RF doxycycline monohydrate 100 mg capsule 100 mg PO BID Qty: 20 0RF fluconazole 150 mg tablet 150 mg PO ONCE 1 Days Qty: 1 0RF cyclobenzaprine 10 mg tablet 10 mg PO TID PRN (Reason: muscle spasm) Qty: 10 0RF cefuroxime axetil 500 mg tablet 500 mg PO BID 7 Days Qty: 14 0RF cyclobenzaprine 10 mg tablet 10 mg PO TID PRN (Reason: muscle spasm) Qty: 14 0RF lidocaine 5 % adhesive patch,medicated 1 patch topical DAILY Qty: 15 0RF Rx Instructions: leave on most painful area for up to 12 hrs ibuprofen 600 mg tablet 600 mg PO Q8H PRN (Reason: pain) Qty: 20 0RF ondansetron 4 mg tablet,disintegrating 4 mg PO Q8H 3 Days Qty: 9 0RF ondansetron 4 mg tablet,disintegrating 4 mg PO Q6H PRN (Reason: nausea and vomiting) Qty: 10 0RF hyoscyamine sulfate 0.125 mg tablet 0.125 mg PO QID PRN (Reason: dyspepsia) Qty: 10 0RF Referrals: Abdoulaye Ball MD [Primary Care Provider] - (Bronchitis/possible subtle pneumonia) Interventions: ED Discharge Assessment Last Done: 05/27/24 19:32 Discharge Date/Time: 05/27/24 19:32 Print Language: [place]
[2024-05-27 13:42] VITALS: BP 110/56; PULSE 131; RESP 18; TEMP 37.8; O2SAT 99; BMI 28.8
--- OUTSIDE RECORDS SUMMARY | 2024-05-27 13:58 | XMS_ITS | Encounter Summary ---
Author Organization [facility] Address [address] [place] [address] Phone Care Team Providers Care Food And Nutrition Supervisor Name Role Phone Fidelina Purcell MD Primary Care Provider Encounter Details Date Type Department Care Team (Late st Contact Info) Description 10/08/2013 Documentation [facility] [place] Family Medicine [address] [place] [address] Family Medicine, Physician [address] [place], [place] [phone] Social History Tobacco Use Types Packs/Day Years Used Date Smoking Tobacco: Never Assessed Comments Unknown Sex and Gender Information Value Date Recorded Sex Assigned at Not on file Legal Sex Female 5:15 PM EDT Gender Identity Not on file Sexual Orientation Not on file documented as of this encounter Plan of Treatment Not on file documented as of this encounter Visit Diagnoses Not on filedocumented in this encounter Care Teams Food And Nutrition Supervisor Relationship Specialty Start Date End Date Fidelina Purcell MD [address] [place] [address] PCP - General 12/01/16 07/23/22 documented as of this encounter
--- OUTSIDE RECORDS SUMMARY | 2024-05-27 13:58 | XMS_ITS | Encounter Summary ---
Author Organization [facility] Address [address] [place] [address] Phone Care Team Providers Care Financial Specialist Name Role Phone Fidelina Purcell MD Primary Care Provider Encounter Details Date Type Department Care Team (Late st Contact Info) Description 12/23/2013 Documentation [facility] [place] [address] [place] [address] Family Medicine, Physician [address] [place], [place] [phone] Social History Tobacco Use Types Packs/Day Years [...] on filedocumented in this encounter Care Teams Financial Specialist Relationship Specialty Start Date End Date Fidelina Purcell MD [address] [place] [phone] PCP - General 12/01/16 07/23/22 documented as of this encounter
--- OUTSIDE RECORDS SUMMARY | 2024-05-27 13:58 | XMS_ITS | Encounter Summary ---
Author Organization [facility] Address [address] [place] [address] Phone Care Team Providers Care Animal Chiropractor Name Role Phone Fidelina Purcell MD Primary Care Provider Encounter Details Date Type Department Care Team (Late st Contact Info) Description 08/21/[address] [facility] [place] Family Medicine [address] [place] [address] Family Medicine, Physician [address] [place], [place] [phone] Social History Tobacco Use Types Packs/Day Years [...] on filedocumented in this encounter Care Teams Animal Chiropractor Relationship Specialty Start Date End Date Fidelina Purcell MD [address] [place] [address] PCP - General 12/01/16 07/23/22 documented as of this encounter
--- OUTSIDE RECORDS SUMMARY | 2024-05-27 13:58 | XMS_ITS | Encounter Summary ---
Author Organization [facility] Address [address] [place] [address] Phone Care Team Providers Care Lead Network Architect Name Role Phone Fidelina Purcell MD Primary Care Provider [phone] Encounter Details Date Type Department Care Team (Late st Contact Info) Description 04/22/2010 Documentation [facility] Family Medicine [address] [place] [address] Family Medicine, Physician [address] [place], [place] [phone] Social History Tobacco Use Types Packs/Day Years [...] on filedocumented in this encounter Care Teams Lead Network Architect Relationship Specialty Start Date End Date Fidelina Purcell MD [address] [place] [phone] PCP - General 12/01/16 07/23/22 documented as of this encounter
--- OUTSIDE RECORDS SUMMARY | 2024-05-27 13:58 | XMS_ITS | Encounter Summary ---
Author Organization [facility] Address [address] [place] [address] Phone Care Team Providers Care Installer Apprentice Name Role Phone Fidelina Purcell MD Primary Care Provider Encounter Details Date Type Department Care Team (Late st Contact Info) Description 09/08/2011 Documentation [facility] [place] [address] [place] [address] Family Medicine, Physician [address] [place], [place] [phone] Social History Tobacco Use Types Packs/Day Years [...] on filedocumented in this encounter Care Teams Installer Apprentice Relationship Specialty Start Date End Date Fidelina Purcell MD [address] [place] [address] PCP - General 12/01/16 07/23/22 documented as of this encounter
--- OUTSIDE RECORDS SUMMARY | 2024-05-27 13:58 | XMS_ITS | Encounter Summary ---
Author Organization [facility] Address [address] [place] [address] Phone Care Team Providers Care Lure Maker Name Role Phone Fidelina Purcell MD Primary Care Provider Encounter Details Date Type Department Care Team (Late st Contact Info) Description 06/02/2013 Documentation [facility] [place] [address] [place] [address] Family Medicine, Physician [address] [place], [place] [phone] Social History Tobacco Use Types Packs/Day Years [...] on filedocumented in this encounter Care Teams Lure Maker Relationship Specialty Start Date End Date Fidelina Purcell MD [address] [place] [phone] PCP - General 12/01/16 07/23/22 documented as of this encounter
--- OUTSIDE RECORDS SUMMARY | 2024-05-27 13:58 | XMS_ITS | Encounter Summary ---
Author Organization [facility] Address [address] [place] [address] Phone Care Team Providers Care Pediatric Urologist Name Role Phone Fidelina Purcell MD Primary Care Provider Encounter Details Date Type Department Care Team (Late st Contact Info) Description 05/08/[address] [facility] [place] Family Medicine [address] [place] [address] Family Medicine, Physician [address] [place], [place] [phone] Social History Tobacco Use Types Packs/Day Years [...] on filedocumented in this encounter Care Teams Pediatric Urologist Relationship Specialty Start Date End Date Fidelina Purcell MD [address] [place] [address] PCP - General 12/01/16 07/23/22 documented as of this encounter
--- OUTSIDE RECORDS SUMMARY | 2024-05-27 13:58 | XMS_ITS | Encounter Summary ---
Author Organization [facility] Address [address] [place] [address] Phone Care Team Providers Care Donations Attendant Name Role Phone Fidelina Purcell MD Primary Care Provider Encounter Details Date Type Department Care Team (Late st Contact Info) Description 06/09/2016 Documentation [facility] [place] Family Medicine [address] [place] [address] Family Medicine, Physician [address] [place], [place] [phone] Social History Tobacco Use Types Packs/Day Years Used Date Smoking Tobacco: Some Days Comments:Current some day sm oker Comments Unknown Sex and Gender Information Value Date Recorded Sex Assigned at Not on file Legal Sex Female 5:15 PM EDT Gender Identity Not on file Sexual Orientation Not on file documented as of this encounter Plan of Treatment Not on file documented as of this encounter Visit Diagnoses Not on filedocumented in this encounter Care Teams Donations Attendant Relationship Specialty Start Date End Date Fidelina Purcell MD [address] [place] [phone] PCP - General 12/01/16 07/23/22 documented as of this encounter
--- OUTSIDE RECORDS SUMMARY | 2024-05-27 13:58 | XMS_ITS | Encounter Summary ---
Author Organization [facility] Address [address] [place] [address] Phone Care Team Providers Care Tire Classifier Name Role Phone Fidelina Purcell MD Primary Care Provider [phone] Encounter Details Date Type Department Care Team (Late st Contact Info) Description 12/12/2012 Documentation [facility] [place] Family [place] [address] [place] [address] Family Medicine, Physician [address] [place], [place] [phone] Social History Tobacco Use Types Packs/Day Years [...] on filedocumented in this encounter Care Teams Tire Classifier Relationship Specialty Start Date End Date Fidelina Purcell MD [address] [place] [address] PCP - General 12/01/16 07/23/22 documented as of this encounter
--- OUTSIDE RECORDS SUMMARY | 2024-05-27 13:58 | XMS_ITS | Encounter Summary ---
Author Organization [facility] Address [address] [place] [address] Phone Care Team Providers Care Laundromat Worker Name Role Phone Fidelina Purcell MD Primary Care Provider Encounter Details Date Type Department Care Team (Late st Contact Info) Description 04/04/2016 Documentation [facility] [place] [address] [place] [address] Family Medicine, Physician [address] [place], [place] [phone] Social History Tobacco Use Types Packs/Day Years [...] on filedocumented in this encounter Care Teams Laundromat Worker Relationship Specialty Start Date End Date Fidelina Purcell MD [address] [place] [phone] PCP - General 12/01/16 07/23/22 documented as of this encounter
--- OUTSIDE RECORDS SUMMARY | 2024-05-27 13:58 | XMS_ITS | Encounter Summary ---
Author Organization [facility] Address [address] [place] [address] Phone Care Team Providers Care Actuarial Analyst Name Role Phone Fidelina Purcell MD Primary Care Provider Encounter Details Date Type Department Care Team (Late st Contact Info) Description 06/17/2013 Documentation [facility] [place] Family Medicine [address] [place] [address] Family Medicine, Physician [address] [place], [place] [phone] Social History Tobacco Use Types Packs/Day Years [...] on filedocumented in this encounter Care Teams Actuarial Analyst Relationship Specialty Start Date End Date Fidelina Purcell MD [address] [place] [address] PCP - General 12/01/16 07/23/22 documented as of this encounter
--- OUTSIDE RECORDS SUMMARY | 2024-05-27 13:58 | XMS_ITS | Encounter Summary ---
Author Organization [facility] Address [address] [place] [address] Phone Care Team Providers Care Arcade Game Technician Name Role Phone Fidelina Purcell MD Primary Care Provider Encounter Details Date Type Department Care Team (Late st Contact Info) Description 08/22/2016 Documentation [facility] [place] Family Medicine [address] [place] [address] Family Medicine, Physician [address] [place], [place] [phone] Social History Tobacco Use Types Packs/Day Years [...] on filedocumented in this encounter Care Teams Arcade Game Technician Relationship Specialty Start Date End Date Fidelina Purcell MD [address] [place] [address] PCP - General 12/01/16 07/23/22 documented as of this encounter
--- OUTSIDE RECORDS SUMMARY | 2024-05-27 13:58 | XMS_ITS | Encounter Summary ---
Author Organization [facility] Address [address] [place] [address] Phone Care Team Providers Care Solid Surface Fabricator Name Role Phone Fidelina Purcell MD Primary Care Provider Encounter Details Date Type Department Care Team (Late st Contact Info) Description 07/28/2009 Documentation [facility] Family Medicine [address] [place] [address] Family Medicine, Physician [address] [place], [place] [phone] Social History Tobacco Use Types Packs/Day Years [...] on filedocumented in this encounter Care Teams Solid Surface Fabricator Relationship Specialty Start Date End Date Fidelina Prucell MD [address] [place] [address] PCP - General 12/01/16 07/23/22 documented as of this encounter
--- OUTSIDE RECORDS SUMMARY | 2024-05-27 13:58 | XMS_ITS | Encounter Summary ---
Author Organization [facility] Address [address] [place] [address] Phone Care Team Providers Care Stapler Hand Name Role Phone Fidelina Purcell MD Primary Care Provider [phone] Encounter Details Date Type Department Care Team (Late st Contact Info) Description 10/23/2009 Documentation [facility] Family Medicine [address] [place] [address] Family Medicine, Physician [address] [place], [place] [phone] Social History Tobacco Use Types Packs/Day Years [...] on filedocumented in this encounter Care Teams Stapler Hand Relationship Specialty Start Date End Date Fidelina Purcell MD [address] [place] [phone] PCP - General 12/01/16 07/23/22 documented as of this encounter
--- OUTSIDE RECORDS SUMMARY | 2024-05-27 13:58 | XMS_ITS | Clinical Summary ---
Author Organization [facility] Address [address] [place] [id number] Phone Care Team Providers Care E Mail System Administrator Name Role Phone Unavailable Primary Care Provider Unavailabl e Immunizations Name Administration Dates Next Due DTP 02/20/1995,1994,1994 DTaP 5 09/16/1998,02/26/1996 Hep A, Adult 09/03/2014 Hep A, ped/adol 10/10/2013 Hep B, ped/adol 02/20/1995,1994,1994 Hib (PRP-T) 02/20/1995,1994,1994 MMR 09/16/1998,08/20/1995 Meningococcal Conj (Menactra) MCV4P 11/23/2008 OPV 09/16/1998, 5,1994, 995 Tdap 10/31/2006 Varicella 11/23/2008,11/20/1995 Family History Relation Name Status Comments Father Alive Father: Atrial Fibrillation, Hyperlipidemia, Seizure disorder, Allergic rhinitis Maternal Grandmother Materna l aunt: Multiple sclerosis Mother Mother: arythmi a, Scoliosis, Myocardial infarction Other Family history of Bipolar disorder Social History Tobacco Use Types Packs/Day Years Used Date Smoking Tobacco: Some Days Comments:Current some day sm oker Comments Unknown Sex and Gender Information Value Date Recorded Sex Assigned at Not on file Legal Sex Female 5:15 PM EDT Gender Identity Not on file Sexual Orientation Not on file Last Filed Vital Signs Vital Sign Reading Time Taken Comments Blood Pressure 103/71 03/15/2016 12:00 AM EST Pulse 88 03/15/2016 12:00 AM EST Temperature 37.1 ??C (98.7 ??F) 03/15/2016 12:[address] Respiratory Rate - - Oxygen Saturation - - Inhaled Oxygen Concentration - - Weight 94.1 kg (207 lb 6.4 oz) 03/15/2016 12:00 AM EST Height 169.5 cm (5' 6.75 ) 07/16/2015 12:00 AM E DT Body Mass Index 32.73 07/16/2015 12:00 AM EDT Plan of Treatment Health Maintenance Due Date Last Done Comments DTaP,Tdap,and Td Vaccines (7 - Td or Tdap) 10/31/2016 10/31/2006, 09/16/1998, 02/26/1996, Additional history exists Influenza Vaccines (#1) 2023 COVID-19 Vaccine ( season) 2023 HIB Vaccines Aged Out 02/20/1995, 11/22, 1994 No longer eligible based on patient's age to complete this topic Hepatitis B Vaccines Completed 02/20/1995, 1994, 1994 IPV Vaccines Completed 09/16/1998, 01/23, 1994, Additional history exists MMR Vaccines Completed 09/16/1998, 08/20/1995 Meningococcal Vaccine Aged Out 11/23/2008 No joby reji eligible based on patient's age to complete this topic Varicella Vaccines Completed 11/23/2008, 11/20/1995 Hepatitis A Vaccines Aged Out 09/03/2014, 10/11/19 14 No longer eligible based on patient's age to complete this topic HPV Vaccines Aged Out No longer eligi ble based on patient's age to complete this topic Men B Vaccine Aged Out No longer elig ible based on patient's age to complete this topic Pneumococcal Vaccine Aged Out No long er eligible based on patient's age to complete this topic Procedures * Due to [place] law, this organization might not be sharing sensitive test results. Procedure Name Priority Date/Time Associated Diagnosis Comments CHLAMYDIA AND GONORRHEA, AMPLIFIED Routine 05/16/2013 4:04 PM EST from Last 3 Months or Most Recently Relevant to Health Maintenance Results * Due to [place] law, this organization might not be sharing sensitive test results. * Chlamydia and Gonorrhoea, Amplified (05/16/2013 4:04 PM EST) URINE CHLAMYDIA AMP PROBE NEGATIVE [facility] Comment: NO CHLAMYDIA TRACHOMATIS RNA DETECTED IN THIS PATIENT'S SAMPLE. (REFERENCE RANGE/NORMAL VALUE: NOT DETECTED) URINE GC AMP PROBE NEGATIVE [facility] Comment: NO NEISSERIA GONORRHOEAE RNA DETECTED IN THIS PATIENT'S SAMPLE. (REFERENCE RANGE/NORMAL VALUE: NOT DETECTED) NOTE: THIS TEST USES NURSING HOME ASSISTANT-MEDIATED AMPLIFICATION METHOD TO DETECT rRNA FROM C.TRACHOMATIS AND N.GONORRHOEAE. A NEGATIVE RESULT DOES NOT PRECLUDE INFECTION. THE APTIMA COMBO 2 ASSAY IS NOT INTENDED FOR THE EVALUATION OF SUSPECTED SEXUAL ABUSE OR FOR OTHER MEDICO LEGAL INDICATIONS. THERAPEUTIC FAILURE OR SUCCESS CANNOT BE DETERMINED WITH THE APTIMA COMBO 2 ASSAY SINCE NUCLEIC ACID MAY PERSIST FOLLOWING APPROPRIATE ANTIMICROBIAL THERAPY. IN THE CASE OF A NEGATIVE URINE RESULT, TESTING OF AN ENDOCERVICAL (FEMALE) OR URETHRAL (MALE) SPECIMEN IS RECOMMENDED IF THERE IS HIGH CLINICAL SUSPICION OF INFECTION. Testing performed or reported by [facility], a Service of [facility], [address] [place] [address] Erik Pompa, Fire Management Officer 05/16/2013 4:04 PM EST Narrative [facility] - 05/16/2013 4:04 PM EST URINE CHLAMYDIA GC AMP PROBE us Fidelina Purcell MD LAB MICROBIOLOGY - GENERAL O RDERABLES Final Result [facility] [address] [place] [address], [place] from Last 3 Months or Most Recently Relevant to Health Maintenance
--- OUTSIDE RECORDS SUMMARY | 2024-05-27 13:58 | XMS_ITS | Encounter Summary ---
Author Organization [facility] Address [address] [place] [address] Phone Care Team Providers Care Arts And Crafts Instructor Name Role Phone Fidelina Purcell MD Primary Care Provider Encounter Details Date Type Department Care Team (Late st Contact Info) Description 08/13/2009 Documentation [facility] [place] Family Medicine [address] [place] [address] Family Medicine, Physician [address] [place], [place] [phone] Social History Tobacco Use Types Packs/Day Years [...] on filedocumented in this encounter Care Teams Arts And Crafts Instructor Relationship Specialty Start Date End Date Fidelina Purcell MD [address] [place] [address] [place] [address] PCP - General 12/01/16 07/23/22 documented as of this encounter
--- OUTSIDE RECORDS SUMMARY | 2024-05-27 13:58 | XMS_ITS | Encounter Summary ---
Author Organization [facility] Address [address] [place] [address] Phone Care Team Providers Care Rental Car Deliverer Name Role Phone Fidelina Purcell MD Primary Care Provider Encounter Details Date Type Department Care Team (Late st Contact Info) Description 12/27/2010 Documentation [facility] Family [facility] [address] [place] [address] Family Medicine, Physician [address] [place], [place] [phone] Social History Tobacco Use Types Packs/Day Years [...] on filedocumented in this encounter Care Teams Rental Car Deliverer Relationship Specialty Start Date End Date Fidelina Purcell MD [address] [place] [address] PCP - General 12/01/16 07/23/22 documented as of this encounter
--- OUTSIDE RECORDS SUMMARY | 2024-05-27 13:58 | XMS_ITS | Continuity of Care Document ---
Author Organization [facility] [place] [facility] Address [address] [place] [address]- Support Name Relationship Address Phone LESLIE, GIOVANI Personal Relationship Unknown U navailable LESLIE, GIOVANI Personal Relationship Unknown U navailable LESLIE, GIOVANI Personal Relationship Unknown U navailable LESLIE, GIOVANI Personal Relationship Unknown U navailable LESLIE, GIOVANI Personal Relationship Unknown U navailable LESLIE, GIOVANI Personal Relationship Unknown U navailable LESLIE, GIOVANI Personal Relationship Unknown U navailable LESLIE, GIOVANI Personal Relationship Unknown U navailable LESLIE, GIOVANI Personal Relationship Unknown U navailable LESLIE, GIOVANI Personal Relationship Unknown U navailable LESLIE, GIOVANI Personal Relationship Unknown U navailable DONNELL NELSON Personal Relationship Unknown Unavailable LESLIE, GIOVANI Personal Relationship Unknown U navailable LESLIE, GIOVANI Personal Relationship Unknown U navailable LESLIE, GIOVANI Personal Relationship Unknown U navailable LESLIE, GIOVANI Personal Relationship Unknown U navailable LESLIE, GIOVANI Personal Relationship Unknown U navailable LESLIE, WILFRID Personal Relationship Unknown Unav ailable LESLIE, GIOVANI Personal Relationship Unknown U navailable LESLIE, GIOVANI Personal Relationship Unknown U navailable LESLIE, GIOVANI Personal Relationship Unknown U navailable LESLIE, GIOVANI Personal Relationship Unknown U navailable LESLIE, GIOVANI Personal Relationship Unknown U navailable LESLIE, GIOVANI Personal Relationship Unknown U navailable LESLIE, GIOVANI Personal Relationship Unknown U navailable LESLIE, GIOVANI Personal Relationship Unknown U navailable LESLIE, GIOVANI Personal Relationship Unknown U navailable LESLIE, GIOVANI Personal Relationship Unknown U navailable LESLIE, GIOVANI Personal Relationship Unknown U navailable LESLIE, GIOVANI Personal Relationship Unknown U navailable LESLIE, GIOVANI father Unknown Unavailabl e LESLIE, GIOVANI Personal Relationship Unknown U navailable LESLIE, GIOVANI Personal Relationship Unknown U navailable LESLIE, GIOVANI Personal Relationship Unknown U navailable LESLIE, GIOVANI Personal Relationship Unknown U navailable LESLIE, GIOVANI Personal Relationship Unknown U navailable LESLIE, WILFRID Personal Relationship Unknown Unav ailable LESLIE, GIOVANI Personal Relationship Unknown U navailable LESLIE, GIOVANI Personal Relationship Unknown U navailable LESLIE, GIOVANI Personal Relationship Unknown U navailable LESLIE, GIOVANI Personal Relationship Unknown U navailable LESLIE, GIOVANI Personal Relationship Unknown U navailable LESLIE, GIOVANI Personal Relationship Unknown U navailable LESLIE, GIOVANI Personal Relationship Unknown U navailable LESLIE, GIOVANI Personal Relationship Unknown U navailable LESLIE, GIOVANI Personal Relationship Unknown U navailable LESLIE, GIOVANI Personal Relationship Unknown U navailable LESLIE, GIOVANI Personal Relationship Unknown U navailable LESLIE, DARREN mother Unknown Unavailab le LESLIE, GIOVANI Personal Relationship Unknown U navailable LESLIE, WILFRID Personal Relationship Unknown Unav ailable LESLIE, GIOVANI Personal Relationship Unknown U navailable LESLIE, GIOVANI Personal Relationship Unknown U navailable LESLIE, GIOVANI Personal Relationship Unknown U navailable LESLIE, GIOVANI Personal Relationship Unknown U navailable LESLIE, GIOVANI Personal Relationship Unknown U navailable LESLIE, GIOVANI Personal Relationship Unknown U navailable LESLIE, GIOVANI Personal Relationship Unknown U navailable LESLIE, GIOVANI Personal Relationship Unknown U navailable LESLIE, GIOVANI Personal Relationship Unknown U navailable Care Team Providers Care Gravure Press Operator Name Role Phone Lizzy MEDINA, Abdoulaye Sosa Primary Care Physician Encounter [facility] [place] Date(s): 03/27/24 - 05/03/24 [facility] Adult [address] [place], [place] [address] Attending Physician: Felisha Parra Encounter Type: Pre Office Visit Allergies, Adverse Reactions, Alerts Substance Criticality Severity Reaction Reaction Severity Status doxycycline Active sulfADIAZINE Anaphelaxis Activ e prazosin 1 Rapid heart rate Ac tive shellfish Anaphylaxis Itchy Active Ativan Active Topamax rash Active Benadryl Unable to assess criticality Persistent Severe Stops breathing Active Contrast Dye Pain all over body. Very hot. Itchy. Active Dust Active Other Food Allergy ANITA AND POMEGRANATE Active 1elevated HR Immunizations Given and Recorded Vaccine Date Status Refusal Reason SARS-CoV-2 (COVID-19) mRNA-1273 vaccine 12/10/21 R ecorded SARS-CoV-2 (COVID-19) mRNA-1273 vaccine 10/30/20 R ecorded SARS-CoV-2 (COVID-19) mRNA-1273 vaccine 09/30/20 R ecorded Diphtheria/Tet/Pertussis, Acel (oldterm) 1 10/05/15 Given tetanus/diphtheria/pertussis, acel(Tdap) 2, 3 04/23/15 Recorded 1Admin Note: by hx 2Location History: [facility] 3Result Comment: [01/17/2017] S/P LACERATION Medications clindamycin 1% topical gel 1 application, Topically, 2 times a day, # 30 Gm, 11 Refills, Maintenance, 04/15/24 2:51:00 PM EST,Gel, [facility]/pharmacy #[id number], Partial fill upon patient request if the prescription is for a schedule IIopioid drug., 1 application Topically 2 times a day, 170, cm, 04/15/24 14:36:00 EST, Height, 86, kg, 01/18/24 16:34:00 EDT, Dry Weight Start Date: 04/15/24 Status: Ordered Quantity: 30.0 Unit: g Repeat number: 12 Collagen 0 Refills, Maintenance, 08/29/21 12:51:00 PM EDT, Partial fill upon patient request if the prescription is for a schedule II opioid drug. Start Date: 08/29/21 Status: Ordered Repeat number: 1 cyclobenzaprine 10 mg oral tablet 10 mg, 1, tablet, By Mouth, Daily at bedtime, # 30 tablet, Refills 5, Tot. Refills 5, Acute 253:00:00 PM EDT, 04/15/24 2:52:00 PM EST, Route to Pharmacy Electronically, [facility]/pharmacy #[id number], Partial fill upon patient request if the prescription is for a schedule II opioid drug., 170, cm, 04/15/24 14:36:00 EST, Height, 86, kg, 01/18/24 16:34:00 EDT, Dry Weight Start Date: 04/15/24 Stop Date: 10/14/24 Status: Ordered Quantity: 30.0 Unit: tablet Repeat number: 6 famotidine 20 mg oral tablet 20 mg, 1, tablet, By Mouth, 2 times a day, # 60 tablet, Refills 2, Tot. Refills 2, Soft Stop, 10/01/23 1:49:00 PM EDT, Route to Pharmacy Electronically, [facility]/pharmacy #[id number], Partial fill upon patient request if the prescription is for a schedule II opioid drug., 170, cm, 10/01/23 13:31:00 EDT, Height, 81.7, kg, 09/18/22 14:29:00 EDT, Dry Weight Start Date: 10/01/23 Status: Ordered Quantity: 60.0 Unit: tablet Repeat number: 3 fexofenadine 180 mg oral tablet 1 tablet = 180 mg, By Mouth, Daily, PRN for allergy symptoms, Replaces previous prescription, # 30 tablet, 5 Refills, Maintenance, 06/28/23 5:09:00 PM EST, Tablet, [facility]/pharmacy #[id number], Partial fill uponpatient request if the prescription is for a schedule II opioid drug., 170, cm, 05/29/23 16:23:00 EST, Height, 81.7, kg, 09/18/22 14:29:00 EDT, Dry Weight Start Date: 06/28/23 Status: Ordered Quantity: 30.0 Unit: tablet Repeat number: 6 Flonase Daily, 0 Refills, Maintenance, 03/05/23 3:23:00 PM EST, Partial fill upon patient request if the prescription is for a schedule II opioid drug. Start Date: 03/05/23 Status: Ordered Repeat number: 1 hyoscyamine 0.125 mg oral tablet 0.125 mg, 1, tablet, By Mouth, 4 times a day, PRN, # 40 tablet, Refills 3, Tot. Refills 3, Maintenance, for dyspepsia, 04/15/24 2:47:00 PM EST, Route to Pharmacy Electronically, [facility]/pharmacy #[id number], Partial fill upon patient request if the prescription is for a schedule II opioid drug., 170, cm, 04/15/24 14:36:00 EST, Height, 86, kg, 01/18/24 16:34:00 EDT, Dry Weight Start Date: 04/15/24 Status: Ordered Quantity: 40.0 Unit: tablet Repeat number: 4 Ibuprofen PRN, Refills 0, Maintenance, Other, 11/23/20 3:13:00 PM EDT, Partial fill upon patient request if theprescription is for a schedule II opioid drug. Start Date: 11/23/20 Status: Ordered Repeat number: 1 iron gluconate By Mouth, Daily, 0 Refills, Maintenance, 08/29/21 12:50:00 PM EDT, Partial fill upon patient request if the prescription is for a schedule II opioid drug. Start Date: 08/29/21 Status: Ordered Repeat number: 1 MAGNESIUM MAGNESIUM, Refills 0, Maintenance, 08/29/21 12:49:00 PM EDT, Supply Start Date: 08/29/21 Status: Ordered Repeat number: 1 Multivitamin Daily, 0 Refills, Maintenance, 08/29/21 12:50:00 PM EDT, Partial fill upon patient request if the prescription is for a schedule II opioid drug. Start Date: 08/29/21 Status: Ordered Repeat number: 1 Ventolin HFA 108 mcg/inh inhalation aerosol with adapter 2 inhalation = 180 mcg, Inhalation, Every 6 hours, PRN for wheezing, # 8.5 Gm, 11 Refills, Soft Stop, 04/15/24 2:49:00 PM EST, Aerosol, [facility]/pharmacy #[id number], Partial fill upon patient request if the prescription is for a schedule II opioid drug., 170, cm, 04/15/24 14:36:00 EST, Height, 86, kg, 01/18/24 16:34:00 EDT, Dry Weight Start Date: 04/15/24 Status: Ordered Quantity: 8.5 Unit: g Repeat number: 12 Vyvanse 50 mg oral capsule 1 capsule = 50 mg, By Mouth, Daily in AM, # 30 capsule, 0 Refills, Maintenance, 04/15/24 2:49:00 PMEST, Capsule, Partial fill upon patient request if the prescription is for a schedule II opioid drug. 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 Bipolar disorder Confirmed Active Chronic pain syndrome Confirmed Active Conjunctivitis of left eye Confirmed Active Depression Confirmed Active Oral lesion Confirmed Active Dysmenorrhea Confirmed Active Eating disorder Confirmed Active Hypermobility syndrome Confirmed Active Menorrhagia Confirmed Active Migraine Confirmed Active Pelvic pain Confirmed Active Patellofemoral pain syndrome of both knees Confirmed Active TMJ syndrome Confirmed Active Social History Social History Type Response Smoking Status Former smoker, quit more than 30 days ago entered on: 05/20/19 Sex Sex Representation Female (finding) Patient Care team information Care Team Personnel Name: Elaine Garnett NP Position: [facility] PCO Associate Professional Member Role: Lifetime Consulting Provider Address: [address] [place] [address] Telecom: Name: Dar MEDINA, Mony Villar Position: [facility] BAR TENDER MD Member Role: Lifetime BAR TENDER Physician Address: [address] [place], [place] [address]s [facility] Maintenance Manager - [place], [place] [address] Telecom: Name: Abdoulaye Ball MD Position: [facility] Physician - Primary Care Member Role: PCP Address: [address] [place] [address] Telecom: Care Team Related Persons Name: DARREN NELSON Name: GIOVANI NELSON Insurance Providers Guarantor name: DONNELL NELSON Health Plan Information #: 1 Payer: [facility] Member Number: [id number] Policy Number: NA Group Number: [id number] Health Plan Information #: 2 Payer: [facility] Member Number: [id number] Policy Number: NA Group Number: [id number]
--- OUTSIDE RECORDS SUMMARY | 2024-05-27 13:58 | XMS_ITS | Encounter Summary ---
Author Organization [facility] Address [address] [place] [address] Phone Care Team Providers Care Department Store Salesperson Name Role Phone Fidelina Purcell MD Primary Care Provider Encounter Details Date Type Department Care Team (Late st Contact Info) Description 11/05/2012 Documentation [facility] [place] [address] [place] [address] Family Medicine, Physician [address] [place], [place] [phone] Social History Tobacco Use Types Packs/Day Years [...] on filedocumented in this encounter Care Teams Department Store Salesperson Relationship Specialty Start Date End Date Fidelina Purcell MD [address] [place] [address] PCP - General 12/01/16 07/23/22 documented as of this encounter
--- OUTSIDE RECORDS SUMMARY | 2024-05-27 13:58 | XMS_ITS | Clinical Summary ---
Author Organization [facility] Address [address] [place] [address] Care Team Providers Care Operators Teacher Name Role Phone Unavailable Primary Care Provider Unavailabl e Social History Tobacco Use Types Packs/Day Years Used Date Smoking Tobacco: Never Assessed Sex and Gender Information Value Date Recorded Sex Assigned at Not on file Gender Identity Not on file Sexual Orientation Not on file Plan of Treatment Health Maintenance Due Date Last Done Comments DTaP,Tdap,and Td Vaccines (1 - Tdap) 2013 Hepatitis B Vaccines (1 of 3 - 19+ 3-dose series) 2013 Cervical Cancer Screening: P ap Smear 08/17/2015 Depression Screening 03/25/2022 HIV Screening 03/25/2022 Hepatitis C Screening 03/25/2022 Social Influencers of Health Screening 03/25/2022 COVID-19 Vaccine ( - 2023-2 5 season) 2023 Influenza Vaccine (#1) 2023 HIB Vaccines Aged Out No longer eligi ble based on patient's age to complete this topic HPV Vaccines Aged Out No longer eligi ble based on patient's age to complete this topic Hepatitis A Vaccines Aged Out No long er eligible based on patient's age to complete this topic IPV Vaccines Aged Out No longer eligi ble based on patient's age to complete this topic MMR Vaccines Aged Out No longer eligi ble based on patient's age to complete this topic Meningococcal ACWY Vaccine Aged Out N o longer eligible based on patient's age to complete this topic Pneumococcal Vaccine: Pediat rics (0 to 5 Years) and At-Risk Patients (6 to 64 Years) Aged Out No longer eligible b ased on patient's age to complete this topic RSV Immunization Patients Un skip 20 months Aged Out No longer eligible b ased on patient's age to complete this topic Varicella Vaccines Aged Out No longer eligible based on patient's age to complete this topic
--- OUTSIDE RECORDS SUMMARY | 2024-05-27 13:58 | XMS_ITS | Encounter Summary ---
Author Organization [facility] Address [address] [place] [address] Phone Care Team Providers Care Fitness Attendant Name Role Phone Fidelina Purcell MD Primary Care Provider Encounter Details Date Type Department Care Team (Late st Contact Info) Description 10/23/2009 Documentation [facility] [address] [place] [address] Family Medicine, Physician [address] [place], [place] [phone] Social History Tobacco Use Types Packs/Day Years [...] on filedocumented in this encounter Care Teams Fitness Attendant Relationship Specialty Start Date End Date Fidelina Purcell MD [address] [place] [phone] PCP - General 12/01/16 07/23/22 documented as of this encounter
--- OUTSIDE RECORDS SUMMARY | 2024-05-27 13:58 | XMS_ITS | Encounter Summary ---
Author Organization [facility] Address [address] [place] [address] Phone Care Team Providers Care Director Of Oncology Name Role Phone Fidelina Purcell MD Primary Care Provider Encounter Details Date Type Department Care Team (Late st Contact Info) Description 11/13/2012 Documentation [facility] [place] Family Medicine [address] [place] [address] Family Medicine, Physician [address] [place], [place] [phone] Social History Tobacco Use Types Packs/Day Years [...] on filedocumented in this encounter Care Teams Director Of Oncology Relationship Specialty Start Date End Date Fidelina Purcell MD [address] [place] [address] PCP - General 12/01/16 07/23/22 documented as of this encounter
--- OUTSIDE RECORDS SUMMARY | 2024-05-27 13:58 | XMS_ITS | Encounter Summary ---
Author Organization [facility] Address [address] [place] [address] Phone Care Team Providers Care Valuation Manager Name Role Phone Fidelina Purcell MD Primary Care Provider [phone] Encounter Details Date Type Department Care Team (Late st Contact Info) Description 04/03/2011 Documentation [facility] [place] Family Medicine [address] [place] [address] Family Medicine, Physician [address] [place], [place] [phone] Social History Tobacco Use Types Packs/Day Years [...] on filedocumented in this encounter Care Teams Valuation Manager Relationship Specialty Start Date End Date Fidelina Purcell MD [address] [place] [id number] PCP - General 12/01/16 07/23/22 documented as of this encounter
--- OUTSIDE RECORDS SUMMARY | 2024-05-27 13:58 | XMS_ITS | Encounter Summary ---
Author Organization [facility] Address [address] [place] [address] Phone Care Team Providers Care Brand Sales Consultant Name Role Phone Fidelina Purcell MD Primary Care Provider [phone] Encounter Details Date Type Department Care Team (Late st Contact Info) Description 12/13/2010 Documentation [facility] [place] [address] [place] [address] Family Medicine, Physician [address] [place], [place] [phone] Social History Tobacco Use Types Packs/Day Years [...] on filedocumented in this encounter Care Teams Brand Sales Consultant Relationship Specialty Start Date End Date Fidelina Purcell MD [address] [place] [address] [place] [address] PCP - General 12/01/16 07/23/22 documented as of this encounter
--- OUTSIDE RECORDS SUMMARY | 2024-05-27 13:58 | XMS_ITS | Encounter Summary ---
Author Organization [facility] Address [address] [place] [address] Phone Care Team Providers Care Bondactor Machine Operator Name Role Phone Fidelina Purcell MD Primary Care Provider Encounter Details Date Type Department Care Team (Late st Contact Info) Description 06/13/2013 Documentation [facility] [place] Family Medicine [address] [place] [address] Family Medicine, Physician [address] [place], [place] [phone] Social History Tobacco Use Types Packs/Day Years [...] on filedocumented in this encounter Care Teams Bondactor Machine Operator Relationship Specialty Start Date End Date Fidelina Purcell MD [address] [place] [address] PCP - General 12/01/16 07/23/22 documented as of this encounter
--- OUTSIDE RECORDS SUMMARY | 2024-05-27 13:58 | XMS_ITS | Encounter Summary ---
Author Organization [facility] Address [address] [place] [address] Phone Care Team Providers Care Supervisor Color Making Name Role Phone Fidelina Purcell MD Primary Care Provider Encounter Details Date Type Department Care Team (Late st Contact Info) Description 02/03/2014 Documentation [facility] [place] Family Medicine [address] [place] [address] Family Medicine, Physician [address] [place], [place] [phone] Social History Tobacco Use Types Packs/Day Years [...] on filedocumented in this encounter Care Teams Supervisor Color Making Relationship Specialty Start Date End Date Fidelina Purcell MD [address] [place] [address] PCP - General 12/01/16 07/23/22 documented as of this encounter
--- OUTSIDE RECORDS SUMMARY | 2024-05-27 13:58 | XMS_ITS | Encounter Summary ---
Author Organization [facility] Address [address] [place] [address] Phone Care Team Providers Care Geography Professor Name Role Phone Fidelina Purcell MD Primary Care Provider Encounter Details Date Type Department Care Team (Late st Contact Info) Description 05/19/2013 [place]ation [facility] [place] [address] [place] [address] Family Medicine, Physician [address] [place], [place] [phone] Social History Tobacco Use Types Packs/Day Years [...] on filedocumented in this encounter Care Teams Geography Professor Relationship Specialty Start Date End Date Fidelina Purcell MD [address] [place] [address] PCP - General 12/01/16 07/23/22 documented as of this encounter
--- OUTSIDE RECORDS SUMMARY | 2024-05-27 13:58 | XMS_ITS | Encounter Summary ---
Author Organization [facility] Address [address] [place] [address] Phone Care Team Providers Care Laboratory Specialist Name Role Phone Fidelina Purcell MD Primary Care Provider Encounter Details Date Type Department Care Team (Late st Contact Info) Description 05/23/2016 Documentation [facility] [place] Family Medicine [address] [place] [address] Family Medicine, Physician [address] [place], [place] [phone] Social History Tobacco Use Types Packs/Day Years [...] on filedocumented in this encounter Care Teams Laboratory Specialist Relationship Specialty Start Date End Date Fidelina Purcell MD [address] [place] [address] PCP - General 12/01/16 07/23/22 documented as of this encounter
--- OUTSIDE RECORDS SUMMARY | 2024-05-27 13:58 | XMS_ITS | Encounter Summary ---
Author Organization [facility] Address [address] [place] [address] Phone Care Team Providers Care Production Support Supervisor Name Role Phone Fidelina Purcell MD Primary Care Provider Encounter Details Date Type Department Care Team (Late st Contact Info) Description 10/23/2009 Documentation [facility] [address] [place] [address] Family Medicine, Physician [address] [place], [place] [phone] Social History Tobacco Use Types Packs/Day Years [...] on filedocumented in this encounter Care Teams Production Support Supervisor Relationship Specialty Start Date End Date Fidelina Purcell MD [address] [place] [address] PCP - General 12/01/16 07/23/22 documented as of this encounter
--- OUTSIDE RECORDS SUMMARY | 2024-05-27 13:58 | XMS_ITS | Encounter Summary ---
Author Organization [facility] Address [address] [place] [address] Phone Care Team Providers Care Yarn Packer Name Role Phone Fidelina Purcell MD Primary Care Provider Encounter Details Date Type Department Care Team (Late st Contact Info) Description 04/28/2011 Documentation [facility] [place] Family Medicine [address] [place] [address] Family Medicine, Physician [address] [place], [place] [phone] Social History Tobacco Use Types Packs/Day Years [...] on filedocumented in this encounter Care Teams Yarn Packer Relationship Specialty Start Date End Date Fidelina Purcell MD [address] [place] [address] PCP - General 12/01/16 07/23/22 documented as of this encounter
--- OUTSIDE RECORDS SUMMARY | 2024-05-27 13:58 | XMS_ITS | Encounter Summary ---
Author Organization [facility] Address [address] [place] [address] Phone Care Team Providers Care Chief Operator Hydroformer Name Role Phone Fidelina Purcell MD Primary Care Provider Encounter Details Date Type Department Care Team (Late st Contact Info) Description 03/05/2013 Documentation [facility] [place] [address] [place] [address] Family Medicine, Physician [address] [place], [place] [phone] Social History Tobacco Use Types Packs/Day Years [...] on filedocumented in this encounter Care Teams Chief Operator Hydroformer Relationship Specialty Start Date End Date Fidelina Purcell MD [address] [place] [address] PCP - General 12/01/16 07/23/22 documented as of this encounter
--- OUTSIDE RECORDS SUMMARY | 2024-05-27 13:58 | XMS_ITS | Encounter Summary ---
Author Organization [facility] Address [address] [place] [address] Phone Care Team Providers Care Kersey Department Supervisor Name Role Phone Fidelina Purcell MD Primary Care Provider Encounter Details Date Type Department Care Team (Late st Contact Info) Description 11/04/2012 Documentation [facility] [place] Family Medicine [address] [place] [address] Family Medicine, Physician [address] [place], [place] [phone] Social History Tobacco Use Types Packs/Day Years [...] on filedocumented in this encounter Care Teams Kersey Department Supervisor Relationship Specialty Start Date End Date Fidelina Purcell MD [address] [place] [address] PCP - General 12/01/16 07/23/22 documented as of this encounter
--- OUTSIDE RECORDS SUMMARY | 2024-05-27 13:58 | XMS_ITS | Encounter Summary ---
Author Organization [facility] Address [address] [place] [address] Phone Care Team Providers Care Director Of Informatics Name Role Phone Fidelina Purcell MD Primary Care Provider [phone] Encounter Details Date Type Department Care Team (Late st Contact Info) Description 11/08/2012 Documentation [facility] [place] [address] [place] [address] Family Medicine, Physician [address] [place], [place] [phone] Social History Tobacco Use Types Packs/Day Years [...] in this encounter Care Teams Director Of Informatics Relationship Specialty Start Date End Date Fidelina Purcell MD [address] [place] [address] PCP - General 12/01/16 07/23/22 documented as of this encounter
--- OUTSIDE RECORDS SUMMARY | 2024-05-27 13:58 | XMS_ITS | Encounter Summary ---
Author Organization [facility] Address [address] [place] [address] Phone Care Team Providers Care Linting Machine Operator Name Role Phone Fidelina Purcell MD Primary Care Provider Encounter Details Date Type Department Care Team (Late st Contact Info) Description 03/03/2013 Documentation [facility] [place] Family Medicine [address] [place] [address] Family Medicine, Physician [address] [place], [place] [phone] Social History Tobacco Use Types Packs/Day Years [...] on filedocumented in this encounter Care Teams Linting Machine Operator Relationship Specialty Start Date End Date Fidelina Purcell MD [address] [place] [address] PCP - General 12/01/16 07/23/22 documented as of this encounter
--- OUTSIDE RECORDS SUMMARY | 2024-05-27 13:58 | XMS_ITS | Encounter Summary ---
Author Organization [facility] Address [address] [place] [address] Phone Care Team Providers Care Fender Repairer Name Role Phone Fidelina Purcell MD Primary Care Provider Encounter Details Date Type Department Care Team (Late st Contact Info) Description 05/06/2013 Documentation [facility] [place] Family Medicine [address] [place] [address] Family Medicine, Physician [address] [place], [place] [phone] Social History Tobacco Use Types Packs/Day Years [...] on filedocumented in this encounter Care Teams Fender Repairer Relationship Specialty Start Date End Date Fidelina Purcell MD [address] [place] [address] PCP - General 12/01/16 07/23/22 documented as of this encounter
--- OUTSIDE RECORDS SUMMARY | 2024-05-27 13:58 | XMS_ITS | Encounter Summary ---
Author Organization [facility] Address [address] [place] [address] Phone Care Team Providers Care Silk Folder Name Role Phone Fidelina Purcell MD Primary Care Provider Encounter Details Date Type Department Care Team (Late st Contact Info) Description 12/07/2016 Conversion Encounter [facility] [place] [address] [place] [address] Social History Tobacco Use Types Packs/Day Years [...] on filedocumented in this encounter Care Teams Silk Folder Relationship Specialty Start Date End Date Fidelina Purcell MD [address] [place] [address] PCP - General 12/01/16 07/23/22 documented as of this encounter
--- OUTSIDE RECORDS SUMMARY | 2024-05-27 13:58 | XMS_ITS | Encounter Summary ---
Author Organization [facility] Address [address] [place] [address] Phone Care Team Providers Care Mergers And Acquisitions Consultant Name Role Phone Fidelina Purcell MD Primary Care Provider Encounter Details Date Type Department Care Team (Late st Contact Info) Description 03/03/2013 Documentation [facility] [place] [address] [place] [address] Family Medicine, Physician [address] [place], [place] [phone] Social History Tobacco Use Types Packs/Day Years [...] on filedocumented in this encounter Care Teams Mergers And Acquisitions Consultant Relationship Specialty Start Date End Date Fidelina Purcell MD [address] [place] [address] PCP - General 12/01/16 07/23/22 documented as of this encounter
--- OUTSIDE RECORDS SUMMARY | 2024-05-27 13:58 | XMS_ITS | Encounter Summary ---
Author Organization [facility] Address [address] [place] [address] Phone Care Team Providers Care Sewer And Inspector Name Role Phone Fidelina Purcell MD Primary Care Provider Encounter Details Date Type Department Care Team (Late st Contact Info) Description 09/08/2011 Documentation [facility] [place] [address] [place] [address] Family Medicine, Physician [address] [place], [place] [phone] Social History Tobacco Use Types Packs/Day Years [...] on filedocumented in this encounter Care Teams Sewer And Inspector Relationship Specialty Start Date End Date Fidelina Purcell MD [address] [place] [address] PCP - General 12/01/16 07/23/22 documented as of this encounter
--- OUTSIDE RECORDS SUMMARY | 2024-05-27 13:58 | XMS_ITS | Encounter Summary ---
Author Organization [facility] Address [address] [place] [address] Phone Care Team Providers Care Falafel Cart Cook Name Role Phone Fidelina Purcell MD Primary Care Provider Encounter Details Date Type Department Care Team (Late st Contact Info) Description 06/13/2011 Document[place] [facility] [place] [address] [place] [address] Family Medicine, Physician [address] [place], [place] [phone] Social History Tobacco Use Types Packs/Day Years [...] on filedocumented in this encounter Care Teams Falafel Cart Cook Relationship Specialty Start Date End Date Fidelina Purcell MD [address] [place] [phone] PCP - General 12/01/16 07/23/22 documented as of this encounter
--- OUTSIDE RECORDS SUMMARY | 2024-05-27 13:58 | XMS_ITS | Continuity of Care Document ---
Author Organization [facility] Address [address] [place] [address]- Support Name Relationship Address Phone LESLIE, GIOVANI [...] LESLIE, GIOVANI Personal Relationship Unknown U navailable LELSIE, GIOVANI Personal Relationship Unknown U navailable LESLIE, [...] Unknown U navailable Care Team Providers Care Slot Shift Manager Name Role Phone Lizzy MEDINA, Abdoulaye Sosa Primary Care Physician [phone] Encounter [facility] Date(s): 04/15/24 - 05/15/24 [facility] Adult [address] [place], [place] [address] Attending Physician: Carlos Main Admitting Physician: Carlos Main Referring Physician: Carlos Main Encounter Type: Triage Allergies, Adverse Reactions, Alerts Substance Criticality Severity Reaction Reaction Severity Status doxycycline Active Ativan Active Other Food Allergy ANITA AND POMEGRANATE Active sulfADIAZINE Anaphelaxis Activ e prazosin 1 Rapid heart rate Ac tive shellfish Anaphylaxis Itchy Active Topamax rash Active Benadryl Unable to assess criticality Persistent Severe Stops breathing Active Contrast Dye Pain all over body. Very hot. Itchy. Active Dust Active 1elevated HR Immunizations Given and Recorded Vaccine Date Status Refusal Reason SARS-CoV-2 (COVID-19) mRNA-1273 vaccine 12/10/21 R ecorded SARS-CoV-2 (COVID-19) mRNA-1273 vaccine 10/30/20 R ecorded SARS-CoV-2 (COVID-19) mRNA-1273 vaccine 09/30/20 R ecorded Diphtheria/Tet/Pertussis, Acel (oldterm) 1 10/05/15 Given tetanus/diphtheria/pertussis, acel(Tdap) 2, 3 04/23/15 Recorded 1Admin Note: by hx 2Location History: [facility] 3Result Comment: [01/17/2017] S/P LACERATION Medications clindamycin 1% topical gel 1 application, Topically, 2 times a day, # 30 Gm, 11 Refills, Maintenance, 04/15/24 2:51:00 PM EST,Gel, [facility]/pharmacy #[id number], Partial fill upon patient request if [...] 2:52:00 PM EST, Route to Pharmacy Electronically, [facility]/pharmacy #[id number], Partial fill upon patient request if [...] 1:49:00 PM EDT, Route to Pharmacy Electronically, [facility]/pharmacy #[id number], Partial fill upon patient request if [...] Refills, Maintenance, 06/28/23 5:09:00 PM EST, Tablet, [facility]/pharmacy #[id number], Partial fill uponpatient request if the [...] 2:47:00 PM EST, Route to Pharmacy Electronically, [facility]/pharmacy #[id number], Partial fill upon patient request if [...] Soft Stop, 04/15/24 2:49:00 PM EST, Aerosol, [facility]/pharmacy #[id number], Partial fill upon patient request if [...] on: 05/20/19 Sex Sex Representation Female (finding) Laboratory * Event Display: Non BH Lab Results Authored Date: * Event Display: [employer] N[employer]ELTY MAKER Pap Test Authored Date: * Event Display: Laboratory Result Scanned Authored Date: * Event Display: Laboratory Result Scanned Authored Date: * Event Display: Laboratory Result Scanned Authored Date: Radiology * Event Display: CT Scan Abdomen, Non- BH Authored Date: * Event Display: Ultrasound Renal, Non BH Authored Date: * Event Display: Ultrasound Pelvis, Non-BH Authored Date: Note * Kaity Ventura: PERFORM, SIGN, VERIFY Event Display: Patient Education/Instruction Authored Date: [facility] *[facility] So Ottoniel Pope Clinical Summary Name DONNELL NELSON Age 24 Years 1995 PCP Lizzy MEDINA, Abdoulaye Sosa PCP Visit Date 09/26/2019 13:20:00 Additional Instructions: Scheduled Appointments?? Future Appointments ?No Future Appointments Scheduled Follow-Up Instructions ?? Diagnosis Medications: Please continue your medications until treatment is completed or stopped by your provider. Discuss any questions related to medications with your provider. Medications??to??Continue??with??No??Changes These??medications??were??not??printed??or??sent??to??your??pharmacy Acetaminophen??(Tylenol??Extra??Strength) Oral??every??6??hours. Next??Dose: Albuterol??(ProAir??HFA??90??mcg/inh??inhalation??aerosol??with??adapter) 2??puff(s)??Inhalation??ev dick??4??hours??as??needed??for??wheezing.??Refills:??1. Next??Dose: Clindamycin??Topical??(clindamycin??1%??topical??gel) 1??helder??Topically??Daily??at??Bedtime.??Refills:??11. Next??Dose: Durable??Medical??Equipment??(Knee??Support) Right??semi-rigid??PTO??(Patellar??Tracking??Orthosis)??Brace.??Refills:??0. Next??Dose: Durable??Medical??Equipment??(Knee??Support) Left??semi-rigid??PTO??(Patellar??Tracking??Orthosis)?? knee??brace.??Refills:??0. Next??Dose: Durable??Medical??Equipment??(Awilda-Vortex??Chamber) use??with??inhaler,??rinse??after??use.??Refills:??0. Next??Dose: Guaifenesin??(Mucinex??600??mg??oral??tablet,??extended??release) 1??tab(s)??Oral??every??12??hours??for??7??Days.??Refills:??1. Next??Dose: Loratadine??(Claritin??10??mg??oral??tablet) 1??tab(s)??Oral??Daily??as??needed??Nasal??Congestion. Next??Dose: Naproxen??(naproxen??500??mg??oral??tablet) 1??tab(s)??Oral??Daily.??Refills:??5. Next??Dose: Sertraline??(sertraline??25??mg??oral??tablet) 1??tab(s)??Oral??Daily.??Refills:??5. Next??Dose: No??Longer??Take??the??Following??Medications Ethinyl??Estradiol-Norgestimate??(Ortho??Tri-Cyclen??oral??tablet) 1??tab(s)??Oral??Daily.??Refills:??6. MethylPREDNISolone??(Medrol??Dosepak??4??mg??oral??tablet) 1??pack/packet??Oral??once.??Refills:??0. Allergy Info:?? Other Food Allergy; Dust; Contrast Dye; Benadryl; Topamax; shellfish; prazosin; sulfADIAZINE Medications Given This Visit Future Orders ?COVID-19 (2019 Novel Coronavirus), RNA? Order Date:09/26/19?- Complete on or after?09/26/19 ?Chest 2 Views Frontal and Lat? Order Date:09/26/19?- Complete on or after?09/26/19 Vital Signs Height Weight BMI Blood Pressure / Temperature Pulse Rate Respiratory Rate 02 Sat Mode of Delivery / You can now view a summary of your hospital visit from the comfort of your home through a free online portal called [employer]. [employer] is a website that allows you to securely view your medical information including discharge summary, medications and follow-up visits. ??You can alsosend a secure electronic message to your doctor???s office to request appointments, renew medications or just ask a question. You can enroll at [email or web address] or register during your next office visit. Disclaimer:?? The information provided is of a general nature and is intended to be used in conjunction with the recommendations and advice of your health care practitioner. ??Every effort has been made to ensure that the information provided is accurate and complete at the time it is provided to you however, as your needs change, or, as new ??information becomes available, different or additional instructions may be required. If you have questions, please consult with your primary care provider or pharmacist, as appropriate. ??This information is not intended to serve as substitution for assessment and evaluation by a qualified health care provider. If you do not have a primary care provider, you may find a [facility] provider by calling [facility] Immediately at [phone]. For information about the plan of care including goals and instructions for your diagnosis, please see the patient education orders section of this document. Patient Education Materials?? Patient Care team information Care Team Personnel Name: Elaine Garnett NP Position: [facility] PCO Associate Professional Member Role: [employer] Consulting Provider Address: [address] [place] [phone]- [place] [employer]: Name: Mony Dodge MD Position: [facility] SPEECH LANGUAGE ASSISTANT MD Member Role: [employer] SPEECH LANGUAGE ASSISTANT Physician Address: [address] [facility] [place] [address]- [place] [employer]: Name: Abdoulaye Ball MD Position: [facility] Physician - Primary Care Member Role: PCP Address: [address] [place] [phone]- [place] [employer]: Care Team Related Persons Name: DARREN NELSON Name: GIOVANI NELSON Insurance Providers Guarantor name: DERIK LESLIE [facility] Plan Information #: 1 Payer: [facility] Member Number: NA Policy Number: NA Group Number: NA
--- OUTSIDE RECORDS SUMMARY | 2024-05-27 13:58 | XMS_ITS | Encounter Summary ---
Author Organization [facility] Address [address] [place] [address] Phone Care Team Providers Care Exhibit Display Representative Name Role Phone Fidelina Purcell MD Primary Care Provider [phone] Encounter Details Date Type Department Care Team (Late st Contact Info) Description 04/04/2011 Documentation [facility] [place] Family Medicine [address] [place] [address] Family Medicine, Physician [address] [place], [place] [phone] Social History Tobacco Use Types Packs/Day Years [...] on filedocumented in this encounter Care Teams Exhibit Display Representative Relationship Specialty Start Date End Date Fidelina Purcell MD [address] [place] [phone] PCP - General 12/01/16 07/23/22 documented as of this encounter
--- OUTSIDE RECORDS SUMMARY | 2024-05-27 13:58 | XMS_ITS | Encounter Summary ---
Author Organization [facility] Address [address] [place] [address] Phone Care Team Providers Care Director Of Digital Marketing Name Role Phone Fidelina Purcell MD Primary Care Provider [phone] Encounter Details Date Type Department Care Team (Late st Contact Info) Description 05/24/2011 Documentation [facility] [place] Family Medicine [address] [place] [address] Family Medicine, Physician [address] [place], [place] [phone] Social History Tobacco Use Types Packs/Day Years [...] in this encounter Care Teams Director Of Digital Marketing Relationship Specialty Start Date End Date Fidelina Purcell MD [address] [place] [address] PCP - General 12/01/16 07/23/22 documented as of this encounter
--- OUTSIDE RECORDS SUMMARY | 2024-05-27 13:58 | XMS_ITS | Encounter Summary ---
Author Organization [facility] Address [address] [place] [address] Phone Care Team Providers Care Community Worker Name Role Phone Fidelina Purcell MD Primary Care Provider [phone] Encounter Details Date Type Department Care Team (Late st Contact Info) Description 03/27/2011 Documentation [facility] [place] Family Medicine [address] [place] [address] Family Medicine, Physician [address] [place], [place] [phone] Social History Tobacco Use Types Packs/Day Years [...] on filedocumented in this encounter Care Teams Community Worker Relationship Specialty Start Date End Date Fidelina Purcell MD [address] [place] [address] PCP - General 12/01/16 07/23/22 documented as of this encounter
--- OUTSIDE RECORDS SUMMARY | 2024-05-27 13:58 | XMS_ITS | Encounter Summary ---
Author Organization [facility] Address [address] [place] [address] Phone Care Team Providers Care Prosthetic Makeup Designer Name Role Phone Fidelina Purcell MD Primary Care Provider Encounter Details Date Type Department Care Team (Late st Contact Info) Description 12/02/2013 Documentation [facility] [place] Family Medicine [address] [place] [address] Family Medicine, Physician [address] [place], [place] [phone] Social History Tobacco Use Types Packs/Day Years [...] on filedocumented in this encounter Care Teams Prosthetic Makeup Designer Relationship Specialty Start Date End Date Fidelina Purcell MD [address] [place] [address] PCP - General 12/01/16 07/23/22 documented as of this encounter
--- OUTSIDE RECORDS SUMMARY | 2024-05-27 13:59 | XMS_ITS | Encounter Summary ---
Author Organization [facility] Address [address] [place] [address] Phone Care Team Providers Care V Belt Finisher Name Role Phone Fidelina Purcell MD Primary Care Provider Encounter Details Date Type Department Care Team (Late st Contact Info) Description 02/20/2012 Documentation [facility] Family Medicine [address] [place] [address] Family Medicine, Physician [address] [place], [place] [phone] Social History Tobacco Use Types Packs/Day Years [...] on filedocumented in this encounter Care Teams V Belt Finisher Relationship Specialty Start Date End Date Fidelina Purcell MD [address] [place] [address] PCP - General 12/01/16 07/23/22 documented as of this encounter
--- OUTSIDE RECORDS SUMMARY | 2024-05-27 13:59 | XMS_ITS | Encounter Summary ---
Author Organization [facility] Address [address] [place] [address] Phone Care Team Providers Care [place] Seamer Name Role Phone Fidelina Purcell MD Primary Care Provider Encounter Details Date Type Department Care Team (Late st Contact Info) Description 05/29/2012 Documentation [facility] [place] [place] Family Medicine [address] [place] [address] Family Medicine, Physician [address] [place], [place] [phone] Social History Tobacco Use Types Packs/Day Years [...] on filedocumented in this encounter Care Teams [place] Seamer Relationship Specialty Start Date End Date Fidelina Purcell MD [address] [place] [address] PCP - General 12/01/16 07/23/22 documented as of this encounter
--- OUTSIDE RECORDS SUMMARY | 2024-05-27 13:59 | XMS_ITS | Encounter Summary ---
Author Organization [facility] Address [address] [place] [address] Phone Care Team Providers Care Contract Writer Name Role Phone Fidelina Purcell MD Primary Care Provider Encounter Details Date Type Department Care Team (Late st Contact Info) Description 07/05/2012 Documentation [facility] [place] Family Medicine [address] [place] [address] Family Medicine, Physician [address] [place], [place] [phone] Social History Tobacco Use Types Packs/Day Years [...] on filedocumented in this encounter Care Teams Contract Writer Relationship Specialty Start Date End Date Fidelina Purcell MD [address] [place] [address] PCP - General 12/01/16 07/23/22 documented as of this encounter
--- OUTSIDE RECORDS SUMMARY | 2024-05-27 13:59 | XMS_ITS | Encounter Summary ---
Author Organization [facility] Address [address] [place] [address] Phone Care Team Providers Care Merchandise Supervisor Name Role Phone Fidelina Purcell MD Primary Care Provider Encounter Details Date Type Department Care Team (Late st Contact Info) Description 02/02/2012 Documentation [facility] [place] [facility] [place] [address] [place] [address] Family Medicine, Physician [address] [place], [place] [phone] Social History Tobacco Use Types Packs/Day Years [...] on filedocumented in this encounter Care Teams Merchandise Supervisor Relationship Specialty Start Date End Date Fidelina Purcell MD [address] [place] [address] PCP - General 12/01/16 07/23/22 documented as of this encounter
--- OUTSIDE RECORDS SUMMARY | 2024-05-27 13:59 | XMS_ITS | Encounter Summary ---
Author Organization [facility] Address [address] [place] [address] Phone Care Team Providers Care Lawnmower Mechanic Name Role Phone Fidelina Purcell MD Primary Care Provider [phone] Encounter Details Date Type Department Care Team (Late st Contact Info) Description 10/16/2011 Documentation [facility] [place] Family Medicine [address] [place] [address] Family Medicine, Physician [address] [place], [place] [phone] Social History Tobacco Use Types Packs/Day Years [...] on filedocumented in this encounter Care Teams Lawnmower Mechanic Relationship Specialty Start Date End Date Fidelina Purcell MD [address] [place] [address] PCP - General 12/01/16 07/23/22 documented as of this encounter
--- OUTSIDE RECORDS SUMMARY | 2024-05-27 13:59 | XMS_ITS | Encounter Summary ---
Author Organization [facility] Address [address] [place] [address] Phone Care Team Providers Care Winch Operator Name Role Phone Fidelina Purcell MD Primary Care Provider Encounter Details Date Type Department Care Team (Late st Contact Info) Description 10/08/2015 Documentation [facility] [place] Family Medicine [address] [place] [address] Family Medicine, Physician [address] [place], [place] [phone] Social History Tobacco Use Types Packs/Day Years [...] on filedocumented in this encounter Care Teams Winch Operator Relationship Specialty Start Date End Date Fidelina Purcell MD [address] [place] [address] PCP - General 12/01/16 07/23/22 documented as of this encounter
--- OUTSIDE RECORDS SUMMARY | 2024-05-27 13:59 | XMS_ITS | Encounter Summary ---
Author Organization [facility] Address [address] [place] [address] Phone Care Team Providers Care Parimutuel Ticket Seller Name Role Phone Fidelina Purcell MD Primary Care Provider [phone] Encounter Details Date Type Department Care Team (Late st Contact Info) Description 04/17/2012 Documentation [facility] [place] Family Medicine [address] [place] [address] Family Medicine, Physician [address] [place], [place] [phone] Social History Tobacco Use Types Packs/Day Years [...] on filedocumented in this encounter Care Teams Parimutuel Ticket Seller Relationship Specialty Start Date End Date Fidelina Purcell MD [address] [place] [address] PCP - General 12/01/16 07/23/22 documented as of this encounter
--- OUTSIDE RECORDS SUMMARY | 2024-05-27 13:59 | XMS_ITS | Encounter Summary ---
Author Organization [facility] Address [address] [place] [address] Phone Care Team Providers Care Library Services Assistant Name Role Phone Fidelina Purcell MD Primary Care Provider Encounter Details Date Type Department Care Team (Late st Contact Info) Description 06/13/2012 Documentation [facility] [place] Family Medicine [address] [place] [address] Family Medicine, Physician [address] [place], [place] [phone] Social History Tobacco Use Types Packs/Day Years [...] on filedocumented in this encounter Care Teams Library Services Assistant Relationship Specialty Start Date End Date Fidelina Purcell MD [address] [place] [address] PCP - General 12/01/16 07/23/22 documented as of this encounter
--- OUTSIDE RECORDS SUMMARY | 2024-05-27 13:59 | XMS_ITS | Encounter Summary ---
Author Organization [facility] Address [address] [place] [address] Phone Care Team Providers Care Plc Programmer Name Role Phone Fidelina Purcell MD Primary Care Provider Encounter Details Date Type Department Care Team (Late st Contact Info) Description 04/04/2016 Documentation [facility] [place] [address] [place] [address] Family Medicine, Physician [address] [place], [place] [phone] Social History Tobacco Use Types Packs/Day Years [...] on filedocumented in this encounter Care Teams Plc Programmer Relationship Specialty Start Date End Date Fidelina Purcell MD [address] [place] [address] PCP - General 12/01/16 07/23/22 documented as of this encounter
--- OUTSIDE RECORDS SUMMARY | 2024-05-27 13:59 | XMS_ITS | Encounter Summary ---
Author Organization [facility] Address [address] [place] [address] Phone Care Team Providers Care Community Support Worker Name Role Phone Fidelina Purcell MD Primary Care Provider Encounter Details Date Type Department Care Team (Late st Contact Info) Description 01/29/2015 Documentation [facility] [place] [address] [place] [address] Family Medicine, Physician [address] [place], [place] [phone] Social History Tobacco Use Types Packs/Day Years [...] filedocumented in this encounter Care Teams Community Support Worker Relationship Specialty Start Date End Date Fidelina Purcell MD [address] [place] [address] PCP - General 12/01/16 07/23/22 documented as of this encounter
--- OUTSIDE RECORDS SUMMARY | 2024-05-27 13:59 | XMS_ITS | Encounter Summary ---
Author Organization [facility] Address [address] [place] [address] Phone Care Team Providers Care Patient Access Name Role Phone Fidelina Purcell MD Primary Care Provider Encounter Details Date Type Department Care Team (Late st Contact Info) Description 02/24/2016 Documentation [facility] [place] Family Medicine [address] [place] [address] Family Medicine, Physician [address] [place], [place] [phone] Social History Tobacco Use Types Packs/Day Years [...] on filedocumented in this encounter Care Teams Patient Access Relationship Specialty Start Date End Date Fidelina Purcell MD [address] [place] [address] PCP - General 12/01/16 07/23/22 documented as of this encounter
--- OUTSIDE RECORDS SUMMARY | 2024-05-27 13:59 | XMS_ITS | Encounter Summary ---
Author Organization [facility] Address [address] [place] [address] Phone Care Team Providers Care Direct Service Provider Name Role Phone Fidelina Purcell MD Primary Care Provider [phone] Encounter Details Date Type Department Care Team (Late st Contact Info) Description 11/22/2015 Documentation [facility] [place] Family Medicine [address] [place] [address] Family Medicine, Physician [address] [place], [place] [phone] Social History Tobacco Use Types Packs/Day Years [...] on filedocumented in this encounter Care Teams Direct Service Provider Relationship Specialty Start Date End Date Fidelian Purcell MD [address] [place] [address] PCP - General 12/01/16 07/23/22 documented as of this encounter
--- OUTSIDE RECORDS SUMMARY | 2024-05-27 13:59 | XMS_ITS | Encounter Summary ---
Author Organization [facility] Address [address] [place] [address] Phone Care Team Providers Care Roller Varnisher Name Role Phone Fidelina Purcell MD Primary Care Provider Encounter Details Date Type Department Care Team (Late st Contact Info) Description 02/02/2012 Documentation [facility] [place] [address] [place] [address] Family Medicine, Physician [address] [place], [place] [phone] Social History Tobacco Use Types Packs/Day Years [...] on filedocumented in this encounter Care Teams Roller Varnisher Relationship Specialty Start Date End Date Fidelina Purcell MD [address] [place] [address] PCP - General 12/01/16 07/23/22 documented as of this encounter
--- OUTSIDE RECORDS SUMMARY | 2024-05-27 13:59 | XMS_ITS | Encounter Summary ---
Author Organization [facility] Address [address] [place] [address] Phone Care Team Providers Care Rubber Production Machine Operator Name Role Phone Fidelina Purcell MD Primary Care Provider Encounter Details Date Type Department Care Team (Late st Contact Info) Description 11/23/2015 Documentation [facility] [place] Family Medicine [address] [place] [address] Family Medicine, Physician [address] [place], [place] [phone] Social History Tobacco Use Types Packs/Day Years [...] on filedocumented in this encounter Care Teams Rubber Production Machine Operator Relationship Specialty Start Date End Date Fidelina Purcell MD [address] [place] [address] PCP - General 12/01/16 07/23/22 documented as of this encounter
--- OUTSIDE RECORDS SUMMARY | 2024-05-27 13:59 | XMS_ITS | Encounter Summary ---
Author Organization [facility] Address [address] [place] [address] Phone Care Team Providers Care Plaster Foreman Name Role Phone Fidelina Purcell MD Primary Care Provider Encounter Details Date Type Department Care Team (Late st Contact Info) Description 11/22/2015 Documentation [facility] [place] Family Medicine [address] [place] [address] Family Medicine, Physician [address] [place], [place] [phone] Social History Tobacco Use Types Packs/Day Years [...] on filedocumented in this encounter Care Teams Plaster Foreman Relationship Specialty Start Date End Date Fidelina Purcell MD [address] [place] [address] PCP - General 12/01/16 07/23/22 documented as of this encounter
--- OUTSIDE RECORDS SUMMARY | 2024-05-27 13:59 | XMS_ITS | Encounter Summary ---
Author Organization [facility] Address [address] [place] [address] Phone Care Team Providers Care Printer Maintainer Name Role Phone Fidelina Purcell MD Primary Care Provider [phone] Encounter Details Date Type Department Care Team (Late st Contact Info) Description 07/04/2012 Documentation [facility] [place] Family Medicine [address] [place] [address] Family Medicine, Physician [address] [place], [place] [phone] Social History Tobacco Use Types Packs/Day Years [...] on filedocumented in this encounter Care Teams Printer Maintainer Relationship Specialty Start Date End Date Fidelina Purcell MD [address] [place] [address] PCP - General 12/01/16 07/23/22 documented as of this encounter
--- OUTSIDE RECORDS SUMMARY | 2024-05-27 13:59 | XMS_ITS | Encounter Summary ---
Author Organization [facility] Address [address] [place] [address] Phone Care Team Providers Care Pattern Gater Name Role Phone Fidelina Purcell MD Primary Care Provider Encounter Details Date Type Department Care Team (Late st Contact Info) Description 01/21/2010 Documentation [facility] Family Medicine [address] [place] [address] Family Medicine, Physician [address] [place], [place] [phone] Social History Tobacco Use Types Packs/Day Years [...] on filedocumented in this encounter Care Teams Pattern Gater Relationship Specialty Start Date End Date Fidelina Purcell MD [address] [place] [address] PCP - General 12/01/16 07/23/22 documented as of this encounter
--- OUTSIDE RECORDS SUMMARY | 2024-05-27 13:59 | XMS_ITS | Encounter Summary ---
Author Organization [facility] Address [address] [place] [address] Phone Care Team Providers Care Pattern Room Attendant Name Role Phone Fidelina Purcell MD Primary Care Provider Encounter Details Date Type Department Care Team (Late st Contact Info) Description 09/19/2011 Documentation [facility] [place] [address] [place] [address] Family Medicine, Physician [address] [place], [place] [phone] Social History Tobacco Use Types Packs/Day Years [...] filedocumented in this encounter Care Teams Pattern Room Attendant Relationship Specialty Start Date End Date Fidelina Purcell MD [address] [place] [address] PCP - General 12/01/16 07/23/22 documented as of this encounter
--- OUTSIDE RECORDS SUMMARY | 2024-05-27 13:59 | XMS_ITS | Continuity of Care Document ---
Author Organization [facility] Address [address] [place] [phone]- Support Name Relationship Address Phone LESLIE, GIOVANI [...] GIOVANI Personal Relationship Unknown U navailable LELSIE, WILFRID Personal Relationship Unknown Unav ailable LESLIE, [...] Unknown U navailable Care Team Providers Care Small Wind Energy Installer Name Role Phone Lizzy MEDINA, Abdoulaye Soas Primary Care Physician En[place] [facility](s): 04/01/24 - 05/01/24 [facility] Adult [address] [place], [place] [address] Encounter Type: Triage Allergies, Adverse Reactions, Alerts Substance Criticality Severity Reaction Reaction Severity Status doxycycline Active prazosin 1 Rapid heart rate Ac tive Other Food Allergy ANITA AND POMEGRANATE Active sulfADIAZINE Anaphelaxis Activ e shellfish Anaphylaxis Itchy Active Ativan Active Topamax [...] 11 Refills, Maintenance, 04/15/24 2:51:00 PM EST,Gel, [facility]/pharmacy #[id number], Partial fill upon patient request [...] 2:52:00 PM EST, Route to Pharmacy Electronically, [facility]/pharmacy #[id number], Partial fill upon patient request [...] 1:49:00 PM EDT, Route to Pharmacy Electronically, [facility]/pharmacy #[id number], Partial fill upon patient request [...] Refills, Maintenance, 06/28/23 5:09:00 PM EST, Tablet, [facility]/pharmacy #[id number], Partial fill uponpatient request if [...] 2:47:00 PM EST, Route to Pharmacy Electronically, [facility]/pharmacy #[id number], Partial fill upon patient request [...] Soft Stop, 04/15/24 2:49:00 PM EST, Aerosol, [facility]/pharmacy #[id number], Partial fill upon patient request [...] Team Personnel Name: Elaine Garnett NP Position: [facility] PCO Associate Professional Member Role: Lifetime Consulting Provider Address: [address] [place] [id number]- [place] Telecom: Name: Mony Dodge MD Position: [facility] MARINE STEWARD MD Member Role: Lifetime MARINE STEWARD Physician Address: [address] [place] [address] Power [place] [address]- [place] Tele[employer]: Name: Abdoulaye Ball MD Position: [facility] Physician - Primary Care Member Role: PCP Address: [address] [place] [phone]- [place] Telecom: Care Team Related Persons Name: DARREN NELSON Name: GIOVANI NELSON Insurance Providers Guarantor name: [facility] Health Plan Information #: 1 Payer: [facility] Member Number: NA Policy Number: NA Group Number: [id number]
[2024-05-27] MEDS: 0.9 % Sodium Chloride 1,000 ML 999 ML IV (15:18)
[2024-05-27 15:27] VITALS: BP 112/69; PULSE 115; RESP 16; TEMP 36.8; O2SAT 99
[2024-05-27 15:39] LABS: Influenza A PCR NEGATIVE (Negative); Influenza B PCR NEGATIVE (Negative); Resp Syncy Virus RNA Qual PCR NEGATIVE (Negative); SARS COV2 PCR INHOUSE NEGATIVE (Negative)
[2024-05-27] MEDS: Ketorolac Tromethamine 15 MG/ML VIAL 10 MG IVPUSH (15:58)
--- NOTE | 2024-05-27 16:03 | ECG_ITS ---
Test Reason : TACHYCARDIA Blood Pressure : */* mmHG Vent. Rate : 111 BPM Atrial Rate : 111 BPM P-R Int : 118 ms QRS Dur : 86 ms QT Int : 310 ms P-R-T Axes : 48 43 27 degrees QTcB Int : 421 ms Sinus tachycardia Possible Left atrial enlargement Nonspecific T wave abnormality Abnormal ECG When compared with ECG of 24-Mar-2024 19:46, No significant change was found Referred By: Dmitry Richardson Electronically Signed By: Adrián Rucker
[2024-05-27 16:26] LABS: MANUAL DIFF FLAG NO
[2024-05-27 16:30] LABS: IDNOW Serial# 08D9AD1C; Strep A Nucleic Acid Negative (Negative)
[2024-05-27 16:30] LABS: Basophils Percent Auto 0.2 % (0-2); Eosinophils Percent Auto 0.4 % (0-4); Hematocrit 33.4 % (37.0-47.0); Hemoglobin 11.4 g/dl (12.0-16.0); Imm Gran Abs Auto 0.06 X10*3/uL (0.00-0.03); Imm Gran Pct Auto 0.6 % (0.0-0.4); Lymphocytes Absolute Auto 0.9 X10*3/uL (1.2-4.9); Mean Corpuscular HGB Conc 34.1 g/dl (31.0-35.0); Mean Corpuscular Hemoglobin 29.5 pg (27.0-33.0); Mean Corpuscular Volume 86.5 fL (80.0-98.0); Mean Platelet Volume 8.7 fL (9.4-12.3); Monocytes Absolute Auto 0.7 X10*3/uL (0.1-1.2); Monocytes Percent Auto 6.6 % (2-11); Neutrophils Absolute Auto 8.9 x10*3/uL (2.0-8.3); Neutrophils Percent Auto 84.2 % (45-73); Platelet Count 188 X10*3/uL (160-400); Red Blood Count 3.86 X10*6/uL (4.20-5.50); White Blood Count 10.6 X10*3/uL (4.8-10.8)
[2024-05-27 16:36] LABS: INTERNATIONAL NORM RATIO 1.1 (0.9-1.1); Prothrombin Time 13.1 SEC (10.9-12.4)
[2024-05-27 16:50] LABS: B Type Natriuretic Peptide < 10 pg/mL (<100)
[2024-05-27 16:56] LABS: Anion Gap 13 (12-20); Blood Urea Nitrogen 8 mg/dL (9-16); Calcium 8.6 mg/dL (8.4-10.2); Carbon Dioxide 25 mmol/L (22-29); Chloride 109 mmol/L (96-108); Creatinine Clr Calc Pharmacy 156.2; Estimated Glomerular Filt Rate > 60; Glucose Random 84 mg/dL (60-115); Potassium 3.8 mmol/L (3.3-5.1); Sodium 143 mmol/L (135-145)
[2024-05-27 16:58] LABS: Alanine Aminotransferase 13 U/L (0-31); Albumin Level 3.8 g/dL (3.5-5.0); Alkaline Phosphatase 46 U/L (39-117); Aspartate Amino Transferase 14 U/L (5-31); Bilirubin Direct 0.1 mg/dL (0.0-0.5); Bilirubin Total 0.4 mg/dL (0.0-1.0); C Reactive Protein 10.85 mg/dL (< or = 0.50); Total Protein 6.7 g/dL (6.5-8.0)
[2024-05-27 17:02] LABS: Troponin-I High Sensitivity < 2.7 ng/L (<3.5-17.0)
[2024-05-27 18:21] VITALS: BP 118/58; PULSE 125; RESP 16; TEMP 37.1; O2SAT 100
[2024-05-27] MEDS: Azithromycin 500 MG TABLET PO (19:21)
[2024-05-27 19:32] VITALS: BP 118/58; PULSE 125; RESP 16; TEMP 37.1; O2SAT 100
== END 2024-05-27 19:32 | disposition home or self-care (01) ==
PROVIDERS: Emergency Provider Emergency Medicine; PCP Family Medicine
DX: J40 Bronchitis, not specified as acute or chronic (principal); R07.89 Other chest pain; M54.2 Cervicalgia; M79.10 Myalgia, unspecified site; R42 Dizziness and giddiness; R00.0 Tachycardia, unspecified; R11.2 Nausea with vomiting, unspecified; Z87.891 Personal history of nicotine dependence; Z79.899 Other long term (current) drug therapy; Z03.818 Encounter for observation for suspected exposure to other biological agents ruled out
CPT/HCPCS: 0241U; 36415; 71046; 80048; 80076; 83735; 83880; 84484; 85025; 85610; 86140; 87651; 93005; 96361; 96374; 99284; J1885

== ENCOUNTER → 2024-05-27 16:03 | Outpatient (BNV) | payer OTHER, SELFPAY | PROVIDERS: Emergency Provider Emergency Medicine; PCP Family Medicine; Visit Provider Internal Medicine Cardiovascular Disease | DX: R00.0 Tachycardia, unspecified (principal) | CPT/HCPCS: 93010 ==

== ENCOUNTER → 2024-05-27 17:39 | Outpatient (BNV) | payer OTHER, SELFPAY | PROVIDERS: Emergency Provider Emergency Medicine; PCP Family Medicine; Visit Provider Radiology Diagnostic Radiology | DX: R05.9 Cough, unspecified (principal) | CPT/HCPCS: 71046 ==

== ENCOUNTER 2024-06-11 18:28 | Emergency (ER) | payer OTHER, SELFPAY ==
--- NOTE | ~2024-06-11 | XR_ITS ---
CLINICAL HISTORY: pain 2 view chest x-ray Comparison: Chest x-ray from 05/27/2024 Findings: No consolidation, pneumothorax, or pleural effusion. Normal size heart. No acute fracture. IMPRESSION: No consolidation. This document has been electronically signed by: Cristian Bruce MD on 06/11/2024 19:47:11
[2024-06-11 18:39] VITALS: BP 121/88; PULSE 123; RESP 18; TEMP 37; O2SAT 100; BMI 27.7
--- NOTE | 2024-06-11 18:41 | ED.GENADULT ---
HPI - General Adult General Chief complaint: Upper Respiratory Symptoms Stated complaint: pneumonia/bronchitis Time Seen by Provider: 06/12/24 03:47 Source: patient Mode of arrival: ambulatory Limitations: no limitations History of Present Illness ED Provider: Dr. Rolf Chavis HPI narrative: 28-year-old female with a history asthma, depression, anxiety, PTSD, ADHD, fibromyalgia who presents emergency department for evaluation shortness of breath, productive cough, and asthma exacerbation -using her inhaler with minimal effect. The patient states that she was in the emergency department approximately 1.5 weeks prior was diagnosed with pneumonia and bronchitis and given a Z-Bubba. She states she is taking his medication and has had no improvement. She states that her symptoms got worse therefore she came to emergency department. She states she has been using her inhaler frequently and is not giving her any relief of her shortness of breath. She states she has had fever and chills. She states she is having chest pain which is worse with coughing with breathing. Patient's cough is productive of thick, green chunks with occasional blood in her sputum. Related Data Previous Rx's ?Medication ?Instructions ?Recorded tramadol 50 mg tablet 50 mg PO Q6H PRN pain #20 tabs 07/03/20 metoclopramide HCl 10 mg tablet 10 mg PO Q6H PRN nausea and 09/07/20 (Reglan) vomiting #20 tabs nitrofurantoin 100 mg PO Q12H 5 days #10 caps 12/19/20 monohydrate/macrocrystals 100 mg capsule (Macrobid) cyclobenzaprine 10 mg tablet 10 mg PO TID PRN muscle spasm #10 01/17/21 tabs fluconazole 150 mg tablet 150 mg PO ONCE 1 day #1 tab 01/17/21 cefuroxime axetil 500 mg tablet 500 mg PO BID 7 days #14 tabs 01/18/21 fluconazole 150 mg tablet 150 mg PO Q3D 2 doses #2 tabs 02/16/21 (Diflucan) ibuprofen 600 mg tablet 600 mg PO Q8H PRN pain #20 tabs 02/16/21 lidocaine 5 % topical patch 1 patch topical DAILY #15 ea 02/16/21 mupirocin 2 % topical ointment 1 appl topical TID #15 grams 02/16/21 cyclobenzaprine 10 mg tablet 10 mg PO TID PRN muscle spasm #14 11/11/21 tabs ibuprofen 600 mg tablet 600 mg PO Q8H PRN pain #20 tabs 03/03/21 lidocaine 5 % topical patch 1 patch topical DAILY #15 ea 03/03/21 meclizine 25 mg tablet 25 mg PO TID PRN dizziness #14 tabs 03/17/21 doxycycline monohydrate 100 mg 100 mg PO BID #20 caps 07/30/21 capsule ondansetron 4 mg disintegrating 4 mg PO Q8H 3 days #9 tabs 08/29/21 tablet hyoscyamine sulfate 0.125 mg tablet 0.125 mg PO QID PRN dyspepsia #10 03/25/24 tabs ondansetron 4 mg disintegrating 4 mg PO Q6H PRN nausea and 03/25/24 tablet vomiting #10 tabs azithromycin 250 mg tablet 250 mg PO DAILY 4 days #4 tabs 05/27/24 amoxicillin 500 mg capsule 1,000 mg (2 x 500 mg) PO TID 5 06/12/24 days #30 caps azithromycin 250 mg tablet See Rx Instructions PO .COMPLEX #6 06/12/24 (Zithromax Z-Bubba) tabs prednisone 20 mg tablet 60 mg (3 x 20 mg) PO DAILY 5 days 06/12/24 #15 tabs Allergies Allergy/AdvReac Type Severity Reaction Status Date / Time Iodinated Contrast Media Allergy Severe RASH, ABD Verified 06/11/24 18:44 [CONTRAST,IV] PAINS, BODY FEELS LIKE ON FIRE shubham Allergy Severe AIRWAY Verified 06/11/24 18:44 CLOSES shellfish derived Allergy Severe ANAPHYLAXIS Verified 06/11/24 18:44 [SHELLFISH DERIVED] Sulfa (Sulfonamide Allergy Severe RASH Verified 06/11/24 18:44 Antibiotics) [SULFA (SULFONAMIDE ANTIBIOTICS)] diphenhydramine Allergy Intermediate Panic Verified 06/11/24 18:44 [From Benadryl] attack hazelnut [HAZELNUT] Allergy Intermediate THROAT Verified 06/11/24 18:44 IRRITATION aloe Allergy Unknown Swelling Verified 06/11/24 18:44 pomegranate [POMEGRANATE] Allergy Unknown DIFFICULTY Verified 06/11/24 18:44 BREATHING prazosin [PRAZOSIN] Allergy Unknown UNKNOWN Verified 06/11/24 18:44 topiramate [From Topamax] AdvReac Intermediate Rash Verified 06/11/24 18:44 lorazepam [From Ativan] AdvReac Unknown Unknown Verified 06/11/24 18:44 ondansetron [From Zofran] AdvReac Unknown Migraine Verified 06/11/24 18:44 propranolol AdvReac Unknown Verified 06/11/24 18:44 Review of Systems Review of Systems: Yes all other systems are reviewed and are negative [facility] Past Medical History [facility] Narrative: Social history: She denies tobacco and alcohol use. She states she does smoke marijuana for her chronic pain syndrome. Medical History Anxiety Borderline personality disorder Migraines PTSD (post-traumatic stress disorder) Social History Social History Alcohol intake: former Patient Tobacco Use Status: Former Tobacco user Substance Use Type: Marijuana Advance Directives: No Advance Directives Information Provided: Yes Physical Exam ED Vital Signs: Vital Signs - 24 hr 06/11/24 18:39 06/12/24 00:26 06/12/24 01:47 Temperature 98.6 F 98.8 F 97.2 F Pulse Rate 123 H 98 100 Respiratory Rate 18 20 18 Blood Pressure 121/88 112/69 114/71 Pulse Oximetry 100 99 97 Oxygen Delivery Method Room Air Room Air Room Air 06/12/24 03:36 Temperature 97.2 F Pulse Rate 98 Respiratory Rate 16 Blood Pressure 133/76 Pulse Oximetry 96 Oxygen Delivery Method Room Air BMI result Body Mass Index 27.7 Vital signs were unremarkable Exam: General: Awake, alert in no distress Head: Normocephalic, atraumatic EENT: PERRL, Lids normal, sclera normal, conjunctiva normal, nose normal , ears normal, throat without erythema or exudates Neck: Supple, no adenopathy Lung: breath sounds symmetric, wheezing at the end of expiration, rales at the bases that are symmetric, no rhonchi Chest: symmetric movement, nontender Heart: regular rate and rhythm, normal S1, S2 no murmurs or rubs Abdomen: soft, non-tender, nondistended, normal bowel sounds Back: no vertebral tenderness, no CVAT Extremities: no deformities, moves all extremities symmetrically Neuro: Awake, alert, oriented, normal speech, cranial nerves intact, moves all extremities symmetrically Psych: Pleasant, cooperative Course Course Course Narrative: RME, this is a rapid medical exam performed by Crescencio Bustos please refer to primary provider for complete H&P- 28-year-old female presents for evaluation cough, shortness of breath. Some started 2 weeks ago. She reports that she was given antibiotics to treat pneumonia and bronchitis. She reports her symptoms feel worse now. She also feels heart palpitations. Her heart rate is 130 in triage. Plan for labs, chest x-ray, EKG, viral swabs. Medications Administered Discontinued Medications Generic Name Dose Route Start Last Admin Trade Name Freq PRN Reason Stop Dose Admin Acetaminophen 650 mg 06/12/24 03:45 06/12/24 03:48 Acetaminophen 325 Mg Tablet PO 06/12/24 03:46 650 mg ONCE ONE Administration Amoxicillin 1,000 mg 06/12/24 04:06 06/12/24 04:25 Amoxicillin 500 Mg Capsule PO 06/12/24 04:07 1,000 mg ONCE ONE Administration Azithromycin 500 mg 06/12/24 04:06 06/12/24 04:25 Azithromycin 500 Mg Tablet PO 06/12/24 04:07 500 mg ONCE ONE Administration Prednisone 60 mg 06/12/24 04:06 06/12/24 04:25 Prednisone 20 Mg Tablet PO 06/12/24 04:07 60 mg ONCE ONE Administration Medical Decision Making Medical Decision Making [facility] Narrative: 28-year-old female with a history asthma, depression, anxiety, PTSD, ADHD, fibromyalgia who presents emergency department for evaluation shortness of breath, cough which is productive of thick green mucus with occasional blood in the mucus, and asthma exacerbation -using her inhaler with minimal effect. patient was seen in the emergency department 1.5 weeks prior and given a Z-Bubba with no improvement of her symptoms. Vital signs were normal. Physical examination did reveal wheezing at the end of expiration and rales at the bases , exam was otherwise unremarkable. Differential diagnosis: Includes but is not limited to pneumonia, atypical pneumonia, bacterial bronchitis, viral bronchitis, asthma exacerbation,COVID-19, influenza, RSV, anemia, electrolyte abnormalities Course: my independent interpretation patient's laboratory evaluation is as follows: WBC was normal 6,100. CMP was normal. Quantitative beta-hCG was negative. COVID-19, influenza and RSV were negative. Chest x-ray was unremarkable. Given the patient's symptoms and presentation I believe that she has an asthma exacerbation most likely caused by either by bacterial bronchitis or atypical pneumonia. I did discuss this with the patient. The patient was started on amoxicillin 1000 mg 3 times a day for 5 days, Zithromax Z-Bubba, prednisone 60 mg once a day for 5 days. She was given her 1st dose of amoxicillin, Zithromax and prednisone here in the emergency department. She was given printed and verbal instructions and discharged home. Admission/Observation Consideration of admission/observation: Escalation of care including admission/observation considered ( Yes) Lab Data MDM Lab Attestation statement: I reviewed the patient's lab results. 06/11/24 18:55 06/11/24 18:55 Labs: Lab Results 06/11/24 06/12/24 Range/Units 18:55 01:45 WBC 6.1 (4.8-10.8) X10*3/uL RBC 4.29 (4.20-5.50) X10*6/uL Hgb 12.6 (12.0-16.0) g/dl Hct 37.0 (37.0-47.0) % MCV 86.2 (80.0-98.0) fL MCH 29.4 (27.0-33.0) pg MCHC 34.1 (31.0-35.0) g/dl RDW 12.3 (11.0-16.0) % Plt Count 344 D (160-400) X10*3/uL MPV 8.6 L (9.4-12.3) fL Immature Gran % (Auto) 0.3 (0.0-0.4) % Neut % (Auto) 68.0 (45-73) % Lymph % (Auto) 23.9 (20-40) % Dare % (Auto) 5.7 (2-11) % Eos % (Auto) 1.3 (0-4) % Baso % (Auto) 0.8 (0-2) % Lymph # (Auto) 1.5 (1.2-4.9) X10*3/uL Dare # (Auto) 0.4 (0.1-1.2) X10*3/uL Eos # (Auto) 0.1 (0.0-0.4) X10*3/uL Baso # (Auto) 0.1 (0.0-0.2) X10*3/uL Abs Immat Gran (auto) 0.02 (0.00-0.03) X10*3/uL Absolute Neuts (auto) 4.2 (2.0-8.3) x10*3/uL Absolute Nucleated RBC 0.000 (0.0-0.012) X10*3/uL Nucleated RBC % (auto) 0.0 (0.0-0.2) /100WBC PT 10.7 L (10.9-12.4) SEC INR 0.9 (0.9-1.1) Sodium 142 (135-145) mmol/L Potassium 4.0 (3.3-5.1) mmol/L Chloride 108 (96-108) mmol/L Carbon Dioxide 26 (22-29) mmol/L Anion Gap 12 (12-20) BUN 11 (9-16) mg/dL Creatinine 0.69 (0.5-1.4) mg/dL Estim Creat Clear Calc 135.5 Estimated GFR > 60 POC Glucose 90 (60-115) mg/dL Random Glucose 111 (60-115) mg/dL Calcium 9.4 D (8.4-10.2) mg/dL Magnesium 2.2 (1.6-2.6) mg/dL Total Bilirubin 0.4 (0.0-1.0) mg/dL AST 17 (5-31) U/L ALT 13 (0-31) U/L Alkaline Phosphatase 54 (39-117) U/L Total Protein 7.6 (6.5-8.0) g/dL Albumin 4.4 (3.5-5.0) g/dL Lipase 28 (8-78) U/L TSH 1.04 (0.32-4.0) uIU/mL Beta HCG, Quant < 2 mIU/mL Influenza Type A (PCR) NEGATIVE (Negative) Influenza Type B (PCR) NEGATIVE (Negative) RSV RNA Qual (PCR) NEGATIVE (Negative) SARS-CoV-2 RNA (RT-PCR) NEGATIVE (Negative) Independent Interpretation I performed an independent interpretation of an: Plain X-Ray Interpretation: My independent interpretation patient's two view chest x-ray is as follows: No acute disease Radiology Impression Discussion of test interpretation with radiology: I have reviewed the radiologist's reading. Radiologist Impression: 2 view chest x-ray Comparison: Chest x-ray from 05/27/2024 Findings: No consolidation, pneumothorax, or pleural effusion. Normal size heart. No acute fracture. IMPRESSION: No consolidation. This document has been electronically signed by: Cristian Bruce MD on 06/11/2024 19:47:11 Dictated By: Crsitian Bruce MD Prescription Management I considered prescription management with: Antibiotic ( amoxicillin, Zithromax) and Other ( anti-inflammatory steroid: Prednisone) Chronic Conditions Patient?s care impacted by: Other ( asthma) Discharge Plan Discharge Clinical Impression: Asthma exacerbation, Pneumonia Patient Disposition: Home, Self-Care Instructions: Community Acquired Pneumonia (ED) Additional Instructions: Your blood work was unremarkable. Your COVID-19, influenza and RSV tests were negative. At this time I do not see a clear pneumonia on your chest x-ray however sometimes you can have an atypical (walking) pneumonia which is hard to diagnose therefore I want to treat you with a another course of antibiotics to see if that improves your symptoms. Take amoxicillin 500 mg pills, 2 pills 3 times a day for 5 days. Take Zithromax Z-Bubba as prescribed. Take the 1st dose of Zithromax tomorrow, 06/13/2024 since you were given a 1st dose here today. Take prednisone 20 mg pills, 3 pills once a day for 5 days. While you ?are taking prednisone, do not take any NSAIDs (Motrin, Advil, ibuprofen, Aleve, naproxen). You were given a dose of prednisone today in the emergency department. Take the next dose tomorrow morning to04/2024. Follow-up with your doctor in 2 days. Please return to the emergency department if your symptoms get worse or if you develop any symptoms that are concerning to you. Prescriptions: New amoxicillin 500 mg capsule 1,000 mg PO TID 5 Days Qty: 30 0RF azithromycin [Zithromax Z-Bubba] 250 mg tablet See Rx Instructions .ROUTE .COMPLEX Qty: 6 0RF Rx Instructions: take 500 mg today (day 1), then 250 mg for 4 days (days 2-5) prednisone 20 mg tablet 60 mg PO DAILY 5 Days Qty: 15 0RF No Action metoclopramide HCl [Reglan] 10 mg tablet 10 mg PO Q6H PRN (Reason: nausea and vomiting) Qty: 20 0RF nitrofurantoin monohyd/m-cryst [Macrobid] 100 mg capsule 100 mg PO Q12H 5 Days Qty: 10 0RF Rx Instructions: must administer with a meal/food tramadol 50 mg tablet 50 mg PO Q6H PRN (Reason: pain) Qty: 20 0RF ibuprofen 600 mg tablet 600 mg PO Q8H PRN (Reason: pain) Qty: 20 0RF lidocaine 5 % adhesive patch,medicated 1 patch topical DAILY Qty: 15 0RF Rx Instructions: leave on most painful area for up to 12 hrs mupirocin 2 % ointment 1 appl topical TID Qty: 15 0RF fluconazole [Diflucan] 150 mg tablet 150 mg PO Q3D Qty: 2 0RF meclizine 25 mg tablet 25 mg PO TID PRN (Reason: dizziness) Qty: 14 0RF doxycycline monohydrate 100 mg capsule 100 mg PO BID Qty: 20 0RF fluconazole 150 mg tablet 150 mg PO ONCE 1 Days Qty: 1 0RF cyclobenzaprine 10 mg tablet 10 mg PO TID PRN (Reason: muscle spasm) Qty: 10 0RF cefuroxime axetil 500 mg tablet 500 mg PO BID 7 Days Qty: 14 0RF cyclobenzaprine 10 mg tablet 10 mg PO TID PRN (Reason: muscle spasm) Qty: 14 0RF lidocaine 5 % adhesive patch,medicated 1 patch topical DAILY Qty: 15 0RF Rx Instructions: leave on most painful area for up to 12 hrs ibuprofen 600 mg tablet 600 mg PO Q8H PRN (Reason: pain) Qty: 20 0RF ondansetron 4 mg tablet,disintegrating 4 mg PO Q8H 3 Days Qty: 9 0RF azithromycin 250 mg tablet 250 mg PO DAILY 4 Days Qty: 4 0RF Rx Instructions: start on day 2 of therapy ondansetron 4 mg tablet,disintegrating 4 mg PO Q6H PRN (Reason: nausea and vomiting) Qty: 10 0RF hyoscyamine sulfate 0.125 mg tablet 0.125 mg PO QID PRN (Reason: dyspepsia) Qty: 10 0RF Interventions: ED Discharge Assessment Last Done: 06/12/24 04:30 Discharge Date/Time: 06/12/24 04:30 Print Language: [place]
--- NOTE | 2024-06-11 18:43 | ECG_ITS ---
Test Reason : tachy Blood Pressure : */* mmHG Vent. Rate : 114 BPM Atrial Rate : 114 BPM P-R Int : 114 ms QRS Dur : 78 ms QT Int : 304 ms P-R-T Axes : 49 27 -17 degrees QTcB Int : 419 ms Sinus tachycardia Nonspecific T wave abnormality Abnormal ECG When compared with ECG of 27-May-2024 16:14, No significant change was found Referred By: James Bustos Electronically Signed By: ROHAN MONTANO
[2024-06-11 19:05] LABS: MANUAL DIFF FLAG NO
[2024-06-11 19:07] LABS: Basophils Absolute Auto 0.1 X10*3/uL (0.0-0.2); Basophils Percent Auto 0.8 % (0-2); Eosinophils Absolute Auto 0.1 X10*3/uL (0.0-0.4); Eosinophils Percent Auto 1.3 % (0-4); Hemoglobin 12.6 g/dl (12.0-16.0); Imm Gran Abs Auto 0.02 X10*3/uL (0.00-0.03); Imm Gran Pct Auto 0.3 % (0.0-0.4); Lymphocytes Absolute Auto 1.5 X10*3/uL (1.2-4.9); Lymphocytes Percent Auto 23.9 % (20-40); Mean Corpuscular HGB Conc 34.1 g/dl (31.0-35.0); Mean Corpuscular Hemoglobin 29.4 pg (27.0-33.0); Mean Corpuscular Volume 86.2 fL (80.0-98.0); Mean Platelet Volume 8.6 fL (9.4-12.3); Monocytes Absolute Auto 0.4 X10*3/uL (0.1-1.2); Monocytes Percent Auto 5.7 % (2-11); Neutrophils Absolute Auto 4.2 x10*3/uL (2.0-8.3); Platelet Count 344 X10*3/uL (160-400); Red Blood Count 4.29 X10*6/uL (4.20-5.50); Red Cell Distribution Width 12.3 % (11.0-16.0); White Blood Count 6.1 X10*3/uL (4.8-10.8)
[2024-06-11 19:15] LABS: INTERNATIONAL NORM RATIO 0.9 (0.9-1.1); Prothrombin Time 10.7 SEC (10.9-12.4)
[2024-06-11 19:31] LABS: Alanine Aminotransferase 13 U/L (0-31); Albumin Level 4.4 g/dL (3.5-5.0); Alkaline Phosphatase 54 U/L (39-117); Anion Gap 12 (12-20); Aspartate Amino Transferase 17 U/L (5-31); Bilirubin Total 0.4 mg/dL (0.0-1.0); Blood Urea Nitrogen 11 mg/dL (9-16); Calcium 9.4 mg/dL (8.4-10.2); Carbon Dioxide 26 mmol/L (22-29); Chloride 108 mmol/L (96-108); Creatinine Clr Calc Pharmacy 135.5; Estimated Glomerular Filt Rate > 60; Glucose Random 111 mg/dL (60-115); Lipase 28 U/L (8-78); Magnesium 2.2 mg/dL (1.6-2.6); Sodium 142 mmol/L (135-145); Total Protein 7.6 g/dL (6.5-8.0)
[2024-06-11 19:32] LABS: HCG Quantitative < 2 mIU/mL
[2024-06-11 19:45] LABS: TSH reflex Free T4 1.04 uIU/mL (0.32-4.0)
[2024-06-11 19:51] LABS: Influenza A PCR NEGATIVE (Negative); Influenza B PCR NEGATIVE (Negative); Resp Syncy Virus RNA Qual PCR NEGATIVE (Negative); SARS COV2 PCR INHOUSE NEGATIVE (Negative)
[2024-06-12 00:26] VITALS: BP 112/69; PULSE 98; RESP 20; TEMP 37.1; O2SAT 99
--- NOTE | 2024-06-12 01:11 | MHC.EDTECH ---
Patient refusing to give urine sample ,SIVA mendoza .
[2024-06-12 01:47] VITALS: BP 114/71; PULSE 100; RESP 18; TEMP 36.2; O2SAT 97
[2024-06-12 01:48] LABS: Glucose, Whole Blood 90 mg/dL (60-115)
[2024-06-12 03:36] VITALS: BP 133/76; PULSE 98; RESP 16; TEMP 36.2; O2SAT 96
[2024-06-12] MEDS: Acetaminophen 325 MG TABLET 650 MG PO (03:48)
[2024-06-12] MEDS: Azithromycin 500 MG TABLET PO (04:25)
[2024-06-12] MEDS: predniSONE 20 MG TABLET 60 MG PO (04:25)
[2024-06-12] MEDS: Amoxicillin 500 MG CAPSULE 1000 MG PO (04:25)
[2024-06-12 04:30] VITALS: BP 133/76; PULSE 98; RESP 16; TEMP 36.2; O2SAT 96
== END 2024-06-12 04:30 | disposition home or self-care (01) ==
PROVIDERS: Physician Assistant; Emergency Provider Emergency Medicine Emergency Medical Services; PCP Family Medicine
DX: J45.901 Unspecified asthma with (acute) exacerbation (principal); J18.9 Pneumonia, unspecified organism; R06.02 Shortness of breath; Z03.818 Encounter for observation for suspected exposure to other biological agents ruled out; F60.3 Borderline personality disorder; F43.10 Post-traumatic stress disorder, unspecified; Z79.899 Other long term (current) drug therapy
CPT/HCPCS: 0241U; 36415; 71046; 80053; 82947; 83690; 83735; 84443; 84702; 85025; 85610; 93005; 99283; 99284

== ENCOUNTER → 2024-06-11 18:42 | Outpatient (BNV) | payer OTHER, SELFPAY | PROVIDERS: PCP Family Medicine; Visit Provider Radiology Neuroradiology | DX: R07.9 Chest pain, unspecified (principal) | CPT/HCPCS: 71046 ==

== ENCOUNTER → 2024-06-11 18:43 | Outpatient (BNV) | payer OTHER, SELFPAY | PROVIDERS: Emergency Provider Emergency Medicine Emergency Medical Services; PCP Family Medicine; Visit Provider Internal Medicine | DX: R00.0 Tachycardia, unspecified (principal) | CPT/HCPCS: 93010 ==

== ENCOUNTER 2024-07-01 00:46 | Emergency (ER) | payer OTHER, SELFPAY ==
[2024-07-01 00:51] VITALS: BP 126/88; PULSE 97; O2SAT 99
[2024-07-01 01:00] VITALS: BP 126/54; PULSE 100; RESP 17; TEMP 36.8; O2SAT 98; BMI 27.5
[2024-07-01 02:00] VITALS: BP 103/64; PULSE 86; RESP 18; TEMP 36.8; O2SAT 98
[2024-07-01 02:53] LABS: Basophils Absolute Auto 0.1 X10*3/uL (0.0-0.2); Basophils Percent Auto 0.5 % (0-2); Eosinophils Absolute Auto 0.1 X10*3/uL (0.0-0.4); Eosinophils Percent Auto 1.3 % (0-4); Hematocrit 35.8 % (37.0-47.0); Hemoglobin 12.5 g/dl (12.0-16.0); Imm Gran Abs Auto 0.03 X10*3/uL (0.00-0.03); Imm Gran Pct Auto 0.3 % (0.0-0.4); Lymphocytes Absolute Auto 1.8 X10*3/uL (1.2-4.9); Lymphocytes Percent Auto 18.8 % (20-40); MANUAL DIFF FLAG NO; Mean Corpuscular HGB Conc 34.9 g/dl (31.0-35.0); Mean Corpuscular Volume 85.9 fL (80.0-98.0); Mean Platelet Volume 8.5 fL (9.4-12.3); Monocytes Absolute Auto 0.7 X10*3/uL (0.1-1.2); Monocytes Percent Auto 6.9 % (2-11); Neutrophils Percent Auto 72.2 % (45-73); Platelet Count 278 X10*3/uL (160-400); Red Blood Count 4.17 X10*6/uL (4.20-5.50); Red Cell Distribution Width 12.4 % (11.0-16.0); White Blood Count 9.6 X10*3/uL (4.8-10.8)
[2024-07-01 03:13] LABS: Alanine Aminotransferase 18 U/L (0-31); Albumin Level 4.2 g/dL (3.5-5.0); Anion Gap 13 (12-20); Aspartate Amino Transferase 18 U/L (5-31); Bilirubin Total 0.5 mg/dL (0.0-1.0); Blood Urea Nitrogen 14 mg/dL (9-16); Calcium 9.5 mg/dL (8.4-10.2); Carbon Dioxide 25 mmol/L (22-29); Chloride 108 mmol/L (96-108); Creatinine Clr Calc Pharmacy 139.1; Estimated Glomerular Filt Rate > 60; Glucose Random 88 mg/dL (60-115); Potassium 3.9 mmol/L (3.3-5.1); Sodium 142 mmol/L (135-145); Total Protein 7.4 g/dL (6.5-8.0)
[2024-07-01 03:15] LABS: Alkaline Phosphatase 47 U/L (39-117)
[2024-07-01 04:19] VITALS: BP 117/65; PULSE 94; RESP 16; O2SAT 96
[2024-07-01 06:15] VITALS: BP 106/62; PULSE 94; RESP 16; TEMP 36.5; O2SAT 97
--- NOTE | 2024-07-01 07:26 | ED_ITS ---
HPI - Skin/Abscess/Foreign Bdy General Chief complaint: Skin/Abscess/Foreign Body Stated complaint: CYST ON ON HEAD CAUSING HEADACHE Time Seen by Provider: 07/01/24 07:25 Source: patient and RN notes reviewed Mode of arrival: ambulatory Limitations: no limitations History of Present Illness ED Provider: Zuleima Harris PA-C HPI narrative: This is a 28-year-old female, with a past medical history of asthma, depression, anxiety, PTSD, ADHD, fibromyalgia, who presents emergency department with complaints of scalp cysts . Patient states that approximately 3 weeks ago she her scalp which has caused her to have skin irritation in the past. She states that she has had 3 areas of swelling on her scalp, which are itchy and draining. She reports that she has had low-grade fevers, stating that it was on 99.3. She denies any chest pain, shortness breath, abdominal pain, nausea, vomiting or diarrhea. She does report headache around the cystic areas. No other complaints or concerns at this time. MD complaint: abscess/boil Onset (ago): day(s) Location: head Severity: mild Quality: aching Pain Consistency: constant Relieving factors: none Exacerbating factors: none Context: none Associated symptoms: denies other symptoms Treatments prior to arrival: none Related Data Previous Rx's ?Medication ?Instructions ?Recorded tramadol 50 mg tablet 50 mg PO Q6H PRN pain #20 tabs 07/03/20 metoclopramide HCl 10 mg tablet 10 mg PO Q6H PRN nausea and 09/07/20 (Reglan) vomiting #20 tabs nitrofurantoin 100 mg PO Q12H 5 days #10 caps 12/19/20 monohydrate/macrocrystals 100 mg capsule (Macrobid) cyclobenzaprine 10 mg tablet 10 mg PO TID PRN muscle spasm #10 01/17/21 tabs fluconazole 150 mg tablet 150 mg PO ONCE 1 day #1 tab 01/17/21 cefuroxime axetil 500 mg tablet 500 mg PO BID 7 days #14 tabs 01/18/21 fluconazole 150 mg tablet 150 mg PO Q3D 2 doses #2 tabs 02/16/21 (Diflucan) ibuprofen 600 mg tablet 600 mg PO Q8H PRN pain #20 tabs 02/16/21 lidocaine 5 % topical patch 1 patch topical DAILY #15 ea 02/16/21 mupirocin 2 % topical ointment 1 appl topical TID #15 grams 02/16/21 cyclobenzaprine 10 mg tablet 10 mg PO TID PRN muscle spasm #14 03/03/21 tabs ibuprofen 600 mg tablet 600 mg PO Q8H PRN pain #20 tabs 03/03/21 lidocaine 5 % topical patch 1 patch topical DAILY #15 ea 03/03/21 meclizine 25 mg tablet 25 mg PO TID PRN dizziness #14 tabs 03/17/21 doxycycline monohydrate 100 mg 100 mg PO BID #20 caps 07/30/21 capsule ondansetron 4 mg disintegrating 4 mg PO Q8H 3 days #9 tabs 08/29/21 tablet hyoscyamine sulfate 0.125 mg tablet 0.125 mg PO QID PRN dyspepsia #10 03/25/24 tabs ondansetron 4 mg disintegrating 4 mg PO Q6H PRN nausea and 03/25/24 tablet vomiting #10 tabs azithromycin 250 mg tablet 250 mg PO DAILY 4 days #4 tabs 05/27/24 amoxicillin 500 mg capsule 1,000 mg (2 x 500 mg) PO TID 5 06/12/24 days #30 caps azithromycin 250 mg tablet See Rx Instructions PO .COMPLEX #6 06/12/24 (Zithromax Z-Bubba) tabs prednisone 20 mg tablet 60 mg (3 x 20 mg) PO DAILY 5 days 06/12/24 #15 tabs acetaminophen 500 mg tablet 1,000 mg (2 x 500 mg) PO Q8H PRN 07/01/24 (Tylenol Extra Strength) pain #30 tabs cephalexin 500 mg capsule 500 mg PO QID 5 days #20 caps 07/01/24 fluconazole 150 mg tablet 150 mg PO Q3D 2 doses #2 tabs 07/01/24 ibuprofen 600 mg tablet 600 mg PO Q6H PRN pain #30 tabs 07/01/24 Allergies Allergy/AdvReac Type Severity Reaction Status Date / Time Iodinated Contrast Media Allergy Severe RASH, ABD Verified 07/01/24 01:03 [CONTRAST,IV] PAINS, BODY FEELS LIKE ON FIRE shubham Allergy Severe AIRWAY Verified 07/01/24 01:03 CLOSES shellfish derived Allergy Severe ANAPHYLAXIS Verified 07/01/24 01:03 [SHELLFISH DERIVED] Sulfa (Sulfonamide Allergy Severe RASH Verified 07/01/24 01:03 Antibiotics) [SULFA (SULFONAMIDE ANTIBIOTICS)] diphenhydramine Allergy Intermediate Panic Verified 07/01/24 01:03 [From Benadryl] attack hazelnut [HAZELNUT] Allergy Intermediate THROAT Verified 07/01/24 01:03 IRRITATION aloe Allergy Unknown Swelling Verified 07/01/24 01:03 pomegranate [POMEGRANATE] Allergy Unknown DIFFICULTY Verified 07/01/24 01:03 BREATHING prazosin [PRAZOSIN] Allergy Unknown UNKNOWN Verified 07/01/24 01:03 topiramate [From Topamax] AdvReac Intermediate Rash Verified 07/01/24 01:03 lorazepam [From Ativan] AdvReac Unknown Unknown Verified 07/01/24 01:03 ondansetron [From Zofran] AdvReac Unknown Migraine Verified 07/01/24 01:03 propranolol AdvReac Unknown Verified 07/01/24 01:03 Review of Systems 2 Review of Systems: Yes all other systems are reviewed and are negative [facility] Past Medical History Attestation statement: The following information was validated with the patient. Medical History Migraines Borderline personality disorder PTSD (post-traumatic stress disorder) Anxiety Social History Social History Alcohol intake: never Patient Tobacco Use Status: Former Tobacco user Smoked in Last 30 Days: No Use of substances other than those prescribed or required for medical reasons: Yes Substance Use Type: Marijuana Advance Directives: No Advance Directives Information Provided: Yes Do you have a plan to hurt others: No Plan Patient : No Physical Exam 2 Vital Signs: Vital Signs: Last Vital Signs Temp 97.7 F 07/01/24 06:15 Pulse 94 07/01/24 06:15 Resp 16 07/01/24 06:15 BP 106/62 07/01/24 06:15 Pulse Ox 97 07/01/24 06:15 O2 Del Method Room Air 07/01/24 06:15 BMI result Body Mass Index 27.5 Const: Other: General: Awake, alert, and oriented X3. No acute distress. HEENT: Normal inspection CVS: Normal heart rate and rhythm. Pulses normal. Respiratory: No respiratory distress Skin: Left temporal scalp, with 3 cm x 3 cm circular area of erythema, and crusting noted, serosanguineous fluid expressed, with crusting. No induration, or fluctuance noted. On the right temporal scalp, there is areas of crusting, no surrounding erythema or warmth. No induration Extremities: Neuro: Oriented X 3. No motor deficit. No sensory deficit. Medications Administered Discontinued Medications Generic Name Dose Route Start Last Admin Trade Name Morenoq PRN Reason Stop Dose Admin Acetaminophen 975 mg 07/01/24 07:27 07/01/24 07:34 Acetaminophen 325 Mg Tablet PO 07/01/24 07:28 975 mg ONCE ONE Administration Medical Decision Making Medical Decision Making [facility] Narrative: This is a 28-year-old female, with a past medical history of asthma, depression, anxiety, PTSD, ADHD, fibromyalgia, who presents emergency department with complaints of scalp cysts . On arrival, patient arrived at 1:00 a.m. in the morning, patient was not seen and evaluated by me due to prolonged wait times until 7:30 a.m. patient with erythema, serosanguineous drainage noted to the right parietal scalp. Differential diagnoses include cellulitis, cyst, abscess, contact dermatitis, folliculitis. Physical examination concerning for cellulitis without abscess. Will discharge patient on Keflex. Patient states that she was concerned that she may get a yeast infection if she was put back on antibiotics that she was previously on azithromycin several weeks ago due to treatment of pneumonia. Patient will be treated with fluconazole. Given strict return precautions. She understands agrees with plan. Patient stable for discharge Differential Diagnosis Differential Diagnoses: The differential diagnosis associated with the presentation includes See above Lab Data [facility] Lab Attestation statement: I reviewed the patient's lab results. No leukocytosis, stable H&H, chemistry with no significant electrolyte derangement. 07/01/24 02:47 07/01/24 02:47 Labs: Lab Results 07/01/24 Range/Units 02:47 WBC 9.6 (4.8-10.8) X10*3/uL RBC 4.17 L (4.20-5.50) X10*6/uL Hgb 12.5 (12.0-16.0) g/dl Hct 35.8 L (37.0-47.0) % MCV 85.9 (80.0-98.0) fL MCH 30.0 (27.0-33.0) pg MCHC 34.9 (31.0-35.0) g/dl RDW 12.4 (11.0-16.0) % Plt Count 278 (160-400) X10*3/uL MPV 8.5 L (9.4-12.3) fL Immature Gran % (Auto) 0.3 (0.0-0.4) % Neut % (Auto) 72.2 (45-73) % Lymph % (Auto) 18.8 L (20-40) % Glasscock % (Auto) 6.9 (2-11) % Eos % (Auto) 1.3 (0-4) % Baso % (Auto) 0.5 (0-2) % Lymph # (Auto) 1.8 (1.2-4.9) X10*3/uL Glasscock # (Auto) 0.7 (0.1-1.2) X10*3/uL Eos # (Auto) 0.1 (0.0-0.4) X10*3/uL Baso # (Auto) 0.1 (0.0-0.2) X10*3/uL Abs Immat Gran (auto) 0.03 (0.00-0.03) X10*3/uL Absolute Neuts (auto) 7.0 (2.0-8.3) x10*3/uL Absolute Nucleated RBC 0.000 (0.0-0.012) X10*3/uL Nucleated RBC % (auto) 0.0 (0.0-0.2) /100WBC Sodium 142 (135-145) mmol/L Potassium 3.9 (3.3-5.1) mmol/L Chloride 108 (96-108) mmol/L Carbon Dioxide 25 (22-29) mmol/L Anion Gap 13 (12-20) BUN 14 (9-16) mg/dL Creatinine 0.67 (0.5-1.4) mg/dL Estim Creat Clear Calc 139.1 Estimated GFR > 60 Random Glucose 88 (60-115) mg/dL Calcium 9.5 (8.4-10.2) mg/dL Total Bilirubin 0.5 (0.0-1.0) mg/dL AST 18 (5-31) U/L ALT 18 (0-31) U/L Alkaline Phosphatase 47 (39-117) U/L Total Protein 7.4 (6.5-8.0) g/dL Albumin 4.2 (3.5-5.0) g/dL Discharge Plan Discharge Clinical Impression: Cellulitis Patient Disposition: Home, Self-Care Instructions: Cellulitis (ED) Additional Instructions: You were seen in the emergency department due to scalp cysts and pain. You do have evidence of a skin infection on your scalp therefore it is very important that you take the prescribed antibiotic as directed. Finish the entire course even if your symptoms improve. Do not pick at your scalp as this is likely going to cause your symptoms to be much worse. You may gently wash your scalp. Do not use any abrasive products on your scalp. I also I am prescribing you ibuprofen and Tylenol as needed for pain and symptoms. I am also prescribing you Diflucan, this is going to help with your reported yeast infection. Please drink plenty of fluids get plenty of rest. If any new or worsening symptoms occur including but not limited to worsening pain, drainage, fevers, chills, please seek emergent care. Prescriptions: New cephalexin 500 mg capsule 500 mg PO QID 5 Days Qty: 20 0RF ibuprofen 600 mg tablet 600 mg PO Q6H PRN (Reason: pain) Qty: 30 0RF acetaminophen [Tylenol Extra Strength] 500 mg tablet 1,000 mg PO Q8H PRN (Reason: pain) Qty: 30 0RF fluconazole 150 mg tablet 150 mg PO Q3D Qty: 2 0RF No Action metoclopramide HCl [Reglan] 10 mg tablet 10 mg PO Q6H PRN (Reason: nausea and vomiting) Qty: 20 0RF nitrofurantoin monohyd/m-cryst [Macrobid] 100 mg capsule 100 mg PO Q12H 5 Days Qty: 10 0RF Rx Instructions: must administer with a meal/food tramadol 50 mg tablet 50 mg PO Q6H PRN (Reason: pain) Qty: 20 0RF ibuprofen 600 mg tablet 600 mg PO Q8H PRN (Reason: pain) Qty: 20 0RF lidocaine 5 % adhesive patch,medicated 1 patch topical DAILY Qty: 15 0RF Rx Instructions: leave on most painful area for up to 12 hrs mupirocin 2 % ointment 1 appl topical TID Qty: 15 0RF fluconazole [Diflucan] 150 mg tablet 150 mg PO Q3D Qty: 2 0RF meclizine 25 mg tablet 25 mg PO TID PRN (Reason: dizziness) Qty: 14 0RF doxycycline monohydrate 100 mg capsule 100 mg PO BID Qty: 20 0RF fluconazole 150 mg tablet 150 mg PO ONCE 1 Days Qty: 1 0RF cyclobenzaprine 10 mg tablet 10 mg PO TID PRN (Reason: muscle spasm) Qty: 10 0RF cefuroxime axetil 500 mg tablet 500 mg PO BID 7 Days Qty: 14 0RF cyclobenzaprine 10 mg tablet 10 mg PO TID PRN (Reason: muscle spasm) Qty: 14 0RF lidocaine 5 % adhesive patch,medicated 1 patch topical DAILY Qty: 15 0RF Rx Instructions: leave on most painful area for up to 12 hrs ibuprofen 600 mg tablet 600 mg PO Q8H PRN (Reason: pain) Qty: 20 0RF ondansetron 4 mg tablet,disintegrating 4 mg PO Q8H 3 Days Qty: 9 0RF azithromycin 250 mg tablet 250 mg PO DAILY 4 Days Qty: 4 0RF Rx Instructions: start on day 2 of therapy amoxicillin 500 mg capsule 1,000 mg PO TID 5 Days Qty: 30 0RF azithromycin [Zithromax Z-Ubbba] 250 mg tablet See Rx Instructions .ROUTE .COMPLEX Qty: 6 0RF Rx Instructions: take 500 mg today (day 1), then 250 mg for 4 days (days 2-5) prednisone 20 mg tablet 60 mg PO DAILY 5 Days Qty: 15 0RF ondansetron 4 mg tablet,disintegrating 4 mg PO Q6H PRN (Reason: nausea and vomiting) Qty: 10 0RF hyoscyamine sulfate 0.125 mg tablet 0.125 mg PO QID PRN (Reason: dyspepsia) Qty: 10 0RF Print Language: Samoan
[2024-07-01] MEDS: Acetaminophen 325 MG TABLET 975 MG PO (07:34)
[2024-07-01 08:28] VITALS: BP 106/62; PULSE 94; RESP 16; TEMP 36.5; O2SAT 97
== END 2024-07-01 08:32 | disposition home or self-care (01) ==
PROVIDERS: Emergency Provider Student in an Organized Health Care Education/Training Program; PCP Family Medicine
DX: L03.811 Cellulitis of head [any part, except face] (principal); R51.9 Headache, unspecified; R50.9 Fever, unspecified; Z87.891 Personal history of nicotine dependence
CPT/HCPCS: 36415; 80053; 85025; 99283; 99284

== ENCOUNTER 2024-09-29 22:52 | Emergency (ER) | payer OTHER, SELFPAY ==
--- NOTE | 2024-09-29 23:13 | ECG_ITS ---
Test Reason : overdose Blood Pressure : */* mmHG Vent. Rate : 98 BPM Atrial Rate : 98 BPM P-R Int : 116 ms QRS Dur : 86 ms QT Int : 348 ms P-R-T Axes : 58 23 38 degrees QTcB Int : 444 ms Normal sinus rhythm Nonspecific T wave abnormality Abnormal ECG When compared with ECG of 11-Jun-2024 18:54, No significant change was found Referred By: Becca Romero Electronically Signed By: KTAYA PAULSON MD
--- NOTE | 2024-09-29 23:16 | ED.OVERDOSE ---
HPI - Overdose General Chief Complaint: General Medical Stated Complaint: ADHD med OD Time Seen by Provider: 09/29/24 23:06 Source: patient and old records reviewed Mode of arrival: ambulatory Limitations: no limitations History of Present Illness ED Provider: SVETLANA GIVENS Narrative: 29 yo female with PMH of migraines, PTSD, borderline personality disorder, ADHD who states she took her Vyvanse 60mg at 10am then accidentally forgot and took another 60mg of it at 1pm. Since then she feels shaky, agitated with n/v/d. She called [facility] control and they told her if symptoms persist to go to the ED. She has no SI/HI. She is very anxious on arrival and short with answers. I am agitated and feel I am going to freak out. complaint: accidental overdose Onset (ago): hour(s) (10am/1pm) Context: Accidental Overdose: medication error Associated symptoms: nausea/vomiting Treatments Prior to Arrival: none Related Data Previous Rx's ?Medication ?Instructions ?Recorded tramadol 50 mg tablet 50 mg PO Q6H PRN pain #20 tabs 07/03/20 metoclopramide HCl 10 mg tablet 10 mg PO Q6H PRN nausea and 09/07/20 (Reglan) vomiting #20 tabs nitrofurantoin 100 mg PO Q12H 5 days #10 caps 12/19/20 monohydrate/macrocrystals 100 mg capsule (Macrobid) cyclobenzaprine 10 mg tablet 10 mg PO TID PRN muscle spasm #10 01/17/21 tabs fluconazole 150 mg tablet 150 mg PO ONCE 1 day #1 tab 01/17/21 cefuroxime axetil 500 mg tablet 500 mg PO BID 7 days #14 tabs 01/18/21 fluconazole 150 mg tablet 150 mg PO Q3D 2 doses #2 tabs 02/16/21 (Diflucan) ibuprofen 600 mg tablet 600 mg PO Q8H PRN pain #20 tabs 02/16/21 lidocaine 5 % topical patch 1 patch topical DAILY #15 ea 02/16/21 mupirocin 2 % topical ointment 1 appl topical TID #15 grams 02/16/21 cyclobenzaprine 10 mg tablet 10 mg PO TID PRN muscle spasm #14 03/03/21 tabs ibuprofen 600 mg tablet 600 mg PO Q8H PRN pain #20 tabs 03/03/21 lidocaine 5 % topical patch 1 patch topical DAILY #15 ea 03/03/21 meclizine 25 mg tablet 25 mg PO TID PRN dizziness #14 tabs 03/17/21 doxycycline monohydrate 100 mg 100 mg PO BID #20 caps 07/30/21 capsule ondansetron 4 mg disintegrating 4 mg PO Q8H 3 days #9 tabs 08/29/21 tablet hyoscyamine sulfate 0.125 mg tablet 0.125 mg PO QID PRN dyspepsia #10 03/25/24 tabs ondansetron 4 mg disintegrating 4 mg PO Q6H PRN nausea and 03/25/24 tablet vomiting #10 tabs azithromycin 250 mg tablet 250 mg PO DAILY 4 days #4 tabs 05/27/24 amoxicillin 500 mg capsule 1,000 mg (2 x 500 mg) PO TID 5 06/12/24 days #30 caps azithromycin 250 mg tablet See Rx Instructions PO .COMPLEX #6 06/12/24 (Zithromax Z-Bubba) tabs prednisone 20 mg tablet 60 mg (3 x 20 mg) PO DAILY 5 days 06/12/24 #15 tabs acetaminophen 500 mg tablet 1,000 mg (2 x 500 mg) PO Q8H PRN 07/01/24 (Tylenol Extra Strength) pain #30 tabs cephalexin 500 mg capsule 500 mg PO QID 5 days #20 caps 07/01/24 fluconazole 150 mg tablet 150 mg PO Q3D 2 doses #2 tabs 07/01/24 ibuprofen 600 mg tablet 600 mg PO Q6H PRN pain #30 tabs 07/01/24 Allergies Allergy/AdvReac Type Severity Reaction Status Date / Time Iodinated Contrast Media Allergy Severe RASH, ABD Verified 09/29/24 23:32 [CONTRAST,IV] PAINS, BODY FEELS LIKE ON FIRE shubham Allergy Severe AIRWAY Verified 09/29/24 23:32 CLOSES shellfish derived Allergy Severe ANAPHYLAXIS Verified 09/29/24 23:32 [SHELLFISH DERIVED] Sulfa (Sulfonamide Allergy Severe RASH Verified 09/29/24 23:32 Antibiotics) [SULFA (SULFONAMIDE ANTIBIOTICS)] diphenhydramine Allergy Intermediate Panic Verified 09/29/24 23:32 [From Benadryl] attack hazelnut [HAZELNUT] Allergy Intermediate THROAT Verified 09/29/24 23:32 IRRITATION aloe Allergy Unknown Swelling Verified 09/29/24 23:32 pomegranate [POMEGRANATE] Allergy Unknown DIFFICULTY Verified 09/29/24 23:32 BREATHING prazosin [PRAZOSIN] Allergy Unknown UNKNOWN Verified 09/29/24 23:32 topiramate [From Topamax] AdvReac Intermediate Rash Verified 09/29/24 23:32 lorazepam [From Ativan] AdvReac Unknown Unknown Verified 09/29/24 23:32 ondansetron [From Zofran] AdvReac Unknown Migraine Verified 09/29/24 23:32 propranolol AdvReac Unknown Verified 09/29/24 23:32 Review of Systems Review of Systems: Constitutional : No Weight loss, No Fever, No Chills ENT/Mouth : No sore throat, No Rhinorrhea Eyes: No Swelling, No Redness Cardiovascular : No Chest Pain, No SOB, NoEdema Respiratory : No Cough, No Sputum, No Wheezing Gastrointestinal : Positive Nausea, Positive Vomiting, positive Diarrhea, no abdominal Pain, No Hematochezia, No Melena Genitourinary : No Dysuria, No Urinary Frequency, No Hematuria, No Urgency Musculoskeletal : No joint pain, No Myalgias, No Joint Swelling Skin : No Skin Lesions, No rash Neuro : No Weakness, No Numbness, No Dizziness, No Headache Psych : pos Anxiety/Panic, No Depression All other systems reviewed and are negative. [facility] Past Medical History Attestation statement: The following information was validated with the patient. Source: old records reviewed Medical History Migraines Borderline personality disorder PTSD (post-traumatic stress disorder) Anxiety Social History Social History Alcohol intake: never Patient Tobacco Use Status: Former Tobacco user Substance Use Type: Marijuana Advance Directives: No Advance Directives Information Provided: No Do you have a plan to hurt others: No Plan Physical Exam Vital Signs: Vital Signs: Last Vital Signs Temp 97.9 F 09/29/24 23:30 Pulse 101 H 09/29/24 23:30 Resp 18 09/29/24 23:30 BP 129/76 09/29/24 23:30 Pulse Ox 99 09/29/24 23:30 O2 Del Method Room Air 09/29/24 23:30 BMI result Body Mass Index 27.1 Appearance: Alert. Oriented X3. No acute distress. Eyes: Pupils equal, round and reactive to light. 3mm ENT: Pharynx normal. Neck: Normal inspection. Neck supple. CVS: Normal heart rate and rhythm. Pulses normal. Respiratory: No respiratory distress. Breath sounds normal. Abdomen: Soft and nontender. Skin: Skin warm and dry. Normal skin color. Normal skin turgor. Extremities: No lower extremity edema. No calf ttp Neuro: Oriented X 3. No motor deficit. No sensory deficit. CN2-12 intact. Normal gait Medications Administered Discontinued Medications Generic Name Dose Route Start Last Admin Trade Name Freq PRN Reason Stop Dose Admin Lactated Ringer's 1,000 mls @ 999 mls/hr 09/29/24 23:13 09/29/24 23:43 Lr IV 09/30/24 00:13 999 mls/hr .Q1H1M ONE Administration Prochlorperazine Edisylate 5 mg 09/29/24 23:14 09/30/24 00:18 Prochlorperazine Edisylate 10 Mg/2 Ml Vial IVPUSH 09/29/24 23:15 5 mg ONCE ONE Administration Medical Decision Making Medical Decision Making MDM Narrative: 29 yo female with PMH of migraines, PTSD, borderline personality disorder, ADHD now here with accidental ingestion of her vyvanse 60mg at 10am and 60mg at 1pm. She states she feels anxiety, agitated, n/v and not well since then. She denies SI/HI. Differential Diagnosis Differential Diagnoses: The differential diagnosis associated with the presentation includes anxiety, overdose, viral syndrome Admission/Observation Consideration of admission/observation: Escalation of care including admission/observation considered wants to leave poison control states just supportive care no special recommendations Consult Healthcare Provider Management of the patient was discussed with: Director [facility] Data [facility] Lab Attestation statement: I reviewed the patient's lab results. 09/29/24 23:23 09/29/24 23:23 Labs: Lab Results 09/29/24 Range/Units 23:23 WBC 6.5 (4.8-10.8) X10*3/uL RBC 4.31 (4.20-5.50) X10*6/uL Hgb 12.6 (12.0-16.0) g/dl Hct 36.8 L (37.0-47.0) % MCV 85.4 (80.0-98.0) fL MCH 29.2 (27.0-33.0) pg MCHC 34.2 (31.0-35.0) g/dl RDW 11.7 (11.0-16.0) % Plt Count 293 (160-400) X10*3/uL MPV 8.5 L (9.4-12.3) fL Immature Gran % (Auto) 0.3 (0.0-0.4) % Neut % (Auto) 71.3 (45-73) % Lymph % (Auto) 21.0 (20-40) % [place] % (Auto) 5.5 (2-11) % Eos % (Auto) 1.1 (0-4) % Baso % (Auto) 0.8 (0-2) % Lymph # (Auto) 1.4 (1.2-4.9) X10*3/uL [place] # (Auto) 0.4 (0.1-1.2) X10*3/uL Eos # (Auto) 0.1 (0.0-0.4) X10*3/uL Baso # (Auto) 0.1 (0.0-0.2) X10*3/uL Abs Immat Gran (auto) 0.02 (0.00-0.03) X10*3/uL Absolute Neuts (auto) 4.6 (2.0-8.3) x10*3/uL Absolute Nucleated RBC 0.000 (0.0-0.012) X10*3/uL Nucleated RBC % (auto) 0.0 (0.0-0.2) /100WBC Sodium 141 (135-145) mmol/L Potassium 3.6 (3.3-5.1) mmol/L Chloride 106 (96-108) mmol/L Carbon Dioxide 26 (22-29) mmol/L Anion Gap 13 (12-20) BUN 9 (9-16) mg/dL Creatinine 0.63 (0.5-1.4) mg/dL Estim Creat Clear Calc 145.5 Estimated GFR > 60 Random Glucose 105 (60-115) mg/dL Calcium 9.6 (8.4-10.2) mg/dL Magnesium 2.0 (1.6-2.6) mg/dL Total Bilirubin 0.4 (0.0-1.0) mg/dL Direct Bilirubin 0.1 (0.0-0.5) mg/dL AST 19 (5-31) U/L ALT 14 (0-31) U/L Alkaline Phosphatase 46 (39-117) U/L Total Protein 7.2 (6.5-8.0) g/dL Albumin 4.6 (3.5-5.0) g/dL Beta HCG, Quant < 2 mIU/mL Independent Interpretation I performed an independent interpretation of an: EKG Interpretation: Rate: 98 Rhythm: NSR [place]: normal Normal P waves. Normal SHEILA. Normal QRS complex. ST T wave : no KAYLEE, nonspecific ST T wave changes ant leads qTC: 444 prior studies: The study has been interpreted contemporaneously by me. . External Record Review External record reviewed: Outpatient record Discharge Plan Discharge Clinical Impression: Accidental overdose Qualifiers: Encounter type: initial encounter Qualified Code(s): T50.901A - Poisoning by unspecified drugs, medicaments and biological substances, accidental (unintentional), initial encounter Patient Disposition: Home, Self-Care Instructions: Adult Overdose (ED) Additional Instructions: rest and stay hydrated return for any worsening symptoms or concerns. Prescriptions: No Action metoclopramide HCl [Reglan] 10 mg tablet 10 mg PO Q6H PRN (Reason: nausea and vomiting) Qty: 20 0RF nitrofurantoin monohyd/m-cryst [Macrobid] 100 mg capsule 100 mg PO Q12H 5 Days Qty: 10 0RF Rx Instructions: must administer with a meal/food tramadol 50 mg tablet 50 mg PO Q6H PRN (Reason: pain) Qty: 20 0RF ibuprofen 600 mg tablet 600 mg PO Q8H PRN (Reason: pain) Qty: 20 0RF lidocaine 5 % adhesive patch,medicated 1 patch topical DAILY Qty: 15 0RF Rx Instructions: leave on most painful area for up to 12 hrs mupirocin 2 % ointment 1 appl topical TID Qty: 15 0RF fluconazole [Diflucan] 150 mg tablet 150 mg PO Q3D Qty: 2 0RF meclizine 25 mg tablet 25 mg PO TID PRN (Reason: dizziness) Qty: 14 0RF doxycycline monohydrate 100 mg capsule 100 mg PO BID Qty: 20 0RF fluconazole 150 mg tablet 150 mg PO ONCE 1 Days Qty: 1 0RF cyclobenzaprine 10 mg tablet 10 mg PO TID PRN (Reason: muscle spasm) Qty: 10 0RF cefuroxime axetil 500 mg tablet 500 mg PO BID 7 Days Qty: 14 0RF cyclobenzaprine 10 mg tablet 10 mg PO TID PRN (Reason: muscle spasm) Qty: 14 0RF lidocaine 5 % adhesive patch,medicated 1 patch topical DAILY Qty: 15 0RF Rx Instructions: leave on most painful area for up to 12 hrs ibuprofen 600 mg tablet 600 mg PO Q8H PRN (Reason: pain) Qty: 20 0RF ondansetron 4 mg tablet,disintegrating 4 mg PO Q8H 3 Days Qty: 9 0RF azithromycin 250 mg tablet 250 mg PO DAILY 4 Days Qty: 4 0RF Rx Instructions: start on day 2 of therapy amoxicillin 500 mg capsule 1,000 mg PO TID 5 Days Qty: 30 0RF azithromycin [Zithromax Z-Bubba] 250 mg tablet See Rx Instructions .ROUTE .COMPLEX Qty: 6 0RF Rx Instructions: take 500 mg today (day 1), then 250 mg for 4 days (days 2-5) prednisone 20 mg tablet 60 mg PO DAILY 5 Days Qty: 15 0RF ondansetron 4 mg tablet,disintegrating 4 mg PO Q6H PRN (Reason: nausea and vomiting) Qty: 10 0RF hyoscyamine sulfate 0.125 mg tablet 0.125 mg PO QID PRN (Reason: dyspepsia) Qty: 10 0RF cephalexin 500 mg capsule 500 mg PO QID 5 Days Qty: 20 0RF ibuprofen 600 mg tablet 600 mg PO Q6H PRN (Reason: pain) Qty: 30 0RF acetaminophen [Tylenol Extra Strength] 500 mg tablet 1,000 mg PO Q8H PRN (Reason: pain) Qty: 30 0RF fluconazole 150 mg tablet 150 mg PO Q3D Qty: 2 0RF Print Language: Romanian
[2024-09-29 23:26] LABS: MANUAL DIFF FLAG NO
[2024-09-29 23:27] LABS: Basophils Absolute Auto 0.1 X10*3/uL (0.0-0.2); Basophils Percent Auto 0.8 % (0-2); Eosinophils Absolute Auto 0.1 X10*3/uL (0.0-0.4); Eosinophils Percent Auto 1.1 % (0-4); Hematocrit 36.8 % (37.0-47.0); Hemoglobin 12.6 g/dl (12.0-16.0); Imm Gran Abs Auto 0.02 X10*3/uL (0.00-0.03); Imm Gran Pct Auto 0.3 % (0.0-0.4); Lymphocytes Absolute Auto 1.4 X10*3/uL (1.2-4.9); Mean Corpuscular HGB Conc 34.2 g/dl (31.0-35.0); Mean Corpuscular Hemoglobin 29.2 pg (27.0-33.0); Mean Corpuscular Volume 85.4 fL (80.0-98.0); Mean Platelet Volume 8.5 fL (9.4-12.3); Monocytes Absolute Auto 0.4 X10*3/uL (0.1-1.2); Monocytes Percent Auto 5.5 % (2-11); Neutrophils Absolute Auto 4.6 x10*3/uL (2.0-8.3); Neutrophils Percent Auto 71.3 % (45-73); Platelet Count 293 X10*3/uL (160-400); Red Blood Count 4.31 X10*6/uL (4.20-5.50); Red Cell Distribution Width 11.7 % (11.0-16.0); White Blood Count 6.5 X10*3/uL (4.8-10.8)
[2024-09-29 23:30] VITALS: BP 129/76; PULSE 101; RESP 18; TEMP 36.6; O2SAT 99; BMI 27.1
[2024-09-29] MEDS: Lactated Ringers 1,000 ML 999 ML IV (23:43)
--- NOTE | 2024-09-29 23:43 | PC.NURSE ---
pt refused to change into hospital attire, states feels uncomfortable doing so. discharge coordinator aware. pt denies si/hi. axox4. placed on juvenile corrections officer and iv established. ivf infusing.
--- NOTE | 2024-09-29 23:48 | PC.NURSE ---
call to poison control, states to treat symptomatically.
[2024-09-29 23:50] LABS: Alanine Aminotransferase 14 U/L (0-31); Albumin Level 4.6 g/dL (3.5-5.0); Alkaline Phosphatase 46 U/L (39-117); Anion Gap 13 (12-20); Aspartate Amino Transferase 19 U/L (5-31); Bilirubin Direct 0.1 mg/dL (0.0-0.5); Bilirubin Total 0.4 mg/dL (0.0-1.0); Blood Urea Nitrogen 9 mg/dL (9-16); Calcium 9.6 mg/dL (8.4-10.2); Carbon Dioxide 26 mmol/L (22-29); Chloride 106 mmol/L (96-108); Creatinine Clr Calc Pharmacy 145.5; Estimated Glomerular Filt Rate > 60; Glucose Random 105 mg/dL (60-115); Potassium 3.6 mmol/L (3.3-5.1); Sodium 141 mmol/L (135-145); Total Protein 7.2 g/dL (6.5-8.0)
[2024-09-29 23:53] LABS: HCG Quantitative < 2 mIU/mL
[2024-09-30] VITALS: BP 115/65; PULSE 90; RESP 15; TEMP 37.1; O2SAT 100
[2024-09-30] MEDS: Prochlorperazine Edisylate 10 MG/2 ML VIAL 5 MG IVPUSH (00:18)
--- NOTE | 2024-09-30 00:35 | PC.NURSE ---
after receiving approx 1/2 dose of compazine pt stated she is feeling anxious about receiving a new medication and requested to not receive rest of med and reports nausea has resolved.
--- NOTE | 2024-09-30 01:02 | PC.NURSE ---
pt became panicked, states needs iv/cardiac stickers off d/t overstimulation. taken off. gave ice pack, water juice. pt requesting to leaave. called mom to pick her up. md aware, pt discharged. refused vitals.
[2024-09-30 01:04] VITALS: BP 115/65; PULSE 90; RESP 15; TEMP 37.1; O2SAT 100
== END 2024-09-30 01:04 | disposition home or self-care (01) ==
PROVIDERS: Emergency Provider Emergency Medicine; PCP Family Medicine
DX: F90.9 Attention-deficit hyperactivity disorder, unspecified type (principal); R10.2 Pelvic and perineal pain; R45.1 Restlessness and agitation; R11.2 Nausea with vomiting, unspecified; R94.31 Abnormal electrocardiogram [ECG] [EKG]; Z91.148 Patient's other noncompliance with medication regimen for other reason; Z79.899 Other long term (current) drug therapy
CPT/HCPCS: 36415; 80048; 80076; 83735; 84702; 85025; 93005; 96360; 99284; J0737; J7120

== ENCOUNTER → 2024-09-29 23:13 | Outpatient (BNV) | payer OTHER, SELFPAY | PROVIDERS: Emergency Provider Emergency Medicine; PCP Family Medicine; Visit Provider Internal Medicine Cardiovascular Disease | DX: R94.31 Abnormal electrocardiogram [ECG] [EKG] (principal); T50.901A Poisoning by unspecified drugs, medicaments and biological substances, accidental (unintentional), initial encounter | CPT/HCPCS: 93010 ==

== ENCOUNTER 2024-11-18 02:58 | Emergency (ER) | payer OTHER, SELFPAY ==
--- NOTE | 2024-11-18 | ECG_ITS ---
Test Reason : CP Blood Pressure : */* mmHG Vent. Rate : 107 BPM Atrial Rate : 107 BPM P-R Int : 114 ms QRS Dur : 80 ms QT Int : 300 ms P-R-T Axes : 62 48 16 degrees QTcB Int : 400 ms Sinus tachycardia Nonspecific T wave abnormality Abnormal ECG When compared with ECG of 29-Sep-2024 23:15, No significant change was found Referred By: Generic ED Physician Electronically Signed By: KATYA PAULSON MD
[2024-11-18 03:10] VITALS: BP 134/64; PULSE 115; RESP 17; TEMP 36.7; O2SAT 98; BMI 27.5
[2024-11-18 03:23] LABS: MANUAL DIFF FLAG NO
[2024-11-18 03:25] LABS: Hematocrit 37.1 % (37.0-47.0); Hemoglobin 13.0 g/dl (12.0-16.0); Imm Gran Abs Auto 0.03 X10*3/uL (0.00-0.03); Imm Gran Pct Auto 0.3 % (0.0-0.4); Lymphocytes Absolute Auto 2.5 X10*3/uL (1.2-4.9); Mean Corpuscular HGB Conc 35.0 g/dl (31.0-35.0); Mean Corpuscular Hemoglobin 29.7 pg (27.0-33.0); Mean Corpuscular Volume 84.7 fL (80.0-98.0); NRBC Abs Auto 0.000 X10*3/uL (0.0-0.012); NRBC Pct Auto 0.0 /100WBC (0.0-0.2); Platelet Count 314 X10*3/uL (160-400); Red Blood Count 4.38 X10*6/uL (4.20-5.50); White Blood Count 9.4 X10*3/uL (4.8-10.8)
[2024-11-18 03:49] LABS: Alanine Aminotransferase 16 U/L (0-31); Albumin Level 4.4 g/dL (3.5-5.0); Alkaline Phosphatase 49 U/L (39-117); Anion Gap 12 (12-20); Aspartate Amino Transferase 23 U/L (5-31); Blood Urea Nitrogen 15 mg/dL (9-16); Calcium 8.9 mg/dL (8.4-10.2); Carbon Dioxide 23 mmol/L (22-29); Chloride 110 mmol/L (96-108); Creatinine Clr Calc Pharmacy 111.2; Estimated Glomerular Filt Rate > 60; Potassium 3.9 mmol/L (3.3-5.1); Sodium 141 mmol/L (135-145); Total Protein 7.2 g/dL (6.5-8.0)
[2024-11-18 03:54] LABS: Troponin-I High Sensitivity < 2.7 ng/L (<3.5-17.0)
== END 2024-11-18 06:46 | disposition left against medical advice (07) ==
PROVIDERS: Emergency Provider Emergency Medicine
DX: R07.9 Chest pain, unspecified (principal); R06.00 Dyspnea, unspecified; R00.0 Tachycardia, unspecified; Z53.21 Procedure and treatment not carried out due to patient leaving prior to being seen by health care provider
CPT/HCPCS: 36415; 80053; 84484; 84702; 85025; 93005; 99281; 99283

== ENCOUNTER → 2024-11-18 03:05 | Outpatient (BNV) | payer OTHER, SELFPAY | PROVIDERS: Emergency Provider Emergency Medicine; Visit Provider Internal Medicine Cardiovascular Disease | DX: R00.0 Tachycardia, unspecified (principal) | CPT/HCPCS: 93010 ==

== ENCOUNTER 2025-01-05 00:13 | Emergency (ER) | payer OTHER, SELFPAY ==
--- NOTE | 2025-01-05 | ECG_ITS ---
Test Reason : DYSPNEA Blood Pressure : */* mmHG Vent. Rate : 88 BPM Atrial Rate : 88 BPM P-R Int : 120 ms QRS Dur : 80 ms QT Int : 334 ms P-R-T Axes : 58 30 40 degrees QTcB Int : 404 ms Normal sinus rhythm Possible Left atrial enlargement Cannot rule out Anterior infarct , age undetermined Abnormal ECG When compared with ECG of 18-Nov-2024 03:05, Nonspecific T wave abnormality, improved in Inferior leads Referred By: Generic ED Physician Electronically Signed By: ROHAN MONTANO
--- NOTE | ~2025-01-05 | XR_ITS ---
CLINICAL HISTORY: chest burning 2 view chest x-ray Comparison: CR - XR CHEST 2V - 06/11/24 19:31 EST Findings: The lungs are clear. Normal size heart. No acute fracture. IMPRESSION: 1. No acute findings. This document has been electronically signed by: Varinder Chin MD on 01/05/2025 01:32:21
[2025-01-05 00:22] VITALS: BP 133/85; PULSE 105; RESP 22; TEMP 36.9; O2SAT 100; BMI 27.7
[2025-01-05 00:51] LABS: MANUAL DIFF FLAG NO
[2025-01-05 00:52] LABS: Hematocrit 35.7 % (37.0-47.0); Hemoglobin 12.4 g/dl (12.0-16.0); Imm Gran Abs Auto 0.03 X10*3/uL (0.00-0.03); Imm Gran Pct Auto 0.3 % (0.0-0.4); Lymphocytes Absolute Auto 1.4 X10*3/uL (1.2-4.9); Mean Corpuscular HGB Conc 34.7 g/dl (31.0-35.0); Mean Corpuscular Hemoglobin 29.9 pg (27.0-33.0); Mean Corpuscular Volume 86.0 fL (80.0-98.0); NRBC Abs Auto 0.000 X10*3/uL (0.0-0.012); NRBC Pct Auto 0.0 /100WBC (0.0-0.2); Platelet Count 299 X10*3/uL (160-400); Red Blood Count 4.15 X10*6/uL (4.20-5.50); White Blood Count 9.4 X10*3/uL (4.8-10.8)
[2025-01-05 01:07] LABS: Alanine Aminotransferase 19 U/L (0-31); Albumin Level 4.4 g/dL (3.5-5.0); Alkaline Phosphatase 49 U/L (39-117); Anion Gap 11 (12-20); Aspartate Amino Transferase 18 U/L (5-31); Blood Urea Nitrogen 11 mg/dL (9-16); Calcium 9.2 mg/dL (8.4-10.2); Carbon Dioxide 27 mmol/L (22-29); Chloride 111 mmol/L (96-108); Creatinine Clr Calc Pharmacy 149.4; Estimated Glomerular Filt Rate > 60; Potassium 4.0 mmol/L (3.3-5.1); Sodium 145 mmol/L (135-145); Total Protein 6.9 g/dL (6.5-8.0)
[2025-01-05 01:17] LABS: Troponin-I High Sensitivity < 2.7 ng/L (<3.5-17.0)
--- OUTSIDE RECORDS SUMMARY | 2025-01-05 01:53 | XMS_ITS | Encounter Summary ---
Author Organization [facility] Address [address] [place] [address] Phone Care Team Providers Care Honey Blender Name Role Phone Fidelina Purcell MD Primary Care Provider [phone] Encounter Details Date Type Department Care Team (Late st Contact Info) Description 03/03/2013 Documentation [facility] [place] [address] [place] [address] Family Medicine, Physician [address] [place], [place] [phone] Social History Tobacco Use Types Packs/Day Years [...] on filedocumented in this encounter Care Teams Honey Blender Relationship Specialty Start Date End Date Fidelina Purcell MD [address] [place] [id number] PCP - General 12/01/16 07/23/22 documented as of this encounter
--- OUTSIDE RECORDS SUMMARY | 2025-01-05 01:53 | XMS_ITS | Encounter Summary ---
Author Organization [facility] Address [address] [place] [address] Phone Care Team Providers Care Hairspring Vibrator Name Role Phone Fidelina Purcell MD Primary Care Provider Encounter Details Date Type Department Care Team (Late st Contact Info) Description 08/21/2012 Documentation [facility] [place] [address] [place] [address] Family Medicine, Physician [address] [place], [place] [phone] Social History Tobacco Use Types Packs/Day Years [...] on filedocumented in this encounter Care Teams Hairspring Vibrator Relationship Specialty Start Date End Date Fidelina Purcell MD [address] [place] [phone] PCP - General 12/01/16 07/23/22 documented as of this encounter
--- OUTSIDE RECORDS SUMMARY | 2025-01-05 01:53 | XMS_ITS | Encounter Summary ---
Author Organization [facility] Address [address] [place] [address] Phone Care Team Providers Care Senior Qualitative Researcher Name Role Phone Fidelina Purcell MD Primary Care Provider Encounter Details Date Type Department Care Team (Late st Contact Info) Description 12/07/2016 Conversion Encounter [facility] [place] [address] [place] [address] Social History Tobacco Use Types Packs/Day Years [...] on filedocumented in this encounter Care Teams Senior Qualitative Researcher Relationship Specialty Start Date End Date Fidelina Purcell MD [address] [place] [address] PCP - General 12/01/16 07/23/22 documented as of this encounter
--- OUTSIDE RECORDS SUMMARY | 2025-01-05 01:53 | XMS_ITS | Encounter Summary ---
Author Organization [facility] Address [address] [place] [address] Phone Care Team Providers Care Piece Maker Name Role Phone Fidelina Purcell MD Primary Care Provider Encounter Details Date Type Department Care Team (Late st Contact Info) Description 02/03/2014 Documentation [facility] [place] [facility] [place] [address] [place] [address] Family Medicine, Physician [address] [place], [place] [phone] Social History Tobacco Use Types Packs/Day Years [...] on filedocumented in this encounter Care Teams Piece Maker Relationship Specialty Start Date End Date Fidelina Purcell MD [address] [place] [address] PCP - General 12/01/16 07/23/22 documented as of this encounter
--- OUTSIDE RECORDS SUMMARY | 2025-01-05 01:53 | XMS_ITS | Encounter Summary ---
Author Organization [facility] Address [address] [place] [address] Phone Care Team Providers Care Snap Attacher Name Role Phone Fidelina Purcell MD Primary Care Provider Encounter Details Date Type Department Care Team (Late st Contact Info) Description 10/23/2009 Documentation [facility] [address] [place] [address] Family Medicine, Physician [address] [place], [place] [phone] Social History Tobacco Use Types Packs/Day Years [...] on filedocumented in this encounter Care Teams Snap Attacher Relationship Specialty Start Date End Date Fidelina Purcell MD [address] [place] [id number] PCP - General 12/01/16 07/23/22 documented as of this encounter
--- OUTSIDE RECORDS SUMMARY | 2025-01-05 01:53 | XMS_ITS | Encounter Summary ---
Author Organization [facility] Address [address] [place] [address] Phone Care Team Providers Care Manufacturing Group Leader Name Role Phone Fidelina Purcell MD Primary Care Provider Encounter Details Date Type Department Care Team (Late st Contact Info) Description 07/05/[address] [facility] [place] Family Medicine [address] [place] [address] Family Medicine, Physician [address] [place], [place] [phone] Social History Tobacco Use Types Packs/Day Years [...] on filedocumented in this encounter Care Teams Manufacturing Group Leader Relationship Specialty Start Date End Date Fidelina Purcell MD [address] [place] [id number] PCP - General 12/01/16 07/23/22 documented as of this encounter
--- OUTSIDE RECORDS SUMMARY | 2025-01-05 01:53 | XMS_ITS | Clinical Summary ---
Author Organization [facility] Address [address] [place] [address] Phone Care Team Providers Care B2B Managed Service Sales Exec Name Role Phone Unavailable Primary Care Provider Unavailabl e Immunizations Immunization Administration Dates Next Due DTP 02/20/1995,1994,1994 DTaP [...] 88 03/15/2016 12:00 AM EST Temperature 37.1 C (98.7 F) 03/15/2016 12:00 AM EST Respiratory Rate - - Oxygen Saturation - [...] 10/31/2016 10/31/2006, 09/16/1998, 02/26/1996, Additional history exists HPV Vaccines (1 - 3-dose SCDM series) 2021 Influenza Vaccines (#1) 2024 COVID-19 Vaccine ( season) 2024 HIB Vaccines Aged Out 02/20/1995, 11/22, 1994 [...] complete this topic Procedures * Due to [place] law, this organization might not be sharing sensitive test results. Procedure Name Priority Date/Time Associated Diagnosis Comments CHLAMYDIA AND GONORRHEA, AMPLIFIED Routine 05/16/2013 4:04 PM EST from Last 3 Months or Most Recently Relevant to Health Maintenance Results * Due to [place] law, this organization might not be sharing sensitive test results. * Chlamydia and Gonorrhoea, Amplified (05/16/2013 4:04 PM EST) URINE CHLAMYDIA AMP PROBE NEGATIVE [facility] Comment: NO CHLAMYDIA TRACHOMATIS RNA DETECTED IN THIS PATIENT'S SAMPLE. (REFERENCE RANGE/NORMAL VALUE: NOT DETECTED) URINE GC AMP PROBE NEGATIVE [facility] Comment: NO NEISSERIA GONORRHOEAE RNA DETECTED IN THIS PATIENT'S SAMPLE. (REFERENCE RANGE/NORMAL VALUE: NOT DETECTED) NOTE: THIS TEST USES SILK HANGER-MEDIATED AMPLIFICATION METHOD TO DETECT rRNA FROM C.TRACHOMATIS [...] OF INFECTION. Testing performed or reported by [facility], a Service of [facility], [address] [place] [address] Erik Pompa, Homicide Detective 05/16/2013 4:04 PM EST Narrative [facility] - 05/16/2013 4:04 PM EST URINE CHLAMYDIA GC AMP PROBE us Fidelina Purcell MD LAB MICROBIOLOGY - GENERAL O RDERABLES Final Result [facility] [address] [place] [address], [place] from Last 3 Months or Most Recently Relevant to Health Maintenance
--- OUTSIDE RECORDS SUMMARY | 2025-01-05 01:53 | XMS_ITS | Encounter Summary ---
Author Organization [facility] Address [address] [place] [address] Phone Care Team Providers Care Lithograph Press Operator Tinware Name Role Phone Fidelina Purcell MD Primary Care Provider Encounter Details Date Type Department Care Team (Late st Contact Info) Description 05/23/2016 Documentation [facility] [place] [address] [place] [address] Family Medicine, Physician [address] [place], [place] [phone] Social History Tobacco Use Types Packs/Day Years [...] on filedocumented in this encounter Care Teams Lithograph Press Operator Tinware Relationship Specialty Start Date End Date Fidelina Purcell MD [address] [place] [id number] PCP - General 12/01/16 07/23/22 documented as of this encounter
--- OUTSIDE RECORDS SUMMARY | 2025-01-05 01:53 | XMS_ITS | Encounter Summary ---
Author Organization [facility] Address [address] [place] [address] Phone Care Team Providers Care Employment Security Officer Name Role Phone Fidelina Purcell MD Primary Care Provider Encounter Details Date Type Department Care Team (Late st Contact Info) Description 02/02/2012 Documentation [facility] [place] [address] [place] [address] Family Medicine, Physician [address] [place], [place] [phone] Social History Tobacco Use Types Packs/Day Years [...] on filedocumented in this encounter Care Teams Employment Security Officer Relationship Specialty Start Date End Date Fidelina Purcell MD [address] [place] [id number] PCP - General 12/01/16 07/23/22 documented as of this encounter
--- OUTSIDE RECORDS SUMMARY | 2025-01-05 01:53 | XMS_ITS | Encounter Summary ---
Author Organization [facility] Address [address] [place] [address] Phone Care Team Providers Care Long Wall Mining Machine Tender Name Role Phone Fidelina Purcell MD Primary Care Provider [phone] Encounter Details Date Type Department Care Team (Late st Contact Info) Description 06/17/2013 Documentation [facility] [place] [address] [place] [address] Family Medicine, Physician [address] [place], [place] [phone] Social History Tobacco Use Types Packs/Day Years [...] on filedocumented in this encounter Care Teams Long Wall Mining Machine Tender Relationship Specialty Start Date End Date Fidelina Purcell MD [address] [place] [id number] PCP - General 12/01/16 07/23/22 documented as of this encounter
--- OUTSIDE RECORDS SUMMARY | 2025-01-05 01:53 | XMS_ITS | Encounter Summary ---
Author Organization [facility] Address [address] [place] [address] Phone Care Team Providers Care Field Operations Supervisor Name Role Phone Fidelina Purcell MD Primary Care Provider Encounter Details Date Type Department Care Team (Late st Contact Info) Description 09/08/[address] [facility] [place] Family Medicine [address] [place] [address] Family Medicine, Physician [address] [place], [place] [phone] Social History Tobacco Use Types Packs/Day Years [...] on filedocumented in this encounter Care Teams Field Operations Supervisor Relationship Specialty Start Date End Date Fidelina Purcell MD [address] [place] [address]22 PCP - General 12/01/16 07/23/22 documented as of this encounter
--- OUTSIDE RECORDS SUMMARY | 2025-01-05 01:53 | XMS_ITS | Encounter Summary ---
Author Organization [facility] Address [address] [place] [address] Phone Care Team Providers Care Certified Maintenance Welder Name Role Phone Fidelina Purcell MD Primary Care Provider Encounter Details Date Type Department Care Team (Late st Contact Info) Description 10/23/2009 Documentation [facility] [address] [place] [address] Family Medicine, Physician [address] [place], [place] [phone] Social History Tobacco Use Types Packs/Day Years [...] on filedocumented in this encounter Care Teams Certified Maintenance Welder Relationship Specialty Start Date End Date Fidelina Purcell MD [address] [place] [address] PCP - General 12/01/16 07/23/22 documented as of this encounter
--- OUTSIDE RECORDS SUMMARY | 2025-01-05 01:53 | XMS_ITS | Encounter Summary ---
Author Organization [facility] Address [address] [place] [address] Phone Care Team Providers Care Dermatologist And Dermatopathologist Name Role Phone Fidelina Purcell MD Primary Care Provider Encounter Details Date Type Department Care Team (Late st Contact Info) Description 12/13/2010 Documentation [facility] [place] [address] [place] [address] Family Medicine, Physician [address] [place], [place] [phone] Social History Tobacco Use Types Packs/Day Years [...] on filedocumented in this encounter Care Teams Dermatologist And Dermatopathologist Relationship Specialty Start Date End Date Fidelina Purcell MD [address] [place] [address] PCP - General 12/01/16 07/23/22 documented as of this encounter
--- OUTSIDE RECORDS SUMMARY | 2025-01-05 01:53 | XMS_ITS | Encounter Summary ---
Author Organization [facility] Address [address] [place] [address] Phone Care Team Providers Care Motorsports Technician Name Role Phone Fidelina Purcell MD Primary Care Provider Encounter Details Date Type Department Care Team (Late st Contact Info) Description 05/29/2012 Documentation [facility] [place] [address] [place] [address] Family Medicine, Physician [address] [place], [place] [phone] Social History Tobacco Use Types Packs/Day Years [...] on filedocumented in this encounter Care Teams Motorsports Technician Relationship Specialty Start Date End Date Fidelina Purcell MD [address] [place] [address] 39819 PCP - General 12/01/16 07/23/22 documented as of this encounter
--- OUTSIDE RECORDS SUMMARY | 2025-01-05 01:53 | XMS_ITS | Encounter Summary ---
Author Organization [facility] Address [address] [place] [address] Phone Care Team Providers Care Light Air Defense Artillery Crewmember Name Role Phone Fidelina Purcell MD Primary Care Provider Encounter Details Date Type Department Care Team (Late st Contact Info) Description 11/22/[address] [facility] [place] [address] [place] [address] Family Medicine, Physician [address] [place], [place] [phone] Social History Tobacco Use Types Packs/Day Years [...] on filedocumented in this encounter Care Teams Light Air Defense Artillery Crewmember Relationship Specialty Start Date End Date Fidelina Purcell MD [address] [place] [address] 12667 PCP - General 12/01/16 07/23/22 documented as of this encounter
--- OUTSIDE RECORDS SUMMARY | 2025-01-05 01:53 | XMS_ITS | Encounter Summary ---
Author Organization [facility] Address [address] [place] [address] Phone Care Team Providers Care Gamma Operator Name Role Phone Fidelina Purcell MD Primary Care Provider Encounter Details Date Type Department Care Team (Late st Contact Info) Description 06/13/2012 Documentation [facility] Family Medicine [address] [place] [address] Family Medicine, Physician [address] [place], [place] [phone] Social History Tobacco Use Types Packs/Day Years [...] on filedocumented in this encounter Care Teams Gamma Operator Relationship Specialty Start Date End Date Fidelina Purcell MD [address] [place] [address] 27193 PCP - General 12/01/16 07/23/22 documented as of this encounter
--- OUTSIDE RECORDS SUMMARY | 2025-01-05 01:53 | XMS_ITS | Encounter Summary ---
Author Organization [facility] Address [address] [place] [address] Phone Care Team Providers Care Binder Cutter Name Role Phone Fidelina Purcell MD Primary Care Provider [phone] Encounter Details Date Type Department Care Team (Late st Contact Info) Description 02/24/2016 Documentation [facility] [place] [address] [place] [address] Family Medicine, Physician [address] [place], [place] [phone] Social History Tobacco Use Types Packs/Day Years [...] on filedocumented in this encounter Care Teams Binder Cutter Relationship Specialty Start Date End Date Fidelina Purcell MD [address] [place] [address] 77051 PCP - General 12/01/16 07/23/22 documented as of this encounter
--- OUTSIDE RECORDS SUMMARY | 2025-01-05 01:53 | XMS_ITS | Encounter Summary ---
Author Organization [facility] Address [address] [place] [address] Phone Care Team Providers Care Institutional Cook Name Role Phone Fidelina Purcell MD Primary Care Provider Encounter Details Date Type Department Care Team (Late st Contact Info) Description 05/24/2011 Documentation [facility] [place] [address] [place] [address] Family Medicine, Physician [address] [place], [place] [phone] Social History Tobacco Use Types Packs/Day Years [...] on filedocumented in this encounter Care Teams Institutional Cook Relationship Specialty Start Date End Date Fidelina Purcell MD [address] [place] [address]233 PCP - General 12/01/16 07/23/22 documented as of this encounter
--- OUTSIDE RECORDS SUMMARY | 2025-01-05 01:53 | XMS_ITS | Encounter Summary ---
Author Organization [facility] Address [address] [place] [address] Phone Care Team Providers Care Equity Trader Name Role Phone Fidelina Purcell MD Primary Care Provider Encounter Details Date Type Department Care Team (Late st Contact Info) Description 11/04/2012 Documentation [facility] [place] [address] [place] [address] Family Medicine, Physician [address] [place], [place] [phone] Social History Tobacco Use Types Packs/Day Years [...] on filedocumented in this encounter Care Teams Equity Trader Relationship Specialty Start Date End Date Fidelina Purcell MD [address] [place] [address] PCP - General 12/01/16 07/23/22 documented as of this encounter
--- OUTSIDE RECORDS SUMMARY | 2025-01-05 01:53 | XMS_ITS | Encounter Summary ---
Author Organization [facility] Address [address] [place] [address] Phone Care Team Providers Care Saw Straightener Name Role Phone Fidelina Purcell MD Primary Care Provider Encounter Details Date Type Department Care Team (Late st Contact Info) Description 04/04/2016 [place] [facility] [place] [address] [place] [address] Family Medicine, Physician [address] [place], [place] [phone] Social History Tobacco Use Types Packs/Day Years [...] on filedocumented in this encounter Care Teams Saw Straightener Relationship Specialty Start Date End Date Fidelina Purcell MD [address] [place] [address] 22398 PCP - General 12/01/16 07/23/22 documented as of this encounter
--- OUTSIDE RECORDS SUMMARY | 2025-01-05 01:53 | XMS_ITS | Encounter Summary ---
Author Organization [facility] Address [address] [place] [address] Phone Care Team Providers Care Teletype Adjuster Name Role Phone Fidelina Purcell MD Primary Care Provider Encounter Details Date Type Department Care Team (Late st Contact Info) Description 05/06/2013 Documentation [facility] [place] Family Medicine [address] [place] [address] Family Medicine, Physician [address] [place], [place] [phone] Social History Tobacco Use Types Packs/Day Years [...] on filedocumented in this encounter Care Teams Teletype Adjuster Relationship Specialty Start Date End Date Fidelina Purcell MD [address] [place] [address] 44693 PCP - General 12/01/16 07/23/22 documented as of this encounter
--- OUTSIDE RECORDS SUMMARY | 2025-01-05 01:53 | XMS_ITS | Encounter Summary ---
Author Organization [facility] Address [address] [place] [address] Phone Care Team Providers Care Heel Packer Name Role Phone Fidelina Purcell MD Primary Care Provider Encounter Details Date Type Department Care Team (Late st Contact Info) Description 09/08/2011 Documentation [facility] [place] [address] [place] [address] Family Medicine, Physician [address] [place], [place] [phone] Social History Tobacco Use Types Packs/Day Years [...] on filedocumented in this encounter Care Teams Heel Packer Relationship Specialty Start Date End Date Fidelina Purcell MD [address] [place] [address] 17853 PCP - General 12/01/16 07/23/22 documented as of this encounter
--- OUTSIDE RECORDS SUMMARY | 2025-01-05 01:53 | XMS_ITS | Encounter Summary ---
Author Organization [facility] Address [address] [place] [address] Phone Care Team Providers Care Physical Therapy Assistant Instructor Name Role Phone Fidelina Purcell MD Primary Care Provider Encounter Details Date Type Department Care Team (Late st Contact Info) Description 04/04/2011 Documentation [facility] [place] [address] [place] [address] Family Medicine, Physician [address] [place], [place] [phone] Social History Tobacco Use Types Packs/Day Years [...] on filedocumented in this encounter Care Teams Physical Therapy Assistant Instructor Relationship Specialty Start Date End Date Fidelina Purcell MD [address] [place] [address]153 PCP - General 12/01/16 07/23/22 documented as of this encounter
--- OUTSIDE RECORDS SUMMARY | 2025-01-05 01:53 | XMS_ITS | Encounter Summary ---
Author Organization [facility] Address [address] [place] [address] Phone Care Team Providers Care Social Sciences Lecturer Name Role Phone Fidelina Purcell MD Primary Care Provider Encounter Details Date Type Department Care Team (Late st Contact Info) Description 04/04/2016 Documentation [facility] [place] Medicine [address] [place] [address] Family Medicine, Physician [address] [place], [place] [phone] Social History Tobacco Use Types Packs/Day Years [...] on filedocumented in this encounter Care Teams Social Sciences Lecturer Relationship Specialty Start Date End Date Fidelina Purcell MD [address] [place] [address] 66154 PCP - General 12/01/16 07/23/22 documented as of this encounter
--- OUTSIDE RECORDS SUMMARY | 2025-01-05 01:53 | XMS_ITS | Encounter Summary ---
Author Organization [facility] Address [address] [place] [address] Phone Care Team Providers Care Tester Regulator Name Role Phone Fidelina Purcell MD Primary Care Provider Encounter Details Date Type Department Care Team (Late st Contact Info) Description 04/22/2010 Documentation [facility] [place] [address] [place] [address] Family Medicine, Physician [address] [place], [place] [phone] Social History Tobacco Use Types Packs/Day Years [...] on filedocumented in this encounter Care Teams Tester Regulator Relationship Specialty Start Date End Date Fidelina Purcell MD [address] [place] [address] 15933 PCP - General 12/01/16 07/23/22 documented as of this encounter
--- OUTSIDE RECORDS SUMMARY | 2025-01-05 01:53 | XMS_ITS | Clinical Summary ---
Author Organization [facility] Address [address] [place] [address] Care Team Providers Care Telegraphic Typewriter Operator Chief Name Role Phone Unavailable Primary Care Provider Unavailabl e Social History Tobacco Use Types Packs/Day Years Used Date Smoking Tobacco: Never Assessed Comments Unknown Sex and Gender Information Value Date Recorded Sex Assigned at Not on file Legal Sex Female 5:17 PM EST Gender Identity Not on file Sexual Orientation Not on file Plan of Treatment Health Maintenance Due Date Last Done Comments DTaP,Tdap,and Td Vaccines (1 - Tdap) 2013 Hepatitis B Vaccines (1 of 3 - 19+ 3-dose series) 2013 Cervical Cancer Screening: P ap Smear 08/17/2015 Depression Screening 04/23/2024 COVID-19 Vaccine (1 - 2023-2 5 season) 2024 Influenza Vaccine (#1) 2024 HIB Vaccines Aged Out No longer eligi [...] patient's age to complete this topic Meningococcal B Vaccine Aged Out No l onger eligible based on patient's age to complete this topic Pneumococcal Vaccine: Pediat rics (0 to 5 Years) and At-Risk Patients (6 to 49 Years) Aged Out No longer eligible b ased on patient's age to complete this topic RSV Immunization Patients Un skip 20 months Aged Out No longer eligible b ased on patient's age to complete this topic Varicella Vaccines Aged Out No longer eligible based on patient's age to complete this topic
--- OUTSIDE RECORDS SUMMARY | 2025-01-05 01:53 | XMS_ITS | Encounter Summary ---
Author Organization [facility] Address [address] [place] [address] Phone Care Team Providers Care Retail Personal Banker Name Role Phone Fidelina Purcell MD Primary Care Provider Encounter Details Date Type Department Care Team (Late st Contact Info) Description 06/13/2013 Documentation [facility] [place] [address] [place] [address] Family Medicine, Physician [address] [place], [place] [phone] Social History Tobacco Use Types Packs/Day Years [...] on filedocumented in this encounter Care Teams Retail Personal Banker Relationship Specialty Start Date End Date Fidelina Purcell MD [address] [place] [address]329 PCP - General 12/01/16 07/23/22 documented as of this encounter
--- OUTSIDE RECORDS SUMMARY | 2025-01-05 01:53 | XMS_ITS | Encounter Summary ---
Author Organization [facility] Address [address] [place] [address] Phone Care Team Providers Care Allergist Name Role Phone Fidelina Purcell MD Primary Care Provider [phone] Encounter Details Date Type Department Care Team (Late st Contact Info) Description 12/27/2010 Documentation [facility] Family [facility] [address] [place] [address] Family Medicine, Physician [address] [place], [place] [phone] Social History Tobacco Use Types Packs/Day Years [...] on filedocumented in this encounter Care Teams Allergist Relationship Specialty Start Date End Date Fidelina Purcell MD [address] [place] [address] 19360 PCP - General 12/01/16 07/23/22 documented as of this encounter
--- OUTSIDE RECORDS SUMMARY | 2025-01-05 01:53 | XMS_ITS | Encounter Summary ---
Author Organization [facility] Address [address] [place] [address] Phone Care Team Providers Care Prosthetist Name Role Phone Fidelina Purcell MD Primary Care Provider Encounter Details Date Type Department Care Team (Late st Contact Info) Description 03/05/2013 [place]ation [facility] [place] [address] [place] [address] Family Medicine, Physician [address] [place], [place] [phone] Social History Tobacco Use Types Packs/Day Years [...] on filedocumented in this encounter Care Teams Prosthetist Relationship Specialty Start Date End Date Fidelina Purcell MD [address] [place] [address] 13526 PCP - General 12/01/16 07/23/22 documented as of this encounter
--- OUTSIDE RECORDS SUMMARY | 2025-01-05 01:53 | XMS_ITS | Encounter Summary ---
Author Organization [facility] Address [address] [place] [address] Phone Care Team Providers Care Academic Services Professional Name Role Phone Fidelina Purcell MD Primary Care Provider Encounter Details Date Type Department Care Team (Late st Contact Info) Description 06/13/2011 Documentation [facility] [place] [address] [place] [address] Family Medicine, Physician [address] [place], [place] [phone] Social History Tobacco Use Types Packs/Day Years [...] on filedocumented in this encounter Care Teams Academic Services Professional Relationship Specialty Start Date End Date Fidelina Purcell MD [address] [place] [address] 30709 PCP - General 12/01/16 07/23/22 documented as of this encounter
--- OUTSIDE RECORDS SUMMARY | 2025-01-05 01:53 | XMS_ITS | Encounter Summary ---
Author Organization [facility] Address [address] [place] [address] Phone Care Team Providers Care Campaign Manager Name Role Phone Fidelina Purcell MD Primary Care Provider Encounter Details Date Type Department Care Team (Late st Contact Info) Description 06/09/2016 Documentation [facility] [place] Family [place] [address] [place] [address] Family Medicine, Physician [address] [place], [place] [phone] Social History Tobacco Use Types Packs/Day Years [...] on filedocumented in this encounter Care Teams Campaign Manager Relationship Specialty Start Date End Date Fidelina Purcell MD [address] [place] [address] 54650 PCP - General 12/01/16 07/23/22 documented as of this encounter
--- OUTSIDE RECORDS SUMMARY | 2025-01-05 01:53 | XMS_ITS | Encounter Summary ---
Author Organization [facility] Address [address] [place] [address] Phone Care Team Providers Care Fisheries Diver Name Role Phone Fidelina Purcell MD Primary Care Provider Encounter Details Date Type Department Care Team (Late st Contact Info) Description 05/08/2013 Documentation [facility] [place] [address] [place] [address] Family Medicine, Physician [address] [place], [place] [phone] Social History Tobacco Use Types Packs/Day Years [...] on filedocumented in this encounter Care Teams Fisheries Diver Relationship Specialty Start Date End Date Fidelina Purcell MD [address] [place] [address] 26234 PCP - General 12/01/16 07/23/22 documented as of this encounter
--- OUTSIDE RECORDS SUMMARY | 2025-01-05 01:53 | XMS_ITS | Encounter Summary ---
Author Organization [facility] Address [address] [place] [address] Phone Care Team Providers Care Senior Business Manager Name Role Phone Fidelina Purcell MD Primary Care Provider [phone] Encounter Details Date Type Department Care Team (Late st Contact Info) Description 11/05/2012 Documentation [facility] [place] [address] [place] [address] Family Medicine, Physician [address] [place], [place] [phone] Social History Tobacco Use Types Packs/Day Years [...] filedocumented in this encounter Care Teams Senior Business Manager Relationship Specialty Start Date End Date Fidelina Purcell MD [address] [place] [address] 83323 PCP - General 12/01/16 07/23/22 documented as of this encounter
--- OUTSIDE RECORDS SUMMARY | 2025-01-05 01:53 | XMS_ITS | Encounter Summary ---
Author Organization [facility] Address [address] [place] [address] Phone Care Team Providers Care Three Dimensional Map Modeler Name Role Phone Fidelina Purcell MD Primary Care Provider Encounter Details Date Type Department Care Team (Late st Contact Info) Description 07/28/2009 Documentation [facility] [address] [place] [address] Family Medicine, Physician [address] [place], [place] [phone] Social History Tobacco Use Types Packs/Day Years [...] on filedocumented in this encounter Care Teams Three Dimensional Map Modeler Relationship Specialty Start Date End Date Fidelina Purcell MD [address] [place] [address] 17987 PCP - General 12/01/16 07/23/22 documented as of this encounter
--- OUTSIDE RECORDS SUMMARY | 2025-01-05 01:53 | XMS_ITS | Encounter Summary ---
Author Organization [facility] Address [address] [place] [address] Phone Care Team Providers Care Building Inspector Name Role Phone Fidelina Purcell MD Primary Care Provider [phone] Encounter Details Date Type Department Care Team (Late st Contact Info) Description 10/08/2013 Documentation [facility] [place] [address] [place] [address] Family Medicine, Physician [address] [place], [place] [phone] Social History Tobacco Use Types Packs/Day Years [...] on filedocumented in this encounter Care Teams Building Inspector Relationship Specialty Start Date End Date Fidelina Purcell MD [address] [place] [address] 93094 PCP - General 12/01/16 07/23/22 documented as of this encounter
--- OUTSIDE RECORDS SUMMARY | 2025-01-05 01:53 | XMS_ITS | Encounter Summary ---
Author Organization [facility] Address [address] [place] [address] Phone Care Team Providers Care Machine Group Leader Name Role Phone Fidelina Purcell MD Primary Care Provider [phone] Encounter Details Date Type Department Care Team (Late st Contact Info) Description 11/13/2012 Documentation [facility] [place] [address] [place] [address] Family Medicine, Physician [address] [place], [place] [phone] Social History Tobacco Use Types Packs/Day Years [...] on filedocumented in this encounter Care Teams Machine Group Leader Relationship Specialty Start Date End Date Fidelina Purcell MD [address] [place] [address] 03278 PCP - General 12/01/16 07/23/22 documented as of this encounter
--- OUTSIDE RECORDS SUMMARY | 2025-01-05 01:53 | XMS_ITS | Encounter Summary ---
Author Organization [facility] Address [address] [place] [address] Phone Care Team Providers Care Pastry Mixer Name Role Phone Abdoulaye Ball MD Primary Care Provider + Alexx Huerta SENIOR TECHNICAL BUSINESS ANALYST Unavailable Un available Encounter Details Date Type Department Care Team (Late st Contact Info) Description 03/07/2024 Procedure Pass [facility] [place] Scan - [address] [address] Social History Tobacco Use Types Packs/Day Years Used Date Smoking Tobacco: Former Smokeless Tobacco: Never Alcohol Use Standard Drinks/Week Comments No 0 (1 standard drink = 0.6 oz pur e alcohol) sober Education Answer Date Recorded Are you interested in more education? Not on charlotte e 08/18/2022 Are you concerned about learning? Not on file 08/18/2022 No 08/18/2022 No 08/18/2022 Digital Access Answer Date Recorded No 09/18/2022 No 09/18/2022 Reliable internet access at home? Not on file 09/18/2022 Device with a working camera? Not on file Intimate Partner Violence Answer Date R ecorded Are you denied basic needs s uch as food, clothing, or medical care? No 03/08/2024 In the past 12 months have y ou been in a relationship with a person who hurts, threatens, or tries to control you? No 03/08/2024 Are you denied basic needs s uch as food, clothing, or medical care? No 03/08/2024 In the past 12 months have y ou been in a relationship with a person who hurts, threatens, or tries to control you? No 03/08/2024 Comments Unknown Sex and Gender Information Value Date Recorded Sex Assigned at Female 10/23/2017 4:57 PM EDT Legal Sex Female 2:10 PM EDT Gender Identity Female 10/06/2024 2:54 AM EDT Sexual Orientation Asexual 10/06/2024 2: 54 AM EDT documented as of this encounter Functional Status * Calculated C-SSRS Risk Score (Lifetime/Recent) Answer Date of Assessment Author No Risk Indicated 03/07/2024 8:45 PM Sally Sandoval RN * [place] Suicide Severity Rating Scale (Screener/Recent Self-Report) Question Answer Date of Assessment Author 1. Wish to be (Past 1 Month) No 024 8:45 PM Sally Lim RN 2. Non-Specific Active Suici mari Thoughts (Past 1 Month) No 03/07/2024 8:45 PM Eloy Lim RN 6. Suicidal Behavior (Lifetime) No 8:45 PM Sally Lim RN documented as of this encounter Plan of Treatment Not on file documented as of this encounter Visit Diagnoses Not on filedocumented in this encounter Care Teams Pastry Mixer Relationship Specialty Start Date End Date Abdoulaye Ball MD [address] [place] [phone] PCP - General Family Medicine 10/23/17 Alexx Huerta LCSW [address] [place] [address] Yarn Mercerizer Operator Helper 03/07/22 07/16/24 documented as of this encounter Additional Source Comments The information contained in this document represents components of the legal health record. It is not the complete legal health record.[facility]
--- OUTSIDE RECORDS SUMMARY | 2025-01-05 01:53 | XMS_ITS | Encounter Summary ---
Author Organization [facility] Address [address] [place] [address] Phone Care Team Providers Care Vulcan Crewmember Name Role Phone Fidelina Purcell MD Primary Care Provider Encounter Details Date Type Department Care Team (Late st Contact Info) Description 12/23/2013 Documentation [facility] Family Medicine [address] [place] [address] Family Medicine, Physician [address] [place], [place] [phone] Social History Tobacco Use Types Packs/Day Years [...] on filedocumented in this encounter Care Teams Vulcan Crewmember Relationship Specialty Start Date End Date Fidelina Purcell MD [address] [place] [id number] PCP - General 12/01/16 07/23/22 documented as of this encounter
--- OUTSIDE RECORDS SUMMARY | 2025-01-05 01:53 | XMS_ITS | Encounter Summary ---
Author Organization [facility] Address [address] [place] [address] Phone Care Team Providers Care Assembly Machine Offbearer Name Role Phone Fidelina Purcell MD Primary Care Provider Encounter Details Date Type Department Care Team (Late st Contact Info) Description 07/04/2012 Documentation [facility] [place] [address] [place] [address] Family Medicine, Physician [address] [place], [place] [phone] Social History Tobacco Use Types Packs/Day Years [...] on filedocumented in this encounter Care Teams Assembly Machine Offbearer Relationship Specialty Start Date End Date Fidelina Purcell MD [address] [place] [phone] PCP - General 12/01/16 07/23/22 documented as of this encounter
--- OUTSIDE RECORDS SUMMARY | 2025-01-05 01:53 | XMS_ITS | Encounter Summary ---
Author Organization [facility] Address [address] [place] [address] Phone Care Team Providers Care Microsoft Windows Engineer Name Role Phone Fidelina Purcell MD Primary Care Provider Encounter Details Date Type Department Care Team (Late st Contact Info) Description 10/23/2009 Documentation [facility] Family Medicine [address] [place] [address] Family Medicine, Physician [address] [place], [place] [phone] Social History Tobacco Use Types Packs/Day Years [...] on filedocumented in this encounter Care Teams Microsoft Windows Engineer Relationship Specialty Start Date End Date Fidelina Purcell MD [address] [place] [phone] PCP - General 12/01/16 07/23/22 documented as of this encounter
--- OUTSIDE RECORDS SUMMARY | 2025-01-05 01:53 | XMS_ITS | Encounter Summary ---
Author Organization [facility] Address [address] [place] [address] Phone Care Team Providers Care Priming Mixture Carrier Name Role Phone Fidelina Purcell MD Primary Care Provider Encounter Details Date Type Department Care Team (Late st Contact Info) Description 04/28/2011 Documentation [facility] [place] Family Medicine [address] [place] [address] Family Medicine, Physician [address] [place], [place] [phone] Social History Tobacco Use Types Packs/Day Years [...] on filedocumented in this encounter Care Teams Priming Mixture Carrier Relationship Specialty Start Date End Date Fidelina Purcell MD [address] [place] [phone] PCP - General 12/01/16 07/23/22 documented as of this encounter
--- OUTSIDE RECORDS SUMMARY | 2025-01-05 01:53 | XMS_ITS | Encounter Summary ---
Author Organization [facility] Address [address] [place] [address] Phone Care Team Providers Care Research Environmental Scientist Name Role Phone Fidelina Purcell MD Primary Care Provider Encounter Details Date Type Department Care Team (Late st Contact Info) Description 11/08/2012 Documentation [facility] [place] [address] [place] [address] Family Medicine, Physician [address] [place], [place] [phone] Social History Tobacco Use Types Packs/Day Years [...] on filedocumented in this encounter Care Teams Research Environmental Scientist Relationship Specialty Start Date End Date Fidelina Purcell MD [address] [place] [phone] PCP - General 12/01/16 07/23/22 documented as of this encounter
--- OUTSIDE RECORDS SUMMARY | 2025-01-05 01:53 | XMS_ITS | Encounter Summary ---
Author Organization [facility] Address [address] [place] [address] Phone Care Team Providers Care Rip/Mould Operator Name Role Phone Fidelina Purcell MD Primary Care Provider Encounter Details Date Type Department Care Team (Late st Contact Info) Description 06/02/2013 Documentation [facility] [place] Family Medicine [address] [place] [address] Family Medicine, Physician [address] [place], [place] [phone] Social History Tobacco Use Types Packs/Day Years [...] on filedocumented in this encounter Care Teams Rip/Mould Operator Relationship Specialty Start Date End Date Fidelina Purcell MD [address] [place] [address] PCP - General 12/01/16 07/23/22 documented as of this encounter
--- OUTSIDE RECORDS SUMMARY | 2025-01-05 01:53 | XMS_ITS | Encounter Summary ---
Author Organization [facility] Address [address] [place] [address] Phone Care Team Providers Care Hot Plate Press Operator Name Role Phone Fidelina Purcell MD Primary Care Provider Encounter Details Date Type Department Care Team (Late st Contact Info) Description 08/13/2009 Documentation [facility] [place] Family Medicine [address] [place] [address] Family Medicine, Physician [address] [place], [place] [phone] Social History Tobacco Use Types Packs/Day Years [...] on filedocumented in this encounter Care Teams Hot Plate Press Operator Relationship Specialty Start Date End Date Fidelina Purcell MD [address] [place] [address] PCP - General 12/01/16 07/23/22 documented as of this encounter
--- OUTSIDE RECORDS SUMMARY | 2025-01-05 01:53 | XMS_ITS | Encounter Summary ---
Author Organization [facility] Address [address] [place] [address] Phone Care Team Providers Care Vamp Liner Name Role Phone Fidelina Purcell MD Primary Care Provider Encounter Details Date Type Department Care Team (Late st Contact Info) Description 05/19/2013 Documentation [facility] [place] [address] [place] [address] Family Medicine, Physician [address] [place], [place] [phone] Social History Tobacco Use Types Packs/Day Years [...] on filedocumented in this encounter Care Teams Vamp Liner Relationship Specialty Start Date End Date Fidelina Purcell MD [address] [place] [address] PCP - General 12/01/16 07/23/22 documented as of this encounter
--- OUTSIDE RECORDS SUMMARY | 2025-01-05 01:53 | XMS_ITS | Encounter Summary ---
Author Organization [facility] Address [address] [place] [address] Phone Care Team Providers Care Dormitory Keeper Name Role Phone Fidelina Purcell MD Primary Care Provider Encounter Details Date Type Department Care Team (Late st Contact Info) Description 10/08/2015 Documentation [facility] [place] Family Medicine [address] [place] [address] Family Medicine, Physician [address] [place], [place] [phone] Social History Tobacco Use Types Packs/Day Years [...] on filedocumented in this encounter Care Teams Dormitory Keeper Relationship Specialty Start Date End Date Fidelina Purcell MD [address] [place] [phone] PCP - General 12/01/16 07/23/22 documented as of this encounter
--- OUTSIDE RECORDS SUMMARY | 2025-01-05 01:53 | XMS_ITS | Encounter Summary ---
Author Organization [facility] Address [address] [place] [address] Phone Care Team Providers Care Director Business Intelligence Name Role Phone Fidelina Purcell MD Primary Care Provider Encounter Details Date Type Department Care Team (Late st Contact Info) Description 12/12/2012 Documentation [facility] Family Medicine [address] [place] [address] Family Medicine, Physician [address] [place], [place] [phone] Social History Tobacco Use Types Packs/Day Years [...] filedocumented in this encounter Care Teams Director Business Intelligence Relationship Specialty Start Date End Date Fidelina Purcell MD [address] [place] [phone] PCP - General 12/01/16 07/23/22 documented as of this encounter
--- OUTSIDE RECORDS SUMMARY | 2025-01-05 01:53 | XMS_ITS | Encounter Summary ---
Author Organization [facility] Address [address] [place] [address] Phone Care Team Providers Care Conservation Science Teacher Name Role Phone Fidelina Purcell MD Primary Care Provider Encounter Details Date Type Department Care Team (Late st Contact Info) Description 03/03/2013 Documentation [facility] [place] Family Medicine [address] [place] [address] Family Medicine, Physician [address] [place], [place] [phone] Social History Tobacco Use Types Packs/Day Years [...] on filedocumented in this encounter Care Teams Conservation Science Teacher Relationship Specialty Start Date End Date Fidelina Purcell MD [address] [place] [phone] PCP - General 12/01/16 07/23/22 documented as of this encounter
--- OUTSIDE RECORDS SUMMARY | 2025-01-05 01:53 | XMS_ITS | Clinical Summary ---
Author Organization [facility] Address [address] [place] [phone] Phone Care Team Providers Care Real Estate Specialist Name Role Phone Abdoulaye Ball MD Primary Care Provider + Allergies Active Allergy Reactions Criticality Noted Date Comments Lorazepam 10/01/2021 Diphenhydramine Hcl 02/20/2021 Doxycycline Hyclate 02/20/2021 House Dust 03/18/2022 Iodinated Contrast Media Rash 01/02/2014 Other reaction(s): Pain all over body. Very hot. Itchy. Other 10/23/2017 Pomegranate, anita Other reaction(s): ANITA AND POMEGRANATE Phs Other Free Text-See Phs Viewer 01/02/2014 topiramate Prazosin Palpitations Low 10/23/2017 Propranolol 03/09/2021 Led to suicide attempt Shellfish Derived Anaphylaxis 01/02/2014 Sulfa (Sulfonamide Antibiotics) Rash 01/02/2014 Sulfites 04/08/2022 Topiramate 03/09/2021 Ondansetron Hcl 05/13/2019 migraines Medications methylphenidate 54 MG ER tablet Take 54 mg by mouth every morning. 12/12/2021 Active fexofenadine (ALIZE) 60 MG tablet Take 60 mg by mouth daily. Active acetaminophen (TYLENOL) 160 mg/5 mL Soln Active ibuprofen (ADVIL,MOTRIN) 200 MG tablet Take 200 mg by mouth every 6 (six) hours as needed for pain (specific location in comments). Active collagen/biotin /ascorbic acid (COLLAGEN 1500 PLUS C ORAL) Take by mouth. Active magnesium carbonate 54 mg/5 mL Liqd Take by mouth daily before breakfast. Active cyanocobalamin, vitamin B-12, 250 MCG tablet Take 250 mcg by mouth daily. Active methylphenidate HCl (RITALIN) 5 MG tablet Take 5 mg by mouth daily. Active methylphenidate (CONCERTA) 36 MG ER tablet Take 36 mg by mouth. 03/05/2023 Active VYVANSE 50 mg capsule Take 50 mg by mouth every morning. Active Active Problems Problem Noted Date Diagnosed Date Overdose 03/09/2021 Assessment & Plan (03/09/2021 8:05 PM EST): - accidental wellbutrin overdose - cont cardiac monitoring - monitor for seizures - can use clonazepam as needed for symptoms -avoid medications that could contribute toward serotonin syndrome or QTC prolongation - check magnesium level -Acetaminophen, salicylates, ethanol were not elevated which is reassuring Mood disorder 03/09/2021 Assessment & Plan (03/09/2021 8:04 PM EST): -Though not an intentional overdose, is reporting increased symptoms triggered by the hospital setting we will ask for BHRT consult Encounters Date Type Department Care Team Description 10/06/2024 3:48 AM EDT - 10/06/2024 6:25 AM EDT Emergency [facility] [address] [place] [address] Luan Camacho MD Discharge Disposition: Home or Self Care from Last 3 Months Immunizations Immunization Administration Dates Next Due COVID-19 (Pre-02/12) Moderna Vaccine, mRNA, PF 12/10/2021 DTP 02/20/1995,1994,1994 DTaP 10/05/2015 Dtap, 5 Pertussis Antigens 09/16/1998,02/26/1996 Hepatitis A, Adult 09/03/2014 Hepatitis A, ped/adol, 2 dose 10/10/2013 Hepatitis B 02/20/1995,1994,1994 Hib,PRP-T 02/20/1995,1994,1994 MMR 09/16/1998,08/20/1995 Meningococcal MCV4P 11/23/2008 Polio - OPV 09/16/1998, 5,1994,10/16 Tdap 04/23/2015,10/31/2006 Varicella 11/23/2008,11/20/1995 Family History Medical History Relation Comments Atrial fibrillation Father Diabetes type II Father Glaucoma Father Heart disease Maternal Grandfather Uterine cancer Maternal Grandmother Arthritis Mother Heart attack Mother Lung cancer Paternal Grandfather Bipolar disorder Paternal Grandmother Relation Status Comments Father Maternal Grandfather Maternal Grandmother Mother Paternal Grandfather Paternal Grandmother Social History Tobacco Use Types Packs/Day Years Used Date Smoking Tobacco: Former Smokeless Tobacco: Never Tobacco Cessation:Counseling Given: Not Answered Alcohol Use Standard Drinks/Week Comments No 0 (1 standard drink = 0.6 oz pur e alcohol) sober Education Answer Date Recorded Are you interested in more education? Not on charlotte e 08/18/2022 Are you concerned about learning? Not on file 08/18/2022 No 08/18/2022 No 08/18/2022 Food Answer Date Recorded Within the past 6 months we worried whether our food would run out before we got money to buy more. Never True 10/06/2024 Within the past 6 months the food we bought just didn't last and we didn't have enough money to get more. Never True Residential Stability Answer Date Recor ded What is your housing situation today? I have janki sing 10/06/2024 How many times have you move d in the past 12 months? Zero (I did not move) 10/06/2024 Paying for Meds Answer Date Recorded Do you have trouble paying for medicines? No 10/06/2024 Paying Utility Bills Answer Date Record ed Do you have trouble paying your heating or elect ricity bill? No 10/06/2024 Transportation Answer Date Recorded Has the lack of transportati on kept you from medical appointments or from getting medications? No 10/06/2024 Digital Access Answer Date Recorded No 10/06/2024 Yes 10/06/2024 Do you have reliable internet access at home? Ye s 10/06/2024 Do you have a device (e.g., phone, tablet, computer) with a working camera? Yes 10/06/2024 Intimate Partner Violence Answer Date R ecorded Are you denied basic needs s uch as food, clothing, or medical care? No 10/06/2024 In the past 12 months have y ou been in a relationship with a person who hurts, threatens, or tries to control you? No 10/06/2024 Are you denied basic needs s uch as food, clothing, or medical care? No 10/06/2024 In the past 12 months have y ou been in a relationship with a person who hurts, threatens, or tries to control you? No 10/06/2024 Comments Unknown Sex and Gender Information Value Date Recorded Sex Assigned at Female 10/23/2017 4:57 PM EDT Legal Sex Female 2:10 PM EDT Gender Identity Female 10/06/2024 2:54 AM EDT Sexual Orientation Asexual 10/06/2024 2: 54 AM EDT Last Filed Vital Signs Vital Sign Reading Time Taken Comments Blood Pressure 102/71 10/06/2024 6:24 AM EDT Pulse 89 10/06/2024 6:24 AM EDT Temperature 36.6 C (97.9 F) 10/06/2024 6:24 AM EDT Respiratory Rate 18 10/06/2024 6:24 AM EDT Oxygen Saturation 100% 10/06/2024 6:24 AM EDT Inhaled Oxygen Concentration - - Weight 80.3 kg (177 lb 0.5 oz) 10/06/2024 1:33 A M EDT Height 172.7 cm (5' 7.99 ) 10/06/2024 1:33 AM ED T Body Mass Index 26.92 10/06/2024 1:33 AM EDT Plan of Treatment Health Maintenance Due Date Last Done Comments DEPRESSION SCREENING 2006 SMOKING Hx and SMOKELESS TOBACCO SCREENING 08/17/2007 HEPATITIS C SCREENING 2012 HIV ONE-TIME SCREENING (18-6 5 YEARS) 2012 COVID-19 VACCINE (2023-2 5 season) 2023 12/10/2021, 10/30/2020, 09/30/2020 INFLUENZA VACCINE (#1) 2024 Adult Td,Tdap Booster 04/23/2025 04/23/2015 , 10/31/2006 PAP SMEAR 06/20/2025 06/20/2022 HIB VACCINES Aged Out 02/20/1995, 1994, 1994 No longer eligible based on patient's age to complete this topic MENINGOCOCCAL VACCINES (ACWY) Aged Out 11/23/2008 No longer eligible based on patient's age to complete this topic HEPATITIS A VACCINES Aged Out 09/03/2014, 10/10/2013 No longer eligible based on patient's age to complete this topic MENINGOCOCCAL VACCINES (B) Aged Out N o longer eligible based on patient's age to complete this topic PNEUMOCOCCAL VACCINES (0-49 years) Aged Out No longer eligible b ased on patient's age to complete this topic Medical Devices Not on file Procedures Procedure Name Priority Date/Time Associated Diagnosis Comments URINALYSIS W/REFLEX URINE CULTURE STAT 10/06/2024 5:40 AM EDT HC SMR PRIM SRC [place]ET [place] NFCT AGT STAT 10/06/2024 5:40 AM EDT PAP TEST Routine 06/20/2022 12:00 AM EST from Last 3 Months or Most Recently Relevant to Health Maintenance Results * Wet [place] (10/06/2024 5:40 AM EDT) White Blood Cells PRESENT [facility] Clue Cells NONE SEEN NONE SEEN [facility] trichomonas NONE SEEN NONE SEEN [facility] Yeast NONE SEEN NONE SEEN [facility] Other (Vaginal) 10/06/2024 5 :40 AM EDT 10/06/2024 5:47 AM EDT us Luan Camacho MD BODY FLUIDS AND STOOLS KIKO CARCAMO Final Result [facility] [address] [place] [address] * Urinalysis w/reflex Urine Culture (10/06/2024 5:40 AM EDT) COLOR Yellow Yellow [facility] CLARITY Clear [facility] GLUCOSE Negative Negative [facility] BILI Negative Negative [facility] KETONES Negative Negative [facility] SPECIFIC GRAVITY 1.015 1.005 - 1.030 [facility] BLOOD Negative Negative [facility] PH 6.5 5.0 - 8.0 [facility] Protein-UA Negative Negative [facility] NITRITE Negative Negative [facility] Leukocyte esterase, ur Negative Negative [facility] Urine (Urine) 10/06/2024 5:4 0 AM EDT 10/06/2024 5:47 AM EDT us Luan Camacho MD URINE ORDERABLES Final Resu lt [address] [address] * Pap Test (06/20/2022 12:00 AM EST) 06/20/2022 06/21/2022 10: 38 AM EST Narrative SEE NARRATIVE - 06/27/2022 6:38 PM EST [address] [address] [address] [employer] School Professional: Christal Robbins MD PATIENT SERVICES COORDINATOR Cytology Report FINAL DIAGNOSIS A. PAP SMEAR (SUREPATH) CE: SPECIMEN ADEQUACY: Satisfactory for evaluation; transformation zone present. INTERPRETATION: NEGATIVE FOR INTRAEPITHELIAL LESION OR MALIGNANCY. Electronically Signed Out By: Christal Robbins MD By his/her signature above, the pathologist listed as making the Final Diagnosis certifies that he/she has personally reviewed this case and confirmed or corrected the diagnosis. The Pap test is a screening test primarily for squamous cancers and precursors and has associated false-negative and false-positive results. New technologies such as liquid-based preparations may decrease but will not eliminate all false-negative results. Regular sampling and follow-up of unexplained clinical signs and symptoms are recommended to minimize false negative results. CLINICAL HISTORY Date of Last Menstrual Period: Not Provided Menstrual History: Unknown Other Clinical Conditions: Screening Pap SPECIMEN SOURCE A: PAP SMEAR (SUREPATH) CE Patient Name: DONNELL FERRARO : 1995 (Age: 26) Sex: F Institution: [facility] Location: [facility] Date of Collection: 06/20/2022 Date of Reported: 06/27/2022 18:38 Results to: Julian Leon MD, BS Julian Leon MD CYTOLOGY ORDERABLES Final Res ult SEE NARRATIVE from Last 3 Months or Most Recently Relevant to Health Maintenance Insurance [facility] [place] [address] [place] [address] ACO Advance Directives For more information, please contact: [phone] (9AM - 5PM [facility], Sunday-Sunday) * Full Code (Latest Code Status on File) Date Activated Date Inactivated Comments 03/09/2021 8:11 PM Question Answer Comments Code Status Confirmed With: Patient Care Teams Real Estate Specialist Relationship Specialty Start Date End Date Abdoulaye Ball MD [address] [place] [address] PCP - General Family Medicine 10/23/17 Additional Source Comments The information contained in this document represents components of the legal health record. It is not the complete legal health record.[facility]
--- OUTSIDE RECORDS SUMMARY | 2025-01-05 01:53 | XMS_ITS | Encounter Summary ---
Author Organization [facility] Address [address] [place] [address] Phone Care Team Providers Care Disk Recordist Name Role Phone Fidelina Purcell MD Primary Care Provider Encounter Details Date Type Department Care Team (Late st Contact Info) Description 04/03/2011 Documentation [facility] [place] Family Medicine [address] [place] [address] Family Medicine, Physician [address] [place], [place] [phone] Social History Tobacco Use Types Packs/Day Years [...] on filedocumented in this encounter Care Teams Disk Recordist Relationship Specialty Start Date End Date Fidelina Purcell MD [address] [place] [address] PCP - General 12/01/16 07/23/22 documented as of this encounter
--- OUTSIDE RECORDS SUMMARY | 2025-01-05 01:53 | XMS_ITS | Encounter Summary ---
Author Organization [facility] Address [address] [place] [address] Phone Care Team Providers Care Drafting Teacher Name Role Phone Fidelina Purcell MD Primary Care Provider Encounter Details Date Type Department Care Team (Late st Contact Info) Description 11/23/2015 Documentation [facility] [place] [address] [place] [address] Family Medicine, Physician [address] [place], [place] [phone] Social History Tobacco Use Types Packs/Day Years [...] on filedocumented in this encounter Care Teams Drafting Teacher Relationship Specialty Start Date End Date Fidelina Purcell MD [address] [place] [address] PCP - General 12/01/16 07/23/22 documented as of this encounter
--- OUTSIDE RECORDS SUMMARY | 2025-01-05 01:53 | XMS_ITS | Encounter Summary ---
Author Organization [facility] Address [address] [place] [address] Phone Care Team Providers Care Coke Oven Patcher Name Role Phone Fidelina Purcell MD Primary Care Provider Encounter Details Date Type Department Care Team (Late st Contact Info) Description 03/27/2011 Documentation [facility] [place] Family Medicine [address] [place] [address] Family Medicine, Physician [address] [place], [place] [phone] Social History Tobacco Use Types Packs/Day Years [...] on filedocumented in this encounter Care Teams Coke Oven Patcher Relationship Specialty Start Date End Date Fidelina Purcell MD [address] [place] [address] PCP - General 12/01/16 07/23/22 documented as of this encounter
--- OUTSIDE RECORDS SUMMARY | 2025-01-05 01:53 | XMS_ITS | Encounter Summary ---
Author Organization [facility] Address [address] [place] [address] Phone Care Team Providers Care New Patient Escort Name Role Phone Fidelina Purcell MD Primary Care Provider Encounter Details Date Type Department Care Team (Late st Contact Info) Description 08/22/2016 Documentation [place] Family Medicine [address] [place] [address] Family Medicine, Physician [address] [place], [place] [phone] Social History Tobacco Use Types Packs/Day Years [...] on filedocumented in this encounter Care Teams New Patient Escort Relationship Specialty Start Date End Date Fidelina Purcell MD [address] [place] [address] PCP - General 12/01/16 07/23/22 documented as of this encounter
--- OUTSIDE RECORDS SUMMARY | 2025-01-05 01:53 | XMS_ITS | Encounter Summary ---
Author Organization [facility] Address [address] [place] [address] Phone Care Team Providers Care Commercial Leasing Manager Name Role Phone Fidelina Purcell MD Primary Care Provider Encounter Details Date Type Department Care Team (Late st Contact Info) Description 12/02/2013 Documentation [facility] [place] Family Medicine [address] [place] [address] Family Medicine, Physician [address] [place], [place] [phone] Social History Tobacco Use Types Packs/Day Years [...] on filedocumented in this encounter Care Teams Commercial Leasing Manager Relationship Specialty Start Date End Date Fidelina Purcell MD [address] [place] [phone] PCP - General 12/01/16 07/23/22 documented as of this encounter
--- OUTSIDE RECORDS SUMMARY | 2025-01-05 01:54 | XMS_ITS | Encounter Summary ---
Author Organization [facility] Address [address] [place] [address] Phone Care Team Providers Care Pie Cutter Name Role Phone Fidelina Purcell MD Primary Care Provider Encounter Details Date Type Department Care Team (Late st Contact Info) Description 04/17/[address] [facility] [place] [address] [place] [address] Family Medicine, Physician [address] [place], [place] [phone] Social History Tobacco Use Types Packs/Day Years [...] on filedocumented in this encounter Care Teams Pie Cutter Relationship Specialty Start Date End Date Fidelina Purcell MD [address] [place] [address] PCP - General 12/01/16 07/23/22 documented as of this encounter
--- OUTSIDE RECORDS SUMMARY | 2025-01-05 01:54 | XMS_ITS | Encounter Summary ---
Author Organization [facility] Address [address] [place] [address] Phone Care Team Providers Care Tapping Machine Operator Name Role Phone Fidelina Purcell MD Primary Care Provider [phone] Encounter Details Date Type Department Care Team (Late st Contact Info) Description 10/16/2011 Documentation [facility] [place] Family Medicine [address] [place] [address] Family Medicine, Physician [address] [place], [place] [phone] Social History Tobacco Use Types Packs/Day Years [...] on filedocumented in this encounter Care Teams Tapping Machine Operator Relationship Specialty Start Date End Date Fidelina Purcell MD [address] [place] [address] PCP - General 12/01/16 07/23/22 documented as of this encounter
--- OUTSIDE RECORDS SUMMARY | 2025-01-05 01:54 | XMS_ITS | Encounter Summary ---
Author Organization [facility] Address [address] [place] [address] Phone Care Team Providers Care Washroom Cleaner Name Role Phone Fidelina Purcell MD Primary Care Provider Encounter Details Date Type Department Care Team (Late st Contact Info) Description 01/29/2015 [place] [facility] [place] [address] [place] [address] Family Medicine, Physician [address] [place], [place] [phone] Social History Tobacco Use Types Packs/Day Years [...] on filedocumented in this encounter Care Teams Washroom Cleaner Relationship Specialty Start Date End Date Fidelina Purcell MD [address] [place] [address] PCP - General 12/01/16 07/23/22 documented as of this encounter
--- OUTSIDE RECORDS SUMMARY | 2025-01-05 01:54 | XMS_ITS | Encounter Summary ---
Author Organization [facility] Address [address] [place] [address] Phone Care Team Providers Care Supervisor Body Assembly Name Role Phone Fidelina Purcell MD Primary Care Provider Encounter Details Date Type Department Care Team (Late st Contact Info) Description 02/20/2012 Documentation [facility] [place] [address] [place] [address] Family Medicine, Physician [address] [place], [place] [phone] Social History Tobacco Use Types Packs/Day Years [...] filedocumented in this encounter Care Teams Supervisor Body Assembly Relationship Specialty Start Date End Date Fidelina Purcell MD [address] [place] [address] PCP - General 12/01/16 07/23/22 documented as of this encounter
--- OUTSIDE RECORDS SUMMARY | 2025-01-05 01:54 | XMS_ITS | Encounter Summary ---
Author Organization [facility] Address [address] [place] [address] Phone Care Team Providers Care Client Specialist Name Role Phone Fidelina Purcell MD Primary Care Provider [phone] Encounter Details Date Type Department Care Team (Late st Contact Info) Description 02/02/2012 Documentation [facility] [place] [address] [place] [address] Family Medicine, Physician [address] [place], [place] [phone] Social History Tobacco Use Types Packs/Day Years [...] on filedocumented in this encounter Care Teams Client Specialist Relationship Specialty Start Date End Date Fidelina Purcell MD [address] [place] [address] PCP - General 12/01/16 07/23/22 documented as of this encounter
--- OUTSIDE RECORDS SUMMARY | 2025-01-05 01:54 | XMS_ITS | Encounter Summary ---
Author Organization [facility] Address [address] [place] [address] Phone Care Team Providers Care Administrative Office Assistant Name Role Phone Fidelina Purcell MD Primary Care Provider Encounter Details Date Type Department Care Team (Late st Contact Info) Description 09/19/2011 Documentation [facility] [place] Family Medicine [address] [place] [address] Family Medicine, Physician [address] [place], [place] [phone] Social History Tobacco Use Types Packs/Day Years [...] on filedocumented in this encounter Care Teams Administrative Office Assistant Relationship Specialty Start Date End Date Fidelina Purcell MD [address] [place] [phone] PCP - General 12/01/16 07/23/22 documented as of this encounter
--- OUTSIDE RECORDS SUMMARY | 2025-01-05 01:54 | XMS_ITS | Encounter Summary ---
Author Organization [facility] Address [address] [place] [address] Phone Care Team Providers Care Vegetable Scullion Name Role Phone Fidelina Purcell MD Primary Care Provider Encounter Details Date Type Department Care Team (Late st Contact Info) Description 01/21/2010 Documentation [facility] Family Medicine [address] [place] [address] Family Medicine, Physician [address] [place], [place] [phone] Social History Tobacco Use Types Packs/Day Years [...] on filedocumented in this encounter Care Teams Vegetable Scullion Relationship Specialty Start Date End Date Fidelina Purcell MD [address] [place] [phone] PCP - General 12/01/16 07/23/22 documented as of this encounter
--- OUTSIDE RECORDS SUMMARY | 2025-01-05 01:54 | XMS_ITS | Encounter Summary ---
Author Organization [facility] Address [address] [place] [address] Phone Care Team Providers Care Special Skills Officer Name Role Phone Fidelina Purcell MD Primary Care Provider Encounter Details Date Type Department Care Team (Late st Contact Info) Description 11/22/2015 Documentation [facility] [place] Family Medicine [address] [place] [address] Family Medicine, Physician [address] [place], [place] [phone] Social History Tobacco Use Types Packs/Day Years [...] on filedocumented in this encounter Care Teams Special Skills Officer Relationship Specialty Start Date End Date Fidelina Purcell MD [address] [place] [address] PCP - General 12/01/16 07/23/22 documented as of this encounter
[2025-01-05 03:18] LABS: Appearance Urine Clear; Glucose Urine UA Negative (Negative); PH 8.0 (5.0-9.0); Specific Gravity - Urine 1.010 (1.005-1.025)
[2025-01-05 03:21] LABS: UPreg QC Valid YES
[2025-01-05 03:28] VITALS: BP 132/77; PULSE 95; RESP 20; TEMP 37; O2SAT 100
[2025-01-05 03:32] LABS: COVID-19 Test Negative (Negative); IDNOW Serial# 55D5AD1C
[2025-01-05 03:47] LABS: IDNOW Serial# 58CA691E; Influenza B2 Negative (Negative)
[2025-01-05] MEDS: Lidocaine 4 % Patch ADH..PATCH 1 PATCH TRANSDERMA (03:55)
--- NOTE | 2025-01-05 04:26 | ED_ITS ---
HPI - Chest Pain General Chief Complaint: Dyspnea Stated Complaint: Lung pressure and burning sensation Time Seen by Provider: 01/05/25 02:20 Source: patient Mode of arrival: ambulatory Limitations: no limitations History of Present Illness ED Provider: Dr. Ophelia Restrepo HPI narrative: 29-year-old female with history of Nani-Danlos syndrome, fibromyalgia, migraine headaches, borderline personality disorder, PTSD and anxiety presenting with shortness of breath and chest pain that has been ongoing for the last several days. Admits she was recently diagnosed with bronchitis and given an inhaler. States that the breathing his not really improved and she is becoming frustrated with her symptoms. Admits that she has been struggling with shortness of breath and palpitations for months. Feels as though she is not being adequately treated for her fibromyalgia but is at the same time very anxious about taking any medications for any of this. [place] that she should come to the emergency department tonight because she is at the end of her rope. Denies suicidal ideations though. Just feeling very anxious and depressed. No reported fever in the last 24 hours. Denies sputum production. She has extreme tenderness with movement of her right arm and chest. Related Data Previous Rx's ?Medication ?Instructions ?Recorded tramadol 50 mg tablet 50 mg PO Q6H PRN pain #20 ta bs 07/03/20 metoclopramide HCl 10 mg tablet 10 mg PO Q6H PRN nause a and 09/07/20 (Reglan) vomiting #20 tabs nitrofurantoin 100 mg PO Q12H 5 days #10 ca ps 12/19/20 monohydrate/macrocrystals 100 mg capsule (Macrobid) cyclobenzaprine 10 mg tablet 10 mg PO TID PRN muscle s pasm #10 01/17/21 tabs fluconazole 150 mg tablet 150 mg PO ONCE 1 day #1 tab 01/17/21 cefuroxime axetil 500 mg tablet 500 mg PO BID 7 days # 14 tabs 01/18/21 fluconazole 150 mg tablet 150 mg PO Q3D 2 doses #2 tab s 02/16/21 (Diflucan) ibuprofen 600 mg tablet 600 mg PO Q8H PRN pain #20 t abs 02/16/21 lidocaine 5 % topical patch 1 patch topical DAILY #15 ea 02/16/21 mupirocin 2 % topical ointment 1 appl topical TID #15 grams 02/16/21 cyclobenzaprine 10 mg tablet 10 mg PO TID PRN muscle s pasm #14 03/03/21 tabs ibuprofen 600 mg tablet 600 mg PO Q8H PRN pain #20 t abs 03/03/21 lidocaine 5 % topical patch 1 patch topical DAILY #15 ea 03/03/21 meclizine 25 mg tablet 25 mg PO TID PRN dizziness # 14 tabs 03/17/21 doxycycline monohydrate 100 mg 100 mg PO BID #20 caps 07/30/21 capsule ondansetron 4 mg disintegrating 4 mg PO Q8H 3 days #9 tabs 08/29/21 tablet hyoscyamine sulfate 0.125 mg tablet 0.125 mg PO QID ID N dyspepsia #10 03/25/24 tabs ondansetron 4 mg disintegrating 4 mg PO Q6H PRN nausea and 03/25/24 tablet vomiting #10 tabs azithromycin 250 mg tablet 250 mg PO DAILY 4 days #4 t abs 05/27/24 amoxicillin 500 mg capsule 1,000 mg (2 x 500 mg) PO TI D 5 06/12/24 days #30 caps azithromycin 250 mg tablet See Rx Instructions PO .COM PLEX #6 06/12/24 (Zithromax Z-Bbuba) tabs prednisone 20 mg tablet 60 mg (3 x 20 mg) PO DAILY 5 days 06/12/24 #15 tabs acetaminophen 500 mg tablet 1,000 mg (2 x 500 mg) PO Q 8H PRN 07/01/24 (Tylenol Extra Strength) pain #30 tabs cephalexin 500 mg capsule 500 mg PO QID 5 days #20 cap s 07/01/24 fluconazole 150 mg tablet 150 mg PO Q3D 2 doses #2 tab s 07/01/24 ibuprofen 600 mg tablet 600 mg PO Q6H PRN pain #30 t abs 07/01/24 lidocaine 5 % topical patch 1 patch topical DAILY #15 ea 01/05/25 Allergies Allergy/AdvReac Type Severity Reaction Status Date / Time Iodinated Contrast Media Allergy Severe RASH, ABD Verified 01/05/25 00:26 (CONTRAST,IV) PAINS, BODY FEELS LIKE ON FIRE [place] Allergy Severe AIRWAY Verified 01/05/25 00:26 CLOSES shellfish derived (SHELLFISH Allergy Severe ANAPHYLAXIS Verified 01/05/25 00:26 DERIVED) Sulfa (Sulfonamide Allergy Severe RASH Verified 01/05/25 00:26 Antibiotics) (SULFA (SULFONAMIDE ANTIBIOTICS)) diphenhydramine (From Allergy Intermediate Panic Verified 01/05/25 00:26 Benadryl) attack hazelnut (HAZELNUT) Allergy Intermediate THROAT Verified 01/05/25 00:26 IRRITATION aloe Allergy Unknown Swelling Verified 01/05/25 00:26 pomegranate (POMEGRANATE) Allergy Unknown DIFFICULTY Verified 01/05/25 00:26 BREATHING prazosin (PRAZOSIN) Allergy Unknown UNKNOWN Verified 01/05/25 00:26 topiramate (From Topamax) AdvReac Intermediate Rash Verified 01/05/25 00:26 lorazepam (From Ativan) AdvReac Unknown Unknown Verified 01/05/25 00:26 ondansetron (From Zofran) AdvReac Unknown Migraine Verified 01/05/25 00:26 propranolol AdvReac Unknown Verified 01/05/25 00:26 Review of Systems 2 Review of Systems: as per HPI, full review of systems performed and negative but for the above mentioned pertinent positives and negatives. [facility] Past Medical History Medical History Migraines Borderline personality disorder PTSD (post-traumatic stress disorder) Anxiety Social History Social History Alcohol intake: never Patient Tobacco Use Status: Former Tobacco user Smoked in Last 30 Days: No Use of substances other than those prescribed or required for medical reasons: No Substance Use Type: Marijuana Advance Directives: No Advance Directives Information Provided: No Patient : No Physical Exam 2 Exam: Exam: GENERAL: Anxious, tearful. SKIN: Normal skin color for ethnicity, warm, dry, intact, no rashes noted. HEENT: Normocephalic, atraumatic, no stridor, posterior oropharynx nonerythematous, dentition intact, EOMI. NECK: Soft, supple, full ROM, midline structures nontender, no step-offs, no deformities, no lymphadenopathy. CHEST: Heart regular tachycardia, no murmurs, symmetric chest rise and fall, no crepitus, right-sided chest wall tenderness to palpation overlying the anterior 3rd and 4th ribs, no crepitus. PULMONARY: Clear to auscultation bilaterally, no labored breathing, no wheezes/rhales/ rhonchi. ABDOMINAL: Soft, nondistended, nontender, positive bowel sounds in all quadrants. : Deferred. MUSCULOSKELETAL: Normal tone, full range of motion, no deformities, no peripheral edema. NEURO: Alert and oriented x3, CN II through XII intact, equal strength and sensation bilateral upper and lower extremities, no focal neurologic deficits. PSYCHIATRIC: Anxious affect, tearful, fluid speech, good eye contact and appropriate demeanor. Vital Signs: Vital Signs: Last Vital Signs Temp 98.6 F 01/05/25 04:39 Pulse 95 01/05/25 04:39 Resp 20 01/05/25 04:39 BP 132/77 01/05/25 04:39 Pulse Ox 100 01/05/25 04:39 O2 Del Method Room Air 01/05/25 04:39 BMI result Body Mass Index 27.7 Medications Administered Discontinued Medications Generic Name Dose Route Start Last Admin Trade Name Freq PRN Reason Stop Dose Admin Ketorolac Tromethamine 30 mg 01/05/25 03:36 01/05/25 03:54 Ketorolac Tromethamine 30 Mg/Ml Vial IM 01/05/25 03:37 30 mg ONCE ONE Administration Lidocaine 1 patch 01/05/25 03:36 01/05/25 03:55 Lidocaine 4 % Patch Adh..Patch TRANSDERMA 01/05/25 03:37 1 patch ONCE ONE Administration Protocol Medical Decision Making Medical Decision Making MDM Narrative: Patient presents today with a chief complaint of chest pain. Differential diagnosis includes, but is not limited to, acute coronary syndrome, musculoskeletal pain, pneumothorax, GERD, pleurisy, pulmonary embolism, dissection, among others. I will order EKG, chest x-ray, the laboratory workup including cardiac enzymes to further evaluate for etiology. Clinically, patient is consistent with costochondritis. She is low risk Wells criteria and heart score is less than 3. There is a very large anxiety component associated with her presentation today and we had an extensive discussion about that. Encouraged treatment with duloxetine or amitriptyline for her severe fibromyalgia pain. Using shared decision making, plan for discharge home to follow-up with primary care and/or specialist. Patient understands and agrees with plan for discharge. Discharged home in stable condition. Differential Diagnosis Differential Diagnoses: The differential diagnosis associated with the presentation includes (As above) Admission/Observation Consideration of admission/observation: Escalation of care including admission/observation considered Lab Data MDM Lab Attestation statement: I reviewed the patient's lab results. 01/05/25 00:47 01/05/25 00:47 Labs: Lab Results 01/05/25 01/05/25 Range/Units 00:47 03:11 WBC 9.4 (4.8-10.8) X10*3/uL RBC 4.15 L (4.20-5.50) X10*6/uL Hgb 12.4 (12.0-16.0) g/dl Hct 35.7 L (37.0-47.0) % MCV 86.0 (80.0-98.0) fL MCH 29.9 (27.0-33.0) pg MCHC 34.7 (31.0-35.0) g/dl RDW 11.9 (11.0-16.0) % Plt Count 299 (160-400) X10*3/uL MPV 8.8 L (9.4-12.3) fL Immature Gran % (Auto) 0.3 (0.0-0.4) % Neut % (Auto) 78.4 H (45-73) % Lymph % (Auto) 15.1 L (20-40) % Mitchell % (Auto) 5.5 (2-11) % Eos % (Auto) 0.2 (0-4) % Baso % (Auto) 0.5 (0-2) % Lymph # (Auto) 1.4 (1.2-4.9) X10*3/uL Mitchell # (Auto) 0.5 (0.1-1.2) X10*3/uL Eos # (Auto) 0.0 (0.0-0.4) X10*3/uL Baso # (Auto) 0.1 (0.0-0.2) X10*3/uL Abs Immat Gran (auto) 0.03 (0.00-0.03) X10*3/uL Absolute Neuts (auto) 7.4 (2.0-8.3) x10*3/uL Absolute Nucleated RBC 0.000 (0.0-0.012) X10*3/uL Nucleated RBC % (auto) 0.0 (0.0-0.2) /100WBC Sodium 145 (135-145) mmol/L Potassium 4.0 (3.3-5.1) mmol/L Chloride 111 H (96-108) mmol/L Carbon Dioxide 27 (22-29) mmol/L Anion Gap 11 L (12-20) BUN 11 (9-16) mg/dL Creatinine 0.62 (0.5-1.4) mg/dL Estim Creat Clear Calc 149.4 Estimated GFR > 60 Random Glucose 104 (60-115) mg/dL Calcium 9.2 (8.4-10.2) mg/dL Total Bilirubin 0.4 (0.0-1.0) mg/dL AST 18 (5-31) U/L ALT 19 (0-31) U/L Alkaline Phosphatase 49 (39-117) U/L Troponin I High Sens < 2.7 (<3.5-17.0) ng/L Total Protein 6.9 (6.5-8.0) g/dL Albumin 4.4 (3.5-5.0) g/dL Urine Color Yellow Urine Appearance Clear Urine pH 8.0 (5.0-9.0) Ur Specific [place] 1.010 (1.005-1.025) Urine Protein Negative (Neg-Trace) mg/dL Urine Glucose (UA) Negative (Negative) mg/dL Urine Ketones Negative (Negative) mg/dL Urine Blood Negative (Negative) Urine Nitrite Negative (Negative) Ur Leukocyte Esterase Negative (Negative) Urine RBC 0-2 (0-2) /HPF Urine WBC 0-5 (0-5) /HPF Ur Squamous Epith Cells 0-2 (0-2) /HPF Urine Bacteria None Seen (None Seen) Hyaline Casts 0-2 (0-2) /LPF Urine Test NEGATIVE (NEGATIVE) COVID-19 (CLAUDE) Negative (Negative) COVID-19 Clin Com See Note Influenza Type A (JENELLE) Negative (Negative) Influenza Type B (JENELLE) Negative (Negative) Influenza A & B Note See Note Independent Interpretation I performed an independent interpretation of an: EKG and Plain X-Ray Radiology Impression Discussion of test interpretation with radiology: I have reviewed the radiologist's reading. External Record Review External record reviewed: Inpatient record Prescription Management I considered prescription management with: Pain Medication Chronic Conditions Patient?s care impacted by: Other (PTSD, anxiety and depression) Social Determinants Patient?s care significantly limited by Social Determinants of Health including: Other Social Determinant of Health Discharge Plan Discharge Clinical Impression: Acute chest wall pain, Acute costochondritis Patient Disposition: Home, Self-Care Instructions: Chest Wall Pain (ED) Additional Instructions: Use lidocaine patch as needed for pain in your chest. Return to the ER with any new or worsening symptoms including: Fevers greater than 100?, inability to tolerate food or drink, worsening shortness of breath or chest pain, any new symptom that concerns you. Call 911 with any medical emergency. Chronic pain can be debilitating. Talking with your primary care doctor who prescribes you medications regularly is important to finding the right treatment that works for you. Keep using your therapist including psychotherapy and physical therapy as needed. I hope you feel better. Prescriptions: New lidocaine 5 % adhesive patch,medicated 1 patch topical DAILY Qty: 15 0RF Rx Instructions: leave on most painful area for up to 12 hrs No Action metoclopramide HCl [Reglan] 10 mg tablet 10 mg PO Q6H PRN (Reason: nausea and vomiting) Qty: 20 0RF nitrofurantoin monohyd/m-cryst [Macrobid] 100 mg capsule 100 mg PO Q12H 5 Days Qty: 10 0RF Rx Instructions: must administer with a meal/food tramadol 50 mg tablet 50 mg PO Q6H PRN (Reason: pain) Qty: 20 0RF ibuprofen 600 mg tablet 600 mg PO Q8H PRN (Reason: pain) Qty: 20 0RF lidocaine 5 % adhesive patch,medicated 1 patch topical DAILY Qty: 15 0RF Rx Instructions: leave on most painful area for up to 12 hrs mupirocin 2 % ointment 1 appl topical TID Qty: 15 0RF fluconazole [Diflucan] 150 mg tablet 150 mg PO Q3D Qty: 2 0RF meclizine 25 mg tablet 25 mg PO TID PRN (Reason: dizziness) Qty: 14 0RF doxycycline monohydrate 100 mg capsule 100 mg PO BID Qty: 20 0RF fluconazole 150 mg tablet 150 mg PO ONCE 1 Days Qty: 1 0RF cyclobenzaprine 10 mg tablet 10 mg PO TID PRN (Reason: muscle spasm) Qty: 10 0RF cefuroxime axetil 500 mg tablet 500 mg PO BID 7 Days Qty: 14 0RF cyclobenzaprine 10 mg tablet 10 mg PO TID PRN (Reason: muscle spasm) Qty: 14 0RF lidocaine 5 % adhesive patch,medicated 1 patch topical DAILY Qty: 15 0RF Rx Instructions: leave on most painful area for up to 12 hrs ibuprofen 600 mg tablet 600 mg PO Q8H PRN (Reason: pain) Qty: 20 0RF ondansetron 4 mg tablet,disintegrating 4 mg PO Q8H 3 Days Qty: 9 0RF azithromycin 250 mg tablet 250 mg PO DAILY 4 Days Qty: 4 0RF Rx Instructions: start on day 2 of therapy amoxicillin 500 mg capsule 1,000 mg PO TID 5 Days Qty: 30 0RF azithromycin [Zithromax Z-Bubba] 250 mg tablet See Rx Instructions .ROUTE .COMPLEX Qty: 6 0RF Rx Instructions: take 500 mg today (day 1), then 250 mg for 4 days (days 2-5) prednisone 20 mg tablet 60 mg PO DAILY 5 Days Qty: 15 0RF ondansetron 4 mg tablet,disintegrating 4 mg PO Q6H PRN (Reason: nausea and vomiting) Qty: 10 0RF hyoscyamine sulfate 0.125 mg tablet 0.125 mg PO QID PRN (Reason: dyspepsia) Qty: 10 0RF cephalexin 500 mg capsule 500 mg PO QID 5 Days Qty: 20 0RF ibuprofen 600 mg tablet 600 mg PO Q6H PRN (Reason: pain) Qty: 30 0RF acetaminophen [Tylenol Extra Strength] 500 mg tablet 1,000 mg PO Q8H PRN (Reason: pain) Qty: 30 0RF fluconazole 150 mg tablet 150 mg PO Q3D Qty: 2 0RF Interventions: ED Discharge Assessment Last Done: 01/05/25 04:39 Discharge Date/Time: 01/05/25 04:42 Print Language: [place]
[2025-01-05 04:39] VITALS: BP 132/77; PULSE 95; RESP 20; TEMP 37; O2SAT 100
== END 2025-01-05 04:42 | disposition home or self-care (01) ==
PROVIDERS: Emergency Provider Emergency Medicine; PCP Family Medicine
DX: R07.89 Other chest pain (principal); M94.0 Chondrocostal junction syndrome [Tietze]; R06.00 Dyspnea, unspecified; R06.02 Shortness of breath; Q79.60 Ehlers-Danlos syndrome, unspecified; F41.9 Anxiety disorder, unspecified; Z11.52 Encounter for screening for COVID-19; Z79.899 Other long term (current) drug therapy
CPT/HCPCS: 36415; 71046; 80053; 81001; 81025; 84484; 85025; 87502; 87635; 93005; 96372; 99284; 99285; J1885

== ENCOUNTER → 2025-01-05 00:41 | Outpatient (BNV) | payer OTHER, SELFPAY | PROVIDERS: Emergency Provider Emergency Medicine; PCP Family Medicine; Visit Provider Internal Medicine | DX: R94.31 Abnormal electrocardiogram [ECG] [EKG] (principal); R06.02 Shortness of breath | CPT/HCPCS: 93010 ==

== ENCOUNTER → 2025-01-05 00:45 | Outpatient (BNV) | payer OTHER, SELFPAY | PROVIDERS: PCP Family Medicine; Visit Provider Radiology Diagnostic Radiology | DX: R12 Heartburn (principal) | CPT/HCPCS: 71046 ==

== ENCOUNTER 2025-04-20 06:26 | Emergency (ER) | payer OTHER, SELFPAY ==
--- OUTSIDE RECORDS SUMMARY | 2025-04-15 23:59 | XMS_ITS | Continuity of Care Document ---
Author Organization [facility] Address [address] [place] [address]- Support Name Relationship Address Phone LESLIE, GIOVANI [...] LESLIE, GIOVANI Personal Relationship Unknown U navailable LESLIE DONNELL Personal Relationship Unknown Unavailable LESLIE, GIOVANI Personal [...] Unknown U navailable Care Team Providers Care Airset Caster Name Role Phone Abdoulaye Ball MD Primary Care Physician [phone] Encounter [facility] Date(s): 02/11/25 - 04/15/25 [facility] Adult [address] [place], [place] [address] Attending Physician: Abdoulaye Ball MD Encounter Type: Pre Office Visit Allergies, Adverse Reactions, Alerts Substance Criticality Severity Reaction Reaction Severity Status doxycycline Active cephalexin Diarrhea Generalized body aches Active prazosin 1 Rapid heart rate Ac tive shellfish Anaphylaxis Itchy Active Nuts 2 itchiness scratchy throat mouth sores Active sulfADIAZINE Anaphelaxis Activ e Ativan Hallucinations Activ e Wellbutrin Patient require s hospitalization Weight loss Active Adderall Irritability Anger Outbursts of rage Active Topamax rash Active Compazine High criticality Severe Panic Act ludivina Domínguez Unable to assess criticality Persistent Severe Stops breathing Active Contrast Dye Pain all over b myranda. Very hot. Itchy. Active Dust Active Other Food Allergy ANITA AND POMEGRANATE Active Topical Skin Adhesive Rash Blister Active Vyvanse Tachycardia Active 1elevated HR 2Walnut, Hazelnut Immunizations Given and Recorded Vaccine Date Status Refusal Reason SARS-CoV-2 (COVID-19) mRNA-1273 vaccine 12/10/21 R ecorded SARS-CoV-2 (COVID-19) mRNA-1273 vaccine 10/30/20 R ecorded SARS-CoV-2 (COVID-19) mRNA-1273 vaccine 09/30/20 R ecorded Diphtheria/Tet/Pertussis, Acel (oldterm) 1 10/05/15 Given tetanus/diphtheria/pertussis, acel(Tdap) 2, 3 04/23/15 Recorded 1Admin Note: by hx 2Location History: [facility] 3Result Comment: [01/17/2017] S/P LACERATION Medications Atrovent HFA 17 mcg/inh inhalation aerosol TAKE 1 PUFF (INHALATION) 2 TIMES PER DAY FOR 10 DAYS Start Date: 02/10/25 Status: Ordered Medication Dispense Status: Completed Total Allowed Fills: 1 Fills Dispensed: 0 clindamycin 1% topical solution 1 application, Topically, 2 times a day, # 30 mL, 0 Refills, Maintenance, 01/24/25 1:20:00 PM EDT, Solution, [id number], Partial fill upon patient request if the prescription is for a scheduleII opioid drug., 1 application Topically 2 times a day,x7 days, 173, cm, 01/24/25 12:56:00 EDT, Height, 84.5, kg, 01/24/25 12:56:00 EDT, Dry Weight Start Date: 01/24/25 Stop Date: 01/31/25 Status: Ordered Medication Dispense Status: Completed Quantity: 30.0 Unit: mL Total Allowed Fills: 1 Fills Dispensed: 0 clindamycin 75 mg oral capsule 1 capsule, By Mouth, Daily, # 30 capsule, 2 Refills, Maintenance, 02/09/25 11:02:00 AM EDT, [id number], 173, cm, 01/29/25 14:06:00 EDT, Height, 84.5, kg, 01/24/25 12:56:00 EDT, Dry Weight Start Date: 02/09/25 Status: Ordered Medication Dispense Status: Completed Quantity: 30.0 Unit: capsule Total Allowed Fills: 1 Fills Dispensed: 0 Collagen 0 Refills, Maintenance, 08/29/21 12:51:00 PM EDT, Partial fill upon patient request if the prescription is for a schedule II opioid drug. Start Date: 08/29/21 Status: Ordered Medication Dispense Status: Completed Total Allowed Fills: 1 Fills Dispensed: 0 Concerta 54 mg oral tablet, extended release 1 tablet = 54 mg, By Mouth, Daily in AM, Brand name Concerta medically necessary, # 30 tablet, 0 Refills, Maintenance, 03/10/25 5:08:00 PM EST, ER Tablet, Partial fill upon patient request if the prescription is for a schedule II opioid drug. Start Date: 03/10/25 Status: Ordered Medication Dispense Status: Completed Quantity: 30.0 Unit: tablet Total Allowed Fills: 1 Fills Dispensed: 0 duloxetine 20 mg oral enteric coated capsule 1 capsule = 20 mg, By Mouth, Daily, # 30 capsule, 2 Refills, Maintenance, 01/08/25 11:26:00 AM EDT, [facility] #[id number], Partial fill upon patient request if the prescription is for a schedule II opioid drug., 173, cm, 01/08/25 11:01:00 EDT, Height, 83, kg, 12/02/24 20:13:00 EDT, Dry Weight Start Date: 01/08/25 Status: Ordered Medication Dispense Status: Completed Quantity: 30.0 Unit: capsule Total Allowed Fills: 3 Fills Dispensed: 0 EpiPen 2-Bubba 0.3 mg injectable kit = 0.3 mg, Intramuscular, Once, # 1 kit, 1 Refills, Soft Stop, 11/03/24 5:00:00 PM EDT, [id number], Partial fill upon patient request if the prescription is for a schedule II opioid drug., 173,cm, 11/03/24 16:42:00 EDT, Height, 81.5, kg, 08/07/24 5:14:00 EDT, Dry Weight Start Date: 11/03/24 Status: Ordered Medication Dispense Status: Completed Quantity: 1.0 Unit: kit Total Allowed Fills: 2 Fills Dispensed: 0 ferrous sulfate 324 mg (65 mg elemental iron) oral delayed release tablet 1 tablet = 324 mg, By Mouth, Daily, 0 Refills, Maintenance, 02/10/25 3:57:00 PM EDT, Partial fill upon patient request if the prescription is for a schedule II opioid drug. Start Date: 02/10/25 Status: Ordered Medication Dispense Status: Completed Total Allowed Fills: 1 Fills Dispensed: 0 Flonase Daily, 0 Refills, Maintenance, 03/05/23 3:23:00 PM EST, Partial fill upon patient request if the prescription is for a schedule II opioid drug. Start Date: 03/05/23 Status: Ordered Medication Dispense Status: Completed Total Allowed Fills: 1 Fills Dispensed: 0 hyoscyamine 0.125 mg oral tablet 1, tablet, By Mouth, 4 times a day, PRN, # 40 tablet, Refills 3, Tot. Refills 3, Maintenance, NEEDED FOR DYSPEPSIA, 11/03/24 5:06:00 PM EDT, Route to Pharmacy Electronically, [facility] #[id number], 173, cm, 11/03/24 16:42:00 EDT, Height, 81.5, kg, 08/07/24 5:14:00 EDT, Dry Weight Start Date: 11/03/24 Status: Ordered Medication Dispense Status: Completed Quantity: 40.0 Unit: tablet Total Allowed Fills: 4 Fills Dispensed: 0 ketoconazole 2% topical cream 1 application, Topically, 3 times a day, X14 DAYS,INSTR:APPLY TO AFFECTED SKIN NEEDED, # 60 Gm, 3 Refills, Maintenance, 01/01/25 5:13:00 PM EDT, [id number], 20, 1 APPLICATION TOPICALLY 3 TIMESA DAY,X14 DAYS,INSTR:APPLY TO AFFECTED SKIN NEEDED, 173, cm, 12/12/24 8:56:00 EDT, Height, 83, kg, 12/02/24 20:13:00 EDT, Dry Weight Start Date: 01/01/25 Status: Ordered Medication Dispense Status: Completed Quantity: 60.0 Unit: g Total Allowed Fills: 1 Fills Dispensed: 0 meloxicam 15 mg oral tablet 1 tablet = 15 mg, By Mouth, Daily, # 30 tablet, 5 Refills, Maintenance, 06/10/25 9:23:00 AM EST, Tablet, [facility]/pharm[facility] #[id number], Partial fill upon patient request if the prescription is for a schedule II opioid drug., 173, cm, 02/10/25 15:57:00 EDT, Height, 84.5, kg, 01/24/25 12:56:00 EDT, Dry Weight Start Date: 06/10/25 Stop Date: 12/07/25 Status: Ordered Medication Dispense Status: Completed Quantity: 30.0 Unit: tablet Total Allowed Fills: 6 Fills Dispensed: 0 methylphenidate 5 mg oral tablet 5 mg, 1, tablet, By Mouth, Daily, # 30 tablet, Refills 0, Tot. Refills 0, Maintenance, 03/31/25 10:18:00 AM EST, Route to Pharmacy Electronically, [facility]/pharmacy #[id number], Partial fill upon patient requestif the prescription is for a schedule II opioid drug., 172, cm, 03/22/25 2:02:00 EST, Height, 87.7,kg, 03/22/25 2:02:00 EST, Dry Weight Start Date: 03/31/25 Status: Ordered Medication Dispense Status: Completed Quantity: 30.0 Unit: tablet Total Allowed Fills: 1 Fills Dispensed: 0 methylphenidate 63 mg/24 hr oral tablet, extended release 1 tablet = 63 mg, By Mouth, Daily in AM, Fill on or after 04/06/25; increase in dose, replaces previous prescription, # 30 tablet, 0 Refills, Maintenance, 03/27/25 2:11:00 PM EST, ER Tablet, [facility]/pharmacy #[id number], Partial fill upon patient request if the prescription is for a schedule II opioid drug., 172, cm, 03/22/25 2:02:00 EST, Height, 87.7, kg, 03/22/25 2:02:00 EST, Dry Weight Start Date: 03/27/25 Status: Ordered Medication Dispense Status: Completed Quantity: 30.0 Unit: tablet Total Allowed Fills: 1 Fills Dispensed: 0 Multivitamin Daily, 0 Refills, Maintenance, 08/29/21 12:50:00 PM EDT, Partial fill upon patient request if the prescription is for a schedule II opioid drug. Start Date: 08/29/21 Status: Ordered Medication Dispense Status: Completed Total Allowed Fills: 1 Fills Dispensed: 0 riboflavin 400 mg oral tablet 1 tablet = 400 mg, By Mouth, Daily, may discolor urine, # 30 tablet, 6 Refills, Maintenance, 03/09/25 1:47:00 PM EST, Tablet, [id number], Partial fill upon patient request if the prescriptionis for a schedule II opioid drug., 173, cm, 03/09/25 12:58:00 EST, Height, 84.5, kg, 01/24/25 12:56:00 EDT, Dry Weight Start Date: 03/09/25 Status: Ordered Medication Dispense Status: Completed Quantity: 30.0 Unit: tablet Total Allowed Fills: 7 Fills Dispensed: 0 rizatriptan 5 mg oral tablet 1 tablet = 5 mg, By Mouth, Daily, may repeat in 2 hours if needed, do not exceed 2 doses in 24 hours, # 9 tablet, 5 Refills, Acute 11/03/30 5:07:00 PM EDT, 11/03/24 5:07:00 PM EDT, [id number], Partial fill upon patient request if the prescription is for a schedule II opioid drug., 173, cm, 11/03/24 16:42:00 EDT, Height, 81.5, kg, 08/07/24 5:14:00 EDT, Dry Weight Start Date: 11/03/24 Stop Date: 11/03/30 Status: Ordered Medication Dispense Status: Completed Quantity: 9.0 Unit: tablet Total Allowed Fills: 6 Fills Dispensed: 0 Ventolin HFA 108 mcg/inh inhalation aerosol with adapter 2 inhalation = 180 mcg, Inhalation, Every 6 hours, PRN for wheezing, # 8.5 Gm, 11 Refills, Soft Stop, 04/15/24 2:49:00 PM EST, Aerosol, [id number], Partial fill upon patient request if the prescription is for a schedule II opioid drug., 170, cm, 04/15/24 14:36:00 EST, Height, 86, kg, 01/18/24 16:34:00 EDT, Dry Weight Start Date: 04/15/24 Status: Ordered Medication Dispense Status: Completed Quantity: 8.5 Unit: g Total Allowed Fills: 12 Fills Dispensed: 0 Vitamin A By Mouth, Daily, 0 Refills, Maintenance, 10/16/24 2:18:00 PM EDT, Partial fill upon patient request if the prescription is for a schedule II opioid drug. Start Date: 10/16/24 Status: Ordered Medication Dispense Status: Completed Total Allowed Fills: 1 Fills Dispensed: 0 Problem List Condition Confirmation Course Effective Dates [...] than 30 days ago entered on: 05/20/19 Sexual Orientation Self described orien tation: ; Bisexual Sex Sex Representation Female (finding) Patient Care team information Care Team Personnel Name: Elaine Garnett NP Position: [facility] PCO Associate Professional Member Role: Lifetime Consulting Provider Address: [address] [place] [id number] Telecom: Name: Mony Dodge MD Position: [facility] HOT STICK WORKER MD Member Role: Lifetime HOT STICK WORKER Physician Address: [address] [facility] [place] [address]- Telecom: Name: Abdoulaye Ball MD Position: [facility] Physician - Primary Care Member Role: PCP Address: [address] [place] [id number] Telecom: Care Team Related Persons Name: DARREN NELSON Name: GIOVANI NELSON Insurance Providers Guarantor name: DONNELL NELSON [facility] Plan Information #: 1 Payer: [facility] Payer Identifier: NA Member Number: [id number] Group Number: [id number] Subscriber Identifier: [id number] Relationship to Subscriber: self Coverage Type: Medicaid (Managed Care) Coverage Verification Date: NA Telecom: PRIYA Address: NA
--- OUTSIDE RECORDS SUMMARY | 2025-04-19 23:59 | XMS_ITS | Continuity of Care Document ---
Author Organization [facility] Address [address] [place] [address]- Support Name Relationship Address Phone LESLIE, GIOVANI [...] LESLIE, GIOVANI Personal Relationship Unknown U navailable LESLIEDONNELL VILLEGAS Personal Relationship Unknown Unavailable LESLIE, GIOVANI Personal [...] Unknown U navailable Care Team Providers Care Tier Lift Operator Name Role Phone Lizzy MEDINA, Abdoulaye Sosa Primary Care Physician Encounter [facility] Date(s): 03/20/25 - 04/19/[address] Attending Physician: Carlos Main Admitting Physician: Carlos Main Referring Physician: Carlos Main Encounter Type: Triage Allergies, Adverse Reactions, Alerts Substance Criticality Severity Reaction Reaction Severity Status doxycycline Active cephalexin Diarrhea Generalized body aches Active Wellbutrin Patient require s hospitalization Weight loss Active sulfADIAZINE Anaphelaxis Activ e prazosin 1 Rapid heart rate Ac tive shellfish Anaphylaxis Itchy Active Ativan Hallucinations Activ e Adderall Irritability Anger Outbursts of rage Active Topamax rash Active Compazine High criticality Severe Panic Act ludivina Domínguez Unable to assess criticality Persistent Severe Stops breathing Active Contrast Dye Pain all over b myranda. Very hot. Itchy. Active Dust Active Nuts 2 itchiness scratchy throat mouth sores Active Topical Skin Adhesive Rash Blister Active Vyvanse Tachycardia Active Other Food Allergy ANITA AND POMEGRANATE Active 1elevated HR 2Walnut, Hazelnut Immunizations Given and Recorded Vaccine Date Status Refusal Reason SARS-CoV-2 (COVID-19) mRNA-1273 vaccine 12/10/21 R ecorded SARS-CoV-2 (COVID-19) mRNA-1273 vaccine 10/30/20 R ecorded SARS-CoV-2 (COVID-19) mRNA-1273 vaccine 09/30/20 R ecorded Diphtheria/Tet/Pertussis, Acel (oldterm) 1 10/05/15 Given tetanus/diphtheria/pertussis, acel(Tdap) 2, 3 04/23/15 Recorded 1Admin Note: by hx 2Location History: [facility] 3Result Comment: [01/17/2017] S/P LACERATION Medications Atrovent HFA 17 mcg/inh inhalation aerosol TAKE 1 PUFF (INHALATION) 2 TIMES PER DAY FOR 10 DAYS Start Date: 02/10/25 Status: Ordered Medication Dispense Status: Completed Total Allowed Fills: 1 Fills Dispensed: 0 clindamycin 1% topical solution 1 application, Topically, 2 times a day, # 30 mL, 0 Refills, Maintenance, 01/24/25 1:20:00 PM EDT, [facility], [id number], Partial fill upon patient request if the [...] 2 Refills, Maintenance, 02/09/25 11:02:00 AM EDT, [id number], 173, cm, 01/29/25 14:06:00 EDT, Height, 84.5, [...] 2 Refills, Maintenance, 01/08/25 11:26:00 AM EDT, [facility]/pharmacy #[id number], Partial fill upon patient request [...] Refills, Soft Stop, 11/03/24 5:00:00 PM EDT, [facility]/pharmacy #[id number], Partial fill upon patient request [...] 5:06:00 PM EDT, Route to Pharmacy Electronically, [facility]/pharmacy #[id number], 173, cm, 11/03/24 16:42:00 EDT, Height, 81.5, kg, 08/07/24 5:14:00 EDT, Dry Weight Start Date: 11/03/24 Status: Ordered Medication Dispense Status: Completed Quantity: 40.0 Unit: tablet Total Allowed Fills: 4 Fills Dispensed: 0 ketoconazole 2% topical cream 1 application, Topically, 3 times a day, X14 DAYS,INSTR:APPLY TO AFFECTED SKIN NEEDED, # 60 Gm, 3 Refills, Maintenance, 01/01/25 5:13:00 PM EDT, [id number], 20, 1 APPLICATION TOPICALLY 3 TIMESA DAY,X14 [...] Refills, Maintenance, 06/10/25 9:23:00 AM EST, Tablet, [facility]/pharmacy #[id number], Partial fill upon patient request [...] 10:18:00 AM EST, Route to Pharmacy Electronically, [facility]/pharmacy #[id number], Partial fill upon patient requestif the [...] Maintenance, 03/27/25 2:11:00 PM EST, ER Tablet, [id number], Partial fill upon patient [...] Team Personnel Name: Elaine Garnett NP Position: [facility] PCO Associate Professional Member Role: Lifetime Consulting Provider Address: [address] [place] [id number] Telecom: Name: Mony Dodge MD Position: [facility] VP CONSTRUCTION MD Member Role: Lifetime VP CONSTRUCTION [facility]ician [facility] [place] [address]- [place] Telecom: Name: Abdoulaye Ball MD Position: [facility] Physician - Primary Care Member Role: PCP Address: [address] [place] [id number] Telecom: Care Team Related Persons Name: DARREN NELSON Name: GIOVANI NELSON Insurance Providers Guarantor name: DONNELL NELSON [facility] Plan Information #: 1 Payer: [facility] Payer Identifier: NA Member Number: [id number] Group Number: [id number] Subscriber Identifier: PRIYA Relationship to Subscriber: self Coverage Type: Medicaid (Managed Care) Coverage Verification Date: NA Telecom: PRIYA Address: NA
[2025-04-20 06:36] VITALS: BP 109/54; BP 128/84; PULSE 102; PULSE 104; RESP 20; TEMP 36.8; O2SAT 100; O2SAT 98; BMI 29.3
--- NOTE | 2025-04-20 06:37 | ECG_ITS ---
Test Reason : OVERDOSE Blood Pressure : */* mmHG Vent. Rate : 91 BPM Atrial Rate : 91 BPM P-R Int : 118 ms QRS Dur : 82 ms QT Int : 358 ms P-R-T Axes : 54 35 42 degrees QTcB Int : 440 ms Normal sinus rhythm Nonspecific T wave abnormality Abnormal ECG When compared with ECG of 05-Jan-2025 00:41, No significant change was found Referred By: Becca Romero Electronically Signed By: ROHAN MONTANO
--- NOTE | 2025-04-20 06:43 | ED_ITS ---
HPI - General Adult General Chief complaint: General Medical Stated complaint: OD, ANXIETY Time Seen by Provider: 04/20/25 06:37 Source: patient, EMS and old records reviewed Mode of arrival: EMS Limitations: no limitations History of Present Illness ED Provider: SVETLANA GIVENS narrative: 29-year-old female with past medical history of borderline personality disorder, PTSD, anxiety, migraines here with complaint of dissociating having out of body experience. 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 She denies any trauma. She states she took Motrin and Tylenol yesterday. She states she also took her 10 mg of Flexeril before going to sleep around 02:00 this morning. She then states she could not take an extra dose but she can not elaborate further and states he is really not sure. Since she is so stressed out. She is crying and holding her right hand. She has sensation and pulses intact as well as her compartments are soft and compressible. We have seen here before for med errors. She states she does not want any medication that will make her feel out of her body. complaint: Right arm pain Onset (ago): day(s) (Last night) Location: right and upper extremity Radiation: non-radiation Severity: severe Quality: aching and crushing Pain Consistency: constant Relieving factors: none Exacerbating factors: movement Associated symptoms: denies other symptoms Treatments prior to arrival: none Related Data Previous Rx's ?Medication ?Instructions ?Recorded tramadol 50 mg tablet 50 mg PO Q6H PRN pain #20 ta bs 07/03/20 metoclopramide HCl 10 mg tablet 10 mg PO Q6H PRN nause a and 09/07/20 (Reglan) vomiting #20 tabs nitrofurantoin 100 mg PO Q12H 5 days #10 ca ps 12/19/20 monohydrate/macrocrystals 100 mg capsule (Macrobid) cyclobenzaprine 10 mg tablet 10 mg PO TID PRN muscle s pasm #10 01/17/21 tabs fluconazole 150 mg tablet 150 mg PO ONCE 1 day #1 tab 01/17/21 cefuroxime axetil 500 mg tablet 500 mg PO BID 7 days # 14 tabs 01/18/21 fluconazole 150 mg tablet 150 mg PO Q3D 2 doses #2 tab s 02/16/21 (Diflucan) ibuprofen 600 mg tablet 600 mg PO Q8H PRN pain #20 t abs 02/16/21 lidocaine 5 % topical patch 1 patch topical DAILY #15 ea 02/16/21 mupirocin 2 % topical ointment 1 appl topical TID #15 grams 02/16/21 cyclobenzaprine 10 mg tablet 10 mg PO TID PRN muscle s pasm #14 03/03/21 tabs ibuprofen 600 mg tablet 600 mg PO Q8H PRN pain #20 t abs 03/03/21 lidocaine 5 % topical patch 1 patch topical DAILY #15 ea 03/03/21 meclizine 25 mg tablet 25 mg PO TID PRN dizziness # 14 tabs 03/17/21 doxycycline monohydrate 100 mg 100 mg PO BID #20 caps 07/30/21 capsule ondansetron 4 mg disintegrating 4 mg PO Q8H 3 days #9 tabs 08/29/21 tablet hyoscyamine sulfate 0.125 mg tablet 0.125 mg PO QID UT N dyspepsia #10 03/25/24 tabs ondansetron 4 mg disintegrating 4 mg PO Q6H PRN nausea and 03/25/24 tablet vomiting #10 tabs azithromycin 250 mg tablet 250 mg PO DAILY 4 days #4 t abs 05/27/24 amoxicillin 500 mg capsule 1,000 mg (2 x 500 mg) PO TI D 5 06/12/24 days #30 caps azithromycin 250 mg tablet See Rx Instructions PO .COM PLEX #6 06/12/24 (Zithromax Z-Bubba) tabs prednisone 20 mg tablet 60 mg (3 x 20 mg) PO DAILY 5 days 06/12/24 #15 tabs acetaminophen 500 mg tablet 1,000 mg (2 x 500 mg) PO Q 8H PRN 07/01/24 (Tylenol Extra Strength) pain #30 tabs cephalexin 500 mg capsule 500 mg PO QID 5 days #20 cap s 07/01/24 fluconazole 150 mg tablet 150 mg PO Q3D 2 doses #2 tab s 07/01/24 ibuprofen 600 mg tablet 600 mg PO Q6H PRN pain #30 t abs 07/01/24 lidocaine 5 % topical patch 1 patch topical DAILY #15 ea 01/05/25 Allergies Allergy/AdvReac Type Severity Reaction Status Date / Time Iodinated Contrast Media Allergy Severe RASH, ABD Verified 04/20/25 07:23 (CONTRAST,IV) PAINS, BODY FEELS LIKE ON FIRE shubham Allergy Severe AIRWAY Verified 04/20/25 07:23 CLOSES shellfish derived (SHELLFISH Allergy Severe ANAPHYLAXIS Verified 04/20/25 07:23 DERIVED) Sulfa (Sulfonamide Allergy Severe RASH Verified 04/20/25 07:23 Antibiotics) (SULFA (SULFONAMIDE ANTIBIOTICS)) diphenhydramine (From Allergy Intermediate Panic Verified 04/20/25 07:23 Benadryl) attack hazelnut (HAZELNUT) Allergy Intermediate THROAT Verified 04/20/25 07:23 IRRITATION aloe Allergy Unknown Swelling Verified 04/20/25 07:23 pomegranate (POMEGRANATE) Allergy Unknown DIFFICULTY Verified 04/20/25 07:23 BREATHING prazosin (PRAZOSIN) Allergy Unknown UNKNOWN Verified 04/20/25 07:23 topiramate (From Topamax) AdvReac Intermediate Rash Verified 04/20/25 07:23 lorazepam (From Ativan) AdvReac Unknown Unknown Verified 04/20/25 07:23 ondansetron (From Zofran) AdvReac Unknown Migraine Verified 04/20/25 07:23 propranolol AdvReac Unknown Verified 04/20/25 07:23 Review of Systems 2 Review of Systems: Yes all other systems are reviewed and are negative PMFSH Past Medical History Attestation statement: The following information was validated with the patient. Source: old records reviewed Medical History Migraines Borderline personality disorder PTSD (post-traumatic stress disorder) Anxiety Social History Social History Alcohol intake: never Patient Tobacco Use Status: Former Tobacco user Use of substances other than those prescribed or required for medical reasons: No Substance Use Type: Marijuana Advance Directives: No Advance Directives Information Provided: Yes Physical Exam ED Vital Signs: Vital Signs - 24 hr 04/20/25 06:36 04/20/25 07:52 Temperature 98.3 F 98.3 F Pulse Rate 104 H 89 Respiratory Rate 20 14 Blood Pressure 109/54 L 105/72 Pulse Oximetry 98 95 Oxygen Delivery Method Room Air Room Air BMI result Body Mass Index 29.3 Appearance: Alert. Oriented X3. She is very anxious she is able to calm down with redirection, mild acute distress. Eyes: Pupils equal, round and reactive to light. 3 mm ENT: Pharynx normal. Neck: Normal inspection. Neck supple. CVS: Normal heart rate and rhythm. Pulses normal. Respiratory: No respiratory distress. Breath sounds normal. Abdomen: Soft and nontender. Skin: Skin warm and dry. Normal skin color. Normal skin turgor. Extremities: No lower extremity edema. Right hand has tenderness to palpation along the palmar carpal bones as well as the wrist area there is minimal swelling she has no signs of ecchymosis or rash. She has 2+ radial pulse her hands are warm and well perfused she has brisk capillary refill she has sensation intact her compartments are soft and compressible Neuro: Oriented X 3. No motor deficit. No sensory deficit. Medications Administered Discontinued Medications Generic Name Dose Route Start Last Admin Trade Name Freq PRN Reason Stop Dose Admin Ketorolac Tromethamine 30 mg 04/20/25 06:48 04/20/25 07:22 Ketorolac Tromethamine 30 Mg/Ml Vial IM 04/20/25 06:49 30 mg ONCE ONE Administration Procedures Orthopedic Splinting/Casting Injury #1: Side: right Upper Extremity Injury Location: wrist Upper Extremity Immobilizer: wrist splint Additional Comments: Neurovascularly intact Medical Decision Making Medical Decision Making [facility] Narrative: 29-year-old female with past medical history of borderline personality disorder, PTSD, anxiety, migraines here with complaint of right wrist pain after overuse yesterday. She is neurovascularly intact there is no signs of trauma. I am going to place her in a wrist splint for possible tendinitis and carpal tunnel. I am going to give her an IM dose of Toradol. She will hold her ibuprofen the rest of the day. At this time she reports possible ingestion of Flexeril that was very unclear and she can not elaborate exactly what timeframe she took these medications it is also not clear and it is not confirmed. She denies any SI Differential Diagnosis Differential Diagnoses: The differential diagnosis associated with the presentation includes Carpal tunnel, tendinitis, anxiety, unclear if there is a med error Admission/Observation Consideration of admission/observation: Escalation of care including admission/observation considered Overall feeling better she is stable for DC I have no concerns for acute toxicity from Flexeril Lab Data [facility] Lab Attestation statement: I reviewed the patient's lab results. 04/20/25 08:04 04/20/25 08:04 Labs: Lab Results 04/20/25 Range/Units 08:04 WBC 9.3 (4.8-10.8) X10*3/uL RBC 4.18 L (4.20-5.50) X10*6/uL Hgb 12.2 (12.0-16.0) g/dl Hct 36.0 L (37.0-47.0) % MCV 86.1 (80.0-98.0) fL MCH 29.2 (27.0-33.0) pg MCHC 33.9 (31.0-35.0) g/dl RDW 11.8 (11.0-16.0) % Plt Count 268 (160-400) X10*3/uL MPV 8.8 L (9.4-12.3) fL Immature Gran % (Auto) 0.4 (0.0-0.4) % Neut % (Auto) 71.5 (45-73) % Lymph % (Auto) 17.4 L (20-40) % [place] % (Auto) 7.9 (2-11) % Eos % (Auto) 2.4 (0-4) % Baso % (Auto) 0.4 (0-2) % Lymph # (Auto) 1.6 (1.2-4.9) X10*3/uL [place] # (Auto) 0.7 (0.1-1.2) X10*3/uL Eos # (Auto) 0.2 (0.0-0.4) X10*3/uL Baso # (Auto) 0.0 (0.0-0.2) X10*3/uL Abs Immat Gran (auto) 0.04 H (0.00-0.03) X10*3/uL Absolute Neuts (auto) 6.7 (2.0-8.3) x10*3/uL Absolute Nucleated RBC 0.000 (0.0-0.012) X10*3/uL Nucleated RBC % (auto) 0.0 (0.0-0.2) /100WBC Sodium 139 (135-145) mmol/L Potassium 3.9 (3.3-5.1) mmol/L Chloride 111 H (96-108) mmol/L Carbon Dioxide 21 L (22-29) mmol/L Anion Gap 11 L (12-20) BUN 12 (9-16) mg/dL Creatinine 0.61 (0.5-1.4) mg/dL Estim Creat Clear Calc 156.1 Estimated GFR > 60 Random Glucose 98 (60-115) mg/dL Calcium 8.7 (8.4-10.2) mg/dL Magnesium 2.3 (1.6-2.6) mg/dL Total Bilirubin 0.3 (0.0-1.0) mg/dL Direct Bilirubin 0.2 (0.0-0.5) mg/dL AST 21 (5-31) U/L ALT 13 (0-31) U/L Alkaline Phosphatase 57 (39-117) U/L Total Protein 6.3 L (6.5-8.0) g/dL Albumin 3.4 L (3.5-5.0) g/dL Beta HCG, Quant < 2 mIU/mL Independent Interpretation I performed an independent interpretation of an: EKG Interpretation: Rate: 91 Rhythm: Normal sinus Kinsman: Normal Normal P waves. Normal SHEILA. Normal QRS complex. ST T wave : Nonspecific STT wave changes in the anterior leads qTC: 440 prior studies: No change The study has been interpreted contemporaneously by me. . Independent Historian Clinical information obtained from an independent historian. History obtained from or confirmed by: EMS External Record Review External record reviewed: Outpatient record Prescription Management I considered prescription management with: Other Discharge Plan Discharge Clinical Impression: Tendonitis of wrist, right, Anxiety attack Patient Disposition: Home, Self-Care Instructions: Tendinitis (ED), Anxiety (ED) Additional Instructions: wear splint for one week it is okay to take off during the shower Limit movement of the right wrist for the next 1 week Alternate Tylenol and Motrin as needed for pain Avoid any Motrin until tomorrow morning alternate tylenol it is okay to take your night dose of flexeril if you need it return for any worsening symptoms or concerns follow up with your doctor in 1 week if wrist is not better Prescriptions: No Action metoclopramide HCl [Reglan] 10 mg tablet 10 mg PO Q6H PRN (Reason: nausea and vomiting) Qty: 20 0RF nitrofurantoin monohyd/m-cryst [Macrobid] 100 mg capsule 100 mg PO Q12H 5 Days Qty: 10 0RF Rx Instructions: must administer with a meal/food tramadol 50 mg tablet 50 mg PO Q6H PRN (Reason: pain) Qty: 20 0RF ibuprofen 600 mg tablet 600 mg PO Q8H PRN (Reason: pain) Qty: 20 0RF lidocaine 5 % adhesive patch,medicated 1 patch topical DAILY Qty: 15 0RF Rx Instructions: leave on most painful area for up to 12 hrs mupirocin 2 % ointment 1 appl topical TID Qty: 15 0RF fluconazole [Diflucan] 150 mg tablet 150 mg PO Q3D Qty: 2 0RF meclizine 25 mg tablet 25 mg PO TID PRN (Reason: dizziness) Qty: 14 0RF doxycycline monohydrate 100 mg capsule 100 mg PO BID Qty: 20 0RF fluconazole 150 mg tablet 150 mg PO ONCE 1 Days Qty: 1 0RF cyclobenzaprine 10 mg tablet 10 mg PO TID PRN (Reason: muscle spasm) Qty: 10 0RF cefuroxime axetil 500 mg tablet 500 mg PO BID 7 Days Qty: 14 0RF cyclobenzaprine 10 mg tablet 10 mg PO TID PRN (Reason: muscle spasm) Qty: 14 0RF lidocaine 5 % adhesive patch,medicated 1 patch topical DAILY Qty: 15 0RF Rx Instructions: leave on most painful area for up to 12 hrs ibuprofen 600 mg tablet 600 mg PO Q8H PRN (Reason: pain) Qty: 20 0RF ondansetron 4 mg tablet,disintegrating 4 mg PO Q8H 3 Days Qty: 9 0RF azithromycin 250 mg tablet 250 mg PO DAILY 4 Days Qty: 4 0RF Rx Instructions: start on day 2 of therapy amoxicillin 500 mg capsule 1,000 mg PO TID 5 Days Qty: 30 0RF azithromycin [Zithromax Z-Bubba] 250 mg tablet See Rx Instructions .ROUTE .COMPLEX Qty: 6 0RF Rx Instructions: take 500 mg today (day 1), then 250 mg for 4 days (days 2-5) prednisone 20 mg tablet 60 mg PO DAILY 5 Days Qty: 15 0RF lidocaine 5 % adhesive patch,medicated 1 patch topical DAILY Qty: 15 0RF Rx Instructions: leave on most painful area for up to 12 hrs ondansetron 4 mg tablet,disintegrating 4 mg PO Q6H PRN (Reason: nausea and vomiting) Qty: 10 0RF hyoscyamine sulfate 0.125 mg tablet 0.125 mg PO QID PRN (Reason: dyspepsia) Qty: 10 0RF cephalexin 500 mg capsule 500 mg PO QID 5 Days Qty: 20 0RF ibuprofen 600 mg tablet 600 mg PO Q6H PRN (Reason: pain) Qty: 30 0RF acetaminophen [Tylenol Extra Strength] 500 mg tablet 1,000 mg PO Q8H PRN (Reason: pain) Qty: 30 0RF fluconazole 150 mg tablet 150 mg PO Q3D Qty: 2 0RF Print Language: Mohawk
--- OUTSIDE RECORDS SUMMARY | 2025-04-20 06:59 | XMS_ITS | Encounter Summary ---
Author Organization [facility] Address [address] [place] [address] Phone Care Team Providers Care Channeler Insole Name Role Phone Fidelina Purcell MD Primary Care Provider Encounter Details Date Type Department Care Team (Late st Contact Info) Description 03/03/2013 Documentation [facility] [place] Family Medicine [address] [place] [address] Family Medicine, Physician [address] [place], [place] [phone] Social History Tobacco Use Types Packs/Day Years [...] on filedocumented in this encounter Care Teams Channeler Insole Relationship Specialty Start Date End Date Fidelina Purcell MD [address] [place] [address] [place] [id number] PCP - General 12/01/16 07/23/22 documented as of this encounter
--- OUTSIDE RECORDS SUMMARY | 2025-04-20 06:59 | XMS_ITS | Encounter Summary ---
Author Organization [facility] Address [address] [place] [address] Phone Care Team Providers Care Stud Dairy Cattle Farmer Name Role Phone Fidelina Purcell MD Primary Care Provider Encounter Details Date Type Department Care Team (Late st Contact Info) Description 06/17/2013 Documentation [facility] [place] [address] [place] [address] Family Medicine, Physician [address] [place], [place] [phone] Social History Tobacco Use Types Packs/Day Years [...] on filedocumented in this encounter Care Teams Stud Dairy Cattle Farmer Relationship Specialty Start Date End Date Fidelina Purcell MD [address] [place] [id number] PCP - General 12/01/16 07/23/22 documented as of this encounter
--- OUTSIDE RECORDS SUMMARY | 2025-04-20 06:59 | XMS_ITS | Encounter Summary ---
Author Organization [facility] Address [address] [place] [address] Phone Care Team Providers Care School Curriculum Developer Name Role Phone Fidelina Purcell MD Primary Care Provider Encounter Details Date Type Department Care Team (Late st Contact Info) Description 12/13/2010 Documentation [facility] [place] Family Medicine [address] [place] [address] Family Medicine, Physician [address] [place], [place] [phone] Social History Tobacco Use Types Packs/Day Years [...] on filedocumented in this encounter Care Teams School Curriculum Developer Relationship Specialty Start Date End Date Fidelina Purcell MD [address] [place] [address] [place] [address] PCP - General 12/01/16 07/23/22 documented as of this encounter
--- OUTSIDE RECORDS SUMMARY | 2025-04-20 06:59 | XMS_ITS | Encounter Summary ---
Author Organization [facility] Address [address] [place] [address] Phone Care Team Providers Care Enamel Machine Operator Name Role Phone Fidelina Purcell MD Primary Care Provider Encounter Details Date Type Department Care Team (Late st Contact Info) Description 06/02/2013 [place]ation [facility] [place] [address] [place] [address] Family Medicine, Physician [address] [place], [place] [phone] Social History Tobacco Use Types Packs/Day Years [...] on filedocumented in this encounter Care Teams Enamel Machine Operator Relationship Specialty Start Date End Date Fidelina Purcell MD [address] [place] [phone] PCP - General 12/01/16 07/23/22 documented as of this encounter
--- OUTSIDE RECORDS SUMMARY | 2025-04-20 06:59 | XMS_ITS | Clinical Summary ---
Author Organization [facility] ity Address [address] [place] [address] Care Team Providers Care Legal Records Manager Name Role Phone Unavailable Primary Care Provider [...] Cervical Cancer Screening: P ap Smear 08/17/2015 HPV Vaccines (1 - 3-dose SCD M series) 2021 Depression Screening 04/23/2024 COVID-19 Vaccine (1 - 2024-2 6 season) 2024 Influenza Vaccine (#1) 2024 RSV Immunization Adult Patie nts (1 - 1-dose 75+ series) 2069 HIB Vaccines Aged Out No longer eligi [...]
--- OUTSIDE RECORDS SUMMARY | 2025-04-20 06:59 | XMS_ITS | Encounter Summary ---
Author Organization [facility] Address [address] [place] [address] Phone Care Team Providers Care Expressive Art Therapist Name Role Phone Fidelina Purcell MD Primary Care Provider Encounter Details Date Type Department Care Team (Late st Contact Info) Description 08/13/2009 Documentation [facility] [place] [address] [place] [address] Family Medicine, Physician [address] [place], [place] [phone] Social History Tobacco Use Types Packs/Day Years [...] on filedocumented in this encounter Care Teams Expressive Art Therapist Relationship Specialty Start Date End Date Fidelina Purcell MD [address] [place] [address] [place] [id number] PCP - General 12/01/16 07/23/22 documented as of this encounter
--- OUTSIDE RECORDS SUMMARY | 2025-04-20 06:59 | XMS_ITS | Encounter Summary ---
Author Organization [facility] Address [address] [place] [address] Phone Care Team Providers Care Business Office Technician Name Role Phone Fidelina Purcell MD Primary Care Provider [phone] Encounter Details Date Type Department Care Team (Late st Contact Info) Description 04/28/2011 Documentation [facility] [place] [address] [place] [address] Family Medicine, Physician [address] [place], [place] [phone] Social History Tobacco Use Types Packs/Day Years [...] on filedocumented in this encounter Care Teams Business Office Technician Relationship Specialty Start Date End Date Fidelina Purcell MD [address] [place] [address] [place] [address] PCP - General 12/01/16 07/23/22 documented as of this encounter
--- OUTSIDE RECORDS SUMMARY | 2025-04-20 06:59 | XMS_ITS | Encounter Summary ---
Author Organization [facility] Address [address] [place] [address] Phone Care Team Providers Care Airworthiness Inspector Name Role Phone Fidelina Purcell MD Primary Care Provider Encounter Details Date Type Department Care Team (Late st Contact Info) Description 12/12/2012 Documentation [facility] [place] Family Medicine [address] [place] [address] Family Medicine, Physician [address] [place], [place] [phone] Social History Tobacco Use Types Packs/Day Years [...] on filedocumented in this encounter Care Teams Airworthiness Inspector Relationship Specialty Start Date End Date Fidelina Purcell MD [address] [place] [address] [place] [address] PCP - General 12/01/16 07/23/22 documented as of this encounter
--- OUTSIDE RECORDS SUMMARY | 2025-04-20 06:59 | XMS_ITS | Encounter Summary ---
Author Organization [facility] Address [address] [place] [address] Phone Care Team Providers Care Powder Cutting Operator Name Role Phone Fidelina Purcell MD Primary Care Provider Encounter Details Date Type Department Care Team (Late st Contact Info) Description 05/06/2013 Documentation [facility] [place] [address] [place] [address] Family Medicine, Physician [address] [place], [place] [phone] Social History Tobacco Use Types Packs/Day Years [...] on filedocumented in this encounter Care Teams Powder Cutting Operator Relationship Specialty Start Date End Date Fidelina Purcell MD [address] [place] [address] [place] [id number] PCP - General 12/01/16 07/23/22 documented as of this encounter
--- OUTSIDE RECORDS SUMMARY | 2025-04-20 06:59 | XMS_ITS | Encounter Summary ---
Author Organization [facility] Address [address] [place] [address] Phone Care Team Providers Care Broach Operator Name Role Phone Fidelina Purcell MD Primary Care Provider [phone] Encounter Details Date Type Department Care Team (Late st Contact Info) Description 12/27/2010 Documentation [facility] Family Medicine [address] [place] [address] Family Medicine, Physician [address] [place], [place] [phone] Social History Tobacco Use Types Packs/Day Years [...] on filedocumented in this encounter Care Teams Broach Operator Relationship Specialty Start Date End Date Fidelina Purcell MD [address] [place] [address] [place] [address] PCP - General 12/01/16 07/23/22 documented as of this encounter
--- OUTSIDE RECORDS SUMMARY | 2025-04-20 06:59 | XMS_ITS | Clinical Summary ---
Author Organization [facility] Address [address] [place], [place] [address] [place] [address] Phone Care Team Providers Care Electro Mechanical Designer Name Role Phone Abdoulaye Ball MD Primary Care Provider + Allergies Active Allergy Reactions Criticality Noted Date Comments Adhesive Rash Low 04/13/2025 Other Reaction(s): Blister Diphenhydramine Hcl 02/20/2021 Bupropion Hcl 04/13/2025 Other Reaction(s): Patient requires hospitalization, Weight loss Cephalexin Diarrhea 04/13/2025 Other Reaction(s): Generalized body aches Dextroamphetamine-Amphe tamine 04/13/2025 Other Reaction(s): Anger, Irritability, Outbursts of rage Doxycycline Hyclate 02/20/2021 House Dust 03/18/2022 Iodinated Contrast Media Rash 01/02/2014 Other reaction(s): Pain all over body. Very hot. Itchy. Lisdexamfetamine Palpitations Low 04/13/2025 Lorazepam 10/01/2021 Other Reaction(s): Hallucinations Other 10/23/2017 Pomegranate, anita Other reaction(s): ANITA AND POMEGRANATE Phs Other Free Text-See Phs Viewer 01/02/2014 topiramate Prazosin Palpitations Low 10/23/2017 Prochlorperazine Anxiety High 04/13/2025 Propranolol 03/09/2021 Led to suicide attempt Shellfish Derived Anaphylaxis 01/02/2014 Sulfa (Sulfonamide Antibiotics) Rash 01/02/2014 Sulfites 04/08/2022 Topiramate 03/09/2021 Tree Nut Itching,Other (See Comments),Throat Tightness Medium 04/13/2025 [place], [place] Ondansetron Hcl 05/13/2019 migraines Medications methylphenidate 54 MG ER tablet Take 54 mg by mouth every morning. 2 Active fexofenadine (ALIZE) 60 MG tablet Take 60 mg by mouth daily. Active acetaminophen (TYLENOL) 160 mg/5 mL Soln Active ibuprofen (ADVIL,MOTRIN) 200 MG tablet Take 200 mg by mouth every 6 (six) hours as needed for pain (specific location in comments). Active collagen/biotin /ascorbic acid (COLLAGEN 1500 PLUS C ORAL) Take by mouth. Ac tive magnesium carbonate 54 mg/5 mL Liqd Take by mouth daily before breakfast. Active cyanocobalamin, vitamin B-12, 250 MCG tablet Take 250 mcg by mouth daily. Active methylphenidate HCl (RITALIN) 5 MG tablet Take 5 mg by mouth daily. Active methylphenidate (CONCERTA) 36 MG ER tablet Take 36 mg by mouth. 3 Active VYVANSE 50 mg capsule Take 50 mg by mouth every morning. Active CONCERTA 54 mg ER tablet TAKE 1 TABLET BY MOUTH EVERY DAY IN AM 5 Active clindamycin (CLEOCIN) 75 MG capsule Take by mouth daily. Active clindamycin phosphate 1 % glqd Apply topically. 3 Active EPINEPHrine (EPIPEN) 0.3 mg/0.3 mL auto-injector Inject 0.3 mg into the muscle. 5 Active fluticasone propionate (FLONASE) 50 mcg/actuation nasal spray TAKE 1 SPRAY (INTRANASAL) DAILY FOR 90 DAYS. ADMINISTER INTO EACH NOSTRIL 5 Active hyoscyamine (ANASPAZ,LEVSIN ) 0.125 mg tablet TAKE 1 TABLET BY MOUTH 4 TIMES A DAY NEEDED FOR DYSPEPSIA Active ipratropium (ATROVENT HFA) 17 mcg/actuation inhaler TAKE 1 PUFF (INHALATION) 2 TIMES PER DAY FOR 10 DAYS 5 Active ketoconazole 2 % cream 1 APPLICATION TOPICALLY 3 TIMES A DAY,X14 DAYS,INSTR:APPL Y TO AFFECTED SKIN NEEDED Active meloxicam (MOBIC) 15 MG tablet Take 1 tablet by mouth every morning. Active riboflavin, vitamin B2, 400 mg Tab TAKE 1 TABLET BY MOUTH DAILY. MAY DISCOLOR URINE Active benzonatate (TESSALON) 100 MG capsule Take 1 capsule (100 mg total) by mouth 3 (three) times a day as needed for cough. 21 capsule 5 04/20/20 25 Active cyclobenzaprine (FLEXERIL) 5 MG tablet Take 5 mg by mouth. 5 04/13/20 25 Active Problems Problem Noted Date Diagnosed Date Anxiety 04/13/2025 Asthma 04/13/2025 Chronic pain disorder 04/13/2025 Eating disorder 04/13/2025 Hypermobility syndrome 04/13/2025 Migraine headache 04/13/2025 Acquired hypothyroidism 09/03/2024 ADD (attention deficit disorder) without hyperac tivity 02/01/2024 Bipolar disorder 02/01/2024 Overdose 03/09/2021 Assessment & Plan (03/09/2021 8:05 [...] Encounters Date Type Department Care Team Description 04/13/2025 5:10 PM EST Office Visit [facility] at [address] [address] Luan Bishop, Marie Bower H, DAILY SALES AUDIT CLERK Acute cough (Primary Dx); Sinus congestion from Last 3 Months Immunizations Immunization Administration [...] Sign Reading Time Taken Comments Blood Pressure 108/71 04/13/2025 5:38 PM EST Pulse 84 04/13/2025 5:51 PM EST Temperature 37 C (98.6 F) 04/13/2025 5:38 PM EST Respiratory Rate 20 04/13/2025 5:38 PM EST Oxygen Saturation 98% 04/13/2025 5:38 PM EST Inhaled Oxygen Concentration - - Weight 80.3 [...] HIV ONE-TIME SCREENING (18-6 5 YEARS) 2012 PNEUMOCOCCAL VACCINES (0-49 years) (1 of 2 - PCV) 2013 INFLUENZA VACCINE (#1) 2024 COVID-19 VACCINE (4 - 2024-2 6 season) 2024 12/10/2021, 10/30/2020, 09/30/2020 Adult Td,Tdap Booster 04/23/2025 04/23/2015 , 10/31/2006 [...] Procedure Name Priority Date/Time Associated Diagnosis Comments POCT SARS-COV-2, INFLUENZA A/B, RSV, PCR Routine 04/13/2025 5:44 PM EST PAP TEST Routine 06/20/2022 12:00 AM EST from Last 3 Months or Most Recently Relevant to Health Maintenance Results * POCT SARS-CoV-2, Influenza A/B, RSV, PCR (04/13/2025 5:44 PM EST) SARS-Cov-2 PCR Negative Negative 04/13/2025 6:23 PM EST [facility] Influenza A Negative Negative 04/13/2025 6:23 PM EST [facility] Influenza B Negative Negative 04/13/2025 6:23 PM EST [facility] RSV PCR Negative Negative 04/13/2025 6:23 PM EST [facility] Swab (Anterior Nares) 04/13/2025 5:44 PM EST 04/13/2025 6:23 PM EST Luan Bishop PA-C LAB POCT DOCKED DEVICE U NSOLICTED RESULTS Final Result Performing Organization Address City/State/[facility] Co de Phone Number [facility] [address] [address], [facility] [phone] * Pap Test (06/20/2022 12:00 AM EST) 06/20/2022 06/21/2022 10: 38 AM EST Narrative SEE NARRATIVE - 06/27/2022 6:38 [place] [address] Advertising Space Clerk: Christal Robbins MD PELLET POST INSPECTOR Cytology Report FINAL DIAGNOSIS A. PAP SMEAR [...] : 1995 (Age: 26) Sex: F Institution: [facility] Location: [facility] Date of Collection: 06/20/2022 Date of Reported: 06/27/2022 18:38 Results to: Julian Leon MD, BS Julian Leon MD CYTOLOGY ORDERABLES Final Res ult SEE NARRATIVE from Last 3 Months or Most Recently Relevant to Health Maintenance Additional Health Concerns Infection Onset Date Last Indicated Resp-Risk 04/13/2025 04/13/2025 Insurance [facility] [employer] [facility] [place] [address] [place] [address] ACO [facility] Advance Directives For more information, please contact: [phone] (9AM - 5PM [facility], Sunday-Sunday) * Full Code (Latest Code Status on File) Date Activated Date Inactivated Comments 03/09/2021 8:11 PM Question Answer Comments Code Status Confirmed With: Patient Care Teams Electro Mechanical Designer Relationship Specialty Start Date End Date Abdoulaye Ball MD [address] [place] [address] PCP - General Family Medicine 10/23/17 Additional Source Comments The information contained in this document represents components of the legal health record. It is not the complete legal health record.[facility]
--- OUTSIDE RECORDS SUMMARY | 2025-04-20 06:59 | XMS_ITS | Encounter Summary ---
Author Organization [facility] Address [address] [place] [address] Phone Care Team Providers Care Occupational Therapy Asst Name Role Phone Fidelina Purcell MD Primary Care Provider Encounter Details Date Type Department Care Team (Late st Contact Info) Description 12/07/2016 Conversion Encounter [facility] [place] [address] [place] [address] Social History Tobacco Use Types Packs/Day Years [...] on filedocumented in this encounter Care Teams Occupational Therapy Asst Relationship Specialty Start Date End Date Fidelina Purcell MD [address] [place] [address] PCP - General 12/01/16 07/23/22 documented as of this encounter
--- OUTSIDE RECORDS SUMMARY | 2025-04-20 06:59 | XMS_ITS | Encounter Summary ---
Author Organization [facility] Address [address] [place] [address] Phone Care Team Providers Care Physical Chemistry Teacher Name Role Phone Fidelina Purcell MD Primary Care Provider Encounter Details Date Type Department Care Team (Late st Contact Info) Description 10/23/2009 Documentation [facility] [address] [place] [address] Family Medicine, Physician [address] [place], [place] [phone] Social History Tobacco Use Types Packs/Day Years [...] filedocumented in this encounter Care Teams Physical Chemistry Teacher Relationship Specialty Start Date End Date Fidelina Purcell MD [address] [place] [address] [place] [address] PCP - General 12/01/16 07/23/22 documented as of this encounter
--- OUTSIDE RECORDS SUMMARY | 2025-04-20 06:59 | XMS_ITS | Encounter Summary ---
Author Organization [facility] Address [address] [place] [address] Phone Care Team Providers Care Kier Operator Name Role Phone Fidelina Purcell MD Primary Care Provider Encounter Details Date Type Department Care Team (Late st Contact Info) Description 03/05/2013 Documentation [facility] [address] [place] [address] Family Medicine, Physician [address] [place], [place] [phone] Social History Tobacco Use Types Packs/Day Years [...] on filedocumented in this encounter Care Teams Kier Operator Relationship Specialty Start Date End Date Fidelina Purcell MD [address] [place] [address] PCP - General 12/01/16 07/23/22 documented as of this encounter
--- OUTSIDE RECORDS SUMMARY | 2025-04-20 06:59 | XMS_ITS | Encounter Summary ---
Author Organization [facility] Address [address] [place] [address] Phone Care Team Providers Care Fluxer Name Role Phone Fidelina Purcell MD Primary Care Provider [phone] Encounter Details Date Type Department Care Team (Late st Contact Info) Description 10/08/2013 Documentation [facility] [place] [address] [place] [address] Family Medicine, Physician [address] [place], [place] [phone] Social History Tobacco Use Types Packs/Day Years [...] on filedocumented in this encounter Care Teams Fluxer Relationship Specialty Start Date End Date Fidelina Purcell MD [address] [place] [address] PCP - General 12/01/16 07/23/22 documented as of this encounter
--- OUTSIDE RECORDS SUMMARY | 2025-04-20 06:59 | XMS_ITS | Encounter Summary ---
Author Organization [facility] Address [address] [place] [address] Phone Care Team Providers Care Tunnel Form Placing Supervisor Name Role Phone Fidelina Purcell MD Primary Care Provider Encounter Details Date Type Department Care Team (Late st Contact Info) Description 11/04/2012 Documentation [facility] [place] [address] [place] [address] Family Medicine, Physician [address] [place], [place] [phone] Social History Tobacco Use Types Packs/Day Years [...] on filedocumented in this encounter Care Teams Tunnel Form Placing Supervisor Relationship Specialty Start Date End Date Fidelina Purcell MD [address] [place] [address] [place] [address] PCP - General 12/01/16 07/23/22 documented as of this encounter
--- OUTSIDE RECORDS SUMMARY | 2025-04-20 06:59 | XMS_ITS | Encounter Summary ---
Author Organization [facility] Address [address] [place] [address] Phone Care Team Providers Care Bearing Press Machine Operator Name Role Phone Fidelina Purcell MD Primary Care Provider [phone] Encounter Details Date Type Department Care Team (Late st Contact Info) Description 11/05/2012 Documentation [facility] [place] Medicine [address] [place] [address] Family Medicine, Physician [address] [place], [place] [phone] Social History Tobacco Use Types Packs/Day Years [...] on filedocumented in this encounter Care Teams Bearing Press Machine Operator Relationship Specialty Start Date End Date Fidelina Purcell MD [address] [place] [address] [place] [address] PCP - General 12/01/16 07/23/22 documented as of this encounter
--- OUTSIDE RECORDS SUMMARY | 2025-04-20 06:59 | XMS_ITS | Encounter Summary ---
Author Organization [facility] Address [address] [place] [address] Phone Care Team Providers Care Funeral Location Manager Name Role Phone Fidelina Purcell MD Primary Care Provider Encounter Details Date Type Department Care Team (Late st Contact Info) Description 04/04/2011 Documentation [facility] [place] [address] [place] [address] Family Medicine, Physician [address] [place], [place] [phone] Social History Tobacco Use Types Packs/Day Years [...] on filedocumented in this encounter Care Teams Funeral Location Manager Relationship Specialty Start Date End Date Fidelina Purcell MD [address] [place] [address] [place] [address] PCP - General 12/01/16 07/23/22 documented as of this encounter
--- OUTSIDE RECORDS SUMMARY | 2025-04-20 06:59 | XMS_ITS | Encounter Summary ---
Author Organization [facility] Address [address] [place] [address] Phone Care Team Providers Care Talent Manager Name Role Phone Fidelina Purcell MD Primary Care Provider [phone] Encounter Details Date Type Department Care Team (Late st Contact Info) Description 09/08/2011 Documentation [facility] [place] Family Medicine [address] [place] [address] Family Medicine, Physician [address] [place], [place] [phone] Social History Tobacco Use Types Packs/Day Years [...] on filedocumented in this encounter Care Teams Talent Manager Relationship Specialty Start Date End Date Fidelina Purcell MD [address] [place] [address] PCP - General 12/01/16 07/23/22 documented as of this encounter
--- OUTSIDE RECORDS SUMMARY | 2025-04-20 06:59 | XMS_ITS | Encounter Summary ---
Author Organization [facility] Address [address] [place] [address] Phone Care Team Providers Care Dope Pourer Name Role Phone Fidelina Purcell MD Primary Care Provider Encounter Details Date Type Department Care Team (Late st Contact Info) Description 06/09/2016 Documentation [facility] [place] [address] [place] [address] Family Medicine, Physician [address] [place], [place] [phone] Social History Tobacco Use Types Packs/Day Years [...] on filedocumented in this encounter Care Teams Dope Pourer Relationship Specialty Start Date End Date Fidelina Purcell MD [address] [place] [address] PCP - General 12/01/16 07/23/22 documented as of this encounter
--- OUTSIDE RECORDS SUMMARY | 2025-04-20 06:59 | XMS_ITS | Encounter Summary ---
Author Organization [facility] Address [address] [place] [address] Phone Care Team Providers Care Bottom Presser Name Role Phone Fidelina Purcell MD Primary Care Provider Encounter Details Date Type Department Care Team (Late st Contact Info) Description 06/13/2013 Documentation [facility] [place] [address] [place] [address] Family Medicine, Physician [address] [place], [place] [phone] Social History Tobacco Use Types Packs/Day Years [...] on filedocumented in this encounter Care Teams Bottom Presser Relationship Specialty Start Date End Date Fidelina Purcell MD [address] [place] [address] [place] [address] PCP - General 12/01/16 07/23/22 documented as of this encounter
--- OUTSIDE RECORDS SUMMARY | 2025-04-20 06:59 | XMS_ITS | Encounter Summary ---
Author Organization [facility] Address [address] [place] [address] Phone Care Team Providers Care Bulk Driver Name Role Phone Fidelina Purcell MD Primary Care Provider Encounter Details Date Type Department Care Team (Late st Contact Info) Description 12/02/2013 Documentation [facility] [place] [address] [place] [address] Family Medicine, Physician [address] [place], [place] [phone] Social History Tobacco Use Types Packs/Day Years [...] on filedocumented in this encounter Care Teams Bulk Driver Relationship Specialty Start Date End Date Fidelina Purcell MD [address] [place] [address] [place] [address] PCP - General 12/01/16 07/23/22 documented as of this encounter
--- OUTSIDE RECORDS SUMMARY | 2025-04-20 06:59 | XMS_ITS | Encounter Summary ---
Author Organization [facility] Address [address] [place] [address] Phone Care Team Providers Care Creative Designer Name Role Phone Fidelina Purcell MD Primary Care Provider Encounter Details Date Type Department Care Team (Late st Contact Info) Description 09/08/2011 Documentation [facility] [place] Family Medicine [address] [place] [address] Family Medicine, Physician [address] [place], [place] [phone] Social History Tobacco Use Types Packs/Day Years [...] on filedocumented in this encounter Care Teams Creative Designer Relationship Specialty Start Date End Date Fidelina Purcell MD [address] [place] [address] PCP - General 12/01/16 07/23/22 documented as of this encounter
--- OUTSIDE RECORDS SUMMARY | 2025-04-20 06:59 | XMS_ITS | Encounter Summary ---
Author Organization [facility] Address [address] [place] [address] Phone Care Team Providers Care Art Editor Name Role Phone Fidelina Purcell MD Primary Care Provider Encounter Details Date Type Department Care Team (Late st Contact Info) Description 12/23/2013 Documentation [facility] [place] [address] [place] [address] Family Medicine, Physician [address] [place], [place] [phone] Social History Tobacco Use Types Packs/Day Years [...] on filedocumented in this encounter Care Teams Art Editor Relationship Specialty Start Date End Date Fidelina Purcell MD [address] [place] [address] [place] [address] PCP - General 12/01/16 07/23/22 documented as of this encounter
--- OUTSIDE RECORDS SUMMARY | 2025-04-20 06:59 | XMS_ITS | Encounter Summary ---
Author Organization [facility] Address [address] [place] [address] Phone Care Team Providers Care Field Radio Technician Name Role Phone Fidelina Purcell MD Primary Care Provider Encounter Details Date Type Department Care Team (Late st Contact Info) Description 05/19/[address] [facility] [place] [address] [place] [address] Family Medicine, Physician [address] [place], [place] [phone] Social History Tobacco Use Types Packs/Day Years [...] filedocumented in this encounter Care Teams Field Radio Technician Relationship Specialty Start Date End Date Fidelina Purcell MD [address] [place] [address] PCP - General 12/01/16 07/23/22 documented as of this encounter
--- OUTSIDE RECORDS SUMMARY | 2025-04-20 06:59 | XMS_ITS | Encounter Summary ---
Author Organization [facility] Address [address] [place] [address] Phone Care Team Providers Care Payroll Administrative Assistant Name Role Phone Fidelina Purcell MD Primary Care Provider Encounter Details Date Type Department Care Team (Late st Contact Info) Description 05/24/2011 Documentation [facility] [place] [address] [place] [address] Family Medicine, Physician [address] [place], [place] [phone] Social History Tobacco Use Types Packs/Day Years [...] on filedocumented in this encounter Care Teams Payroll Administrative Assistant Relationship Specialty Start Date End Date Fidelina Purcell MD [address] [place] [address] [place] [address] PCP - General 12/01/16 07/23/22 documented as of this encounter
--- OUTSIDE RECORDS SUMMARY | 2025-04-20 06:59 | XMS_ITS | Encounter Summary ---
Author Organization [facility] Address [address] [place] [address] Phone Care Team Providers Care Seasonal Recruiter Name Role Phone Fidelina Purcell MD Primary Care Provider Encounter Details Date Type Department Care Team (Late st Contact Info) Description 10/23/2009 Documentation [facility] [address] [place] [address] Family Medicine, Physician [address] [place], [place] [phone] Social History Tobacco Use Types Packs/Day Years [...] on filedocumented in this encounter Care Teams Seasonal Recruiter Relationship Specialty Start Date End Date Fidelina Purcell MD [address] [place] [address] [place] [address] PCP - General 12/01/16 07/23/22 documented as of this encounter
--- OUTSIDE RECORDS SUMMARY | 2025-04-20 06:59 | XMS_ITS | Encounter Summary ---
Author Organization [facility] Address [address] [place] [address] Phone Care Team Providers Care Marketing Assistant Retail Division Name Role Phone Fidelina Purcell MD Primary Care Provider [phone] Encounter Details Date Type Department Care Team (Late st Contact Info) Description 03/27/2011 Documentation [facility] [place] [address] [place] [address] Family Medicine, Physician [address] [place], [place] [phone] Social History Tobacco Use Types Packs/Day Years [...] on filedocumented in this encounter Care Teams Marketing Assistant Retail Division Relationship Specialty Start Date End Date Fidelina Purcell MD [address] [place] [address] [place] [address] PCP - General 12/01/16 07/23/22 documented as of this encounter
--- OUTSIDE RECORDS SUMMARY | 2025-04-20 06:59 | XMS_ITS | Encounter Summary ---
Author Organization [facility] Address [address] [place] [address] Phone Care Team Providers Care Business Advisor Name Role Phone Abdoulaye Ball MD Primary Care Provider + Alexx Huerta PLANT WIRE CHIEF Unavailable Un available Encounter Details Date Type Department Care Team (Late st Contact Info) Description 03/07/2024 Procedure [facility], Ct Scan - [address] [address] Social History Tobacco Use Types Packs/Day Years [...] AM EDT documented as of this encounter Plan of Treatment Not on file documented as of this encounter Visit Diagnoses Not on filedocumented in this encounter Additional Health Concerns Infection Onset Date Last Indicated Resolved Time Resp-Risk 04/13/2025 04/13/2025 documented as of this encounter Care Teams Business Advisor Relationship Specialty Start Date End Date Abdoulaye Ball MD [address] [place] [address] PCP - General Family Medicine 10/23/17 Alexx Huerta LCSW [address] [place] [address] Looper Fixer 03/07/22 07/16/24 documented as of this encounter Additional Source Comments The information contained in this document represents components of the legal health record. It is not the complete legal health record.[facility]
--- OUTSIDE RECORDS SUMMARY | 2025-04-20 06:59 | XMS_ITS | Encounter Summary ---
Author Organization [facility] Address [address] [place] [address] Phone Care Team Providers Care Professor Of Art Name Role Phone Fidelina Purcell MD Primary Care Provider Encounter Details Date Type Department Care Team (Late st Contact Info) Description 11/13/2012 Documentation [facility] Family Medicine [address] [place] [address] Family Medicine, Physician [address] [place], [place] [phone] Social History Tobacco Use Types Packs/Day Years [...] on filedocumented in this encounter Care Teams Professor Of Art Relationship Specialty Start Date End Date Fidelina Purcell MD [address] [place] [address] [place] [address] PCP - General 12/01/16 07/23/22 documented as of this encounter
--- OUTSIDE RECORDS SUMMARY | 2025-04-20 06:59 | XMS_ITS | Encounter Summary ---
Author Organization [facility] Address [address] [place] [address] Phone Care Team Providers Care Auto Wrecker Name Role Phone Fidelina Purcell MD Primary Care Provider [phone] Encounter Details Date Type Department Care Team (Late st Contact Info) Description 07/28/2009 Documentation [facility] [address] [place] [address] Family Medicine, Physician [address] [place], [place] [phone] Social History Tobacco Use Types Packs/Day Years [...] on filedocumented in this encounter Care Teams Auto Wrecker Relationship Specialty Start Date End Date Fidelina Purcell MD [address] [place] [address] [place] [address] PCP - General 12/01/16 07/23/22 documented as of this encounter
--- OUTSIDE RECORDS SUMMARY | 2025-04-20 06:59 | XMS_ITS | Encounter Summary ---
Author Organization [facility] Address [address] [place] [address] Phone Care Team Providers Care Parachute Taper Name Role Phone Fidelina Purcell MD Primary Care Provider [phone] Encounter Details Date Type Department Care Team (Late st Contact Info) Description 02/03/2014 Documentation [facility] [place] Family Medicine [address] [place] [address] Family Medicine, Physician [address] [place], [place] [phone] Social History Tobacco Use Types Packs/Day Years [...] on filedocumented in this encounter Care Teams Parachute Taper Relationship Specialty Start Date End Date Fidelina Purcell MD [address] [place] [address] PCP - General 12/01/16 07/23/22 documented as of this encounter
--- OUTSIDE RECORDS SUMMARY | 2025-04-20 06:59 | XMS_ITS | Encounter Summary ---
Author Organization [facility] Address [address] [place] [address] Phone Care Team Providers Care Teacher Kindergarten Name Role Phone Fidelina Purcell MD Primary Care Provider [phone] Encounter Details Date Type Department Care Team (Late st Contact Info) Description 05/23/2016 Documentation [facility] [place] [address] [place] [address] Family Medicine, Physician [address] [place], [place] [phone] Social History Tobacco Use Types Packs/Day Years [...] on filedocumented in this encounter Care Teams Teacher Kindergarten Relationship Specialty Start Date End Date Fidelina Purcell MD [address] [place] [address] PCP - General 12/01/16 07/23/22 documented as of this encounter
--- OUTSIDE RECORDS SUMMARY | 2025-04-20 06:59 | XMS_ITS | Encounter Summary ---
Author Organization [facility] Address [address] [place] [address] Phone Care Team Providers Care Seed Sorter Name Role Phone Fidelina Purcell MD Primary Care Provider Encounter Details Date Type Department Care Team (Late st Contact Info) Description 10/23/2009 Documentation [facility] Family [facility] [address] [place] [address] Family Medicine, Physician [address] [place], [place] [phone] Social History Tobacco Use Types Packs/Day Years [...] on filedocumented in this encounter Care Teams Seed Sorter Relationship Specialty Start Date End Date Fidelina Purcell MD [address] [place] [address] [place] [address] PCP - General 12/01/16 07/23/22 documented as of this encounter
--- OUTSIDE RECORDS SUMMARY | 2025-04-20 06:59 | XMS_ITS | Encounter Summary ---
Author Organization [facility] Address [address] [place] [address] Phone Care Team Providers Care Cargo And Container Inspector Name Role Phone Fidelina Purcell MD Primary Care Provider Encounter Details Date Type Department Care Team (Late st Contact Info) Description 03/03/2013 Documentation [facility] [place] [address] [place] [address] Family Medicine, Physician [address] [place], [place] [phone] Social History Tobacco Use Types Packs/Day Years [...] on filedocumented in this encounter Care Teams Cargo And Container Inspector Relationship Specialty Start Date End Date Fidelina Purcell MD [address] [place] [address] [place] [address] PCP - General 12/01/16 07/23/22 documented as of this encounter
--- OUTSIDE RECORDS SUMMARY | 2025-04-20 06:59 | XMS_ITS | Encounter Summary ---
Author Organization [facility] Address [address] [place] [address] Phone Care Team Providers Care Ring Packer Name Role Phone Fidelina Purcell MD Primary Care Provider Encounter Details Date Type Department Care Team (Late st Contact Info) Description 04/03/[address] [facility] [place] Family [place] [address] [address] Family Medicine, Physician [address] [place], [place] [phone] Social History Tobacco Use Types Packs/Day Years [...] on filedocumented in this encounter Care Teams Ring Packer Relationship Specialty Start Date End Date Fidelina Purcell MD [address] [place] [address] [place] [address] PCP - General 12/01/16 07/23/22 documented as of this encounter
--- OUTSIDE RECORDS SUMMARY | 2025-04-20 06:59 | XMS_ITS | Encounter Summary ---
Author Organization [facility] Address [address] [place] [address] Phone Care Team Providers Care Professor Of Biostatistics Name Role Phone Fidelina Purcell MD Primary Care Provider Encounter Details Date Type Department Care Team (Late st Contact Info) Description 05/08/2013 Documentation [facility] [place] Family Medicine [address] [place] [address] Family Medicine, Physician [address] [place], [place] [phone] Social History Tobacco Use Types Packs/Day Years [...] in this encounter Care Teams Professor Of Biostatistics Relationship Specialty Start Date End Date Fidelina Purcell MD [address] [place] [address] [place] [address] PCP - General 12/01/16 07/23/22 documented as of this encounter
--- OUTSIDE RECORDS SUMMARY | 2025-04-20 06:59 | XMS_ITS | Encounter Summary ---
Author Organization [facility] Address [address] [place] [address] Phone Care Team Providers Care Collet Driller Name Role Phone Fidelina Purcell MD Primary Care Provider Encounter Details Date Type Department Care Team (Late st Contact Info) Description 06/13/2011 Documentation [facility] [place] [address] [place] [address] Family Medicine, Physician [address] [place], [place] [phone] Social History Tobacco Use Types Packs/Day Years [...] on filedocumented in this encounter Care Teams Collet Driller Relationship Specialty Start Date End Date Fidelina Purcell MD [address] [place] [address] PCP - General 12/01/16 07/23/22 documented as of this encounter
--- OUTSIDE RECORDS SUMMARY | 2025-04-20 07:00 | XMS_ITS | Encounter Summary ---
Author Organization [facility] Address [address] [place] [address] Phone Care Team Providers Care Senior Internet Sales Consultant Name Role Phone Fidelina Purcell MD Primary Care Provider [phone] Encounter Details Date Type Department Care Team (Late st Contact Info) Description 07/05/2012 Documentation [facility] [place] [address] [place] [address] Family Medicine, Physician [address] [place], [place] [phone] Social History Tobacco Use Types Packs/Day Years [...] filedocumented in this encounter Care Teams Senior Internet Sales Consultant Relationship Specialty Start Date End Date Fidelina Purcell MD [address] [place] [address] [place] [address] PCP - General 12/01/16 07/23/22 documented as of this encounter
--- OUTSIDE RECORDS SUMMARY | 2025-04-20 07:00 | XMS_ITS | Encounter Summary ---
Author Organization [facility] Address [address] [place] [address] Phone Care Team Providers Care Quad Stayer Name Role Phone Fidelina Purcell MD Primary Care Provider Encounter Details Date Type Department Care Team (Late st Contact Info) Description 02/02/2012 Documentation [facility] [place] Family Medicine [address] [place] [address] Family Medicine, Physician [address] [place], [place] [phone] Social History Tobacco Use Types Packs/Day Years [...] on filedocumented in this encounter Care Teams Quad Stayer Relationship Specialty Start Date End Date Fidelina Purcell MD [address] [place] [address] PCP - General 12/01/16 07/23/22 documented as of this encounter
--- OUTSIDE RECORDS SUMMARY | 2025-04-20 07:00 | XMS_ITS | Encounter Summary ---
Author Organization [facility] Address [address] [place] [address] Phone Care Team Providers Care Drill Punch Operator Name Role Phone Fidelina Purcell MD Primary Care Provider Encounter Details Date Type Department Care Team (Late st Contact Info) Description 02/02/2012 Documentation [facility] [place] [address] [place] [address] Family Medicine, Physician [address] [place], [place] [phone] Social History Tobacco Use Types Packs/Day Years [...] on filedocumented in this encounter Care Teams Drill Punch Operator Relationship Specialty Start Date End Date Fidelina Purclel MD [address] [place] [address] PCP - General 12/01/16 07/23/22 documented as of this encounter
--- OUTSIDE RECORDS SUMMARY | 2025-04-20 07:00 | XMS_ITS | Encounter Summary ---
Author Organization [facility] Address [address] [place] [address] Phone Care Team Providers Care Precision Honer Name Role Phone Fidelina Purcell MD Primary Care Provider [phone] Encounter Details Date Type Department Care Team (Late st Contact Info) Description 04/17/2012 Documentation [facility] [place] Family Medicine [address] [place] [address] Family Medicine, Physician [address] [place], [place] [phone] Social History Tobacco Use Types Packs/Day Years [...] on filedocumented in this encounter Care Teams Precision Honer Relationship Specialty Start Date End Date Fidelina Purcell MD [address] [place] [address] PCP - General 12/01/16 07/23/22 documented as of this encounter
--- OUTSIDE RECORDS SUMMARY | 2025-04-20 07:00 | XMS_ITS | Encounter Summary ---
Author Organization [facility] Address [address] [place] [address] Phone Care Team Providers Care Solution Sales Senior Executive Name Role Phone Fidelina Purcell MD Primary Care Provider [phone] Encounter Details Date Type Department Care Team (Late st Contact Info) Description 04/04/2016 Documentation [facility] [place] [address] [place] [address] Family Medicine, Physician [address] [place], [place] [phone] Social History Tobacco Use Types Packs/Day Years [...] on filedocumented in this encounter Care Teams Solution Sales Senior Executive Relationship Specialty Start Date End Date Fidelina Purcell MD [address] [place] [address] PCP - General 12/01/16 07/23/22 documented as of this encounter
--- OUTSIDE RECORDS SUMMARY | 2025-04-20 07:00 | XMS_ITS | Clinical Summary ---
Author Organization [facility] Address [address] [place] [address] Phone Care Team Providers Care Stranding Machine Operator Helper Name Role Phone Unavailable Primary Care Provider [...] complete this topic Procedures * Due to [place] [employer] law, this organization might not be sharing sensitive test results. Procedure Name Priority Date/Time Associated Diagnosis Comments CHLAMYDIA AND GONORRHEA, AMPLIFIED Routine 05/16/2013 4:04 PM EST from Last 3 Months or Most Recently Relevant to Health Maintenance Results * Due to [place] [employer] law, this organization might not be sharing sensitive test results. * Chlamydia and Gonorrhoea, Amplified (05/16/2013 4:04 PM EST) URINE CHLAMYDIA AMP PROBE NEGATIVE [facility] Comment: NO CHLAMYDIA TRACHOMATIS RNA DETECTED IN THIS PATIENT'S SAMPLE. (REFERENCE RANGE/NORMAL VALUE: NOT DETECTED) URINE GC AMP PROBE NEGATIVE [facility] Comment: NO NEISSERIA GONORRHOEAE RNA DETECTED IN THIS PATIENT'S SAMPLE. (REFERENCE RANGE/NORMAL VALUE: NOT DETECTED) NOTE: THIS TEST USES TIP SCOURER-MEDIATED AMPLIFICATION METHOD TO DETECT rRNA FROM C.TRACHOMATIS [...] OF INFECTION. Testing performed or reported by [facility], a Service of [facility], [address] [place] [address] Erik Pompa, Image Assembler 05/16/2013 4:04 PM EST Narrative [facility] - 05/16/2013 4:04 PM EST URINE CHLAMYDIA GC AMP PROBE us Fidelina Purcell MD LAB MICROBIOLOGY - GENERAL O RDERABLES Final Result [facility] [address] [place] [address], [place] from Last 3 Months or Most Recently Relevant to Health Maintenance
--- OUTSIDE RECORDS SUMMARY | 2025-04-20 07:00 | XMS_ITS | Encounter Summary ---
Author Organization [facility] Address [address] [place] [address] Phone Care Team Providers Care Mobile Nurse Name Role Phone Fidelina Purcell MD Primary Care Provider Encounter Details Date Type Department Care Team (Late st Contact Info) Description 08/22/2016 Documentation [facility] [place] Family Medicine [address] [place] [address] Family Medicine, Physician [address] [place], [place] [phone] Social History Tobacco Use Types Packs/Day Years [...] on filedocumented in this encounter Care Teams Mobile Nurse Relationship Specialty Start Date End Date Fidelina Purcell MD [address] [place] [address] PCP - General 12/01/16 07/23/22 documented as of this encounter
--- OUTSIDE RECORDS SUMMARY | 2025-04-20 07:00 | XMS_ITS | Encounter Summary ---
Author Organization [facility] Address [address] [place] [address] Phone Care Team Providers Care Phlebotomist Associate Name Role Phone Fidelina Purcell MD Primary Care Provider Encounter Details Date Type Department Care Team (Late st Contact Info) Description 05/29/2012 Documentation [facility] [place] [address] [place] [address] Family Medicine, Physician [address] [place], [place] [phone] Social History Tobacco Use Types Packs/Day Years [...] on filedocumented in this encounter Care Teams Phlebotomist Associate Relationship Specialty Start Date End Date Fidelina Purcell MD [address] [place] [address] [place] [address] PCP - General 12/01/16 07/23/22 documented as of this encounter
--- OUTSIDE RECORDS SUMMARY | 2025-04-20 07:00 | XMS_ITS | Encounter Summary ---
Author Organization [facility] Address [address] [place] [address] Phone Care Team Providers Care High School Sports Coach Name Role Phone Fidelina Purcell MD Primary Care Provider Encounter Details Date Type Department Care Team (Late st Contact Info) Description 09/19/2011 Documentation [facility] [place] Family [place] [address] [place] [address] Family Medicine, Physician [address] [place], [place] [phone] Social History Tobacco Use Types Packs/Day Years [...] on filedocumented in this encounter Care Teams High School Sports Coach Relationship Specialty Start Date End Date Fidelina Purcell MD [address] [place] [address] PCP - General 12/01/16 07/23/22 documented as of this encounter
--- OUTSIDE RECORDS SUMMARY | 2025-04-20 07:00 | XMS_ITS | Encounter Summary ---
Author Organization [facility] Address [address] [place] [address] Phone Care Team Providers Care Data Management Analyst Name Role Phone Fidelina Purcell MD Primary Care Provider Encounter Details Date Type Department Care Team (Late st Contact Info) Description 02/24/2016 Documentation [facility] [place] [address] [place] [address] Family Medicine, Physician [address] [place], [place] [phone] Social History Tobacco Use Types Packs/Day Years [...] on filedocumented in this encounter Care Teams Data Management Analyst Relationship Specialty Start Date End Date Fidelina Purcell MD [address] [place] [address] PCP - General 12/01/16 07/23/22 documented as of this encounter
--- OUTSIDE RECORDS SUMMARY | 2025-04-20 07:00 | XMS_ITS | Encounter Summary ---
Author Organization [facility] Address [address] [place] [address] Phone Care Team Providers Care Coreroom Foundry Laborer Name Role Phone Fidelina Purcell MD Primary Care Provider Encounter Details Date Type Department Care Team (Late st Contact Info) Description 10/08/2015 Documentation [facility] [place] [address] [place] [address] Family Medicine, Physician [address] [place], [place] [phone] Social History Tobacco Use Types Packs/Day Years [...] on filedocumented in this encounter Care Teams Coreroom Foundry Laborer Relationship Specialty Start Date End Date Fidelina Purcell MD [address] [place] [address] PCP - General 12/01/16 07/23/22 documented as of this encounter
--- OUTSIDE RECORDS SUMMARY | 2025-04-20 07:00 | XMS_ITS | Encounter Summary ---
Author Organization [facility] Address [address] [place] [address] Phone Care Team Providers Care Administrator Pesticide Name Role Phone Fidelina Purcell MD Primary Care Provider Encounter Details Date Type Department Care Team (Late st Contact Info) Description 10/16/2011 Documentation [facility] [place] [address] [place] [address] Family Medicine, Physician [address] [place], [place] [phone] Social History Tobacco Use Types Packs/Day Years [...] on filedocumented in this encounter Care Teams Administrator Pesticide Relationship Specialty Start Date End Date Fidelina Purcell MD [address] [place] [address] PCP - General 12/01/16 07/23/22 documented as of this encounter
--- OUTSIDE RECORDS SUMMARY | 2025-04-20 07:00 | XMS_ITS | Encounter Summary ---
Author Organization [facility] Address [address] [place] [address] Phone Care Team Providers Care Supervisor Drilling And Shooting Name Role Phone Fidelina Purcell MD Primary Care Provider Encounter Details Date Type Department Care Team (Late st Contact Info) Description 11/23/2015 Documentation [facility] [place] [address] [place] [address] Family Medicine, Physician [address] [place], [place] [phone] Social History Tobacco Use Types Packs/Day Years [...] filedocumented in this encounter Care Teams Supervisor Drilling And Shooting Relationship Specialty Start Date End Date Fidelina Purcell MD [address] [place] [address] PCP - General 12/01/16 07/23/22 documented as of this encounter
--- OUTSIDE RECORDS SUMMARY | 2025-04-20 07:00 | XMS_ITS | Encounter Summary ---
Author Organization [facility] Address [address] [place] [address] Phone Care Team Providers Care Engineering Librarian Name Role Phone Fidelina Purcell MD Primary Care Provider Encounter Details Date Type Department Care Team (Late st Contact Info) Description 06/13/2012 Documentation [facility] [place] Family [place] [address] [place] [address] Family Medicine, Physician [address] [place], [place] [phone] Social History Tobacco Use Types Packs/Day Years [...] on filedocumented in this encounter Care Teams Engineering Librarian Relationship Specialty Start Date End Date Fidelina Purcell MD [address] [place] [address] [place] [address] PCP - General 12/01/16 07/23/22 documented as of this encounter
--- OUTSIDE RECORDS SUMMARY | 2025-04-20 07:00 | XMS_ITS | Encounter Summary ---
Author Organization [facility] Address [address] [place] [address] Phone Care Team Providers Care Clinical Support Associate Name Role Phone Fidelina Purcell MD Primary Care Provider Encounter Details Date Type Department Care Team (Late st Contact Info) Description 07/04/2012 Documentation [facility] [place] [address] [place] [address] Family Medicine, Physician [address] [place], [place] [phone] Social History Tobacco Use Types Packs/Day Years [...] on filedocumented in this encounter Care Teams Clinical Support Associate Relationship Specialty Start Date End Date Fidelina Purcell MD [address] [place] [address] [place] [address] PCP - General 12/01/16 07/23/22 documented as of this encounter
--- OUTSIDE RECORDS SUMMARY | 2025-04-20 07:00 | XMS_ITS | Encounter Summary ---
Author Organization [facility] Address [address] [place] [address] Phone Care Team Providers Care Concrete Panel Installer Name Role Phone Fidelina Purcell MD Primary Care Provider Encounter Details Date Type Department Care Team (Late st Contact Info) Description 04/22/2010 Documentation [facility] [place] [address] [place] [address] Family Medicine, Physician [address] [place], [place] [phone] Social History Tobacco Use Types Packs/Day Years [...] on filedocumented in this encounter Care Teams Concrete Panel Installer Relationship Specialty Start Date End Date Fidelina Purcell MD [address] [place] [address] PCP - General 12/01/16 07/23/22 documented as of this encounter
--- OUTSIDE RECORDS SUMMARY | 2025-04-20 07:00 | XMS_ITS | Encounter Summary ---
Author Organization [facility] Address [address] [place] [address] Phone Care Team Providers Care Facer Operator Name Role Phone Fidelina Purcell MD Primary Care Provider [phone] Encounter Details Date Type Department Care Team (Late st Contact Info) Description 11/22/2015 Documentation [facility] [place] [address] [place] [address] Family Medicine, Physician [address] [place], [place] [phone] Social History Tobacco Use Types Packs/Day Years [...] on filedocumented in this encounter Care Teams Facer Operator Relationship Specialty Start Date End Date Fidelina Purcell MD [address] [place] [address] PCP - General 12/01/16 07/23/22 documented as of this encounter
--- OUTSIDE RECORDS SUMMARY | 2025-04-20 07:00 | XMS_ITS | Encounter Summary ---
Author Organization [facility] Address [address] [place] [address] Phone Care Team Providers Care Neuropsychology Service Director Name Role Phone Fidelina Purcell MD Primary Care Provider Encounter Details Date Type Department Care Team (Late st Contact Info) Description 04/04/2016 Documentation [facility] [place] [address] [place] [address] Family Medicine, Physician [address] [place], [place] [phone] Social History Tobacco Use Types Packs/Day Years [...] on filedocumented in this encounter Care Teams Neuropsychology Service Director Relationship Specialty Start Date End Date Fidelina Purcell MD [address] [place] [address] PCP - General 12/01/16 07/23/22 documented as of this encounter
--- OUTSIDE RECORDS SUMMARY | 2025-04-20 07:00 | XMS_ITS | Encounter Summary ---
Author Organization [facility] Address [address] [place] [address] Phone Care Team Providers Care Photographic Aide Name Role Phone Fidelina Purcell MD Primary Care Provider Encounter Details Date Type Department Care Team (Late st Contact Info) Description 11/08/2012 Documentation [facility] [place] [address] [place] [address] Family Medicine, Physician [address] [place], [place] [phone] Social History Tobacco Use Types Packs/Day Years [...] on filedocumented in this encounter Care Teams Photographic Aide Relationship Specialty Start Date End Date Fidelina Purcell MD [address] [place] [address] [place] [address] PCP - General 12/01/16 07/23/22 documented as of this encounter
--- OUTSIDE RECORDS SUMMARY | 2025-04-20 07:00 | XMS_ITS | Encounter Summary ---
Author Organization [facility] Address [address] [place] [address] Phone Care Team Providers Care Associate Professor Of Chemistry Name Role Phone Fidelina Purcell MD Primary Care Provider Encounter Details Date Type Department Care Team (Late st Contact Info) Description 08/21/2012 Documentation [facility] [place] Family Medicine [address] [place] [address] Family Medicine, Physician [address] [place], [place] [phone] Social History Tobacco Use Types Packs/Day Years [...] on filedocumented in this encounter Care Teams Associate Professor Of Chemistry Relationship Specialty Start Date End Date Fidelina Purcell MD [address] [place] [address] [place] [address] PCP - General 12/01/16 07/23/22 documented as of this encounter
--- OUTSIDE RECORDS SUMMARY | 2025-04-20 07:00 | XMS_ITS | Encounter Summary ---
Author Organization [facility] Address [address] [place] [address] Phone Care Team Providers Care Fabric Coating Supervisor Name Role Phone Fidelina Purcell MD Primary Care Provider Encounter Details Date Type Department Care Team (Late st Contact Info) Description 02/20/2012 Document[place] [facility] [place] [address] [place] [address] Family Medicine, Physician [address] [place], [place] [phone] Social History Tobacco Use Types Packs/Day Years [...] on filedocumented in this encounter Care Teams Fabric Coating Supervisor Relationship Specialty Start Date End Date Fidelina Purcell MD [address] [place] [id number] PCP - General 12/01/16 07/23/22 documented as of this encounter
--- OUTSIDE RECORDS SUMMARY | 2025-04-20 07:00 | XMS_ITS | Encounter Summary ---
Author Organization [facility] Address [address] [place] [address] Phone Care Team Providers Care Plant Health Manager Name Role Phone Fidelina Purcell MD Primary Care Provider [phone] Encounter Details Date Type Department Care Team (Late st Contact Info) Description 01/29/2015 Documentation [facility] [place] Family Medicine [address] [place] [address] Family Medicine, Physician [address] [place], [place] [phone] Social History Tobacco Use Types Packs/Day Years [...] on filedocumented in this encounter Care Teams Plant Health Manager Relationship Specialty Start Date End Date Fidelina Purcell MD [address] [place] [id number] PCP - General 12/01/16 07/23/22 documented as of this encounter
--- OUTSIDE RECORDS SUMMARY | 2025-04-20 07:00 | XMS_ITS | Encounter Summary ---
Author Organization [facility] Address [address] [place] [address] Phone Care Team Providers Care Insurance Adjuster Name Role Phone Fidelina Purcell MD Primary Care Provider [phone] Encounter Details Date Type Department Care Team (Late st Contact Info) Description 11/22/2015 Documentation [facility] [place] [address] [place] [address] Family Medicine, Physician [address] [place], [place] [phone] Social History Tobacco Use Types Packs/Day Years [...] on filedocumented in this encounter Care Teams Insurance Adjuster Relationship Specialty Start Date End Date Fidelina Purcell MD [address] [place] [address] PCP - General 12/01/16 07/23/22 documented as of this encounter
--- OUTSIDE RECORDS SUMMARY | 2025-04-20 07:00 | XMS_ITS | Encounter Summary ---
Author Organization [facility] Address [address] [place] [address] Phone Care Team Providers Care Career Technology Teacher Name Role Phone Fidelina Purcell MD Primary Care Provider Encounter Details Date Type Department Care Team (Late st Contact Info) Description 01/21/2010 Documentation [facility] Family Medicine [address] [place] [address] Family Medicine, Physician [address] [place], [place] [phone] Social History Tobacco Use Types Packs/Day Years [...] on filedocumented in this encounter Care Teams Career Technology Teacher Relationship Specialty Start Date End Date Fidelina Purcell MD [address] [place] [phone] PCP - General 12/01/16 07/23/22 documented as of this encounter
[2025-04-20 07:16] VITALS: BP 190/90; PULSE 102; O2SAT 97
--- NOTE | 2025-04-20 07:24 | PC.NURSE ---
Patient presented to ED via EMS with stroke alert. Per patient she woke up this morning at 0615 and noticed left hand weakness and numbness. She was previously awake at 2330 last night and was at baseline. Called EMS due to weakness. Noted here to have left hand weakness on exam. Speech does seem mildly slurred. Mild left facial droop on exam. Drift noted in left arm on exam. AOx4. IV established and patient in CT scan.
[2025-04-20 07:52] VITALS: BP 105/72; PULSE 89; RESP 14; TEMP 36.8; O2SAT 95
--- NOTE | 2025-04-20 08:06 | MHC.EDTECH ---
during blood draw needle came out of patient arm early while green gel was being collected. was able to collect a small amount of blood, i asked patient if it was okay to draw again , patient refusing another draw .
[2025-04-20 08:08] LABS: MANUAL DIFF FLAG NO
[2025-04-20 08:11] LABS: Hematocrit 36.0 % (37.0-47.0); Hemoglobin 12.2 g/dl (12.0-16.0); Imm Gran Abs Auto 0.04 X10*3/uL (0.00-0.03); Imm Gran Pct Auto 0.4 % (0.0-0.4); Lymphocytes Absolute Auto 1.6 X10*3/uL (1.2-4.9); Mean Corpuscular HGB Conc 33.9 g/dl (31.0-35.0); Mean Corpuscular Hemoglobin 29.2 pg (27.0-33.0); Mean Corpuscular Volume 86.1 fL (80.0-98.0); NRBC Abs Auto 0.000 X10*3/uL (0.0-0.012); NRBC Pct Auto 0.0 /100WBC (0.0-0.2); Platelet Count 268 X10*3/uL (160-400); Red Blood Count 4.18 X10*6/uL (4.20-5.50); White Blood Count 9.3 X10*3/uL (4.8-10.8)
[2025-04-20 08:30] LABS: Alanine Aminotransferase 13 U/L (0-31); Albumin Level 3.4 g/dL (3.5-5.0); Alkaline Phosphatase 57 U/L (39-117); Anion Gap 11 (12-20); Aspartate Amino Transferase 21 U/L (5-31); Blood Urea Nitrogen 12 mg/dL (9-16); Calcium 8.7 mg/dL (8.4-10.2); Carbon Dioxide 21 mmol/L (22-29); Chloride 111 mmol/L (96-108); Creatinine Clr Calc Pharmacy 156.1; Estimated Glomerular Filt Rate > 60; Magnesium 2.3 mg/dL (1.6-2.6); Potassium 3.9 mmol/L (3.3-5.1); Sodium 139 mmol/L (135-145); Total Protein 6.3 g/dL (6.5-8.0)
[2025-04-20 09:14] VITALS: BP 104/71; PULSE 91; RESP 18; TEMP 35.8; O2SAT 97
== END 2025-04-20 09:15 | disposition home or self-care (01) ==
PROVIDERS: Emergency Provider Emergency Medicine; PCP Family Medicine
DX: M25.531 Pain in right wrist (principal); M79.601 Pain in right arm; F41.1 Generalized anxiety disorder; F43.0 Acute stress reaction; R94.31 Abnormal electrocardiogram [ECG] [EKG]; M77.21 Periarthritis, right wrist; Z87.891 Personal history of nicotine dependence; Z79.899 Other long term (current) drug therapy
CPT/HCPCS: 29125; 36415; 80048; 80076; 83735; 84702; 85025; 93005; 96372; 99284; J1885

== ENCOUNTER → 2025-04-20 06:37 | Outpatient (BNV) | payer OTHER, SELFPAY | PROVIDERS: Emergency Provider Emergency Medicine; PCP Family Medicine; Visit Provider Internal Medicine | DX: R94.31 Abnormal electrocardiogram [ECG] [EKG] (principal); T50.901A Poisoning by unspecified drugs, medicaments and biological substances, accidental (unintentional), initial encounter | CPT/HCPCS: 93010 ==